=== PATIENT | female | born 1980 | race Caucasian/White ===

== ENCOUNTER 2022-11-27 12:11 | Outpatient (OUT) | payer OTHER, SELFPAY ==
--- NOTE | 2022-11-27 12:21 | MR_ITS ---
The [address] [address] Patient Name: AURELIO TAYLOR MRN: [id number] date: 1980 Sex: F Assigned Patient Location: MRI Current Patient Location: MRI Accession/Order Number: [id number] Exam Date: 11/27/2022 12:45 Report Date: 11/27/2022 16:58 At the request of: NON-STAFF PHYSICIAN Procedure: MR hip RT wo con HISTORY: Chronic right hip pain for the past 5 years becoming worse over the past year. Evaluate for labral tear. MR hip RT wo con: 11/27/2022, 12:45 PM EDT COMPARISON: CT scan of the abdomen and pelvis 03/03/2019. TECHNIQUE: Multiplanar, multisequence MRI images of the pelvis and right hip were obtained without contrast. FINDINGS: The bone marrow signal intensity is age appropriate. There again appear to be postsurgical changes from prior hysterectomy. Within the anterior aspect of the left side of the pelvis there is a complex cystlike focus. This measures 2.4 x 2.9 x 3.3 cm in transverse, AP, and craniocaudal dimension respectively. There again appear to be at least mild degenerative changes of the sacroiliac joints. There is a moderate amount of loculated fluid signal intensity seen along the anterior aspect of the left hip and this appears to be located within the iliopsoas bursa. The images of the right hip demonstrate mild hypoplasia of the acetabulum resulting in mild uncovering of the lateral aspect of the right femoral head. However, no labral tear or significant chondromalacia of the right hip is seen. There is no evidence of avascular necrosis or fracture of the right hip. No trochanteric or iliopsoas bursitis is seen. No gluteal tendinopathy is seen. No muscle edema is identified. MR/MR hip RT wo con IMPRESSION: 1. 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 However, no labral tear or significant chondromalacia of the right hip is seen. 2. There is a complex cystlike focus in the anterior aspect of the left side of the pelvis measuring approximately 2.4 x 2.9 x 3.3 cm. Although this most likely represents the left ovary containing small cysts or follicles, it is nonspecific. As a precautionary measure, a pelvic ultrasound with color Doppler analysis of this finding is recommended for further evaluation. 3. There is a probable moderate iliopsoas bursitis along the anterior aspect of the left hip joint. 4. Mild osteoarthritis of the sacroiliac joints. Electronically authenticated by: TYRONE MICHAUD Date: 11/27/2022 16:58
== END 2022-11-27 12:12 | disposition home or self-care (01) ==
LOC: MRI 12:15
PROVIDERS: PCP Family Medicine
DX: M25.551 Pain in right hip (principal)
CPT/HCPCS: 73721

== ENCOUNTER 2023-02-04 15:43 | Outpatient (RCR) | payer OTHER, SELFPAY | END 2023-03-15 07:48 | disposition home or self-care (01) | LOC: PT 15:43 | PROVIDERS: PCP Family Medicine; Visit Provider Nurse Practitioner Family | DX: M25.512 Pain in left shoulder (principal); S43.422D Sprain of left rotator cuff capsule, subsequent encounter | CPT/HCPCS: 97110; 97140; 97162 ==

== ENCOUNTER 2023-03-11 12:42 | Outpatient (OUT) | payer OTHER, SELFPAY ==
--- NOTE | 2023-03-11 12:51 | US_ITS ---
[address] [address] Patient Name: AURELIO TAYLOR MRN: [id number] date: 1980 Sex: F Assigned Patient Location: Current Patient Location: US Accession/Order Number: [id number] Exam Date: 03/11/2023 12:52 Report Date: 03/11/2023 15:45 At the request of: CHRISTY NOBLE Procedure: US carotid duplex BI EXAMINATION: US carotid duplex BI HISTORY: Dizziness R42 COMPARISON: No relevant comparison available. TECHNIQUE: Duplex Doppler ultrasound analysis of carotid and vertebral arteries. . Bilateral carotid arterial duplex examination was performed using B-mode, color flow and spectral analysis. Carotid stenosis is reported according to validated velocity parameters, similar to NASCET criteria. FINDINGS: RIGHT CAROTID ARTERY: No visible stenosis or significant plaque. RIGHT VERTEBRAL: Antegrade flow. Subclavian: PSV: 97.7 cm/s EDV: 6.7 cm/s CCA: Prox: PSV: 80.9 cm/s EDV: 20.4 cm/s Mid: PSV: 72.1 cm/s EDV: 22.6 cm/s Distal: PSV: 60.0 cm/s EDV: 25.9 cm/s BULB: PSV: 33.5 cm/s EDV: 13.8 cm/s ICA: Prox: PSV: 93.0 cm/s EDV: 46.8 cm/s Mid: PSV: 95.2 cm/s EDV: 39.1 cm/s Distal: PSV: 106.9 cm/s EDV: 44.8 cm/s ECA: PSV: 68.6 cm/s EDV: 13.6 cm/s VERTEBRAL: PSV: 56.3 cm/s EDV: 17.1 cm/s ICA/CCA ratio: PSV: 1.8 EDV: 1.7 LEFT CAROTID ARTERY: No visible stenosis or significant plaque. LEFT VERTEBRAL: Antegrade flow. Subclavian: PSV: 149.6 cm/s EDV: 0.0 cm/s CCA: Prox: PSV: 95.1 cm/s EDV: 27.3 cm/s Mid: PSV: 57.5 cm/s EDV: 20.0 cm/s Distal: PSV: 52.4 cm/s EDV: 17.9 cm/s BULB: PSV: 43.6 cm/s EDV: 20.1 cm/s ICA: Prox: PSV: 53.7 cm/s EDV: 26.7 cm/s Mid: PSV: 84.9 cm/s EDV: 43.5 cm/s Distal: PSV: 105.9 cm/s EDV: 47.8 cm/s ECA: PSV: 82.0 cm/s EDV: 17.1 cm/s VERTEBRAL: PSV: 51.2 cm/s EDV: 18.2 cm/s ICA/CCA ratio: PSV: 2.0 EDV: 2.7 US/US carotid duplex BI IMPRESSION: 1. 0-49% flow stenosis within the right left carotid arteries. No significant atherosclerotic disease. 2. Nonspecific 9 mm TR 3 nodule noted within right thyroid lobe; consider ultrasound evaluation of thyroid if clinically indicated otherwise consider follow-up imaging in one year to document nodule stability. Spectral Doppler US Thresholds Stenosis (%) PSV (cm/sec) VICA/VCCA 0-49 <150 <2.5 50-69 150-225 2.5-4.0 >70 >225 >4.0 Electronically authenticated by: ROSHAN CARDENAS Date: 03/11/2023 15:45
== END 2023-03-11 12:43 | disposition home or self-care (01) ==
LOC: US 12:43
PROVIDERS: PCP Family Medicine; Visit Provider Family Medicine
DX: R42 Dizziness and giddiness (principal)
CPT/HCPCS: 93880

== ENCOUNTER 2023-03-16 09:55 | Outpatient (RCR) | payer OTHER, SELFPAY | END 2023-04-24 16:54 | disposition home or self-care (01) | LOC: PT 09:55 | PROVIDERS: PCP Family Medicine; Visit Provider Nurse Practitioner Family | DX: Z98.890 Other specified postprocedural states (principal); M25.512 Pain in left shoulder | CPT/HCPCS: 97110 ==

== ENCOUNTER 2023-04-07 09:32 | Outpatient (OUT) | payer OTHER, SELFPAY ==
--- OUTSIDE RECORDS SUMMARY | 2023-04-07 09:37 | XMS_ITS | CCD ---
Author Name Unknown Address [address] [place] [address] Organization [facility] Care Team Providers Care 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 Name Role Phone PHYSICIAN, DEFAULT Admitting Unavailable PHYSICIAN, DEFAULT Attending Unavailable PHYSICIAN, DEFAULT Admitting Unavailable PHYSICIAN, DEFAULT Attending Unavailable Shawnee Merida Unavailable CLARE NOBLE K Primary Care Physician [phone] Rumarun Clare Unavailable Rumarun Clare Primary Care Provider Rumschlag, Clare Unavailable Rumschlag Clare Primary Care Provider MISC, DR MILLIGAN Consulting Unavailable MISC, DR MILLIGAN Attending Unavailable MISC, DR MILLIGAN Admitting Unavailable MISC, DR MILLIGAN Primary Care Unavailable ZIEBER, DR ROSHAN Lane Consulting Unavailable APLING, INOCENCIO Vashti Admitting Unavailable APLING, INOCENCIO Vashti Attending Unavailable MISC, DR MILLIGAN Primary Care Unavailable APLING, INOCENCIO Kingston Admitting Unavailable APLING, INOCENCIO Kingston Consulting Unavailable APLING, INOCENCIO Kingston Attending Unavailable MISC, DR MILLIGAN Primary Care Unavailable ADRIAN ANDERSEN Consulting Unavailable TIMMIS, DR LEBLANC Admitting Unavailable TIMMIS, DR LEBLANC Consulting Unavailable TIMMIS, DR LEBLANC Attending Unavailable MISC, DR MILLIGAN Primary Care Unavailable ZIEBER, DR ROSHAN Lane Consulting Unavailable CLARI BETANCOURT Admitting Unavailable ASIACLARI Consulting Unavailable ASIACLARI SAAB Attending Unavailable MISC, DR MILLIGAN Primary Care Unavailable Rumschlalindsey DO, Clare Unavailable Rumarun COLINDRES Clare Primary Care Provider NANCY CANAS Attending Unavailable ALMASCHALEJAG, CLARE Primary Care Unavailable APURVA DOTSON Referring Unavailable RUMSCHLAG, CLARE Primary Care Unavailable HERNÁN MON Attending Unavailable RUMSCHLAG, CLARE Primary Care Unavailable APURVA DOTSON Attending Unavailable LOUISEAPURVA DIETZ Referring Unavailable FLORESITA, NANCY CRUZ Referring Unavailable CANAS, NANCY CRUZ Attending Unavailable RUMSCHLAG, CLARE Primary Care Unavailable AUDREY MELGOZA Attending Unavailable RUMSCHLAG, CLARE Primary Care Unavailable LOUISEAPURVA Referring Unavailable CANAS, NANCY CRUZ Attending Unavailable RUMSCHLAG, CLARE Primary Care Unavailable CANAS, NANCY NANCY Referring Unavailable CANAS, NANCY NANCY Attending Unavailable RUMSCHLAG, CLARE Primary Care Unavailable RUMSCHLAG, CLARE Primary Care Unavailable HERNÁN MON Attending Unavailable CANAS, NANCY NANCY Attending Unavailable RUMSCHLAG, CLARE Primary Care Unavailable RUMSCHLAG, CLARE Primary Care Unavailable HERNÁN MON Attending Unavailable RUMSCHLAG, CLARE Primary Care Unavailable HERNÁN MON Attending Unavailable CANAS, NANCY NANCY Attending Unavailable RUMSCHLAG, CLARE Primary Care Unavailable Fantasma Rockwell Attending Unavailab le Fantasma Rockwell Admitting Unavailab le Rumschlag, Clare Primary Care Unavailable Timmis, Benji H Admitting Unavailable Timmis Benji H Attending Unavailable Timmis, Benji H Referring Unavailable RUMSCHLAG, CLARE Primary Care Unavailable Rumschlag DO, Clare K Primary Care Provider JACQUELYN LI Attending Unavailable RUMSCHLAG, CLARE K Referring Unavailable RUMSCHLAG, CLARE K Primary Care Unavailable NITZASFRANNIEBENJI H Attending Unavailable INOCENCIO GUERRA Attending Unavailable TIMMISBENJI H Attending Unavailable RUMSCHLAG, CLARE Referring Unavailable INOCENCIO GUERRA Attending Unavailable Allergies Allergy Classification Reported Allergen(s) Allergy Type Date of Onset Reaction(s) Facility (18 sources) Acetaminophen / oxyCODONE Drug Allergy 0 anaphylaxis, Swelling [facility] (20 sources) pregabalin; Translations: [PREGABALIN] Drug Allergy 6 anaphylaxis, Swelling [facility] (1 source) Acetaminophen / oxyCODONE Drug Allergy 3 [facility] (1 source) pregabalin Drug Allergy 6 [facility] (2 sources) Acetaminophen / oxyCODONE; Translations: [OXYCODONE-ACETAM INOPHEN] Drug Allergy 0 [facility] (1 source) Acetaminophen Drug Allergy 9 [facility] (1 source) oxyCODONE Drug Allergy 9 [facility] (1 source) pregabalin Drug Allergy 9 [facility] (2 sources) Adhesive Tape-Silicones; Translations: [ADHESIVE TAPE-SILICONES] Propensity to adverse reactions to drug 7 [facility] Medications Current Medications Medication Drug Class(es) Dates Sig (Normalized) Sig (Original) cetirizine hydrochloride 10 mg oral tablet (17 sources) Histamine-1 Receptor Antagonist Start: 12-24-2021 take 1 tablet by mouth once daily as needed cetirizine (ZyrTEC) 10 mg tablet Take 1 tablet (10 mg total) by mouth daily as needed for allergies. 0 01/20/2022 Active Comment on above: TAKE 1 TABLET BY HOLLIS EVERY DAY NEEDED FOR 30 DAYS DULoxetine (1 source) Serotonin and Norepinephrine Reuptake Inhibitor Cymbalta Active nabumetone 500 mg oral tablet (18 sources) Nonsteroidal Anti-inflammatory Drug Start: 07-22-2021 take 1 tablet by mouth twice daily as needed nabumetone (RELAFEN) 500 mg tablet Take 1 tablet (500 mg total) by mouth 2 (two) times a day as needed. 0 07/22/2021 Active Relafen Active Comment on above: Take 500 mg by mouth . tiZANidine (1 source) Central alpha-2 Adrenergic Agonist Zanaflex Active Completed/Discontinued Medications Medication Drug Class(es) Dates Sig (Normalized) Sig (Original) baclofen 20 mg oral tablet (17 sources) gamma-Aminobutyri c Acid-ergic Agonist Start: 12-18-2021 take 1 tablet by mouth twice daily as needed baclofen (LIORESAL) 20 mg tablet TAKE 1 TABLET BY MOUTH TWICE A DAY NEEDED FOR 90 DAYS 0 12/18/2021 Active Start: 09-04-2021 take 2 tablets by mo sch three times daily baclofen (LIORESAL) 10 mg tablet Take 2 tablets (20 mg total) by mouth 3 (three) times a day. 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] Onset: 05-21-2022 Chronic Mood disorders (2 sources) Depressive disorder; Translations: [Depression, unspecified depression type] 09-23-2022 Chronic Other connective tissue disease (2 sources) Spasm; Translations: [Other muscle spasm] Episodic Other connective tissue disease (4 sources) Impingement syndrome of left shoulder; Translations: [IMPINGEMENT SYNDROME LEFT SHOULDER] Onset: 05-07-2022 Episodic Other hereditary and degenerative nervous system conditions (1 source) Functional movement disorder; Translations: [Extrapyramidal and movement disorder, unspecified] Chronic Other hereditary and degenerative nervous system conditions (1 source) Extrapyramidal and movement disorder, unspecified; Translations: [Functional movement disorder] Onset: 05-21-2022 Chronic Other nervous system disorders (1 source) Neuropathy; Translations: [Polyneuropathy, unspecified] Chronic Other nervous system disorders (4 sources) Chronic pain syndrome; Translations: [CHRONIC PAIN SYNDROME] Onset: 08-01-2021 Chronic Other non-traumatic joint disorders (4 sources) Other specific joint derangements of left shoulder, not elsewhere classified; Translations: [OTH SPEC JOINT DERANG LT SHLDR NEC] Onset: 06-12-2022 Chronic Other non-traumatic joint disorders (1 source) Multiple joint pain; Translations: [Pain in unspecified joint] Episodic Other upper respiratory infections (5 sources) Sinusitis; Translations: [Chronic sinusitis, unspecified] Onset: 12-23-2021 Chronic Spondylosis; intervertebral disc disorders; other back problems (9 sources) Degeneration of cervical intervertebral disc; Translations: [Other cervical disc degeneration, unspecified cervical region] Onset: 02-23-2017 Chronic Spondylosis; intervertebral disc disorders; other back problems (9 sources) Chronic neck pain; Translations: [Cervicalgia] Onset: 07-31-2021 Episodic Unclassified (1 source) APPOINTMENT CANCELLED 11-27-2022 Past or Other Problems Problem Classification Problem Date Documented Da te Episodic/Chronic Other connective tissue disease (1 source) Other enthesopathies, not elsewhere classified Onset: 08-13-2021 Resolved: 08-13-2021 Episodic Other nervous system disorders (4 sources) Unspecified abnormal involuntary movements; Translations: [UNS ABNORMAL INVOLUNTARY MOVEMENTS] Onset: 10-30-2021 Episodic Other non-traumatic joint disorders (1 source) Pain in right wrist Onset: 08-13-2021 Resolved: 08-13-2021 Episodic Substance-related disorders (1 source) Smoker; Translations: [Nicotine dependence, unspecified, uncomplicated] Onset: 02-24-2017 Resolved: 02-24-2017 02-24-2017 Chronic Results Test Name Value Interpretation Reference Range Facility CT Maxillofacial w/o Contras ton 02-25-2023 CT Maxillofacial w/o Contrast Exam Date/Time: 02/24/2023 14:53 EST Reason for Exam: J01.90 Report IMPRESSION: NEGATIVE CT MAXILLOFACIAL STUDY. CT MAXILLOFACIAL WITHOUT INTRAVENOUS CONTRAST MEDIUM. History: Bilateral facial pressure. Technical factors: CT maxillofacial was obtained and 2 mm contiguous axial images were obtained through the osseous structures. Sagittal and coronal reconstruction obtained during postprocessing. Comparison: CT maxillofacial, February 03, 2022.. Findings: Bilateral frontal, ethmoid, sphenoid, and maxillary sinuses are patent. Nasal septum midline. Bilateral ostiomeatal complexes patent. Bilateral mastoid air cells well pneumatized. Bilateral ocular globes, extraocular muscles, optic nerves, retrobulbar fat without anomaly. No fracture. No bone lesion. Radiopaque cutaneous marker identified superficial to lateral base right maxillary sinus. All CT scans at this facility use dose modulation, iterative reconstruction, and/or weight based dosing when appropriate to reduce radiation dose to as low as reasonably achievable. Ordering Provider: Benji Tabor FINAL REPORT Dictated: 02/25/2023 11:57 am Rambo Qiu MD Signed (Electronic Signature): 02/25/2023 11:57 am Signed by: Rambo Qiu MD Transcribed by: JOSE Technologist: RAB [facility] Consent for Treatmenton 02-13 Consent for Treatment [id number] 0TIFF [facility] Physician Orderon 02-16-2023 Physician Order [id number] 0TIFF [facility] Physician Orderon 02-13-2023 Physician Order [id number] TIFF [facility] CNPNon 07-03-2022 CNPN Telephone (NREUS2) CHASITY TAYLOR ([id number]) 1980 F Date Time Provider Department 07/03/22 JOCELYN MACHADO NREUS2 During your visit today, we recorded the following information about you: MALLY Pearce 07/03/2022 1:59 PM Signed [facility] SOCIAL WORK CONSULT NOTE Date of service: July 03, 2022 Today's visit includes: Patient - phone call SW received referral to assist pt in FND follow up. RIKKI introduced self and explained role as member of pt's care team who provides linkage to supportive community resources. RIKKI discussed disability and provided information on how to apply. RIKKI encouraged patient to continue PT treatment and psychology treatment to help with FND symptoms. She reports she has been out of work for 15 months and they need help with finances which is the main reason she wishes to apply for social security. 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 Allergies As of Date: 07/03/2022 Noted Allergy Reaction OXYCODONE-ACETAMINOPHE N 01/16/2010 10 - Anaphylaxis 7 - Swelling PREGABALIN 02/22/2016 10 - Anaphylaxis 7 - Swelling Date Reviewed: 05/21/2022 Reviewed by: Jairo Pacheco - Fully Assessed Reason for Visit: Social Work Consultation [[id number]] Prescriptions as of 07/03/2022 - cetirizine (ZYRTEC) 10 mg tablet TAKE 1 TABLET BY MOUTH EVERY DAY NEEDED FOR 30 DAYS - baclofen (LIORESAL) 20 mg tablet TAKE 1 TABLET BY MOUTH TWICE A DAY NEEDED FOR 90 DAYS - nabumetone (RELAFEN) 500 mg tablet Take 500 mg by mouth. Problem List As Of Date: 07/03/2022 (None) Encounter Status:Closed by JOCELYN MACHADO on 07/03/22 Normal [facility] MRI SHOULDER LT WO CONon MRI SHOULDER LT WO CON EXAM: MRI SHOULDER LT WO CON REASON FOR EXAM: Derangement of left shoulder joint. TECHNIQUE: Multiplanar, multisequence imaging of the left shoulder was performed without contrast COMPARISON: None. FINDINGS: The acromioclavicular joint is congruent with minimal joint space narrowing. There is also broad-based thickening and early ossification the distal coracoacromial ligament compatible with developing subacromial spur, which mildly narrows the super space outlet. Small amount of fluid is present in the subacromial and subdeltoid bursa. Mild thickening and intermediate signal involving the supraspinatus and infraspinatus tendons is consistent with tendinosis. Probable low-grade bursal sided fraying central cuff. No tear identified. The teres minor tendon is intact. The subscapularis tendon is mildly thickened with intermediate signal. No tear. The extracapsular biceps tendon is within the bicipital groove. Intracapsular biceps tendon is unremarkable. The rotator cuff musculature is normal. The humerus is centered on the glenoid. The articular cartilage demonstrates low-grade chondrosis. No detached labral tear identified. No joint effusion. The bone marrow signal is without fracture. The cartilage space is patent. No axillary lymphadenopathy. IMPRESSION: 1. Mild rotator cuff tendinosis with low-grade bursal sided fraying. No tear identified. 2. Intact biceps tendon. 3. Developing subacromial spur with mild subacromial/subdeltoid bursitis. 4. Low-grade chondrosis of the glenohumeral cartilage. 5. No detached labral tear identified. Electronically authenticated by: ADRIAN ANDERSEN Date: 2022-06-13 11:42 Normal [facility] 06-04-2022 CNPN Telephone (PHYTMN) CHASITY TAYLOR ([id number]) 1980 F Date Time Provider Department 06/04/22 SANDY ROMAN PHYTMN During your visit today, we recorded the following information about you: Sandy Roman, PT 06/04/2022 5:39 PM Signed Per patient's request, I called and spoke with someone at her local PT office. I was informed they needed a PT order. Faxed the PT order to them at . Transmission report listed as ok. I also called and spoke with patient to inform her of the above. Advised her to call that office if she doesn't hear from them by end of the week, and to let me know if there are any issues with the order. She did not have any other questions. Advised her to have the local PT contact me if they have any questions. Sandy Roman, PT Allergies As of Date: 06/04/2022 Noted Allergy Reaction OXYCODONE-ACETAMINOPHE N 01/16/2010 10 - Anaphylaxis 7 - Swelling PREGABALIN 02/22/2016 10 - Anaphylaxis 7 - Swelling Date Reviewed: 05/21/2022 Reviewed by: Jairo Pacheco - Fully Assessed Reason for Visit: Follow Up [171] Cmt: Local Physical Therapy Prescriptions as of 06/04/2022 - cetirizine (ZYRTEC) 10 mg tablet TAKE 1 TABLET BY MOUTH EVERY DAY NEEDED FOR 30 DAYS - baclofen (LIORESAL) 20 mg tablet TAKE 1 TABLET BY MOUTH TWICE A DAY NEEDED FOR 90 DAYS - nabumetone (RELAFEN) 500 mg tablet Take 500 mg by mouth. Problem List As Of Date: 06/04/2022 (None) Encounter Status:Closed by SANDY ROMAN on 06/04/22 [facility]PHYTMN[facility] CHASITY TAYLOR ([id number]) 1980 F Date Time Provider Department 06/03/22 SANDY ROMAN During your visit today, we recorded the following information about you: Sandy Roman, PT 06/03/2022 5:56 PM Signed Received message to call patient since her evaluating therapist is currently on leave. Called and spoke with her. She has located a local PT department that is willing to work with her but they want the order and PT plan of care before they will see her. She requested I send the information to them. She provided the following contact information: [facility] ([place], [place]) She gave verbal permission to send them PT orders and PT evaluation note. I looked at their website but they are currently closed. I want to call first to confirm what they are seeking before seeing her (i.e. PT order, eval, and/or information about FND). I will get back to her once I talk with them. Sandy Roman, PT Allergies As of Date: 06/03/2022 Noted Allergy Reaction OXYCODONE-ACETAMINOPHE N 01/16/2010 10 - Anaphylaxis 7 - Swelling PREGABALIN 02/22/2016 10 - Anaphylaxis 7 - Swelling Date Reviewed: 05/21/2022 Reviewed by: Jairo Pacheco - Fully Assessed Reason for Visit: Patient Question [3057] Cmt: Question about local PT Prescriptions as of 06/03/2022 - cetirizine (ZYRTEC) 10 mg tablet TAKE 1 TABLET BY MOUTH EVERY DAY NEEDED FOR 30 DAYS - baclofen (LIORESAL) 20 mg tablet TAKE 1 TABLET BY MOUTH TWICE A DAY NEEDED FOR 90 DAYS - nabumetone (RELAFEN) 500 mg tablet Take 500 mg by mouth. Problem List As Of Date: 06/03/2022 (None) Encounter Status:Closed by SANDY ROMAN on 06/03/22 Normal [facility] CNOVon 05-21-2022 CNOV Office Visit (NREUS2 ) CHASITY TAYLOR ([id number]) 1980 F Date Time Provider Department 05/21/22 1:00 PM NANCY CANAS NREUS2 During your visit today, we recorded the following information about you: Pulse Blood pressure 89/minute 102/63 Nancy Canas MD 05/21/2022 2:49 PM Signed [facility] - NEW PATIENT EVALUATION Referring Provider: Apurva Dotson [address] [facility] [address] Primary Care Provider: Clare Noble DO [address] [facility] [address] Dear Apurva Dotson: Thank you for referring Ms. Taylor to our clinic today. As you know she is a 42 year old left-handed female who is seen in consultation for evaluation of functional neurological disorder since . referred by Dr. Dotson She is seen with her . Subjective HISTORY OF PRESENT ILLNESS: Initial HPI Patient is referred by Dr. Apurva Dotson for evaluation of functional movement/neurological disorder. Patient has seen [facility]-psychology virtually, and is scheduled for the neuro visit (this one) and PT visit later today. 2016 - She had extreme neck pain, migraines, tremor in right arm/leg. She was found to have cervical spine disc disease and subsequently underwent cervical spine fusion in 2016 with temporary improvement in the symptoms. She continued to have intermittent kicking movement of the right arm/leg. 2020 - she started to have locking of fingers in left hand. 2021 - Symptoms continued to get worse, she has intermittent speech changes, body shaking, gait difficulty. She has brain fog and memory issues. She shows a video of her gait that appears like a bouncy gait with astasia abasia features. She had brain MRI, EMG which were unremarkable. Her most bothersome symptoms are: 1. Body tremors, hand locking 2. Brain fog PMH: Chronic pain, fibromyalgia, migraine, POTS, depression, anxiety FMH: ADHD and autism (son) Movement Disorders Medications Schedule - as of the start of the visit: Medications Questionnaires In addition, the following areas that may be affected by abnormal involuntary movements were evaluated: Daily activities Difficulties with eating: Yes (slight) Difficulties in dressin (none) Difficulties with hygiene activities: 0 (none) Difficulties with handwritin (none) Difficulties with doing hobbies and other activities: Yes (moderate) Difficulties turning in bed: 0 (none) Difficulties getting out of bed, car or chair: Yes (moderate) Tremors/Gait/Balance Shaking or tremors: Yes (severe) Walking and balance problems: Yes (severe) Number of falls in the Last Month: 25-30 Gait freezin (none) Autonomic/Pain Lightheadeness on standing: Yes (slight) Urinary problems: Yes (mild) Constipation problems: Yes (slight) Pain and other sensations: Yes (moderate) Speech/Swallowing Speech problems: Yes (mild) Droolin (none) Chewing and swallowing problems: 0 (none) Sleep/Fatigue Sleep problems: Yes (slight) Daytime sleepiness: Yes (mild) Fatigue: Yes (slight) Mood/Behavior Depression: PHQ-9 Score: 17 usually representing moderately severe (15-19) depression. Anxiety: SYED-7 Total Score: 15 usually representing severe (>15) anxiety. Finally, the following table shows the patient's overall global physical and mental health using the PROMIS scale: PROMIS-10 Flowsheet [facility] from 04/19/2022 in [facility] Global Physical Health T Score 32.4 Global Mental Health T Score 36.3 0-10 Standard Pain Scale 4 *PROMIS-10 scoring scale: mean = 50, over 50 is above average, under 50 is below average Review of Systems Constitutional: Negative. HENT: Negative. Eyes: Negative. Respiratory: Negative. Cardiovascular: Negative. Gastrointestinal: Negative. Genitourinary: Negative. Hematologic/Lymphatic: Negative. Allergic/Immunologic: Negative. Musculoskeletal: Negative. Skin: Negative. ALLERGIES Allergen Reactions Oxycodone-Acetamino* Anaphylaxis, Swelling Pregabalin Anaphylaxis, Swelling Current Outpatient Medications Medication Sig baclofen (LIORESAL) 20 mg tablet TAKE 1 TABLET BY MOUTH TWICE A DAY NEEDED FOR 90 DAYS nabumetone (RELAFEN) 500 mg tablet Take 500 mg by mouth. cetirizine (ZYRTEC) 10 mg tablet TAKE 1 TABLET BY MOUTH EVERY DAY NEEDED FOR 30 DAYS (Patient not taking: No sig reported) No current facility-administered medications for this visit. Past Medical and Surgical History: has no past medical history on file. has no past surgical history on file. Social History Tobacco Use Smoking status: Every Day Types: Cigarettes Smokeless tobacco: Never Family History: family history is not on file. Objective Vital Signs: BP 102/63 (BP Site: Left Arm, BP Position: Sitting, BP Cuff Size: Regular Adult) Pulse 89 SpO2 97% Orthostatic Vitals: None for this en (more content not included)... 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 [facility] CNPRanda 04-14-2022 CNPN Telephone (NREUS2) CHASITY TAYLOR ([id number]) 1980 F Date Time Provider Department 04/14/22 NANCY CANAS NREUS2 During your visit today, we recorded the following information about you: [facility] [place] Bob 04/14/2022 11:53 AM Signed Patient referred to FMD. Order in [facility]. .[phone] Chasity Glenn 04/14/2022 11:59 AM Signed This patient does not have a Consult to FMD, he has a Consult to Neurology for FMD with Dr. Canas. Is he appropriate for clinic? Katharine Zeng RN 04/14/2022 12:14 PM Signed Ote was triaged and patient is appropriate for FMD clinic. 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 Problem List As Of Date: 04/14/2022 (None) Encounter Status:Closed by JUAN PABLO CESPEDES MD on 04/14/22 [facility] CNOVon 04-11-2022 CNOV Office Visit ([facility] ) CHASITY TAYLOR ([id number]) 1980 F Date Time Provider Department 04/11/22 3:00 PM APURVA DOTSON [facility] During your visit today, we recorded the following information about you: Pulse Blood pressure Weight Height 76/minute 120/79 64 kg 1.575 m Apurva Dotson MD 04/11/2022 6:03 PM Signed [facility] Follow up/ Established patient visit Individuals who were included in, or assisted with the encounter were: Chasity Meneseschika Dotson MD Chief Complaint/Issues: Chasity Taylor is a 41 year old left-handed female seen in the [facility] Neuromuscular [place] for: Multiple symptoms Gait dysfunction. Medical problems: Strabismus C spine surgery Fibromyalgia POTS IBS Most Recent Neurological Assessment and Plan: Last Filed Values Date of Most Recent Assessment and Plan 02/10/22 Specialty Neuromuscular Assessment This is a 41 y/o right handed woman with history of depression/anxiety (SA/SI when 19), strabismus, IBS, constipation, syncope (vasovagal), POTS, fibromyalgia and C spine surgery who presents today for evaluation of multiple symptoms including b/l UE and LE weakness (R>L), paresthesia, neck pain, gait difficulty, muscle spasms, tremors, neck pain, brain fog, facial paresthesia, monocular diplopia (OD), and speech difficulty. She had C spine surgery in 2017 w partial symptom improvement. MRI C spine 2017- moderate central stenosis at C5-C6 and no cord signal abn (Care Everywhere report). Reportedly, she had extensive neurologic work up including MRI brain and whole spine, EMG, lab work. Virtual examination is non focal/non lateralizing. - Multiple neurologic symptoms with reported unrevealing neurologic work up. - Functional neurologic d/o cannot be excluded. Plan Pt will forward neurology notes, lab work, EMG reports. MRI brain, whole spine CD. Further neurologic work up will depend on the above data review. In person follow up. All questions and concerns were addressed during this visit. Apurva Dotson MD Staff, Neurology and Neuromuscular Medicine HPI/Interval History: The patient was seen virtually in 01/2022 for multiple symptoms including b/l UE and LE weakness (R>L), paresthesia, neck pain, gait difficulty, muscle spasms, tremors, neck pain, brain fog, facial paresthesia, monocular diplopia (OD), and speech difficulty. showed me a video of her gait. Astacia abasia type. She had extensive neurologic work up for this (see initial note). She had C spine surgery in 2017 w partial symptom improvement. MRI C spine 2017- moderate central stenosis at C5-C6 and no cord signal abn (Care Everywhere report). LUE EMG 2021 wnl (per OSH neuro note). LE EMG 2017 wnl (per OSH neuro note). EEG 2016 72 hr ambulatory EEG wnl MRI brain 07/2021 - Non specific T2 foci in white matter. General Examination: BP 120/79 Pulse 76 Ht 157.5 cm (5' 2 ) Wt 64 kg (141 lb) BMI 25.79 kg/m? She is alone. General appearance: Awake, alert, interactive, no acute distress, good nutritional status, normal development, well-groomed Skin: Rash: absent Pigmentation: absent HEENT: Head: normocephalic, no dysmorphism Eyes: normal Oropharynx: normal Neck: Movements: free Lymphadenopathy: absent Extremities: Deformity/contracture: absent Distal pulses: present Edema: absent Trophic change: absent Spine: Deformity: absent Heart: Not examined Lungs: Not examined Abdomen: Not examined Neurological Exam Mental Status Alert, fully oriented, attentive, with normal cognition, memory, speech and affect. Cranial Nerves Visual gibson intact. Pupils reactive. Extraocular movements conjugate and full. No ptosis. No nystagmus. Facial sensation intact. Face symmetric and strong. Palate and tongue normal. XI normal. Motor Examination and Coordination Neuromuscular Examination Axial Muscles Ptosis: R: none L: none Face-eye closure: normal Face-mouth closure: normal Neck flexion: 5 Neck extension: 5 Extremity Muscles Upper Extremity Right Left Shoulder abduction 5 5 Elbow flexion 5 5 Elbow extension 5 5 Wrist extension 5 5 Finger flexion/log handler 5 5 Finger extension 5 5 First dorsal interosseous 5 5 Abductor digiti minimi 5 5 Abductor pollicis brevis 5 5 Lower Extremity Right Left Hip flexion 5 5 Knee flexion 5 5 Knee extension 5 5 Ankle plantarflexion 5 5 Ankle dorsiflexion 5 5 Extensor hallucis longus 5 5 Flexor digitorum longus 5 5 Tone (Faith spasticity) UE: Right: A0=normal (none) Left: A0=normal (none) LE: Right: A0=normal (none) Left: A0=normal (none) Finger taps: R: normal L: normal Foot taps: R: normal L: normal Reflexes Deep tendon reflexes graded by MRC Deep Tendon Reflexes Right Left Biceps 2+ 2+ Triceps 2+ 2+ Brachio (more content not included)... [facility] Giovanny 03-26-2022 [place] Telephone ([facility]) CHASITY TAYLOR ([id number]) 1980 F Date Time Provider Department 03/26/22 APURVA DOTSON [facility] During your visit today, we recorded the following information about you: Jermaine Rome 03/26/2022 9:41 AM Signed Outside Imaging Disk received Yes Disc and/or report: 1 Disk and 4 Reports Received from: [place], [place] Body part: XR TANDL-Spine MR CANDL Spine Uploaded 03/26/22 and routed to admin. Disk placed in filing bin and reports put into admin folder Jermaine Rome 03/26/2022 9:41 AM Signed Outside Imaging Disk received Yes Disc and/or report: 1 disk Received from: [facility] Body part: XR TANDL-spine Uploaded 03/26/22 and routed to admin. Disk placed in filing bin. Maame Baltazar 08/20/2022 11:24 AM Signed I have mailed patients imaging back to her. Allergies As of Date: 03/26/2022 Noted Allergy Reaction OXYCODONE-ACETAMINOPHE N 01/16/2010 10 - Anaphylaxis 7 - Swelling PREGABALIN 02/22/2016 10 - Anaphylaxis 7 - Swelling Date Reviewed: 01/31/2022 Reviewed by: Lexy Fagan MA - Fully Assessed Reason for Visit: External Imaging Recieved [Other] Prescriptions as of 08/20/2022 - cetirizine (ZYRTEC) 10 mg tablet TAKE 1 TABLET BY MOUTH EVERY DAY NEEDED FOR 30 DAYS - baclofen (LIORESAL) 20 mg tablet TAKE 1 TABLET BY MOUTH TWICE A DAY NEEDED FOR 90 DAYS - nabumetone (RELAFEN) 500 mg tablet Take 500 mg by mouth. Problem List As Of Date: 03/26/2022 (None) Encounter Status:Closed by JERMAINE ROME on 06/11/22 [facility] CBC W Auto Differential pane l (Bld)on 01-31-2022 Basophils (Bld) [#/Vol] 0.04 10*3/uL <0.11 k/uL [facility] Basophils/100 WBC (Bld) 0.4 % [facility] Differential cell count method Nom (Bld) Auto [facility] Eosinophils (Bld) [#/Vol] 0.08 10*3/uL <0.46 k/uL [facility] Eosinophils/100 WBC (Bld) 0.8 % [facility] Erythrocyte distribution width (RBC) [Ratio] 11.5 % 11.5 - 15.0 % [facility] Hematocrit (Bld) [Volume fraction] 45.9 % 36.0 - 46.0 % [facility] Hemoglobin (Bld) [Mass/Vol] 16.0 g/dL High 11.5 - 15.5 g/dL [facility] Immature granulocytes (Bld) [#/Vol] 0.03 10*3/uL <0.10 k/uL [facility] Immature granulocytes/100 WBC (Bld) 0.3 % [facility] Lymphocytes (Bld) [#/Vol] 2.15 10*3/uL 1.00 - 4.00 k/uL [facility] Lymphocytes/100 WBC (Bld) 20.2 % [facility] MCH (RBC) [Entitic mass] 33.6 pg 26.0 - 34.0 pg [facility] MCHC (RBC) [Mass/Vol] 34.9 g/dL 30.5 - 36.0 g/dL [facility] MCV (RBC) [Entitic vol] 96.4 fL 80.0 - 100.0 fL [facility] Monocytes (Bld) [#/Vol] 0.55 10*3/uL <0.87 k/uL [facility] Monocytes/100 WBC (Bld) 5.2 % [facility] Neutrophils (Bld) [#/Vol] 7.80 10*3/uL High 1.45 - 7.50 k/uL [facility] Neutrophils/100 WBC (Bld) 73.1 % [facility] Nucleated RBC (Bld) [#/Vol] <0.01 k/uL [facility] Nucleated RBC/100 WBC (Bld) [Ratio] 0.0 /100 WBC [facility] Platelet mean volume (Bld) [Entitic vol] 10.2 fL 9.0 - 12.7 fL [facility] Platelets (Bld) [#/Vol] 208 10*3/uL 150 - 400 k/uL [facility] RBC (Bld) [#/Vol] 4.76 10*6/uL 3.90 - 5.2 0 m/uL [facility] WBC (Bld) [#/Vol] 10.65 10*3/uL 3.70 - 11 .00 k/uL [facility] No Panel Informationon 01-31 [facility] XR SINUSES 3 VIEWS OR GREATE [place] 12-23-2021 XR SINUSES 3 VIEWS OR GREATER EXAMINATION: XR SINUSES 3 VIEWS OR GREATER HISTORY: Chronic sinusitis , recurrent infection COMPARISON: No relevant comparison available. FINDINGS: MAXILLARY: Left well-defined margins of the left maxillary sinus. Right suggesting mild mucosal thickening. No fluid levels. ETHMOID: No mucosal thickening or fluid level. FRONTAL: No mucosal thickening or fluid level. SPHENOID: No mucosal thickening or fluid level. OTHER: Negative. IMPRESSION: 1. Suspect mild chronic sinusitis. No evidence of acute sinusitis. Electronically authenticated by: ROSHAN CARDENAS Date: 2021-12-23 16:28 Normal [facility] ALDOLASEon 10-31-2021 Aldolase 3.9 U/L Normal 3.3-10.3 [facility] Comment on above: Performed By: #### A LDOLAS #### [facility] [address] [place] [address] Dr. Ted Mendez TREV COMPREHENSIVE PROFILEon 10-31-2021 Anti-Centromere B Antibodies <0.2 Normal 0.0-0.9 [facility] Comment on above: Performed By: #### A NAPROF #### [facility] [address] [place] [address] Dr. Ted Mendez Anti-DNA (DS) Ab Qn 3 IU/mL Normal 0-9 [facility] Comment on above: Result Comment: Nega tive <5 Equivocal 5 - 9 Positive >9 Performed By: #### A NAPROF #### [facility] [address] [place] [address] Dr. Ted Mendez Anti-Selma-1 <0.2 Normal 0.0-0.9 [facility] Comment on above: Performed By: #### A NAPROF #### [facility] [address] [place] [address] Dr. Ted Mendez Antichromatin Antibodies <0.2 Normal 0.0-0.9 [facility] Comment on above: Performed By: #### A NAPROF #### [facility] [address] [place] [address] Dr. Ted Mendez ANTIRIBOSOMAL P AB <0.2 Normal 0.0-0.9 [facility] Comment on above: Performed By: #### A NAPROF #### [facility] [address] [place] [address] [address] Ted Mendez Antiscleroderma-70 Antibodies <0.2 Normal 0.0-0.9 [facility] Comment on above: Performed By: #### A CLARA #### [facility] [address] [place], [place] [address] Dr. Ted Mendez COMMENT Comment Normal [facility] Comment on above: Result Comment: Auto antibody Disease Association Condition Frequency Antinuclear Antibody, SLE, mixed connective Direct (TREV-D) tissue diseases dsDNA SLE 40 - 60% Chromatin Drug induced SLE 90% SLE 48 - 97% SSA (Ro) SLE 25 - 35% Sjogren's Syndrome 40 - 70% Lupus 100% SSB (La) SLE 10% Sjogren's Syndrome 30% Sm (anti-Grande) SLE 15 - 30% TEXTILE CONVERTER Mixed Connective Tissue Disease 95% (U1 nRNP, SLE 30 - 50% anti-ribonucleoprotein) Polymyositis and/or Dermatomyositis 20% Scl-70 (antiDNA Scleroderma (diffuse) 20 - 35% topoisomerase) Crest 13% Selma-1 Polymyositis and/or Dermatomyositis 20 - 40% Centromere B Scleroderma - Crest variant 80% Ribosomal P SLE 10 - 20% Performed By: #### A CHANDRAKANTROF #### [facility] [address] [place] [address] [address] Ted Mendez TEXTILE CONVERTER Antibodies 1.8 AI Critically high 0.0-0.9 [facility] Comment on above: Performed By: #### A NAPROF #### [facility] [address] [address] [address] Ted Mendez Sjogren's Anti-SS-A <0.2 Normal 0.0-0.9 [facility] Comment on above: Performed By: #### A NAPROF #### [facility] [address] [place] [address] Dr. Ted Mendez Sjogren's Anti-SS-B <0.2 Normal 0.0-0.9 [facility] Comment on above: Performed By: #### A NAPROF #### [facility] [address] [place] [address] Dr. Ted Mendez Grande Antibodies <0.2 Normal 0.0-0.9 [facility] Comment on above: Performed By: #### A NAPROF #### [facility] [address] [place] [address] Dr. Ted Mendez Grande/TEXTILE CONVERTER Antibodies <0.2 Normal 0.0-0.9 [facility] Comment on above: Performed By: #### A NAPROF #### [facility] [address] [place] [address] Dr. Ted Mendez CPKon 10-30-2021 CK [Catalytic activity/Vol] 37 U/L Normal 26-192 [facility] Comment on above: Performed By: #### C K, CRP, FRIEDA #### [facility] [address] [place] [address] Dr. Ted Mendez CRPon 10-30-2021 CRP [Mass/Vol] mg/L Normal <=1.0 [facility] Comment on above: Performed By: #### C K, CRP, FRIEDA #### [facility] [address] [place] [address] Dr. Ted Mendez MYOGLOBINon 10-30-2021 FRIEDA 22 ng/mL Normal 9-82 [facility] Comment on above: Performed By: #### C K, CRP, FRIEDA #### [facility] [address] [place] [address] Dr. Ted Mendez SED RATE WESTERGRENon 2021 SED RATE <1 Normal <=20 [facility] Comment on above: Performed By: #### S EDR #### [facility] [address] [address] [address] Ted Mendez XR LSPINE MIN 4 VIEWSon 07-14 XR LSPINE MIN 4 VIEWS EXAMINATION: XR TSPINE 3 VIEWS, XR LSPINE MIN 4 VIEWS HISTORY: Chronic pain syndrome COMPARISON: XR thoracic spine 06/04/2018 FINDINGS: BONES: Anterior mechanical stabilization of C5-6. Slight left convex curvature thoracic spine and slight right convex curvature lumbar spine; no significant spondylosis, fracture, or visible bony lesion. DISC SPACES: Mild narrowing L5-S1. PARASPINOUS: Negative. No paraspinous abnormality is seen. OTHER: Negative. IMPRESSION: 1. No acute bone abnormality. 2. L5-S1 mild degenerative disc disease. 3. Slight curvature of the thoracic lumbar spine, well below criteria for scoliosis. Electronically authenticated by: ROSHAN CARDENAS Date: 2021-08-01 15:07 Normal [facility] MRI Cervical Spine w/oon MRI Cervical Spine w/o HISTORY: Neck pain, left arm numbness and tingling, right arm weakness, prior surgery (2016) PROCEDURE: Gym[employer] HDXT 1.5. Sagittal T1, T2, STIR and axial T1 and T2 images through the cervical spine were performed without contrast administration. FINDINGS: Normal cervical vertebral body height and alignment. C5/6 anterior plate screw fusion hardware, intervertebral disc spacer. No bone marrow edema or significant soft tissue inflammation. Low lying cerebellar tonsils, normal morphology. Normal ellie, midbrain, medulla and spinal cord. No syrinx formation. C1/2 - C2/3: Normal. C3/4: Normal disc volume. Mild central disc bulging. No spinal canal or neural foraminal stenosis. C4/5: Normal disc volume. Broad base central disc herniation (3 x 10 mm AP by transverse diameter) occupies the anterior CSF space, minimal deformity of the spinal cord (AP diameter of the spinal canal 8 mm). No significant neural foraminal stenosis. C5/6: Fused segment. No spinal canal or neural foraminal stenosis. C6/7: Normal disc volume. No disc herniation, spinal canal or neural foraminal stenosis. C7/T1 - T3/4: Normal. IMPRESSION: 1. C4/5 central disc herniation, mild canal stenosis. 2. C5/6 fusion, normal alignment. 3. No osseous or soft tissue inflammation. Report reported and signed by Tommy Duenas on 05/21/2021 1146 Normal [facility] Vital Signs Date Time Vital Sign Value Performing Clinician Facility 03-18-2023 13:53-0500 Diastolic blood pressure 76 mm[Hg] Jacquelyn Verhoff PA-C Work Phone: [facility] 03-18-2023 13:53-0500 Heart rate 77 /min Jacquelyn Verhoff PA-C Work Phone: [facility] 03-18-2023 13:53-0500 Respiratory rate 20 /min Jacquelyn Verhoff PA-C Work Phone: [facility] 03-18-2023 13:53-0500 Systolic blood pressure 122 mm[Hg] Jacquelyn Verhoff PA-C Work Phone: [facility] 05-21-2022 12:46-0500 Diastolic blood pressure 63 mm[Hg] Nancy Canas MD Work Phone: [facility] 05-21-2022 12:46-0500 Heart rate 89 /min Nancy Canas MD Work Phone: [facility] 05-21-2022 12:46-0500 SaO2% (BldA) [Mass fraction] 97 % Nancy Canas MD Work Phone: [facility] 05-21-2022 12:46-0500 Systolic blood pressure 102 mm[Hg] Nancy Canas MD Work Phone: [facility] 04-11-2022 14:59-0500 Body height 157.5 cm Apurva Dotson MD Work Phone: [facility] 04-11-2022 14:59-0500 Body weight 63.96 kg Apurva Dotson MD Work Phone: [facility] 04-11-2022 14:59-0500 Diastolic blood pressure 79 mm[Hg] Apurva Dotson MD Work Phone: [facility] 04-11-2022 14:59-0500 Heart rate 76 /min Apurva Dotson MD Work Phone: [facility] 04-11-2022 14:59-0500 Systolic blood pressure 120 mm[Hg] Apurva Dotson MD Work Phone: [facility] 01-31-2022 11:13-0500 Body height 158.5 cm Lissette Shirley MD Work Phone: [facility] 01-31-2022 11:13-0500 Body weight 66.18 kg Lissette Shirley MD Work Phone: [facility] 01-31-2022 11:13-0500 Diastolic blood pressure 68 mm[Hg] Lissette Shirley MD Work Phone: [facility] 01-31-2022 11:13-0500 Heart rate 84 /min Lissette Shirley MD Work Phone: [facility] 01-31-2022 11:13-0500 Systolic blood pressure 125 mm[Hg] Lissette Shirley MD Work Phone: [facility] 08-13-2021 11:40-0400 Body height 158.75 cm [facility] Other [place] Other 08-13-2021 11:40-0400 Body mass index (BMI) [Ratio] 23.04 kg/m2 [facility] Other [facility] Other 08-13-2021 11:40-0400 Body temperature 98.8 [degF] [facility] Other [facility] Other 08-13-2021 11:40-0400 Body weight 58.06 kg [facility] Other [place] Other 08-13-2021 11:40-0400 Diastolic blood pressure 74 mm[Hg] [facility] Other [place] Other 08-13-2021 11:40-0400 Respiratory rate 18 /min [facility] Other [place] Other 08-13-2021 11:40-0400 SaO2% (BldA) [Mass fraction] 99 % [facility] Other [place] Other 08-13-2021 11:40-0400 Systolic blood pressure 116 mm[Hg] [facility] Other [place] Other Encounters Encounter Date Encounter Type Care Provider Facility Start: 03-25-2023 End: 03-25-2023 ambulatory BENJI Kahn JOSHJORGEAndrew Not Available Start: 03-18-2023 End: 03-18-2023 ambulatory [facility] Start: 03-18-2023 End: 03-18-2023 Office outpatient visit 25 minutes [facility] ASPEN Work Phone: [facility] Comment on above: Cervical spondylosis without myelopathy (Primary Dx) Start: 03-04-2023 End: 03-04-2023 ambulatory INOCENCIO B APLING Not Available Start: 02-24-2023 End: 02-25-2023 ambulatory Benji Tabor Facility:[facility] Start: 02-24-2023 End: 02-24-2023 Patient encounter procedure [facility] Start: 02-14-2023 End: 02-14-2023 ambulatory NANCY CANAS Facility:[facility] Start: 02-14-2023 End: 02-14-2023 [facility] Nancy Canas MD Work Phone: [facility] Comment on above: Functional neurologi suresh symptom disorder with mixed symptoms (Primary Dx) Start: 01-28-2023 End: 01-28-2023 ambulatory INOCENCIO B APLING Not Available Start: 01-26-2023 End: 01-26-2023 ambulatory BENJI TABOR Not Available Start: 12-11-2022 ambulatory Fantasma Cole acility:[facility] Start: 11-27-2022 End: 11-27-2022 ambulatory NANCY NANCY FLORESITA Facility:[facility] Start: 11-27-2022 End: 11-27-2022 Unlisted evaluation and management service Nancy Canas MD Work Phone: [facility] Comment on above: APPOINTMENT CANCELLE D (Primary Dx) Start: 11-13-2022 End: 11-13-2022 ambulatory NANCY CANAS Facility:[facility] Start: 11-13-2022 End: 11-13-2022 Office outpatient visit 15 minutes Nancy Canas MD Work Phone: [facility] Comment on above: Chronic low back matilde n, unspecified back pain laterality, unspecified whether sciatica present (Primary Dx); Chronic neck pain; Functional neurological symptom disorder with mixed symptoms Start: 10-25-2022 End: 10-25-2022 [facility] [employer] Hernán Mon PhD Work Phone: [facility] Comment on above: Functional neurologi suresh symptom disorder with mixed symptoms (Primary Dx); Anxiety; Depression, unspecified depression type Start: 09-25-2022 End: 09-25-2022 ambulatory NANCY CANAS Facility:[facility] Start: 09-25-2022 End: 09-25-2022 Office outpatient visit 15 minutes Nancy Canas MD Work Phone: [facility] Comment on above: Functional neurologi suresh symptom disorder with mixed symptoms (Primary Dx) Start: 09-23-2022 End: 09-23-2022 ambulatory CLARE LBLindsey Facility:[facility] Start: 09-23-2022 End: 09-23-2022 [employer] [place] Hernán Mon PhD Work Phone: [facility] Comment on above: Functional neurologi suresh symptom disorder with mixed symptoms (Primary Dx); Anxiety; Depression, unspecified depression type Start: 07-26-2022 End: 07-26-2022 [facility] [employer] Hernán Mon PhD Work Phone: [facility] Comment on above: Functional neurologi suresh symptom disorder with mixed symptoms (Primary Dx) Start: 07-03-2022 End: 07-03-2022 Telephone encounter Jocelyn BAL Work Phone: [facility] Comment on above: Social Work Consulta tion Functional neurologi suresh symptom disorder with mixed symptoms (Primary Dx) Start: 07-03-2022 End: 07-03-2022 ambulatory NANCY CANAS Facility:[facility] Start: 07-03-2022 End: 07-03-2022 Telemedicine consultation with patient Nancy Canas MD Work Phone: [facility] Start: 06-21-2022 ambulatory Hernán Mon Ph D Work Phone: [facility] Comment on above: Group therapy Start: 06-12-2022 End: 06-13-2022 ambulatory INOCENCIO B APLING Facility: Start: 05-21-2022 End: 05-21-2022 ambulatory AUDREY MELGOZA Facility:[facility] Start: 05-21-2022 End: 05-21-2022 ambulatory Audrey Melgoza PT Work Phone: [facility] Start: 05-21-2022 End: 05-21-2022 Patient encounter procedure Nancy Canas MD Work Phone: [facility] Comment on above: Functional neurologi suresh symptom disorder with mixed symptoms Start: 05-07-2022 End: 05-13-2022 ambulatory INOCENCIO B APLING Facility: Start: 04-19-2022 End: 04-19-2022 ambulatory CLARE RUMSCHLAG Facility:[facility] Start: 04-14-2022 Telephone encounter Nancy Canas MD Work Phone: [facility] Comment on above: FMD referral Start: 04-11-2022 End: 04-11-2022 ambulatory CLARE RUMSCHLAG Facility:[facility] Start: 04-11-2022 End: 04-11-2022 Patient encounter procedure Apurva Dotson MD Work Phone: Neurology Comment on above: Functional movement disorder (Primary Dx) Start: 02-07-2022 End: 02-07-2022 ambulatory Lissette Shirley MD Work Phone: Rheumatology Comment on above: Muscle spasm (Primar y Dx); Lumbar spondylosis; Neuropathy Start: 02-07-2022 End: 02-07-2022 Telemedicine consultation with patient Lissette Shirley MD Work Phone: [facility] [facility] Start: 02-03-2022 End: 02-03-2022 Patient encounter procedure Benji [facility] Start: 01-31-2022 End: 01-31-2022 Patient encounter procedure Lissette Shirley MD Work Phone: Rheumatology Comment on above: Muscle spasm (Primar y Dx); Pain in joint, multiple sites; Lumbar spondylosis; Neck pain, chronic Start: 12-25-2021 End: 01-24-2022 Pre-admission assessment [facility] Start: 12-23-2021 End: 12-24-[address] BENJI TABOR Facility:[facility] Start: 10-30-2021 End: 10-31-2021 ambulatory CLARI BETANCOURT Facility:[facility] Start: 08-13-2021 End: 08-13-2021 ambulatory [facility] Merida Other [place] [facility] Start: 08-13-2021 Office outpatient vi sit 15 minutes Shawnee Merida [facility] Start: 08-01-2021 End: 08-02-[address] DOCTOR FARMER Facility:[facility] Start: 07-08-2018 End: 07-09-2018 Patient encounter procedure DEFAULT PHYSICIAN Facility:[facility] Start: 10-19-2017 End: 10-20-2017 Patient encounter procedure DEFAULT PHYSICIAN Facility:[facility] Plan of Treatment Date Care Activity Detail Author Start: 03-18-2024 [facility] Start: 12-18-2023 Adult [facility] Start: 05-27-2023 End: 05-27-2023 Patient encounter procedure 05/27/2023 3:00 PM EDT Office Visit [facility] [address] [place] [id number] Jacquelyn Li, ASPEN [address] [place] [address] [facility] Start: 04-24-2023 End: 04-24-2023 Admission to same day surgery center 04/24/2023 10:15 AM EST - 04/24/2023 10:26 AM EST Surgery [facility] [address] [place] [phone] Nazario Vaca [facility] [address] [facility] [place] [id number] RADIOFREQUENCY ABLATION SPINAL Left C 4/5, 6/7 [27463 (CPT )] [facility] Comment on above: RADIOFREQUENCY ABLAT ION SPINAL Left C 4/5, 6/7 [56463 (CPT )] Start: 04-24-2023 End: 04-24-2023 Dstr nrolytc agnt parverteb fct sngl crvcl/thora RADIOFREQUENCY ABLATION SPINAL Cervical spondylosis without myelopathy 04/24/2023 10:15 AM EST [facility] Start: 04-24-2023 Subsequent hospital visit by physician 04/24/2023 10:15 AM EST Hospital Encounter [facility] [address] [place] [phone] Nazario Vaca MD [address] [facility] [place], [place] [phone] [facility] Start: 04-10-2023 End: 04-10-2023 Admission to same day surgery center 04/10/2023 9:41 AM EST - 04/10/2023 9:52 AM EST Surgery [facility] [address] [place] [phone] Nazario Vaca MD [address] [place] [id number] RADIOFREQUENCY ABLATION SPINAL right C 4/5 6/7 [42152 (CPT )] [facility] Comment on above: RADIOFREQUENCY ABLAT ION SPINAL right C 4/5 6/7 [61656 (CPT )] Start: 04-10-2023 End: 04-10-2023 Dstr nrolytc agnt parverteb fct sngl crvcl/thora RADIOFREQUENCY ABLATION SPINAL Cervical spondylosis without myelopathy 04/10/2023 9:41 AM EST [facility] Start: 04-10-2023 Subsequent hospital visit by physician 04/10/2023 9:41 AM EST Hospital Encounter [facility] [address] [place] [phone] Nazario Vaca MD [address] [place] [id number] [facility] Start: 11-14-2022 Influenza vaccination [facility] Start: 2022 [facility] Start: 03-16-2022 DEPRESSION ASSESSMENT DEPRESSION ASS ESSMENT [facility] Start: 01-31-2022 End: 04-02-2022 Alanine aminotransferase [Enzymatic activity/volume] in Serum or Plasma [facility] Work Phone: Comment on above: Expected: 01/31/2022 , Expires: 04/02/2022 Start: 01-31-2022 End: 04-02-2022 Aldolase [Enzymatic activity/volume] in Serum or Plasma [facility] Work Phone: Comment on above: Expected: 01/31/2022 , Expires: 04/02/2022 Start: 01-31-2022 End: 01-18-2023 Aspartate aminotransferase [Enzymatic activity/volume] in Serum or Plasma [facility] Work Phone: Comment on above: Expected: 01/31/2022 , Expires: 04/02/2022 Start: 01-31-2022 End: 04-02-2022 C reactive protein [Mass/volume] in Serum or Plasma [facility] Work Phone: Comment on above: Expected: 01/31/2022 , Expires: 04/02/2022 Start: 01-31-2022 End: 04-02-2022 Creatine kinase [Enzymatic activity/volume] in Serum or Plasma [facility] Work Phone: Comment on above: Expected: 01/31/2022 , Expires: 04/02/2022 Start: 01-31-2022 End: 04-02-2022 CREATININE BLD [facility] Work Phone: Comment on above: Expected: 01/31/2022 , Expires: 04/02/2022 Start: 01-31-2022 End: 04-02-2022 Cyclic citrullinated peptide IgG Ab [Units/volume] in Serum or Plasma [facility] Work Phone: Comment on above: Expected: 01/31/2022 , Expires: 04/02/2022 Start: 01-31-2022 End: 04-02-2022 Erythrocyte sedimentation rate [facility] Work Phone: Comment on above: Expected: 01/31/2022 , Expires: 04/02/2022 Start: 01-31-2022 End: 04-02-2022 Extractable nuclear Ab panel - Serum [facility] Work Phone: Comment on above: Expected: 01/31/2022 , Expires: 04/02/2022 Start: 01-31-2022 End: 04-02-2022 Nuclear Ab [Presence] in Serum by Immunoassay [facility] Work Phone: Comment on above: Expected: 01/31/2022 , Expires: 04/02/2022 Start: 01-31-2022 End: 04-02-2022 Rheumatoid factor [Units/volume] in Serum or Plasma [facility] Work Phone: Comment on above: Expected: 01/31/2022 , Expires: 04/02/2022 Start: 01-31-2022 End: 04-02-2022 Urea nitrogen [Mass/volume] in Serum or Plasma [facility] Work Phone: Comment on above: Expected: 01/31/2022 , Expires: 04/02/2022 Start: 11-14-2021 Influenza vaccination INFLUENZA (#1) [facility] Start: 03-16-2021 DEPRESSION ASSESSMENT DEPRESSION ASS ESSMENT [facility] Start: 2012 HPV TESTING HPV TESTING [facility] Start: 2003 PAP TESTING PAP TESTING [facility] Start: 2001 DTaP,Tdap and Td Vac cines (1 - Tdap) DTaP,Tdap and Td Vaccines (1 - Tdap) [facility] Start: 2001 Urine microalbumin profile [facility] Start: 2000 Adult BMI Follow Up Plan Adult BMI Follow Up Plan [facility] Start: 2000 HEPATITIS C SCREENING HEPATITIS C SC REENING [facility] Start: 2000 HIV SCREENING HIV SCREENING [facility] Start: 1994 Depression Screening Depression Scre ening [facility] Start: 1988 PNEUMOCOCCAL (1 - PCV) PNEUMOCOCCAL (1 - PCV) [facility] Start: 1988 Pneumococcal vaccination Pneum ococcal Vaccine (1 - PCV) [facility] Start: 1982 COVID-19 VACCINE (#1) COVID-19 VACCI NE (#1) [facility] Start: 1982 HEPATITIS B (1 of 3 - 3-dose series) HEPATITIS B (1 of 3 - 3-dose series) [facility] Start: 1982 Hepatitis B Vaccine (1 of 3 - 3-dose series) Hepatitis B Vaccine (1 of 3 - 3-dose series) [facility] Start: 1982 Tobacco Counseling Tobacco Counselin lindsey [facility] Immunizations Immunization Date Immunization Notes Care Provider Ethan iqbal 12-08-2014 influenza virus vacc ine, unspecified formulation Nancy Canas MD Work Phone: [facility] Payers Date Payer Category Payer Self-pay 2021 Private Health Insurance [id number] 1980 Unknown [id number] [id number] 1980 Unknown [id number] 2.16.8 [id number] 1982 Unknown [id number] 2.16.84 [id number] 1982 Unknown [id number] 2.16.84 [id number] 1982 Unknown [id number] 2.16.84 [id number] 1982 Unknown [id number] 2.16.84 [id number] 1982 Unknown [id number] 2.16.84 [id number] 1982 Unknown [id number] 2.16.8 [id number] 1982 Unknown [id number] 2.16.84 [id number] 1982 Unknown [id number] 2.16.84 [id number] 1982 Unknown [id number] 2.16.840 .[id number] 1982 Unknown [id number] 2.16.840. [id number] 1982 Unknown [id number] 2.16.840. [id number] 1959 Private Health Insurance [id number] Unknown Unknown [id number] 2.16.8 [id number] Social History Date Type Detail Facility Unknown if ever smoked [facility] Start: 04-26-2020 End: 05-21-2022 Sex Assigned At [facility] Tobacco smoking status No Smokin g Status Entered [facility] Start: 01-31-2022 Tobacco smoking stat [facility] Smokes tobacco daily [facility] History of tobacco use Cigarette Smoker [facility] Start: 01-17-2022 End: 01-31-2022 Tobacco use and exposure Smokeless tobacco non-user [facility] Start: 1980 Sex Assigned At Not on file [facility] Start: 01-21-2022 End: 01-31-2022 Exposure to SARS-CoV-2 (event) Not sure [facility] Start: 04-26-2020 End: 05-21-2022 History of Social function [facility] Adult Depression Screening Assessment 1 [facility] Start: 01-17-2022 Tobacco smoking stat [facility] Heavy tobacco smoker [facility] Start: 03-18-2023 Alcohol intake Current non-dr appellate law clerk of alcohol (finding) [facility] Medical Equipment Procedure Code Equipment Code Equipment Origin al Text Equipment Identifier Dates Implant Babsr Lg Bvn At Dlv Dev Bioinductive Impl Regeneten - Sna - [id number] Start: 12-17-2022 [place] Sut Regen eten Tndn Rotr Cuf Repr - Sna - [id number] Start: 12-17-2022 Plt Ant Cerv Xte nd 1-Lev 10 - [id number] Start: 02-24-2017 Scr Xtend 4.2x14 mm Vasd - [id number] Start: 02-24-2017 Vikos Cortico-Cancellous [id number] Start: 02-24-2017 Clinical Notes 08-13-2021 to 03-18-2023 Jacquelyn Li PA-C - 03/18/2023 2:00 PM ESTPatient Nancy Clarke MD - 02/14/2023 10:44 AM Nancy Lock MD - 11/27/2022 9:56 AM Nancy Fletcher MD - 11/13/2022 2:02 PM EDT Note Date & Type Note Facility 03-18-2023 History of Presen t illness Narrative [facility] [address] [place] [address] Patient: Chasity Taylor Sex: female : 1980 Age: 42 y.o. PCP: CLARE NOBLE, 03/18/2023 Chasity Taylor is here for a(n) follow up. She reports increased pain in her neck. Chief Complaint Patient presents with Back Pain HPI: Back: 11/15/21 Caudal with 60% relief of back pain and 75-80% relief of leg pain. She reports significant improvement in physical activity . Caudal 12/13/2021 50% relief. 10/03/2022 caudal with 90-100% relief continuing Neck: 01/17/22 Right C4, 5NRI with 50% relief and significant improvement in arm numbness reported. 02/21/22 Oscar C 4/5, 6/7 MBB with 75% relief for 3 hours then return to baseline after 6 hours. 05/16/22 Right C 4/5 6/7 RFA with 100% relief of pain 05/30/22 Left C 4/5 6/7 RFA with 100% relief of pain 04/25/2022 Bilateral C4/5, 6/7 MBB with 85% relief x2 hours Back Pain This is a chronic problem. The current episode started more than 1 year ago (started worsening significantly in 2017). The problem occurs intermittently. The problem has been gradually worsening since onset. The pain is present in the gluteal, lumbar spine and sacro-iliac (Right side worse then left). The quality of the pain is described as cramping (locked up feeling). The pain radiates to the right thigh. Pain scale: 2/10 now but increases to 5-6/10. The pain is mild. The pain is Worse during the day. The symptoms are aggravated by standing (sitting, standing, stairs, lifting, lying, pushing/pulling, cough/sneeze, transitioning, cold, ambulation ). Stiffness is present In the morning, all day and at night (and evening ). Associated symptoms include headaches (headaches and nausea 2-3 times a month.), leg pain (right leg, right hip), numbness (bilateral shoulders) and weakness (BLE- w/c to appt). Pertinent negatives include no abdominal pain, bladder incontinence, bowel incontinence, chest pain, fever or tingling. Risk factors include sedentary lifestyle, poor posture, lack of exercise and history of steroid use. She has tried ice, heat, muscle relaxant and home exercises (Robaxin, baclofen, prednisone,NSAIDs x2 (ibuprofen/naproxen), tramadol (in past), cymbalta, zanaflex, relafen; lidocaine patch, biofreeze, aspercream, voltaren gel, HEP. prev injections) for the symptoms. The treatment provided mild relief. Neck Pain This is a chronic problem. The current episode started more than 1 year ago. The problem occurs constantly. The problem has been unchanged. The pain is associated with nothing (protruding disc). The pain is present in the midline, right side and left side (bilateral shoulders). The quality of the pain is described as aching, shooting, stabbing, cramping and burning (pressure ). Pain scale: 2/10 but increases to 4-5/10. The pain is moderate. The symptoms are aggravated by position. The pain is Same all the time (depends on activity). Stiffness is present: varies. Associated symptoms include headaches (headaches and nausea 2-3 times a month.), leg pain (right leg, right hip), numbness (bilateral shoulders) and weakness (BLE- w/c to appt). Pertinent negatives include no chest pain, fever, pain with swallowing, photophobia, tingling, trouble swallowing or visual change. Associated symptoms comments: C/o pain to neck into bilat shoulders. States lots of pressure that causes dizziness and nausea. Pain goes into lumbar . Treatments tried: Robaxin, baclofen, prednisone,NSAIDs x2 (ibuprofen/naproxen), tramadol (in past), cymbalta, zanaflex, relafen; lidocaine patch, biofreeze, aspercream, voltaren gel, HEP. The treatment provided significant relief. The effect of pain on patient's ADLS: Moderate Impairment. 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), with abnormal movement GERD (gastroesophageal reflux disease) not on medications IBS (irritable bowel syndrome) Insomnia Left rotator cuff tear Lower back pain Neck pain Numbness and tingling right leg and right hand dt neck issues Panic disorder no mediations POTS (postural orthostatic tachycardia syndrome) Tremors of nervous system Urinary frequency Urinary urgency Visual impairment suppose to wear glasses but doesn't Past Surgical History: Procedure Laterality Date ARTHROSCOPY REPAIR ROTATOR CUFF SHOULDER Left 12/17/2022 Performed by Tobias Daniel DO at [facility] BREAST AUGMENTATION REMOVAL SECTION x2 DISKECTOMY CERVICAL FUSION [id number] Bilateral Circumferential 02/24/2017 Performed by Costa Lozano MD at [facility] ENDOMETRIAL ABLATION W/ NOVASURE x3 (2009, 2012, 2016) HYSTERECTOMY INJECTION BLOCK EPIDURAL CAUDAL STEROID N/A 10/03/2022 Performed by Nazario Vaca MD at [facility] INJECTION BLOCK EPIDURAL CAUDAL STEROID N/A 12/13/2021 Performed by Nazario Vaca MD at [facility] INJECTION BLOCK EPIDURAL CAUDAL STEROID N/A 11/15/2021 Performed by Nazario Vaca MD at [facility] INJECTION BLOCK NERVE MEDIAL BRANCH Bilat C 4/5 & 6/7 Bilateral 04/25/2022 Performed by Nazario Vaca MD at [facility] INJECTION BLOCK NERVE MEDIAL BRANCH Bilat C 4/5 & 6/7 Bilateral 02/21/2022 Performed by Nazario Vaca MD at [facility] INJECTION SPINE TRANSFORAMINAL Right C 4,5 Nroot Right 01/17/2022 Performed by Nazario Vaca MD at [facility] RADIOFREQUENCY ABLATION SPINAL Left C 4/5 _ 6/7 Left 05/30/2022 Performed by Nazario Vaca MD at [facility] RADIOFREQUENCY ABLATION SPINAL Right C 4/5 & 6/7 Right 05/16/2022 Performed by Nazario Vaca MD at [facility] RESECTION DISTAL CLAVICLE Left 12/17/2022 Performed by Tobias Daniel DO at [place] [facility] Allergies Allergen Reactions Lyrica [Pregabalin] Swelling Percocet [Oxycodone-Acetaminophen] Swelling Adhesive Tape-Silicones Rash Sensitive skin redness and irritation at site of use Family History Problem Relation Age of Onset Cancer Mother Heart disease Mother Hyperlipidemia Father Heart disease Father Anesthesia problems Brother states brother coded during a knee surgery not sure why Social History Socioeconomic History Marital status: Spouse name: Not on file Number of children: Not on file Years of education: Not on file Highest education level: Not on file Occupational History Not on file Tobacco Use Smoking status: Heavy Smoker Packs/day: 1.50 Years: 18.00 Additional pack years: 0.00 Total pack years: 27.00 Types: Cigarettes Smokeless tobacco: Never Vaping Use Vaping Use: Never used Substance and Sexual Activity Alcohol use: No Drug use: No Sexual activity: Yes Partners: Male control/protection: None Other Topics Concern Not on file Social History Narrative Not on file Social Determinants of Health Financial Resource Strain: Not on file Food Insecurity: No Food Insecurity (03/18/2023) Hunger Screening Food Insecurity - Worry: Never True Food Insecurity - Inability: Never True Transportation Needs: Not on file Physical Activity: Not on file Stress: Not on file Social Connections: Not on file Interpersonal Safety: Not on file Review of Systems Constitutional: Negative. Negative for chills and fever. HENT: Negative. Negative for congestion, rhinorrhea, sore throat and trouble swallowing. Eyes: Negative. Negative for photophobia. Respiratory: Negative. Negative for cough and shortness of breath. Cardiovascular: Negative. Negative for chest pain. Gastrointestinal: Positive for nausea. Negative for abdominal pain, bowel incontinence and vomiting. Endocrine: Negative. Genitourinary: Negative. Negative for bladder incontinence. Musculoskeletal: Positive for back pain and neck pain. Skin: Negative for rash and wound. Allergic/Immunologic: Negative. Neurological: Positive for weakness (BLE- w/c to appt), numbness (bilateral shoulders) and headaches (headaches and nausea 2-3 times a month.). Negative for tingling. Hematological: Negative. Psychiatric/Behavioral: Negative. Vital Signs: BP 122/76 (BP Site: Right Arm, BP Postition: Sitting) Pulse 77 Resp 20 Physical Exam: GENERAL - Healthy patient that appears stated age. HEENT - Normocephalic / Atraumatic, Extraoccular movements intact, trachea midline, thyroid within normal limits. CV - pulse regular, Warm extremities with appropriate color of nailbeds. RESP - No obvious wheezing, No Shortness of Breath, No overexertion response to exam maneuvers. COORDINATION - remains intact. PSYCH - Alert and Oriented x4, Attentive and appropriate, constitutionally normal, displays normal mood and affect per situation, answered questions appropriately during examination, demonstrated appropriate attention during discussion, demonstrated appropriate cognitive reasoning and understanding of the medical condition by asking appropriate questions regarding the diagnosis and risks/benefits/alternatives of treatment modalities. No obvious deficits in memory, reasoning, or intellect. Cervical: SKIN - No rashes or bruising in the area of the patient s pain. LYMPH NODES - demonstrate no obvious enlargement. EXTREMITIES - Upper extremities are warm, with minimal edema and palpable pulses. Tenderness to palpation noted in the cervical spine and paraspinal musculature. Pain is elicited with flexion, extension, and lateral rotation of the cervical spine. Range of motion is diminished with these motions due to pain. Facet palpation is noted to be painful and concordant with the patient s normal pain complaints. STRENGTH - noted to be 5 out of 5 all muscle groups bilateral upper extremities including muscles involving shoulder flexion and abduction, elbow flexion and extension, as well as wrist flexion and extension and intrinsic muscles of the hand. No notable atrophy, fasciculations or spasm. SENSORY - No notable sensory deficits in the bilateral upper extremities to touch or pinprick in all dermatomal distributions. Spurlings sign is negative. Gait is antalgic assisted by a wheelchair. Assessment/Treatment Plan: Chasity was seen today for back pain. Diagnoses and all orders for this visit: Cervical spondylosis without myelopathy - Case request operating room: RADIOFREQUENCY ABLATION SPINAL right C 4/5 6/7 - Case request operating room: RADIOFREQUENCY ABLATION SPINAL Left C 4/5, 6/7 Right then Left C4/5, 6/7 Facet Radiofrequency Ablation - under fluoroscopy It is hopeful that the described procedure will provide symptomatic pain relief. It is felt to be medically necessary noting that the patient has tried and failed more conservative modalities of therapy and this is the next most appropriate step. The procedure was described in detail to the patient as well as the potential benefits of pain reduction alongside risks of the procedure and alternatives. Risks were described as including, but not limited to bleeding, infection, nerve damage, spinal cord injury, paralysis, stroke, dural puncture headache, and medication reaction. The patient expressed understanding regarding the risks and benefits and wishes to proceed. The patient has undergone diagnostic injections targeting the above mentioned facet joints. There was significant improvement in the patient s pain and functionality for the duration of the local anesthetic (approximately 2 hours) with return of the original symptoms after that time. For this reason, it is felt that the patient is a good candidate to undergo thermal Radio Frequency Lesioning of the Medial Branch Nerves at 80 degrees celsius for 90 seconds. This will effectively denervate the arthritic facet joints previously targeted with the diagnostic injection. It is noted that the procedure often requires 3-4 weeks to provide benefit, but the benefit usually lasts for approximately 1 year and can then be repeated if necessary. Patients undergoing this procedure often have mild post-procedural pain for 3-4 days which is generally relieved with application of heat and over the counter pain relievers. Follow up 4 weeks after procedure The medications prescribed have been reviewed for medication interactions/contraindications and/or for upcoming procedures: continue current medication regimen without any changes. DISCUSSION: Treatment options discussed with patient and all questions answered to patient's satisfaction. Discussed the rules and regulations surrounding prescription of opioids and compliance at length. Failure to follow the rules and regulation will result in tapering and discontinuation of medications if applicable. Prescribed medication that requires intensive monitoring for toxicity We do not currently prescribe any controlled substance from this practice. It is noted that the patient did have good response from the previously performed procedure. It is felt that the patient would benefit from an additional procedure of the same nature in that the same symptoms have returned. It is hopeful that this additional injection will provide additional benefit and duration when combined with the previous injection. The spine model was demonstrated and MRI was reviewed and used to explain the condition. Chronic conditions not treated during this visit that affected my overall medical decision making: Comorbidity- Anxiety The patient describes a significant issue with anxiety. Although treatment is helpful with this regard, the patient is likely need special accommodation due to this condition. For this reason, necessary procedures will likely need to be performed under sedation to decrease procedural anxiety. Comorbidity- Depression The patient has an ongoing issue with depression and currently feels these symptoms are under control and further feels that appropriate pain management would also help these symptoms. The patient is optimistic about the treatment plan we have laid out. We will continue to monitor these symptoms and remain cogniscent that they may affect the patients perceived improvement from the treatment and willingness to pursue further treatment. At this time the patient appears to be mentally and emotionally stable to undergo procedural and medical therapy. If any warning signs become present, I may refer the patient to a mental health professional for further evaluation. OARRS: Reviewed. Scribe Statement: Scribed for and in the presence of JACQUELYN LI PA-C by Ingris Corona CNA. Provider Statement: I, JACQUELYN LI PA-C, personally performed the services described in the documentation, as scribed by Ingris Corona CNA in my presence, and it is both accurate and complete. Ingris Corona CNA 03/18/23 1420 Jacquelyn Li PA-C 03/18/23 1427 documented in this encounter [facility] 03-18-2023 Instructions Ingris Corona CNA - 03/18/2023 2:00 PM EST Radiofrequency Ablation (RFA) Radiofrequency ablation (or RFA) is a procedure used to reduce pain. An electrical current produced by a radio wave is used to heat up a small area of nerve tissue, thereby decreasing pain signals from that specific area. Which Conditions Are Treated With Radiofrequency Ablation? RFA can be used to help patients with chronic (long-lasting) back and neck pain and pain related to the degeneration of joints from arthritis. How Long Does Pain Relief from Radiofrequency Ablation Last? The degree of pain relief varies, depending on the cause and location of the pain. Pain relief from RFA can last from six to 12 months and in some cases, relief can last for years. More than 70% of patients treated with RFA experience pain relief. Is Radiofrequency Ablation Safe? RFA has proven to be a safe and effective way to treat some forms of pain. It also is generally well-tolerated, with very few associated complications. There is a slight risk of infection and bleeding at the insertion site. Your doctor can advise you about your particular risk. Can I Resume My Normal Activities After Radiofrequency Ablation? You will have a few restrictions immediately following radiofrequency ablation: Do not drive or operate machinery for at least 24 hours after the procedure. You may resume your normal diet and prescribed medications (including blood thinners) when you get home. Do not engage in any strenuous activity for the first 24 hours after the procedure. You may remove any bandages in the evening before going to bed. You may experience the following effects after RFA: Leg numbness: If you have any leg numbness, walk only with assistance. This should only last a few hours and is due to the local anesthesia given during the procedure. Mild back discomfort: This may occur when the local anesthetic wears off and usually lasts two or three days. Apply heat to the area the day of the procedure and the day after the procedure. You may also use your usual pain medications and NSAID medications such as ibuprofen, naproxen, Aleve, Motrin, etc. if you are able. Expectations: Results will be gradual. It may take 3-4 weeks for full relief. If you feel severe pain at the injection site with swelling and redness, increased leg weakness, a fever of 101 or higher, headache (or worsening headache), changes in vision or urinary retention: Please call the office at , or have someone take you to the nearest emergency room. Tell the emergency room staff that you just had RFA. A doctor must evaluate you for bleeding and injection complications. If you lose control over bowel, bladder, or legs: Go to the nearest emergency room. If you are diabetic, the steroids used in this procedure can increase your blood sugar. If your blood sugar is 250mg/dL or higher, contact your primary care physician, or the doctor who manages your diabetes, to discuss how to get it back to normal. documented in this encounter [facility] 02-14-2023 Note HNO ID: [id number] Author: Nancy Canas MD Service: ? Author Type: Physician Type: Progress Notes Filed: 02/14/2023 10:50 AM Note Text: [facility] - FOLLOW UP EVALUATION February 14, 2023 Nancy Canas [address] [place] [address] Clare Noble DO, DO [address] [place] [address] I had the pleasure of seeing Ms. Taylor for follow up today. she is a 42 year old female with a history of functional neurological disorder here for VSMA living well with FND session. We had a visit using: Buzz[employer] I have communicated my name and active licensure. The patient's identity and physical location were verified at the time of this visit. Either the patient or their legal reimbursement representative has been informed of the risks and benefits of -- and alternatives to -- treatment through a remote evaluation and consents to proceed with the evaluation remotely. Subjective Interval History Patient is here today for Living well with FND virtual shared medical appointment. We discussed the topic related to FMD management. ALLERGIES Allergen Reactions Oxycodone-Acetamino* Anaphylaxis, Swelling Pregabalin Anaphylaxis, Swelling Current Outpatient Medications Medication Sig cetirizine (ZYRTEC) 10 mg tablet TAKE 1 TABLET BY MOUTH EVERY DAY NEEDED FOR 30 DAYS (Patient not taking: No sig reported) baclofen (LIORESAL) 20 mg tablet TAKE 1 TABLET BY MOUTH TWICE A DAY NEEDED FOR 90 DAYS nabumetone (RELAFEN) 500 mg tablet Take 500 mg by mouth. No current facility-administered medications for this visit. Objective General Physical Examination: General: Awake, alert, interactive, no acute distress, good nutritional status, normal development, well-kept Only a limited general examination was done. General Neurological Examination: Neurological Exam Mental Status Awake, alert and oriented to person, place and time. Speech is normal. Language is fluent with no aphasia. Cranial Nerves CN III, IV, : Extraocular movements intact bilaterally. Normal lids and orbits bilaterally. CN VII: Full and symmetric facial movement. Motor Moves head, neck and upper extremities with full range of motion. Assessment and Plan: Assessment Ms. Taylor is a 42 year old female diagnosed with functional neurological disorder. Patient is here today for Living well with FMD virtual shared medical appointment. The following are the current problems noted and addressed during this visit: Functional neurological symptom disorder with mixed symptoms (primary encounter diagnosis) Plan: Discussed strategies and approaches related to FMD symptom management in a VSMA format. Level of service : 06111 Time spent 20 min on the day of service, which included preparing to see the patient, [id number] patient care, completing clinical documentation, obtaining and/or reviewing separately obtained history, performing a medically appropriate examination and counseling and educating the patient/family/caregiver. Medical Decision Making Thank you for allowing me to be part of the clinical care of this patient! I look forward to continued participation in the patient?s care with you. Please do not hesitate to call with any questions. Sincerely, Nancy Canas MD [facility] 02-14-2023 History of Presen t illness Narrative [facility] - FOLLOW UP EVALUATION February 14, 2023 Nancy Canas [address] [facility] [place] [address] Clare Noble DO, DO [address] [facility] [address] I had the pleasure of seeing Ms. Taylor for follow up today. she is a 42 year old female with a history of functional neurological disorder here for VSMA living well with FND session. We had a visit using: BuzzFeed I have communicated my name and active licensure. The patient's identity and physical location were verified at the time of this visit. Either the patient or their legal reimbursement representative has been informed of the risks and benefits of -- and alternatives to -- treatment through a remote evaluation and consents to proceed with the evaluation remotely. Subjective Interval History Patient is here today for Living well with FND virtual shared medical appointment. We discussed the topic related to FMD management. ALLERGIES Allergen Reactions Oxycodone-Acetamino* Anaphylaxis, Swelling Pregabalin Anaphylaxis, Swelling Current Outpatient Medications Medication Sig cetirizine (ZYRTEC) 10 mg tablet TAKE 1 TABLET BY MOUTH EVERY DAY NEEDED FOR 30 DAYS (Patient not taking: No sig reported) baclofen (LIORESAL) 20 mg tablet TAKE 1 TABLET BY MOUTH TWICE A DAY NEEDED FOR 90 DAYS nabumetone (RELAFEN) 500 mg tablet Take 500 mg by mouth. No current facility-administered medications for this visit. Objective General Physical Examination: General: Awake, alert, interactive, no acute distress, good nutritional status, normal development, well-kept Only a limited general examination was done. General Neurological Examination: Neurological Exam Mental Status Awake, alert and oriented to person, place and time. Speech is normal. Language is fluent with no aphasia. Cranial Nerves CN III, IV, : Extraocular movements intact bilaterally. Normal lids and orbits bilaterally. CN VII: Full and symmetric facial movement. Motor Moves head, neck and upper extremities with full range of motion. Assessment and Plan: Assessment Ms. Taylor is a 42 year old female diagnosed with functional neurological disorder. Patient is here today for Living well with FMD virtual shared medical appointment. The following are the current problems noted and addressed during this visit: Functional neurological symptom disorder with mixed symptoms (primary encounter diagnosis) Plan: Discussed strategies and approaches related to FMD symptom management in a VSMA format. Level of service : 46275 Time spent 20 min on the day of service, which included preparing to see the patient, [id number] patient care, completing clinical documentation, obtaining and/or reviewing separately obtained history, performing a medically appropriate examination and counseling and educating the patient/family/caregiver. Medical Decision Making Thank you for allowing me to be part of the clinical care of this patient! I look forward to continued participation in the patient s care with you. Please do not hesitate to call with any questions. Sincerely, Nancy Canas MD documented in this encounter [facility] 11-27-2022 Note HNO ID: [id number] Author: Nancy Canas MD Service: ? Author Type: Physician Type: Progress Notes Filed: 12/01/2022 11:03 PM Note Text: Patient was unable to complete the appointment due to her symptom flare up. Will reschedule. Nancy Canas MD [facility] 11-27-2022 History of Presen t illness Narrative Patient was unable to complete the appointment due to her symptom flare up. Will reschedule. Nancy Canas MD documented in this encounter [facility] 11-13-2022 Note HNO ID: [id number] Author: Nancy Canas MD Service: ? Author Type: Physician Type: Progress Notes Filed: 11/13/2022 2:30 PM Note Text: [facility] - FOLLOW UP EVALUATION Clare Noble DO [address] [place] [address] Dear Clare Noble DO: I had the pleasure of seeing Ms. Taylor for follow-up today. As you know she is a 42 year old left-handed female with a history of functional neurological disorder . referred by Dr. Dotson She is seen alone. We had a visit using: BuzzFeed I have communicated my name and active licensure. The patient's identity and physical location were verified at the time of this visit. Either the patient or their legal reimbursement representative has been informed of the risks and benefits of -- and alternatives to -- treatment through a remote evaluation and consents to proceed with the evaluation remotely. Subjective Previous Plan-05/21/2022 Visit: Provided education on functional neurological disorder, and treatment approach Follow up with FMD-psychology recommendations Proceed with FMD-PT assessment Interested in clinical research? Not currently Interval History: Patient reports that she has a protruding disc in her neck and needs surgery per her spine doctor. She has 6-8/10 pain daily from neck and back pain chronically. FMD symptoms are the same since last visit: muscle weakness, tremors, finger locking, gait difficulty, memory issues and brain fog. No speech issues lately. She uses wheelchair to get to places. In terms of FMD treatment, she's participated in [facility] living well with FMD sessions. She's seeing psychiatrist. She's on amitriptyline. She's seeing a therapist on trauma once every few weeks. She did a round of local PT without benefit. She was told by her local PT that there is nothing more they can do for her . She reports that there is no one else in her area that specializes in FND. [place], works during the day, she's unable to work due to her symptoms. She's unable to participate in intensive outpatient treatment program due to inability to afford financially. Movement Disorders Medications Schedule - as of the start of the visit: Medications Questionnaires: In addition, the following areas that may be affected by abnormal involuntary movements were evaluated: Daily activities Difficulties with eating: Yes (slight) Difficulties in dressin (none) Difficulties with hygiene activities: 0 (none) Difficulties with handwritin (none) Difficulties with doing hobbies and other activities: Yes (slight) Difficulties turning in bed: 0 (none) Difficulties getting out of bed, car or chair: Yes (mild) Tremors/Gait/Balance Shaking or tremors: Yes (severe) Walking and balance problems: Yes (severe) Number of falls in the Last Month: 6 Gait freezing: Yes (severe) Autonomic/Pain Lightheadeness on standing: Yes (slight) Urinary problems: Yes (mild) Constipation problems: Yes (mild) Pain and other sensations: Yes (moderate) Speech/Swallowing Speech problems: 0 (none) Droolin (none) Chewing and swallowing problems: 0 (none) Sleep/Fatigue Sleep problems: Yes (mild) Daytime sleepiness: Yes (mild) Fatigue: Yes (mild) ALLERGIES Allergen Reactions Oxycodone-Acetamino* Anaphylaxis, Swelling Pregabalin Anaphylaxis, Swelling Current Outpatient Medications Medication Sig cetirizine (ZYRTEC) 10 mg tablet TAKE 1 TABLET BY MOUTH EVERY DAY NEEDED FOR 30 DAYS (Patient not taking: No sig reported) baclofen (LIORESAL) 20 mg tablet TAKE 1 TABLET BY MOUTH TWICE A DAY NEEDED FOR 90 DAYS nabumetone (RELAFEN) 500 mg tablet Take 500 mg by mouth. No current facility-administered medications for this visit. Objective Vital Signs: There were no vitals taken for this visit. Orthostatic Vitals: None for this encounter No LMP recorded. Patient has had a hysterectomy. There is no height or weight on file to calculate BMI. General Physical Examination: General: Awake, alert, interactive, no acute distress, good nutritional status, normal development, well-kept Only a limited general examination was done. General Neurological Examination: Neurological Exam Mental Status Awake, alert and oriented to person, place and time. Speech is normal. Language is fluent with no aphasia. Cranial Nerves CN III, IV, : Extraocular movements intact bilaterally. Normal lids and orbits bilaterally. CN VII: Full and symmetric facial movement. CN XI: Shoulder shrug strength is normal. CN XII: Tongue midline without atrophy or fasciculations. Motor Moves all 4 extremities No pronator drift. Sensory Unable to test. Reflexes Unable to test. Coordination Right: Barvxg-xx-xduj normal.Left: Nrsirl-au-myvs normal. Movement Disorders Scales Performed: Assessment and Plan: Assessment Ms. Taylor is a left-handed 42 year old year old female with (more content not included)... [facility] 11-13-2022 History of Presen t illness Narrative [facility] - FOLLOW UP EVALUATION Clare Noble DO [address] [facility] [address] Dear Clare Rumschlag, DO: I had the pleasure of seeing Ms. Taylor for follow-up today. As you know she is a 42 year old left-handed female with a history of functional neurological disorder . referred by Dr. Dotson She is seen alone. We had a visit using: BuzzFeed I have communicated my name and active licensure. The patient's identity and physical location were verified at the time of this visit. Either the patient or their legal reimbursement representative has been informed of the risks and benefits of -- and alternatives to -- treatment through a remote evaluation and consents to proceed with the evaluation remotely. Subjective Previous Plan-05/21/2022 Visit: Provided education on functional neurological disorder, and treatment approach Follow up with FMD-psychology recommendations Proceed with FMD-PT assessment Interested in clinical research? Not currently Interval History: Patient reports that she has a protruding disc in her neck and needs surgery per her spine doctor. She has 6-8/10 pain daily from neck and back pain chronically. FMD symptoms are the same since last visit: muscle weakness, tremors, finger locking, gait difficulty, memory issues and brain fog. No speech issues lately. She uses wheelchair to get to places. In terms of FMD treatment, [facility]. She's seeing psychiatrist. She's on amitriptyline. She's seeing a therapist on trauma once every few weeks. She did a round of local PT without benefit. She was told by her local PT that there is nothing more they can do for her . She reports that there is no one else in her area that specializes in FND. [place] from [place], works during the day, she's unable to work due to her symptoms. She's unable to participate in intensive outpatient treatment program due to inability to afford financially. Movement Disorders Medications Schedule - as of the start of the visit: Medications Questionnaires: In addition, the following areas that may be affected by abnormal involuntary movements were evaluated: Daily activities Difficulties with eating: Yes (slight) Difficulties in dressin (none) Difficulties with hygiene activities: 0 (none) Difficulties with handwritin (none) Difficulties with doing hobbies and other activities: Yes (slight) Difficulties turning in bed: 0 (none) Difficulties getting out of bed, car or chair: Yes (mild) Tremors/Gait/Balance Shaking or tremors: Yes (severe) Walking and balance problems: Yes (severe) Number of falls in the Last Month: 6 Gait freezing: Yes (severe) Autonomic/Pain Lightheadeness on standing: Yes (slight) Urinary problems: Yes (mild) Constipation problems: Yes (mild) Pain and other sensations: Yes (moderate) Speech/Swallowing Speech problems: 0 (none) Droolin (none) Chewing and swallowing problems: 0 (none) Sleep/Fatigue Sleep problems: Yes (mild) Daytime sleepiness: Yes (mild) Fatigue: Yes (mild) ALLERGIES Allergen Reactions Oxycodone-Acetamino* Anaphylaxis, Swelling Pregabalin Anaphylaxis, Swelling Current Outpatient Medications Medication Sig cetirizine (ZYRTEC) 10 mg tablet TAKE 1 TABLET BY MOUTH EVERY DAY NEEDED FOR 30 DAYS (Patient not taking: No sig reported) baclofen (LIORESAL) 20 mg tablet TAKE 1 TABLET BY MOUTH TWICE A DAY NEEDED FOR 90 DAYS nabumetone (RELAFEN) 500 mg tablet Take 500 mg by mouth. No current facility-administered medications for this visit. Objective Vital Signs: There were no vitals taken for this visit. Orthostatic Vitals: None for this encounter No LMP recorded. Patient has had a hysterectomy. There is no height or weight on file to calculate BMI. General Physical Examination: General: Awake, alert, interactive, no acute distress, good nutritional status, normal development, well-kept Only a limited general examination was done. General Neurological Examination: Neurological Exam Mental Status Awake, alert and oriented to person, place and time. Speech is normal. Language is fluent with no aphasia. Cranial Nerves CN III, IV, : Extraocular movements intact bilaterally. Normal lids and orbits bilaterally. CN VII: Full and symmetric facial movement. CN XI: Shoulder shrug strength is normal. CN XII: Tongue midline without atrophy or fasciculations. Motor Moves all 4 extremities No pronator drift. Sensory Unable to test. Reflexes Unable to test. Coordination Right: [id number]-qt-nmoq normal.Left: Ieljgf-ss-tpms normal. Movement Disorders Scales Performed: Assessment and Plan: Assessment Ms. 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 She had brain MRI, spine imaging and EMG which were noncontributory. She was diagnosed with functional neurological disorder by Dr. Dotson. Patient showed a video of her gait which appeared bouncy and had features of astasia abasia. Exam otherwise is suggestive of FND. The following are the current problems noted and addressed during this visit: Chronic low back pain, unspecified back pain laterality, unspecified whether sciatica present (primary encounter diagnosis) Chronic neck pain Plan 11/13/2022 Visit: Consult to center for pain recovery for chronic pain management Continue local psychiatry/psychology Continue VSMA living well with FMD Follow up in 5 months virtually Interested in clinical research? Not currently Updated Movement Disorders Medication Schedule: Medications Level of service : 20139 (20-29 min). Time spent 20 min on the day of service, which included preparing to see the patient, [id number]-ky-vwyk patient care, completing clinical documentation, obtaining and/or reviewing separately obtained history, performing a medically appropriate examination, and counseling and educating the patient/family/caregiver. Thank you for allowing me to be part of the clinical care of this patient! I look forward to continued participation in the patient s care with you. Please do not hesitate to call with any questions. Sincerely, Nancy Canas MD documented in this encounter [facility] 10-25-2022 Note HNO ID: [id number] Author: Hernán Mon, PhD Service: ? Author Type: Psychologist Type: Progress Notes Filed: 10/25/2022 11:12 AM Note Text: [facility] VIRTUAL VISIT PROGRESS NOTE I have communicated my name and active licensure. The patient's identity and physical location were verified at the time of this visit. Either the patient or their legal reimbursement representative has been informed of the risks and benefits of -- and alternatives to -- treatment through a remote evaluation and consents to proceed with the evaluation remotely. Billing code: 0M9/Elieser Diagnoses: (F44.7) Functional neurological symptom disorder with mixed symptoms (primary encounter diagnosis) (F41.9) Anxiety (F32.A) Depression, unspecified depression type CPT Code: 9698170 - Virtual Group Psychotherapy Interventions: Cognitive Behavioral Problem solving Treatment planning MENTAL STATUS: Mood: dysthymic Affect: mood-congruent Thoughts/Associations: concrete Suicidal/Homicidal Ideation: None expressed or evidenced Group Session 9:00 am to 10:30 am Ms. Taylor participated in a health and behavior group that introduced the concept of cognitive-behavioral therapy. The group reviewed central tenets of CBT, including the relationship between thoughts, emotions, and behaviors. Participants also identified their typical negative thought patterns and how these patterns play a role in maladaptive coping responses. Ms. Taylor paid good attention during the group, and made a few contributions to the discussion. Her understanding of the material presented appeared fair. She demonstrated a slight amount of illness behavior during the group. Hernán Mon, Ph.D. Staff, [facility] 10-25-2022 History of Presen t illness N[facility]ative [facility] V[facility]UAL VISIT PROGRESS NOTE I have communicated my name and active licensure. The patient's identity and physical location were verified at the time of this visit. Either the patient or their legal reimbursement representative has been informed of the risks and benefits of -- and alternatives to -- treatment through a remote evaluation and consents to proceed with the evaluation remotely. Billing code: 0M9/Elieser Diagnoses: (F44.7) Functional neurological symptom disorder with mixed symptoms (primary encounter diagnosis) (F41.9) Anxiety (F32.A) Depression, unspecified depression type CPT Code: 2792119 - Virtual Group Psychotherapy Interventions: Cognitive Behavioral Problem solving Treatment planning MENTAL STATUS: Mood: dysthymic Affect: mood-congruent Thoughts/Associations: concrete Suicidal/Homicidal Ideation: None expressed or evidenced Group Session 9:00 am to 10:30 am Ms. Taylor participated in a health and behavior group that introduced the concept of cognitive-behavioral therapy. The group reviewed central tenets of CBT, including the relationship between thoughts, emotions, and behaviors. Participants also identified their typical negative thought patterns and how these patterns play a role in maladaptive coping responses. Ms. Taylor paid good attention during the group, and made a few contributions to the discussion. Her understanding of the material presented appeared fair. She demonstrated a slight amount of illness behavior during the group. Hernán Mon, Ph.D. Staff, [facility] documented in this encounter [facility] 09-25-2022 Note HNO ID: [id number] Author: Nancy Canas MD Service: ? Author Type: Physician Type: Progress Notes Filed: 10/20/2022 10:17 PM Note Text: [facility] - FOLLOW UP EVALUATION September 25, 2022 No referring provider defined for this encounter. Clare Noble [address] [facility] [id number] I had the pleasure of seeing Ms. Taylor for follow up today. she is a 42 year old female with a history of functional neurological disorder here for VSMA living well with FND session. We had a visit using: BuzzFeed I have communicated my name and active licensure. The patient's identity and physical location were verified at the time of this visit. Either the patient or their legal reimbursement representative has been informed of the risks and benefits of -- and alternatives to -- treatment through a remote evaluation and consents to proceed with the evaluation remotely. Subjective Interval History Patient is here today for Living well with FND virtual shared medical appointment. We discussed the topic related to FMD management. ALLERGIES Allergen Reactions Oxycodone-Acetamino* Anaphylaxis, Swelling Pregabalin Anaphylaxis, Swelling Current Outpatient Medications Medication Sig cetirizine (ZYRTEC) 10 mg tablet TAKE 1 TABLET BY MOUTH EVERY DAY NEEDED FOR 30 DAYS (Patient not taking: No sig reported) baclofen (LIORESAL) 20 mg tablet TAKE 1 TABLET BY MOUTH TWICE A DAY NEEDED FOR 90 DAYS nabumetone (RELAFEN) 500 mg tablet Take 500 mg by mouth. No current facility-administered medications for this visit. Objective General Physical Examination: General: Awake, alert, interactive, no acute distress, good nutritional status, normal development, well-kept Only a limited general examination was done. General Neurological Examination: Neurological Exam Mental Status Awake, alert and oriented to person, place and time. Speech is normal. Language is fluent with no aphasia. Cranial Nerves CN III, IV, : Extraocular movements intact bilaterally. Normal lids and orbits bilaterally. CN VII: Full and symmetric facial movement. Motor Moves head, neck and upper extremities with full range of motion. Assessment and Plan: Assessment Ms. Taylor is a 42 year old female diagnosed with functional neurological disorder. Patient is here today for Living well with FMD virtual shared medical appointment. The following are the current problems noted and addressed during this visit: Functional neurological symptom disorder with mixed symptoms (primary encounter diagnosis) Plan: Discussed strategies and approaches related to FMD symptom management in a VSMA format. Level of service : 21718 Time spent 20 min on the day of service, which included preparing to see the patient, [id number] patient care, completing clinical documentation, obtaining and/or reviewing separately obtained history, performing a medically appropriate examination and counseling and educating the patient/family/caregiver. Medical Decision Making Thank you for allowing me to be part of the clinical care of this patient! I look forward to continued participation in the patient?s care with you. Please do not hesitate to call with any questions. Sincerely, Nancy Canas MD [facility] 09-25-2022 History of Presen t illness Narrative [facility] - FOLLOW UP EVALUATION September 25, 2022 No referring provider defined for this encounter. Clare Noble [address] [facility] [address] I had the pleasure of seeing Ms. Taylor for follow up today. she is a 42 year old female with a history of functional neurological disorder here for VSMA living well with FND session. We had a visit using: BuzzFeed I have communicated my name and active licensure. The patient's identity and physical location were verified at the time of this visit. Either the patient or their legal reimbursement representative has been informed of the risks and benefits of -- and alternatives to -- treatment through a remote evaluation and consents to proceed with the evaluation remotely. Subjective Interval History Patient is here today for Living well with FND virtual shared medical appointment. We discussed the topic related to FMD management. ALLERGIES Allergen Reactions Oxycodone-Acetamino* Anaphylaxis, Swelling Pregabalin Anaphylaxis, Swelling Current Outpatient Medications Medication Sig cetirizine (ZYRTEC) 10 mg tablet TAKE 1 TABLET BY MOUTH EVERY DAY NEEDED FOR 30 DAYS (Patient not taking: No sig reported) baclofen (LIORESAL) 20 mg tablet TAKE 1 TABLET BY MOUTH TWICE A DAY NEEDED FOR 90 DAYS nabumetone (RELAFEN) 500 mg tablet Take 500 mg by mouth. No current facility-administered medications for this visit. Objective General Physical Examination: General: Awake, alert, interactive, no acute distress, good nutritional status, normal development, well-kept Only a limited general examination was done. General Neurological Examination: Neurological Exam Mental Status Awake, alert and oriented to person, place and time. Speech is normal. Language is fluent with no aphasia. Cranial Nerves CN III, IV, : Extraocular movements intact bilaterally. Normal lids and orbits bilaterally. CN VII: Full and symmetric facial movement. Motor Moves head, neck and upper extremities with full range of motion. Assessment and Plan: Assessment Ms. Taylor is a 42 year old female diagnosed with functional neurological disorder. Patient is here today for Living well with FMD virtual shared medical appointment. The following are the current problems noted and addressed during this visit: Functional neurological symptom disorder with mixed symptoms (primary encounter diagnosis) Plan: Discussed strategies and approaches related to FMD symptom management in a VSMA format. Level of service : 88223 Time spent 20 min on the day of service, which included preparing to see the patient, [id number] patient care, completing clinical documentation, obtaining and/or reviewing separately obtained history, performing a medically appropriate examination and counseling and educating the patient/family/caregiver. Medical Decision Making Thank you for allowing me to be part of the clinical care of this patient! I look forward to continued participation in the patient s care with you. Please do not hesitate to call with any questions. Sincerely, Nancy Canas MD documented in this encounter [facility] 09-23-2022 Note HNO ID: [id number] Author: Hernán Mon, PhD Service: ? Author Type: Psychologist Type: Progress Notes Filed: 09/23/2022 9:22 AM Note Text: [facility] Psychology Progress Note Billing codes: 0M9/Elieser PSYCHOLOGY: FOLLOW-UP APPOINTMENT PROGRESS NOTE- Virtual Visit Due to the federal emergency declaration and the need for ongoing mental health services, the following visit was completed virtually and informed consent obtained orally to reduce the risk of COVID-19 exposure. Oral consent to services related to virtual visits was obtained after information was sent via [email or web address] or read to patient if SchoolTubehart not available. I have communicated my name and active licensure. The patient's identity and physical location were verified at the time of this visit. Either the patient or their legal reimbursement representative has been informed of the risks and benefits of -- and alternatives to -- treatment through a remote evaluation and consents to proceed with the evaluation remotely. Chasity Taylor 09/23/2022 [id number] PROVIDER: Hernán Mon, PhD CPT Code: 38552 - Non-Physician Telephone Assessment (21-30 min) 69024- Non-Physician Telephone Assessment (5-10 min) Diagnosis: Functional neurological symptom disorder with mixed symptoms (primary encounter diagnosis) Anxiety Depression, unspecified depression type Time spent doing therapy with patient: 8:30-9:05 am Parties Present: Patient Interventions: Cognitive Behavioral MENTAL STATUS: Mood: euthymic Affect: mood-congruent Thoughts/Associations: organized Suicidal/Homicidal Ideation: None expressed or evidenced MEDICATIONS: Per medical record: Current Outpatient Medications Medication Sig cetirizine (ZYRTEC) 10 mg tablet TAKE 1 TABLET BY MOUTH EVERY DAY NEEDED FOR 30 DAYS (Patient not taking: No sig reported) baclofen (LIORESAL) 20 mg tablet TAKE 1 TABLET BY MOUTH TWICE A DAY NEEDED FOR 90 DAYS nabumetone (RELAFEN) 500 mg tablet Take 500 mg by mouth. No current facility-administered medications for this visit. Psychiatric Medication Issues: No change from previous appointment Mood/Behavior Depression: PHQ-9 Score: 4 usually representing no significant (0-4) depression. Anxiety: SYED-7 Total Score: 13 usually representing moderate (10-14) anxiety. Finally, the following table shows the patient's overall global physical and mental health using the PROMIS scale: PROMIS-10 Flowsheet Row [facility] from 07/26/2022 in [facility] from 04/19/2022 in [facility] T Score 32.4 32.4 Global Mental Health T Score 38.8 36.3 0-10 Standard Pain Scale 3 4 *PROMIS-10 scoring scale: mean = 50, over 50 is above average, under 50 is below average DIAGNOSIS: (F44.7) Functional neurological symptom disorder with mixed symptoms (primary encounter diagnosis) (F41.9) Anxiety (F32.A) Depression, unspecified depression type PROGRESS TO DATE/ASSESSMENT: Ms. Taylor reports I'm about the same. She reports she completed physical therapy last month and is currently in treatment with a local therapist as of July 2022. She notes she had an episode where she hears things distorted. She notes PT mainly focused on strength exercises. She is with a CBT therapist ([facility]) and they are focusing on cognitive reframing and coping strategies. They meet 1x/month currently. She is a possible candidate for spine and shoulder surgery, but notes her local medial team is hesitant given her FMD symptoms. She notes FMD symptoms (leg tremors, full body weakness) have been persistent. She can stay out of her wheelchair a little longer on good days. She asked her niece and her boyfriend to move out due to their disrespect of the house and not cleaning up after themselves. She notes panic attacks and depression symptoms diminished after they left. She tries to get outside daily, and this helps with her mood as well. TREATMENT PLAN/GOALS/OBJECTIVES: Homework: Attend FMD Living Well Group Next: F/U with Dr. Canas re: medical questions/concerns Hernán Mon, Ph.D. Staff, [facility] 09-23-2022 History of Presen t illness Narrative [facility] Psychology Progress Note Billing codes: 0M9/Elieser PSYCHOLOGY: FOLLOW-UP APPOINTMENT PROGRESS NOTE- Virtual Visit Due to the federal emergency declaration and the need for ongoing mental health services, the following visit was completed virtually and informed consent obtained orally to reduce the risk of COVID-19 exposure. Oral consent to services related to virtual visits was obtained after information was sent via [email or web address] or read to patient if SchoolTubehart not available. I have communicated my name and active licensure. The patient's identity and physical location were verified at the time of this visit. Either the patient or their legal reimbursement representative has been informed of the risks and benefits of -- and alternatives to -- treatment through a remote evaluation and consents to proceed with the evaluation remotely. Chasity Taylor 09/23/2022 [id number] PROVIDER: Hernán Mon, PhD CPT Code: 54884 - Non-Physician Telephone Assessment (21-30 min) 90856- Non-Physician Telephone Assessment (5-10 min) Diagnosis: Functional neurological symptom disorder with mixed symptoms (primary encounter diagnosis) Anxiety Depression, unspecified depression type Time spent doing therapy with patient: 8:30-9:05 am Parties Present: Patient Interventions: Cognitive Behavioral MENTAL STATUS: Mood: euthymic Affect: mood-congruent Thoughts/Associations: organized Suicidal/Homicidal Ideation: None expressed or evidenced MEDICATIONS: Per medical record: Current Outpatient Medications Medication Sig cetirizine (ZYRTEC) 10 mg tablet TAKE 1 TABLET BY MOUTH EVERY DAY NEEDED FOR 30 DAYS (Patient not taking: No sig reported) baclofen (LIORESAL) 20 mg tablet TAKE 1 TABLET BY MOUTH TWICE A DAY NEEDED FOR 90 DAYS nabumetone (RELAFEN) 500 mg tablet Take 500 mg by mouth. No current facility-administered medications for this visit. Psychiatric Medication Issues: No change from previous appointment Mood/Behavior Depression: PHQ-9 Score: 4 usually representing no significant (0-4) depression. Anxiety: SYED-7 Total Score: 13 usually representing moderate (10-14) anxiety. Finally, the following table shows the patient's overall global physical and mental health using the PROMIS scale: PROMIS-10 Flowsheet Row Distance [facility] from 07/26/2022 in [facility] from 04/19/2022 in [facility] T Score 32.4 32.4 Global Mental Health T Score 38.8 36.3 0-10 Standard Pain Scale 3 4 *PROMIS-10 scoring scale: mean = 50, over 50 is above average, under 50 is below average DIAGNOSIS: (F44.7) Functional neurological symptom disorder with mixed symptoms (primary encounter diagnosis) (F41.9) Anxiety (F32.A) Depression, unspecified depression type PROGRESS TO DATE/ASSESSMENT: Ms. Taylor reports I'm about the same. She reports she completed physical therapy last month and is currently in treatment with a local therapist as of July 2022. She notes she had an episode where she hears things distorted. She notes PT mainly focused on strength exercises. She is with a CBT therapist ([facility]) and they are focusing on cognitive reframing and coping strategies. They meet 1x/month currently. She is a possible candidate for spine and shoulder surgery, but notes her local medial team is hesitant given her FMD symptoms. She notes FMD symptoms (leg tremors, full body weakness) have been persistent. She can stay out of her wheelchair a little longer on good days. She asked her niece and her boyfriend to move out due to their disrespect of the house and not cleaning up after themselves. She notes panic attacks and depression symptoms diminished after they left. She tries to get outside daily, and this helps with her mood as well. TREATMENT PLAN/GOALS/OBJECTIVES: Homework: Attend FMD Living Well Group Next: F/U with Dr. Canas re: medical questions/concerns Hernán Mon, Ph.D. Staff, [facility] documented in this encounter [facility] 08-12-2022 Note HNO ID: [id number] Author: Hernán Mon, PhD Service: ? Author Type: Psychologist Type: Progress Notes Filed: 08/12/2022 10:11 AM Note Text: [facility] VIRTUAL VISIT PROGRESS NOTE Due to the federal emergency declaration and the need for ongoing mental health services, the following visit was completed virtually and informed consent obtained orally to reduce the risk of COVID-19 exposure. Oral consent to services related to virtual visits was obtained after information was sent via [email or web address] or read to patient if SchoolTubehart not available. I have communicated my name and active licensure. The patient's identity and physical location were verified at the time of this visit. Either the patient or their legal reimbursement representative has been informed of the risks and benefits of -- and alternatives to -- treatment through a remote evaluation and consents to proceed with the evaluation remotely. Billing code: 0M9/Elieser Diagnoses: (F44.7) Functional neurological symptom disorder with mixed symptoms (primary encounter diagnosis) CPT Code: 5116959 - Virtual Group Psychotherapy Interventions: Cognitive Behavioral Problem solving Treatment planning MENTAL STATUS: Mood: neutral Affect: blunted Thoughts/Associations: concrete Suicidal/Homicidal Ideation: None expressed or evidenced Group Session 9:00 am to 10:30 am Ms. Taylor participated in a health and behavior group that reviewed the topic of self-criticism. The group reviewed unhelpful/self-critical thoughts, as well as the the relationship between thoughts, emotions, and behaviors. Participants also identified their typical negative thgouth patterns and how these patterns play a role in maladaptive coping responses. Ms. Taylor paid fair attention during the group, and made very few contributions to the discussion. Her understanding of the material presented appeared impossible to determine, due to her limited participation. She demonstrated very little illness behavior during the group. Hernán Mon, Ph.D. Staff, [facility] 08-12-2022 History of Presen t illness Narrative [facility] VIRTUAL VISIT PROGRESS NOTE Due to the federal emergency declaration and the need for ongoing mental health services, the following visit was completed virtually and informed consent obtained orally to reduce the risk of COVID-19 exposure. Oral consent to services related to virtual visits was obtained after information was sent via [email or web address] or read to patient if SchoolTubehart not available. I have communicated my name and active licensure. The patient's identity and physical location were verified at the time of this visit. Either the patient or their legal reimbursement representative has been informed of the risks and benefits of -- and alternatives to -- treatment through a remote evaluation and consents to proceed with the evaluation remotely. Billing code: 0Jewel Diagnoses: (F44.7) Functional neurological symptom disorder with mixed symptoms (primary encounter diagnosis) CPT Code: 4691797 - Virtual Group Psychotherapy Interventions: Cognitive Behavioral Problem solving Treatment planning MENTAL STATUS: Mood: neutral Affect: blunted Thoughts/Associations: concrete Suicidal/Homicidal Ideation: None expressed or evidenced Group Session 9:00 am to 10:30 am Ms. Taylor participated in a health and behavior group that reviewed the topic of self-criticism. The group reviewed unhelpful/self-critical thoughts, as well as the the relationship between thoughts, emotions, and behaviors. Participants also identified their typical negative thgouth patterns and how these patterns play a role in maladaptive coping responses. Ms. Taylor paid fair attention during the group, and made very few contributions to the discussion. Her understanding of the material presented appeared impossible to determine, due to her limited participation. She demonstrated very little illness behavior during the group. Hernán Mon, Ph.D. Staff, [facility] documented in this encounter [facility] 07-03-2022 Miscellaneous Notes [facility] - [facility]OV[facility] DISORDERS [place] SOCIAL WORK CONSULT NOTE Date of service: July 03, 2022 Today's visit includes: Patient - phone call SW received referral to assist pt in FND follow up. SW introduced self and explained role as member of pt's care team who provides linkage to supportive community resources. SW discussed disability and provided information on how to apply. SW encouraged patient to continue PT treatment and psychology treatment to help with FND symptoms. She reports she has been out of work for 15 months and they need help with finances which is the main reason she wishes to apply for social security. 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 documented in this encounter [facility] 07-03-2022 Note HNO ID: [id number] Author: Nancy Canas MD Service: ? Author Type: Physician Type: Progress Notes Filed: 07/03/2022 5:55 PM Note Text: [facility] DISORDERS [place] - FOLLOW UP EVALUATION No referring provider defined for this encounter. Clare Noble, DO [address] [facility] [address] I had the pleasure of seeing Ms. Taylor for follow up today. she is a 42 year old female with a history of functional neurological disorder here for VSMA FND education session.. We had a visit using: BuzzFeed I have communicated my name and active licensure. The patient's identity and physical location were verified at the time of this visit. Either the patient or their legal reimbursement representative has been informed of the risks and benefits of -- and alternatives to -- treatment through a remote evaluation and consents to proceed with the evaluation remotely. Subjective Interval History Patient is here for FMD education VSMA. In the last 4 weeks, patient reported experiencing following symptoms: Patient denies the following symptoms: Abnormal movements: Non-epileptic (dissociative) seizures: Difficulty walking or loss of balance: Weakness or paralysis: Difficulty speaking: Difficulty swallowing: Altered bodily sensation: Pain symptoms: Dizziness: Blackout spells: Visual problems: Hearing problems: Unusual intolerance to ordinary sound, light, or smell: Memory issues: Feeling tired or having little energy: Difficulty sleeping: Chest and/or breathing issues: Stomach or bowel issues: Bladder symptoms: Other symptoms No flowsheet data found. PHQ-9 07/02/2022 05/21/2022 04/19/2022 PHQ-9 Score 16 (Moderately Severe Depression) 17 (Moderately Severe Depression) 10 (Moderate Depression) ALLERGIES Allergen Reactions Oxycodone-Acetamino* Anaphylaxis, Swelling Pregabalin Anaphylaxis, Swelling Current Outpatient Medications Medication Sig cetirizine (ZYRTEC) 10 mg tablet TAKE 1 TABLET BY MOUTH EVERY DAY NEEDED FOR 30 DAYS (Patient not taking: No sig reported) baclofen (LIORESAL) 20 mg tablet TAKE 1 TABLET BY MOUTH TWICE A DAY NEEDED FOR 90 DAYS nabumetone (RELAFEN) 500 mg tablet Take 500 mg by mouth. No current facility-administered medications for this visit. Objective General Physical Examination: General: Awake, alert, interactive, no acute distress, good nutritional status, normal development, well-kept Only a limited general examination was done. General Neurological Examination: Neurological Exam Mental Status Awake, alert and oriented to person, place and time. Speech is normal. Language is fluent with no aphasia. Cranial Nerves CN III, IV, : Extraocular movements intact bilaterally. Normal lids and orbits bilaterally. CN VII: Full and symmetric facial movement. Motor Moves head, neck and upper extremities with full range of motion. Assessment and Plan: Assessment Ms. Taylor is a 42 year old female with a history of functional neurological disorder here for VSMA FND education session. The following are the current problems noted and addressed during this visit: Functional neurological symptom disorder with mixed symptoms (primary encounter diagnosis) Plan: Provided general education on FMD and treatment approach, questions were answered. Offered future living well with FMD VSMA Follow up with FMD management team locally or at [facility] Level of service : 77906 (20-29 min). Time spent 29 min on the day of service, which included preparing to see the patient, [id number] patient care, completing clinical documentation, obtaining and/or reviewing separately obtained history, performing a medically appropriate examination and counseling and educating the patient/family/caregiver. Medical Decision Making Thank you for allowing me to be part of the clinical care of this patient! I look forward to continued participation in the patient?s care with you. Please do not hesitate to call with any questions. Sincerely, Nancy Canas MD [facility] 07-03-2022 History of Presen t illness Narrative [facility] - FOLLOW UP EVALUATION No referring provider defined for this encounter. Clare Noble, DO [address] [facility] [id number] I had the pleasure of seeing Ms. Taylor for follow up today. she is a 42 year old female with a history of functional neurological disorder here for VSMA FND education session.. We had a visit using: [employer] I have communicated my name and active licensure. The patient's identity and physical location were verified at the time of this visit. Either the patient or their legal reimbursement representative has been informed of the risks and benefits of -- and alternatives to -- treatment through a remote evaluation and consents to proceed with the evaluation remotely. Subjective Interval History Patient is here for FMD education VSMA. In the last 4 weeks, patient reported experiencing following symptoms: Patient denies the following symptoms: Abnormal movements: Non-epileptic (dissociative) seizures: Difficulty walking or loss of balance: Weakness or paralysis: Difficulty speaking: Difficulty swallowing: Altered bodily sensation: Pain symptoms: Dizziness: Blackout spells: Visual problems: Hearing problems: Unusual intolerance to ordinary sound, light, or smell: Memory issues: Feeling tired or having little energy: Difficulty sleeping: Chest and/or breathing issues: Stomach or bowel issues: Bladder symptoms: Other symptoms No flowsheet data found. PHQ-9 07/02/2022 05/21/2022 04/19/2022 PHQ-9 Score 16 (Moderately Severe Depression) 17 (Moderately Severe Depression) 10 (Moderate Depression) ALLERGIES Allergen Reactions Oxycodone-Acetamino* Anaphylaxis, Swelling Pregabalin Anaphylaxis, Swelling Current Outpatient Medications Medication Sig cetirizine (ZYRTEC) 10 mg tablet TAKE 1 TABLET BY MOUTH EVERY DAY NEEDED FOR 30 DAYS (Patient not taking: No sig reported) baclofen (LIORESAL) 20 mg tablet TAKE 1 TABLET BY MOUTH TWICE A DAY NEEDED FOR 90 DAYS nabumetone (RELAFEN) 500 mg tablet Take 500 mg by mouth. No current facility-administered medications for this visit. Objective General Physical Examination: General: Awake, alert, interactive, no acute distress, good nutritional status, normal development, well-kept Only a limited general examination was done. General Neurological Examination: Neurological Exam Mental Status Awake, alert and oriented to person, place and time. Speech is normal. Language is fluent with no aphasia. Cranial Nerves CN III, IV, : Extraocular movements intact bilaterally. Normal lids and orbits bilaterally. CN VII: Full and symmetric facial movement. Motor Moves head, neck and upper extremities with full range of motion. Assessment and Plan: Assessment Ms. Taylor is a 42 year old female with a history of functional neurological disorder here for VSMA FND education session. The following are the current problems noted and addressed during this visit: Functional neurological symptom disorder with mixed symptoms (primary encounter diagnosis) Plan: Provided general education on FMD and treatment approach, questions were answered. Offered future living well with FMD VSMA Follow up with FMD management team locally or at [facility] Level of service : 42131 (20-29 min). Time spent 29 min on the day of service, which included preparing to see the patient, [id number] patient care, completing clinical documentation, obtaining and/or reviewing separately obtained history, performing a medically appropriate examination and counseling and educating the patient/family/caregiver. Medical Decision Making Thank you for allowing me to be part of the clinical care of this patient! I look forward to continued participation in the patient s care with you. Please do not hesitate to call with any questions. Sincerely, Nancy Canas MD documented in this encounter [facility] 06-23-2022 Miscellaneous Notes Patient last seen 04/19/2022. documented in this encounter [facility] 05-21-2022 Note HNO ID: [id number] Author: Audrey Melgoza PT Service: ? Author Type: Physical Therapist Type: Progress Notes Filed: 05/23/2022 8:30 AM Note Text: Episode Visit Count: 1 Therapist That Will Accept/Oversee The Plan Of Care: Rhona Start of Care Date: 05/21/22 Onset Date: 05/22/15 Patient Identified by Name and Date of : Yes REHABILITATION AND SPORTS THERAPY PHYSICAL THERAPY EVALUATION PLAN OF CARE: Assessment: Chasity Taylor presents with diagnosis of functional movement disorder that interferes with rising from a chair, standing, walking, use hand with arm at shoulder level, cooking, cleaning . She presents with impairments in balance, gait, independence in exercise, overall function, stress management, symptom management, and tissue tenderness. Patient did not complete the PROMIS? (Patient Reported Outcome Measures Information System). Limited assessment today due to pt increased pain and symptoms due to car ride, previous MD visits. Prognosis for therapy is Fair due to: clinical presentation, chronic nature of impairments, limited tolerance to activity . She will benefit from skilled therapy services to meet the goals established for this plan of care as noted below. Recommend initiating local services for PT, OT, and speech therapy. Pt may require reduced frequency/intensity of care initially due to limited activity tolerance and build as tolerated. Strongly recommend focus on activity pacing rather than current schedule of activity from 4am-10am and complete rest for the remainder of the day. Goals for Episode of Care: created on 05/21/22 through 05/21/22 Patient will demonstrate current home exercise program independently. Patient will demonstrate understanding of how to locate a specialized physical therapist closer to home. Patient Goals: get back to normal-increased activity and energy, used to be very independent, return to walking 2-6 miles a few times per week Planned Interventions, Frequency, and Duration: Current Frequency: 1 visit Duration: 1 visit Total Number of Visits Planned: 1 Planned Treatment Interventions: Neuromuscular re-education (95819) PLAN FOR NEXT VISIT: initiate local therapy programming, may return to [facility] if needed. Patient demonstrates good understanding of plan of care and treatment. The above goals and plan of care were discussed and agreed upon by patient/family. SUBJECTIVE: Chasity Taylor is a 42 year old female seen today for FND evaluation Most bothersome symptoms: tremor in legs, hands locking, brain fog Triggers: stress, lack of regular meals, warm weather, moving too much, overactivity Patient Goals: get back to normal-increased activity and energy, used to be very independent, return to walking 2-6 miles a few times per week Functional Limitations: rising from a chair, standing, walking, use hand with arm at shoulder level, cooking, cleaning Prior Level of Function: Independent without limitations Relevant History Employment: Medically Disabled Recreation / Current Exercise: walking in place, pilates, yoga Intake Information: Prescription present Previous Treatment: Physical Therapy (PT for left shoulder) Falls Interview: Two or more falls in the last year, Fall with injury in the last year Falls Intervention: More thorough falls assessment to be performed Pain: Pain Pain Location: Generalized Description: Aching, Pressure, Burning Frequency: Continuous Additional Pain Information : Specific pain level not discussed in order to focus on movement/functional goals Post Treatment Pain Post Treatment Pain Level: No Change PROMIS Scales T-scores: mean of general population = 50. 5 points is clinically meaningfully difference Percentiles provide an indication of how the patient's score ranks in relation to the general population. Higher percentile rankings indicate better function/quality of life. 50th percentile is the average of the general population and indicates half of respondents had a worse score. OBJECTIVE MEASURES WITH LEVEL OF FUNCTION: Posture / Alignment UE Observations: full ROM Cervical Spine ROM Cervical ROM : Limitation AROM Cervical Side-Bend Right AROM: Pain during movement, Moderate limitation Cervical Side-Bend Left AROM: Pain during movement, Moderate limitation Cervical Rotation Right AROM: Pain during movement, Minimal limitation Cervical Rotation Left AROM: Pain during movement, Minimal limitation LE Strength R LE Strength: 4/5 with some giveway L LE Strength: 4/5 with some giveway Movement Description Movement Impairment(s): (provides video of bilateral LE tremor, knee buckling gait, required bilateral UE support from furniture) Gait Gait Observation: did not observe, pt declined tos tand Balance Static Standing Balance: Comments Static Standing Balance Comments: unable to assess, pt unable to stand Education: Education Learning Preferences: (more content not included)... [facility] 05-21-2022 Instructions Audrey Melgoza, PT - 05/21/2022 3:06 PM EST You were evaluated by a skilled Physical Therapist for the treatment of Functional Neurological Disorder (FND). Today we discussed that FND is a problem with the functioning of the nervous system due to the brain s ability to send and receive signals properly, rather than a disease or structural problem, leading to altered motor and sensory output. In other words, you brain and body are communicating differently, leading to abnormal movement patterns. The goal for treatment is to return to the positive, automatic movement pathways that are currently being bypassed, utilizing various distraction techniques in a multidisciplinary approach. When your brain is distracted in the way that is best for you, there will be a return to these automatic pathways. Each person is different in what strategies work best for them, so there will be some trial and error in your treatment. Below are some resources that will be beneficial for better understanding FND and learning to manage your symptoms. Websites:? - https://www.neurosymptoms.org/? - Website was developed by a neurologist who is a leader in the field of FND.? - https://fndhope.org/? - Website was developed by a woman who had FND.? Because she didn't have many resources, she developed this for others.? ? - https://www.[employer]/educa tion? ?- Website developed by Dr. Fior Storey who owns a private neuro therapy practice in [place] with a large focus on the treatment of FND. They are also on [employer]: @[employer] - https://fndportal.org/ - Website developed to better understand FND with helpful links and resources (including an information sheet to give to you physician who may be unfamiliar with your FND diagnosis). - [employer] Os[employer]do - Free osvaldo where patients can track and monitor their symptoms, review strategies for symptom management, and find resources and education on FND. Please reach out with any questions you may have. If you are seeing a Physical Therapist locally who is not familiar with FND, feel free to pass on my contact information so we can connect on various treatment approaches. Sincerely, Audrey Melgoza, PT DPT Board Certified Neurologic Clinical Specialist FND Treatment Strategies: Upper/Lower Extremity Shaking/Tremors Try the following strategies to manage your symptoms: - Tapping: finger tapping or tapping one or both of your feet - Alternate/competing movement - Match the movement with your unaffected arm. - Once matched, try speeding the movements up, then gradually slowing down movements of both arms until you are still. - Change positions - Manipulate small objects in your other hand: Coins, buttons, stress ball, etc. - Use relaxation/meditation techniques - Grounding: close your eyes or focus on an object. -Concentrate on tactile cues (i.e. how firm your back, hips/thighs, feet feel on the floor, or how your toes feel in your shoes). - Deep breathing - Relaxation/meditation apps - Music - Add a cognitive task: - Counting: forward or backward by 5 s, 10 , 3 s - Naming similar things (i.e. states starting with same letter) - Recite familiar lists (i.e. months of the year - forward or backward, ABC s) Gait Disturbances Try the following activities to improve walking: - Simulate a different walking pattern (i.e. kicking up leaves) - Slide one or both feet along the floor when stepping - Walk backwards - Change speed - Imagine you are stepping over an object - Tap your fingers/hand on your thigh - Use a metronome - Add a cognitive task - Counting: forward or backward by 5 s, 10 , 3 s - Naming similar things (i.e. states starting with same letter) - Recite familiar lists (i.e. months of the year - forward or backward, ABC s) - Manipulating objects in your hands- Coins, buttons, stress ball, etc. - Sing a song in your head/listen to music documented in this encounter [facility] 05-21-2022 Note HNO ID: [id number] Author: Nancy Canas MD Service: ? Author Type: Physician Type: Progress Notes Filed: 05/21/2022 2:49 PM Note Text: [facility] - NEW PATIENT EVALUATION Referring Provider: Apurva Dotson [address] [facility] [address] Primary Care Provider: Clare Noble DO [address] [id number] Dear Apurva Dotson: Thank you for referring Ms. Taylor to our clinic today. As you know she is a 42 year old left-handed female who is seen in consultation for evaluation of functional neurological disorder since . referred by Dr. Dotson She is seen with her . Subjective HISTORY OF PRESENT ILLNESS: Initial HPI Patient is referred by Dr. Apurva Dotson for evaluation of functional movement/neurological disorder. Patient has seen [facility]-psychology virtually, and is scheduled for the neuro visit (this one) and PT visit later today. 2016 - She had extreme neck pain, migraines, tremor in right arm/leg. She was found to have cervical spine disc disease and subsequently underwent cervical spine fusion in 2016 with temporary improvement in the symptoms. She continued to have intermittent kicking movement of the right arm/leg. 2020 - she started to have locking of fingers in left hand. 2021 - Symptoms continued to get worse, she has intermittent speech changes, body shaking, gait difficulty. She has brain fog and memory issues. She shows a video of her gait that appears like a bouncy gait with astasia abasia features. She had brain MRI, EMG which were unremarkable. Her most bothersome symptoms are: 1. Body tremors, hand locking 2. Brain fog PMH: Chronic pain, fibromyalgia, migraine, POTS, depression, anxiety FMH: ADHD and autism (son) Movement Disorders Medications Schedule - as of the start of the visit: Medications Questionnaires In addition, the following areas that may be affected by abnormal involuntary movements were evaluated: Daily activities Difficulties with eating: Yes (slight) Difficulties in dressin (none) Difficulties with hygiene activities: 0 (none) Difficulties with handwritin (none) Difficulties with doing hobbies and other activities: Yes (moderate) Difficulties turning in bed: 0 (none) Difficulties getting out of bed, car or chair: Yes (moderate) Tremors/Gait/Balance Shaking or tremors: Yes (severe) Walking and balance problems: Yes (severe) Number of falls in the Last Month: 25-30 Gait freezin (none) Autonomic/Pain Lightheadeness on standing: Yes (slight) Urinary problems: Yes (mild) Constipation problems: Yes (slight) Pain and other sensations: Yes (moderate) Speech/Swallowing Speech problems: Yes (mild) Droolin (none) Chewing and swallowing problems: 0 (none) Sleep/Fatigue Sleep problems: Yes (slight) Daytime sleepiness: Yes (mild) Fatigue: Yes (slight) Mood/Behavior Depression: PHQ-9 Score: 17 usually representing moderately severe (15-19) depression. Anxiety: SYED-7 Total Score: 15 usually representing severe (>15) anxiety. Finally, the following table shows the patient's overall global physical and mental health using the PROMIS scale: PROMIS-10 Flowsheet Row Distance Health from 04/19/2022 in [facility] Global Physical Health T Score 32.4 Global Mental Health T Score 36.3 0-10 Standard Pain Scale 4 *PROMIS-10 scoring scale: mean = 50, over 50 is above average, under 50 is below average Review of Systems Constitutional: Negative. HENT: Negative. Eyes: Negative. Respiratory: Negative. Cardiovascular: Negative. Gastrointestinal: Negative. Genitourinary: Negative. Hematologic/Lymphatic: Negative. Allergic/Immunologic: Negative. Musculoskeletal: Negative. Skin: Negative. ALLERGIES Allergen Reactions Oxycodone-Acetamino* Anaphylaxis, Swelling Pregabalin Anaphylaxis, Swelling Current Outpatient Medications Medication Sig baclofen (LIORESAL) 20 mg tablet TAKE 1 TABLET BY MOUTH TWICE A DAY NEEDED FOR 90 DAYS nabumetone (RELAFEN) 500 mg tablet Take 500 mg by mouth. cetirizine (ZYRTEC) 10 mg tablet TAKE 1 TABLET BY MOUTH EVERY DAY NEEDED FOR 30 DAYS (Patient not taking: No sig reported) No current facility-administered medications for this visit. Past Medical and Surgical History: has no past medical history on file. has no past surgical history on file. Social History Tobacco Use Smoking status: Every Day Types: Cigarettes Smokeless tobacco: Never Family History: family history is not on file. Objective Vital Signs: BP 102/63 (BP Site: Left Arm, BP Position: Sitting, BP Cuff Size: Regular Adult) Pulse 89 SpO2 97% Orthostatic Vitals: None for this encounter No LMP recorded. Patient has had a hysterectomy. There is no height or weight on file to calculate BMI. General Physical Examination: General: Awake, alert, interactive, no acute distress, good nutrit (more content not included)... [facility] 05-21-2022 History of Presen t illness Narrative Episode Visit Count: 1 Therapist That Will Accept/Oversee The Plan Of Care: Rhona Start of Care Date: 05/21/22 Onset Date: 05/22/15 Patient Identified by Name and Date of : Yes REHABILITATION AND SPORTS THERAPY PHYSICAL THERAPY EVALUATION PLAN OF CARE: Assessment: Chasity Taylor presents with diagnosis of functional movement disorder that interferes with rising from a chair, standing, walking, use hand with arm at shoulder level, cooking, cleaning . She presents with impairments in balance, gait, independence in exercise, overall function, stress management, symptom management, and tissue tenderness. Patient did not complete the PROMIS (Patient Reported Outcome Measures Information System). Limited assessment today due to pt increased pain and symptoms due to car ride, previous MD visits. Prognosis for therapy is Fair due to: clinical presentation, chronic nature of impairments, limited tolerance to activity . She will benefit from skilled therapy services to meet the goals established for this plan of care as noted below. Recommend initiating local services for PT, OT, and speech therapy. Pt may require reduced frequency/intensity of care initially due to limited activity tolerance and build as tolerated. Strongly recommend focus on activity pacing rather than current schedule of activity from 4am-10am and complete rest for the remainder of the day. Goals for Episode of Care: created on 05/21/22 through 05/21/22 Patient will demonstrate current home exercise program independently. Patient will demonstrate understanding of how to locate a specialized physical therapist closer to home. Patient Goals: get back to normal-increased activity and energy, used to be very independent, return to walking 2-6 miles a few times per week Planned Interventions, Frequency, and Duration: Current Frequency: 1 visit Duration: 1 visit Total Number of Visits Planned: 1 Planned Treatment Interventions: Neuromuscular re-education (37930) PLAN FOR NEXT VISIT: initiate local therapy programming, may return to [facility] if needed. Patient demonstrates good understanding of plan of care and treatment. The above goals and plan of care were discussed and agreed upon by patient/family. SUBJECTIVE: Chasity Taylor is a 42 year old female seen today for FND evaluation Most bothersome symptoms: tremor in legs, hands locking, brain fog Triggers: stress, lack of regular meals, warm weather, moving too much, overactivity Patient Goals: get back to normal-increased activity and energy, used to be very independent, return to walking 2-6 miles a few times per week Functional Limitations: rising from a chair, standing, walking, use hand with arm at shoulder level, cooking, cleaning Prior Level of Function: Independent without limitations Relevant History Employment: Medically Disabled Recreation / Current Exercise: walking in place, pilates, yoga Intake Information: Prescription present Previous Treatment: Physical Therapy (PT for left shoulder) Falls Interview: Two or more falls in the last year, Fall with injury in the last year Falls Intervention: More thorough falls assessment to be performed Pain: Pain Pain Location: Generalized Description: Aching, Pressure, Burning Frequency: Continuous Additional Pain Information : Specific pain level not discussed in order to focus on movement/functional goals Post Treatment Pain Post Treatment Pain Level: No Change PROMIS Scales T-scores: mean of general population = 50. 5 points is clinically meaningfully difference Percentiles provide an indication of how the patient's score ranks in relation to the general population. Higher percentile rankings indicate better function/quality of life. 50th percentile is the average of the general population and indicates half of respondents had a worse score. OBJECTIVE MEASURES WITH LEVEL OF FUNCTION: Posture / Alignment UE Observations: full ROM Cervical Spine ROM Cervical ROM : Limitation AROM Cervical Side-Bend Right AROM: Pain during movement, Moderate limitation Cervical Side-Bend Left AROM: Pain during movement, Moderate limitation Cervical Rotation Right AROM: Pain during movement, Minimal limitation Cervical Rotation Left AROM: Pain during movement, Minimal limitation LE Strength R LE Strength: 4/5 with some giveway L LE Strength: 4/5 with some giveway Movement Description Movement Impairment(s): (provides video of bilateral LE tremor, knee buckling gait, required bilateral UE support from furniture) Gait Gait Observation: did not observe, pt declined tos tand Balance Static Standing Balance: Comments Static Standing Balance Comments: unable to assess, pt unable to stand Education: Education Learning Preferences: Demonstration, Explanation, Performance, Printed Materials Barriers: None Learning/educational needs: Home exercise program, Plan of Care, Health promotion, Lifestyle changes Education Provided: Yes, see treatment interventions for education provided Education Provided To: Patient, Family Education Mode/Type: Demonstration, Explanation/Discussion, Literature/Printed Materials Response to Education/Teach Back: States/Identifies, Requires Review/Additional Education TREATMENT: PT Treatment Interventions: Neuromuscular Re-Education Evaluation Neuromuscular Re-Education: 1: extensive education re: FND 2: activity pacing--must take breaks proactively to avoid boom/bust cycle 3: -recommend starting wtih 15-30 minute break after each 30 minutes of activity, then reassess and modify as needed 4: neuroplasticity concepts 5: sympathetic/parasympathetic nervous system concepts 6: PNE sensitive nerves/fibromyalgia education Skilled Intervention: Skilled judgment used to assess appropriate program for balance and coordination activity. Education in proprioceptive/kinesthetic awareness during dynamic activities. Patient education as noted. Billing * Evaluation Moderate Complexity: 1 Unit Neuromuscular Re-Education Treatment Minutes: 30 Total Treatment Time Minutes (timed/untimed): 45 Audrey Melgoza, PT DPT Board Certified Neurologic Clinical Specialist documented in this encounter [facility] 05-21-2022 Instructions Nancy Canas MD - 05/21/2022 1:41 PM EST Your abnormal movements are due to a neurologic condition called Functional Movement Disorder, which is a type of functional neurological symptom disorder. It is thought to be due to a problem with the function of the brain cells that control movements, rather than a structural damage. Sometimes this condition is triggered but stress, but often we do not know the cause. We recommend you be seen in our multidisciplinary FMD (functional movement disorder) clinic, where you will be evaluated by a physical therapist, neurologist, and psychologist all of whom specialize in this condition. There are reputable online resources that we recommend that contain excellent information on functional neurologic disorders: www.neurosymptoms.org, www.fndhope.org We are optimistic that this treatment approach will improve your symptoms over time. documented in this encounter [facility] 05-21-2022 History of Presen t illness Narrative [facility] - NEW PATIENT EVALUATION Referring Provider: Apurva Dotson [address] [facility] [address] Primary Care Provider: Clare Noble DO [address] [facility] [id number] Dear Apurva Dotson: Thank you for referring Ms. Taylor to our clinic today. As you know she is a 42 year old left-handed female who is seen in consultation for evaluation of functional neurological disorder since . referred by Dr. Dotson She is seen with her . Subjective HISTORY OF PRESENT ILLNESS: Initial HPI Patient is referred by Dr. Apurva Dotson for evaluation of functional movement/neurological disorder. Patient has seen FMD-psychology virtually, and is scheduled for the neuro visit (this one) and PT visit later today. 2016 - She had extreme neck pain, migraines, tremor in right arm/leg. She was found to have cervical spine disc disease and subsequently underwent cervical spine fusion in 2016 with temporary improvement in the symptoms. She continued to have intermittent kicking movement of the right arm/leg. 2020 - she started to have locking of fingers in left hand. 2021 - Symptoms continued to get worse, she has intermittent speech changes, body shaking, gait difficulty. She has brain fog and memory issues. She shows a video of her gait that appears like a bouncy gait with astasia abasia features. She had brain MRI, EMG which were unremarkable. Her most bothersome symptoms are: 1. Body tremors, hand locking 2. Brain fog PMH: Chronic pain, fibromyalgia, migraine, POTS, depression, anxiety FMH: ADHD and autism (son) Movement Disorders Medications Schedule - as of the start of the visit: Medications Questionnaires In addition, the following areas that may be affected by abnormal involuntary movements were evaluated: Daily activities Difficulties with eating: Yes (slight) Difficulties in dressin (none) Difficulties with hygiene activities: 0 (none) Difficulties with handwritin (none) Difficulties with doing hobbies and other activities: Yes (moderate) Difficulties turning in bed: 0 (none) Difficulties getting out of bed, car or chair: Yes (moderate) Tremors/Gait/Balance Shaking or tremors: Yes (severe) Walking and balance problems: Yes (severe) Number of falls in the Last Month: 25-30 Gait freezin (none) Autonomic/Pain Lightheadeness on standing: Yes (slight) Urinary problems: Yes (mild) Constipation problems: Yes (slight) Pain and other sensations: Yes (moderate) Speech/Swallowing Speech problems: Yes (mild) Droolin (none) Chewing and swallowing problems: 0 (none) Sleep/Fatigue Sleep problems: Yes (slight) Daytime sleepiness: Yes (mild) Fatigue: Yes (slight) Mood/Behavior Depression: PHQ-9 Score: 17 usually representing moderately severe (15-19) depression. Anxiety: SYED-7 Total Score: 15 usually representing severe (>15) anxiety. Finally, the following table shows the patient's overall global physical and mental health using the PROMIS scale: PROMIS-10 Flowsheet Row Distance Health from 04/19/2022 in [facility] Global Physical Health T Score 32.4 Global Mental Health T Score 36.3 0-10 Standard Pain Scale 4 *PROMIS-10 scoring scale: mean = 50, over 50 is above average, under 50 is below average Review of Systems Constitutional: Negative. HENT: Negative. Eyes: Negative. Respiratory: Negative. Cardiovascular: Negative. Gastrointestinal: Negative. Genitourinary: Negative. Hematologic/Lymphatic: Negative. Allergic/Immunologic: Negative. Musculoskeletal: Negative. Skin: Negative. ALLERGIES Allergen Reactions Oxycodone-Acetamino* Anaphylaxis, Swelling Pregabalin Anaphylaxis, Swelling Current Outpatient Medications Medication Sig baclofen (LIORESAL) 20 mg tablet TAKE 1 TABLET BY MOUTH TWICE A DAY NEEDED FOR 90 DAYS nabumetone (RELAFEN) 500 mg tablet Take 500 mg by mouth. cetirizine (ZYRTEC) 10 mg tablet TAKE 1 TABLET BY MOUTH EVERY DAY NEEDED FOR 30 DAYS (Patient not taking: No sig reported) No current facility-administered medications for this visit. Past Medical and Surgical History: has no past medical history on file. has no past surgical history on file. Social History Tobacco Use Smoking status: Every Day Types: Cigarettes Smokeless tobacco: Never Family History: family history is not on file. Objective Vital Signs: BP 102/63 (BP Site: Left Arm, BP Position: Sitting, BP Cuff Size: Regular Adult) Pulse 89 SpO2 97% Orthostatic Vitals: None for this encounter No LMP recorded. Patient has had a hysterectomy. There is no height or weight on file to calculate BMI. General Physical Examination: General: Awake, alert, interactive, no acute distress, good nutritional status, normal development, well-kept Only a limited general examination was done. General Neurological Examination: Neurological Exam Mental Status Awake, alert and oriented to person, place and time. Recent and remote memory are intact. Speech is normal. Language is fluent with no aphasia. Cranial Nerves CN II-XII grossly intact, except as otherwise noted. Motor Normal muscle bulk throughout. Normal muscle tone. No abnormal involuntary movements. Strength is 5/5 throughout all four extremities. Exaggerated efforts in finger tapping and toe tapping L>R. Sensory Sensation is intact to light touch, pinprick, vibration and proprioception in all four extremities. Reflexes Right Left Brachioradialis 2+ 2+ Biceps 2+ 2+ Patellar 2+ 2+ Achilles 2+ 2+ Coordination [id number], rapid alternating movements and [id number]-ol-swwe normal bilaterally without dysmetria. Gait Needs assistance to stand. Movement Disorders Scales Performed: Assessment and Plan: Assessment Ms. Taylor is a left-handed 42 year old year old female with Neurological symptoms of neck pain, tremors, since 2016, initially attributed to cervical spine disc disease, underwent cervical spine fusion surgery with temporary improvement, developed additional movement symptoms in 2020 with finger locking, speech changes, gait difficulty, body shaking, brain fog. She had brain MRI, spine imaging and EMG which were noncontributory. She was diagnosed with functional neurological disorder by Dr. Dotson. Patient showed a video of her gait which appeared bouncy and had features of astasia abasia. Exam otherwise is suggestive of FND. The following are the current problems noted and addressed during this visit: Functional neurological symptom disorder with mixed symptoms Plan 05/21/2022 Visit: Provided education on functional neurological disorder, and treatment approach Follow up with FMD-psychology recommendations Proceed with FMD-PT assessment Interested in clinical research? Not currently Updated Movement Disorders Medication Schedule: Medications Level of service : 32486 . Time spent 54 min on the day of service, which included preparing to see the patient, [id number] patient care, completing clinical documentation, obtaining and/or reviewing separately obtained history, performing a medically appropriate examination, and counseling and educating the patient/family/caregiver. Thank you for allowing me to be part of the clinical care of this patient! I look forward to continued participation in the patient s care with you. Please do not hesitate to call with any questions. Sincerely, Nancy Canas MD documented in this encounter [facility] 04-19-2022 Note HNO ID: [id number] Author: Hernán Mon, PhD Service: ? Author Type: Psychologist Type: Progress Notes Filed: 04/21/2022 12:44 PM Note Text: [facility] Clinical Health Psychology Evaluation Time of Service: 9:00 am to 10:00 am CPT Code: 5256721- Virtual Psychological Diagnostic Interview Billing Code: 0M9/Elieser Due to the federal emergency declaration and the need for ongoing mental health services, the following visit was completed virtually and informed consent obtained orally to reduce the risk of COVID-19 exposure. Oral consent to services related to virtual visits was obtained after information was sent via [email or web address] or read to patient if School[employer] not available. The patient was informed that this interview was only for the purpose of assessing the presenting problem, for diagnosis and treatment planning and/or to make treatment recommendations. The patient agreed that the evaluation would not be used for forensic, disability, or child custody purposes. The following history is obtained from the patient except when noted. The content acquired from chart review has been confirmed with the patient and discrepancies were noted if any. Limits of confidentiality were discussed. Identification and Presenting Problem: Ms. Taylor is a 41 year old female who was referred by Dr. Apurva Dotson from [facility] as part of a multi-disciplinary evaluation for a functional movement disorder. She presents with a 7 year history of involuntary movement symptoms. Symptom onset: Per Dr. Dotson's note on 04/11/22: This is a 41 y/o right handed woman with history of depression/anxiety (SA/SI when 19), IBS, constipation, syncope (vasovagal), POTS, fibromyalgia and C spine surgery who presents today for follow up of multiple symptoms including b/l UE and LE weakness (R>L), paresthesia, neck pain, gait difficulty, muscle spasms, tremors, neck pain, brain fog, facial paresthesia, monocular diplopia (OD), and speech difficulty. She had C spine surgery in 2017 w partial symptom improvement. MRI C spine 2017- moderate central stenosis at C5-C6 and no cord signal abn. Extensive OSH work up reviewed. Neurologic exam is non focal. Astacia abasia stance. She notes still struggles with pain. She notes extremity jerks have worsened since January. Most bothersome symptoms: Leg tremors Brain fog Full body weakness (intermittent- 7 times total in five months) Once fell into her mattress face first and she had to have her move her head so she could breath. Can last minutes to 4 hours Aggravating factors: Physical overextension, significant weather changes, bumpy roads, later in the day symptoms are worse Alleviating factors: Massage gun, heating pads, hot baths, vibration Social History: Ms. Taylor was raised in [place], [place] as the eldest of 3 children in her family. Her parents when she was age 22. She notes a long conflictual relationship with her mother. The patient graduated from college with an associate's degree in psychology. She is currently unemployed and not looking for work. The patient is contemplating applying for disability. There is no problem list on file for this patient. Current Functioning: Ms. Taylor reports that she lives with her , three kids (23, 21, 19), niece and her boyfriend. She arises between 3-4am. She will tend to her dogs and cat. She will go package pick up her son from work at 5 am. She will then come home and work out- in-home walking, pilates, and yoga (needs to stay on her back). She will then shower and do housework (I can't take a dirty house). She needs help with tasks that require picking things up (trash, dog water dish, laundry). She will prep lunch and then lay down due to her back locking up . She will usually need an assistive device in the afternoon and evening (wheelchair) due to LE tremor. She will remain sedentary the remainder of the day. She will usually go to bed by 8:30 am. Social support includes her of 20 years, middle son, friend/neighbor. She lost her job in Mar 2021. 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 She can no longer drive consistently. Medications: Current Outpatient Medications Medication Sig cetirizine (ZYRTEC) 10 mg tablet TAKE 1 TABLET BY MOUTH EVERY DAY NEEDED FOR 30 DAYS (Patient not taking: Reported on 04/11/2022) baclofen (LIORESAL) 20 mg tablet TAKE 1 TABLET BY MOUTH TWICE A DAY NEEDED FOR 90 DAYS nabumetone (RELAFEN) 500 mg tablet Take 500 mg by mouth. Taking twice daily No current facility-administered medications for this visit. Ms. Taylor reports significant depressive symptoms in the past month, including hopelessness, poor concentration, self-criticism, occasional dysphoria, sleep disturbance, and fatigue. She denies suicidal ideation, plan, intent, or history. (more content not included)... [facility] 04-14-2022 Miscellaneous Notes Done. Thank you! Ote was triaged and patient is appropriate for [facility] clinic. This patient does not have a Consult to FMD, he has a Consult to Neurology for FMD with Dr. Canas. Is he appropriate for clinic? Patient referred to FMD. Order in [facility]. .[phone] documented in this encounter [facility] 04-11-2022 Note HNO ID: [id number] Author: Apurva Dotson MD Service: ? Author Type: Physician Type: Progress Notes Filed: 04/11/2022 6:03 PM Note Text: [facility] Follow up/ Established patient visit Individuals who were included in, or assisted with the encounter were: Chasity Taylor Apurva Dotson MD Chief Complaint/Issues: Chasity Taylor is a 41 year old left-handed female seen in the [facility] for: Multiple symptoms Gait dysfunction. Medical problems: Strabismus C spine surgery Fibromyalgia POTS IBS Most Recent Neurological Assessment and Plan: Last Filed Values Date of Most Recent Assessment and Plan 02/10/22 Specialty Neuromuscular Assessment This is a 41 y/o right handed woman with history of depression/anxiety (SA/SI when 19), strabismus, IBS, constipation, syncope (vasovagal), POTS, fibromyalgia and C spine surgery who presents today for evaluation of multiple symptoms including b/l UE and LE weakness (R>L), paresthesia, neck pain, gait difficulty, muscle spasms, tremors, neck pain, brain fog, facial paresthesia, monocular diplopia (OD), and speech difficulty. She had C spine surgery in 2017 w partial symptom improvement. MRI C spine 2017- moderate central stenosis at C5-C6 and no cord signal abn (Care Everywhere report). Reportedly, she had extensive neurologic work up including MRI brain and whole spine, EMG, lab work. Virtual examination is non focal/non lateralizing. - Multiple neurologic symptoms with reported unrevealing neurologic work up. - Functional neurologic d/o cannot be excluded. Plan Pt will forward neurology notes, lab work, EMG reports. MRI brain, whole spine CD. Further neurologic work up will depend on the above data review. In person follow up. All questions and concerns were addressed during this visit. Apurva Dotson MD Staff, Neurology and Neuromuscular Medicine HPI/Interval History: The patient was seen virtually in 01/2022 for multiple symptoms including b/l UE and LE weakness (R>L), paresthesia, neck pain, gait difficulty, muscle spasms, tremors, neck pain, brain fog, facial paresthesia, monocular diplopia (OD), and speech difficulty. showed me a video of her gait. Astacia abasia type. She had extensive neurologic work up for this (see initial note). She had C spine surgery in 2017 w partial symptom improvement. MRI C spine 2017- moderate central stenosis at C5-C6 and no cord signal abn (Care Everywhere report). LUE EMG 2021 wnl (per OSH neuro note). LE EMG 2017 wnl (per OSH neuro note). EEG 2016 72 hr ambulatory EEG wnl MRI brain 07/2021 - Non specific T2 foci in white matter. General Examination: BP 120/79 Pulse 76 Ht 157.5 cm (5' 2 ) Wt 64 kg (141 lb) BMI 25.79 kg/m? She is alone. General appearance: Awake, alert, interactive, no acute distress, good nutritional status, normal development, well-groomed Skin: Rash: absent Pigmentation: absent HEENT: Head: normocephalic, no dysmorphism Eyes: normal Oropharynx: normal Neck: Movements: free Lymphadenopathy: absent Extremities: Deformity/contracture: absent Distal pulses: present Edema: absent Trophic change: absent Spine: Deformity: absent Heart: Not examined Lungs: Not examined Abdomen: Not examined Neurological Exam Mental Status Alert, fully oriented, attentive, with normal cognition, memory, speech and affect. Cranial Nerves Visual gibson intact. Pupils reactive. Extraocular movements conjugate and full. No ptosis. No nystagmus. Facial sensation intact. Face symmetric and strong. Palate and tongue normal. XI normal. Motor Examination and Coordination Neuromuscular Examination Axial Muscles Ptosis: R: none L: none Face-eye closure: normal Face-mouth closure: normal Neck flexion: 5 Neck extension: 5 Extremity Muscles Upper Extremity Right Left Shoulder abduction 5 5 Elbow flexion 5 5 Elbow extension 5 5 Wrist extension 5 5 Finger flexion/log handler 5 5 Finger extension 5 5 First dorsal interosseous 5 5 Abductor digiti minimi 5 5 Abductor pollicis brevis 5 5 Lower Extremity Right Left Hip flexion 5 5 Knee flexion 5 5 Knee extension 5 5 Ankle plantarflexion 5 5 Ankle dorsiflexion 5 5 Extensor hallucis longus 5 5 Flexor digitorum longus 5 5 Tone (Faith spasticity) UE: Right: A0=normal (none) Left: A0=normal (none) LE: Right: A0=normal (none) Left: A0=normal (none) Finger taps: R: normal L: normal Foot taps: R: normal L: normal Reflexes Deep tendon reflexes graded by MRC Deep Tendon Reflexes Right Left Biceps 2+ 2+ Triceps 2+ 2+ Brachioradialis 2+ 2+ Patellar 2+ 2+ Achilles 2+ 2+ Plantar Downgoing Downgoing Sensation Sensation intact to light touch, pinprick, proprioception and vibration. Gait Arises with assistance, stance w astasia abasia characteristics (variable giv (more content not included)... [facility] 04-11-2022 Instructions Apurva Dotson MD - 04/11/2022 4:00 PM EST Functional movement disorder referral. Dr. Nancy Canas. documented in this encounter [facility] 04-11-2022 History of Presen t illness Narrative Images from the original note were not included. [facility] Follow up/ Established patient visit Individuals who were included in, or assisted with the encounter were: Chasity Janett Dotson MD Chief Complaint/Issues: Chasity Taylor is a 41 year old left-handed female seen in the [facility] for: Multiple symptoms Gait dysfunction. Medical problems: Strabismus C spine surgery Fibromyalgia POTS IBS Most Recent Neurological Assessment and Plan: Last Filed Values Date of Most Recent Assessment and Plan 02/10/22 Specialty Neuromuscular Assessment This is a 41 y/o right handed woman with history of depression/anxiety (SA/SI when 19), strabismus, IBS, constipation, syncope (vasovagal), POTS, fibromyalgia and C spine surgery who presents today for evaluation of multiple symptoms including b/l UE and LE weakness (R>L), paresthesia, neck pain, gait difficulty, muscle spasms, tremors, neck pain, brain fog, facial paresthesia, monocular diplopia (OD), and speech difficulty. She had C spine surgery in 2017 w partial symptom improvement. MRI C spine 2017- moderate central stenosis at C5-C6 and no cord signal abn (Care Everywhere report). Reportedly, she had extensive neurologic work up including MRI brain and whole spine, EMG, lab work. Virtual examination is non focal/non lateralizing. - Multiple neurologic symptoms with reported unrevealing neurologic work up. - Functional neurologic d/o cannot be excluded. Plan Pt will forward neurology notes, lab work, EMG reports. MRI brain, whole spine CD. Further neurologic work up will depend on the above data review. In person follow up. All questions and concerns were addressed during this visit. Apurva Dotson MD Staff, Neurology and Neuromuscular Medicine HPI/Interval History: The patient was seen virtually in 01/2022 for multiple symptoms including b/l UE and LE weakness (R>L), paresthesia, neck pain, gait difficulty, muscle spasms, tremors, neck pain, brain fog, facial paresthesia, monocular diplopia (OD), and speech difficulty. showed me a video of her gait. Astacia abasia type. She had extensive neurologic work up for this (see initial note). She had C spine surgery in 2017 w partial symptom improvement. MRI C spine 2017- moderate central stenosis at C5-C6 and no cord signal abn (Care Everywhere report). LUE EMG 2021 wnl (per OSH neuro note). LE EMG 2017 wnl (per OSH neuro note). EEG 2016 72 hr ambulatory EEG wnl MRI brain 07/2021 - Non specific T2 foci in white matter. General Examination: BP 120/79 Pulse 76 Ht 157.5 cm (5' 2 ) Wt 64 kg (141 lb) BMI 25.79 kg/m She is alone. General appearance: Awake, alert, interactive, no acute distress, good nutritional status, normal development, well-groomed Skin: Rash: absent Pigmentation: absent HEENT: Head: normocephalic, no dysmorphism Eyes: normal Oropharynx: normal Neck: Movements: free Lymphadenopathy: absent Extremities: Deformity/contracture: absent Distal pulses: present Edema: absent Trophic change: absent Spine: Deformity: absent Heart: Not examined Lungs: Not examined Abdomen: Not examined Neurological Exam Mental Status Alert, fully oriented, attentive, with normal cognition, memory, speech and affect. Cranial Nerves Visual gibson intact. Pupils reactive. Extraocular movements conjugate and full. No ptosis. No nystagmus. Facial sensation intact. Face symmetric and strong. Palate and tongue normal. XI normal. Motor Examination and Coordination Neuromuscular Examination Axial Muscles Ptosis: R: none L: none Face-eye closure: normal Face-mouth closure: normal Neck flexion: 5 Neck extension: 5 Extremity Muscles Upper Extremity Right Left Shoulder abduction 5 5 Elbow flexion 5 5 Elbow extension 5 5 Wrist extension 5 5 Finger flexion/log handler 5 5 Finger extension 5 5 First dorsal interosseous 5 5 Abductor digiti minimi 5 5 Abductor pollicis brevis 5 5 Lower Extremity Right Left Hip flexion 5 5 Knee flexion 5 5 Knee extension 5 5 Ankle plantarflexion 5 5 Ankle dorsiflexion 5 5 Extensor hallucis longus 5 5 Flexor digitorum longus 5 5 Tone (Faith spasticity) UE: Right: A0=normal (none) Left: A0=normal (none) LE: Right: A0=normal (none) Left: A0=normal (none) Finger taps: R: normal L: normal Foot taps: R: normal L: normal Reflexes Deep tendon reflexes graded by MRC Deep Tendon Reflexes Right Left Biceps 2+ 2+ Triceps 2+ 2+ Brachioradialis 2+ 2+ Patellar 2+ 2+ Achilles 2+ 2+ Plantar Downgoing Downgoing Sensation Sensation intact to light touch, pinprick, proprioception and vibration. Gait Arises with assistance, stance w astasia abasia characteristics (variable giveaway weakness, occasionally standing on toes when flexing knees). Unable to walk without assistance. Assessment & Plan 04/11/2022 - Neuromuscular, Apurva Dotson MD ASSESSMENT This is a 41 y/o right handed woman with history of depression/anxiety (SA/SI when 19), IBS, constipation, syncope (vasovagal), POTS, fibromyalgia and C spine surgery who presents today for follow up of multiple symptoms including b/l UE and LE weakness (R>L), paresthesia, neck pain, gait difficulty, muscle spasms, tremors, neck pain, brain fog, facial paresthesia, monocular diplopia (OD), and speech difficulty. She had C spine surgery in 2017 w partial symptom improvement. MRI C spine 2017- moderate central stenosis at C5-C6 and no cord signal abn. Extensive OSH work up reviewed. Neurologic exam is non focal. Astacia abasia stance. - Functional gait d/o. PLAN Natural hx of functional movement/ gait disorder discussed. Unrevealing neurologic work up is reassuring and provides a more favorable prognosis. Functional movement d/o eval. Extensive review of OSH med records performed with the patient and her . All questions and concerns were addressed during this visit. Apurva Dotson MD Staff, Neurology and Neuromuscular Medicine No diagnosis found. No follow-ups on file. = Data Review Objective Current Outpatient Medications Medication Sig baclofen (LIORESAL) 20 mg tablet TAKE 1 TABLET BY MOUTH TWICE A DAY NEEDED FOR 90 DAYS nabumetone (RELAFEN) 500 mg tablet Take 500 mg by mouth. cetirizine (ZYRTEC) 10 mg tablet TAKE 1 TABLET BY MOUTH EVERY DAY NEEDED FOR 30 DAYS (Patient not taking: Reported on 04/11/2022) No current facility-administered medications for this visit. There is no problem list on file for this patient. No past medical history on file. No past surgical history on file. Social History Tobacco Use Smoking status: Every Day Types: Cigarettes Smokeless tobacco: Never No family history on file. Review of Systems Constitutional: Positive for fatigue. Musculoskeletal: Positive for arthralgias and muscle weakness. Neurological: Positive for sleep disturbance. Psychiatric: Positive for nervous/anxious. All other systems reviewed and are negative. Lab and Test Review: Appointment on 01/31/2022 Component Date Value Ref Range Status Creatinine 01/31/2022 0.82 0.58 - 0.96 mg/dL Final Estimated Glomerular Filtration Ra* 01/31/2022 93 >=60 mL/min/1.73m Final Estimated Glomerular Filtration Rate (eGFR) is calculated using the 2020 CKD-EPI creatinine equation. This equation utilizes serum creatinine, sex, and age as parameters. The creatinine assay has traceable calibration to isotope dilution-mass spectrometry. Refer to KDIGO guidelines for clinical interpretation. In patients with unstable renal function, e.g. those with acute kidney injury, the eGFR may not accurately reflect actual GFR. CRP 01/31/2022 <0.3 <0.9 mg/dL Final Sed Rate, Westergren 01/31/2022 2 0 - 20 mm/hr Final ALT 01/31/2022 11 7 - 38 U/L Final AST 01/31/2022 14 13 - 35 U/L Final BUN 01/31/2022 6 (A) 7 - 21 mg/dL Final TREV by EIA, Qual 01/31/2022 Negative Negative Final The qualitative antinuclear antibody screen test performed using enzyme immunoassay including the following antigens: dsDNA, histones, SS-A, SS-B, Sm, Sm/TEXTILE CONVERTER, Scl-70, Selma-1, and centromeric antigens. WBC 01/31/2022 10.65 3.70 - 11.00 k/uL Final RBC 01/31/2022 4.76 3.90 - 5.20 m/uL Final Hemoglobin 01/31/2022 16.0 (A) 11.5 - 15.5 g/dL Final Hematocrit 01/31/2022 45.9 36.0 - 46.0 % Final MCV 01/31/2022 96.4 80.0 - 100.0 fL Final MCH 01/31/2022 33.6 26.0 - 34.0 pg Final MCHC 01/31/2022 34.9 30.5 - 36.0 g/dL Final RDW-CV 01/31/2022 11.5 11.5 - 15.0 % Final Platelet Count 01/31/2022 208 150 - 400 k/uL Final MPV 01/31/2022 10.2 9.0 - 12.7 fL Final Neut% 01/31/2022 73.1 % Final Abs Neut 01/31/2022 7.80 (A) 1.45 - 7.50 k/uL Final Lymph% 01/31/2022 20.2 % Final Abs Lymph 01/31/2022 2.15 1.00 - 4.00 k/uL Final [place]% 01/31/2022 5.2 % Final Abs [place] 01/31/2022 0.55 <0.87 k/uL Final Eosin% 01/31/2022 0.8 % Final Abs Eosin 01/31/2022 0.08 <0.46 k/uL Final Baso% 01/31/2022 0.4 % Final Abs Baso 01/31/2022 0.04 <0.11 k/uL Final Immature Gran % 01/31/2022 0.3 % Final Abs Immature Gran 01/31/2022 0.03 <0.10 k/uL Final NRBC 01/31/2022 0.0 /100 WBC Final Absolute nRBC 01/31/2022 <0.01 <0.01 k/uL Final Diff Type 01/31/2022 Auto Final CCP Antibody IgG Qualitative 01/31/2022 Negative Negative Final CCP Antibody, IgG 01/31/2022 <15 <20 Units Final Rheumatoid Factor 01/31/2022 10 <16 IU/mL Final Aldolase 01/31/2022 3.9 1.5 - 8.1 U/L Final This test was developed and its performance characteristics determined by [facility]'s [facility] [place] ([facility]). It has not been cleared or approved by the FDA. [facility] is regulated under CLIA as qualified to perform high-complexity testing. This test is used for clinical purposes. It should not be regarded as investigational or for research. CK 01/31/2022 34 (A) 42 - 196 U/L Final SM Antibody Qual 01/31/2022 Negative Negative Final Anti-Sm (Grande) antibody is used as an aid in diagnosis of systemic lupus erythematosus and its presence is associated with renal disease. A negative result cannot rule out systemic lupus erythematosus. Clinical correlation is required. Test Methodology: Multiplex flow immunoassay. SM Antibody 01/31/2022 <0.2 <1.0 AI Final TEXTILE CONVERTER Antibody QUAL 01/31/2022 Positive (A) Negative Final TEXTILE CONVERTER Antibody 01/31/2022 1.4 (A) <1.0 AI Final SSA Antibody Qual 01/31/2022 Negative Negative Final SSA Antibody IgG 01/31/2022 <0.2 <1.0 AI Final Test Methodology: Multiplex flow immunoassay. SSB Antibody 01/31/2022 <0.2 <1.0 AI Final Anti-SSB (anti-La) antibody is used as an aid in diagnosis of a variety of systemic autoimmune diseases, especially for Sjogren's syndrome and systemic lupus erythematosus. Clinical correlation is required. Test Methodology: Multiplex flow immunoassay. SSB Antibody Qual 01/31/2022 Negative Negative Final CENTROMERE AB QUAL 01/31/2022 Negative Negative Final Centromere Ab 01/31/2022 <0.2 <1.0 AI Final Anti-centromere antibody is used as in aid in diagnosis of systemic sclerosis. Clinical correlation is required. Test Methodology: Multiplex flow immunoassay. Scleroderma Ab Qual 01/31/2022 Negative Negative Final Scleroderma Ab, IgG 01/31/2022 <0.2 <1.0 AI Final Scl-70/Scleroderma antibody test is used as an aid in diagnosis of systemic sclerosis especially the diffuse cutaneous form. A negative result cannot rule out systemic sclerosis. The final interpretation should consider clinical picture and other test results such as anti-centromere antibody. Test Methodology: Multiplex flow immunoassay. SELMA 1 ANTIBODY QUAL 01/31/2022 Negative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 Date End Date Lien Noblety [address] [place] [address] PCP - General Family Medicine 01/10/22 Rory Clare [address] [place] [address] Referring Family Medicine 01/07/22 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 Relationship Specialty Start Date End Date AlmaarunLienty [address] [place] [address] PCP - General Family Medicine 01/10/22 Rory, Clare [address] [place] [address] Referring Family Medicine 01/07/22 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 Relationship Specialty Start Date End Date Rory Clare [address] [place] [address] PCP - General Family Medicine 01/10/22 Rory Clare [address] [place] [address] Referring Family Medicine 01/07/22 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 Relationship Specialty Start Date End Date Rory Clare [address] [place] [address] PCP - General Family Medicine 01/10/22 Rory Clare [address] [place] [address] Referring Family Medicine 01/07/22 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 Relationship Specialty Start Date End Date Rumarun Clare [address] [place] [address] PCP - General Family Medicine 01/10/22 Rory Clare [address] [place] [address] Referring Family Medicine 01/07/22 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 Relationship Specialty Start Date End Date Clare Noble [address] [place] [address] PCP - General Family Medicine 01/10/22 Clare Noble [address] [place] [address] Referring Family Medicine 01/07/22 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 Relationship Specialty Start Date End Date Clare Noble [address] [place] [address] PCP - General Family Medicine 01/10/22 Clare Noble [address] [place] [address] Referring Family Medicine 01/07/22 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 Relationship Specialty Start Date End Date Clare Noble [address] [place] [address] PCP - General Family Medicine 01/10/22 Clare Noble [address] [place] [address] Referring Family Medicine 01/07/22 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 Relationship Specialty Start Date End Date Clare Noble [address] [place] [address] PCP - General Family Medicine 01/10/22 Clare Noble [address] [place] [address] Referring Family Medicine 01/07/22 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 Relationship Specialty Start Date End Date Clare Noble DO [address] [place] [address] PCP - General Family Medicine 01/10/22 Clare Noble DO [address] [place] [address] Referring Family Medicine 01/07/22 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 Relationship Specialty Start Date End Date Clare Noble DO [address] [place] [address] PCP - General Family Medicine 09/26/21 Source Comments (unrecognize d section and content) In the event this informatio n is protected by the Federal Confidentiality of Alcohol and Drug Abuse Patient Records regulations: The Federal rules restrict any use of the information to criminally investigate or prosecute any alcohol or drug abuse patient.[facility] the event this information is protected by the Federal Confidentiality of Alcohol and Drug Abuse Patient Records regulations: The Federal rules restrict any use of the information to criminally investigate or prosecute any alcohol or drug abuse patient.[facility] the event this information is protected by the Federal Confidentiality of Alcohol and Drug Abuse Patient Records regulations: The Federal rules restrict any use of the information to criminally investigate or prosecute any alcohol or drug abuse patient.[facility] the event this information is protected by the Federal Confidentiality of Alcohol and Drug Abuse Patient Records regulations: The Federal rules restrict any use of the information to criminally investigate or prosecute any alcohol or drug abuse patient.[facility] the event this information is protected by the Federal Confidentiality of Alcohol and Drug Abuse Patient Records regulations: The Federal rules restrict any use of the information to criminally investigate or prosecute any alcohol or drug abuse patient.[facility] the event this information is protected by the Federal Confidentiality of Alcohol and Drug Abuse Patient Records regulations: The Federal rules restrict any use of the information to criminally investigate or prosecute any alcohol or drug abuse patient.[facility] the event this information is protected by the Federal Confidentiality of Alcohol and Drug Abuse Patient Records regulations: The Federal rules restrict any use of the information to criminally investigate or prosecute any alcohol or drug abuse patient.[facility] the event this information is protected by the Federal Confidentiality of Alcohol and Drug Abuse Patient Records regulations: The Federal rules restrict any use of the information to criminally investigate or prosecute any alcohol or drug abuse patient.[facility] the event this information is protected by the Federal Confidentiality of Alcohol and Drug Abuse Patient Records regulations: The Federal rules restrict any use of the information to criminally investigate or prosecute any alcohol or drug abuse patient.[facility] the event this information is protected by the Federal Confidentiality of Alcohol and Drug Abuse Patient Records regulations: The Federal rules restrict any use of the information to criminally investigate or prosecute any alcohol or drug abuse patient.[facility] the event this information is protected by the Federal Confidentiality of Alcohol and Drug Abuse Patient Records regulations: The Federal rules restrict any use of the information to criminally investigate or prosecute any alcohol or drug abuse patient.[facility] Campus[facility] the event this information is protected by the Federal Confidentiality of Alcohol and Drug Abuse Patient Records regulations: The Federal rules restrict any use of the information to criminally investigate or prosecute any alcohol or drug abuse patient.[facility] Campus[facility] the event this information is protected by the Federal Confidentiality of Alcohol and Drug Abuse Patient Records regulations: The Federal rules restrict any use of the information to criminally investigate or prosecute any alcohol or drug abuse patient.[facility] Campus[facility] the event this information is protected by the Federal Confidentiality of Alcohol and Drug Abuse Patient Records regulations: The Federal rules restrict any use of the information to criminally investigate or prosecute any alcohol or drug abuse patient.[facility] Campus[facility] the event this information is protected by the Federal Confidentiality of Alcohol and Drug Abuse Patient Records regulations: The Federal rules restrict any use of the information to criminally investigate or prosecute any alcohol or drug abuse patient.[facility] Campus[facility] the event this information is protected by the Federal Confidentiality of Alcohol and Drug Abuse Patient Records regulations: The Federal rules restrict any use of the information to criminally investigate or prosecute any alcohol or drug abuse patient.[facility] Reason for Visit (unrecogniz ed section and content) Reason Comments Back Pain Reason Comments Telemedicine Reason Comments Appointment Cancelled Reason Comments Established Patient Living Well VSMA Reason Comments Follow Up Reason Comments Established Patient FMD education VSMA Reason Comments PT Eval Specialty Diagnoses / Procedures Referred By Gary bruce Referred To Contact [facility] Diagnoses Functional neurological symptom disorder with mixed symptoms Procedures CONSULT TO PHYSICAL THERAPY PHYSICAL THERAPY EVALUATION HIGH COMPLEX 45 MINS Juan Pablo Cespedes MD [address] [place] [address] [facility] [address] [address] Referral ID Status Reason Start Date Expiration Date Visits Requested Visits Authorized [id number] Authorized Auto-Generat ed Referral 03/16/2022 03/15/2023 60 60 Reason Comments New Patient Functional neurologi suresh symptom disorder with mixed symptoms [F44.7] Specialty Diagnoses / Procedures Referred By Gary bruce Referred To Contact Diagnoses Functional neurological symptom disorder with mixed symptoms Procedures CONSULT TO FUNCTIONAL MOVEMENT DISORDERS (FMD) OFFICE/OUTPATIENT [facility] 60-74 MINUTES Juan Pablo Cespedes MD [address] [place] [address] Referral ID Status Reason Start Date Expiration Date Visits Requested Visits Authorized [id number] Pending Review PCP Requested Referral 04/14/2022 04/14/2023 1 1 Reason Comments FMD referral Reason Comments Established Patient Follow Up Reason Comments Joint Pain FOR RECORDS PERTAINING TO PATIENTS WHO ARE OR HAVE BEEN ENROLLED IN A CHEMICAL DEPENDENCY/SUBSTANCEABUSE PROGRAM, SOME INFORMATION MAY BE OMITTED. This clinical summary was aggregated from multiple sources. Caution should be exercised in using it in the provision of clinical care. This summary normalizes information from multiple sources, and as a consequence, information in this document may materially change the coding, format and clinical context of patient data. In addition, data may be omitted in some cases. CLINICAL DECISIONS SHOULD BE BASED ON THE PRIMARY CLINICAL RECORDS. [facility]. provides no warranty or guarantee of the accuracy or completeness of information in this document.
--- NOTE | 2023-04-07 09:40 | MR_ITS ---
The [address] [address] Patient Name: AURELIO TAYLOR MRN: [id number] date: 1980 Sex: F Assigned Patient Location: MRI Current Patient Location: MRI Accession/Order Number: [id number] Exam Date: 04/07/2023 10:06 Report Date: 04/07/2023 11:45 At the request of: AVERY BETANCOURT Procedure: MR head/brain wo/w con EXAMINATION: MR head/brain wo/w con HISTORY: Near Syncope R55, Alteration Of Awareness R41.9 COMPARISON: No relevant comparison available. TECHNIQUE: A variety of imaging planes and parameters were utilized for visualization of suspected pathology. Images were performed without and with Dotarem contrast. FINDINGS: CEREBRUM: No edema, hemorrhage, mass, acute infarction, or inappropriate atrophy. Mild scattered hyperintense foci are present, nonspecific. CEREBELLUM: No edema, hemorrhage, mass, acute infarction, or inappropriate atrophy. BRAINSTEM: No edema, hemorrhage, mass, acute infarction, or inappropriate atrophy. CSF SPACES: Ventricles, cisterns, and sulci are appropriate for age. No hydrocephalus, subarachnoid hemorrhage, or mass. SKULL: No mass or other significant visible lesion. SINUSES: Limited views demonstrate no significant mucosal thickening or fluid. ORBITS: Limited views are unremarkable. OTHER: No abnormal meningeal or parenchymal enhancement. MR/MR head/brain wo/w con IMPRESSION: Mild hyperintense foci, nonspecific No acute intracranial abnormality Electronically authenticated by: LUTHER ALCARAZ Date: 04/07/2023 11:45
--- NOTE | 2023-04-07 11:27 | CA_ITS ---
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1980 Requested By: [id number] Order Number: [id number] Reading MD: SAMSON LEACH Interpretive Statements Predominant rhythm is sinus w/ average rate of 87 bpm Tachycardia - max rate of 146 bpm Bradycardia - none Ventricular ectopy - 105 episodes total (<1%) Patient triggered events: - associated with lightheadedness - associated with rates of 101, 107 and NSR Impression: Predominant rhythm is sinus w/ average rate of 87 bpm Fastest rate of 146 bpm and slowest rateof 65 bpm Ventricular ectopy < 1% total burden No atrial fibrillation No pauses or blocks Electronically Signed On 05-13-2023 6:52:40 EST by SAMSON LEACH
== END 2023-04-07 09:33 | disposition home or self-care (01) ==
LOC: MRI 09:33
PROVIDERS: PCP Family Medicine
DX: R41.9 Unspecified symptoms and signs involving cognitive functions and awareness (principal); R55 Syncope and collapse
CPT/HCPCS: 70553; 93270; A9575

== ENCOUNTER 2023-04-21 13:40 | Outpatient (OUT) | payer OTHER, SELFPAY ==
--- NOTE | 2023-04-21 13:42 | US_ITS ---
[address] [address] Patient Name: AURELIO TAYLOR MRN: [id number] date: 1980 Sex: F Assigned Patient Location: US Current Patient Location: Accession/Order Number: [id number] Exam Date: 04/21/2023 13:48 Report Date: 04/22/2023 07:02 At the request of: PIETRO GRAFF Procedure: US thyroid EXAMINATION: US thyroid HISTORY: thyroid nodule E04.1 COMPARISON: No relevant comparison available. FINDINGS: RIGHT LOBE: Homogeneous echotexture containing 3 small TR 4 nodules, 10 mm, 4 mm, and 4 mm in maximum diameter respectively. Lobe size: 4.9 x 1.3 x 1.9 cm LEFT LOBE: Homogeneous echotexture containing a 2 mm TR 4 nodule. Lobe size: 3.5 x 1.3 x 1.6 cm ISTHMUS: Normal size and echotexture. Thickness: 2 mm US/US thyroid IMPRESSION: 1. Several small TR 4 nodules within the thyroid gland. Follow-up in one year is recommended. TR4 (moderately suspicious): If > 1.0 cm, follow-up ultrasound in 1, 2, 3, and 5 years. If > 1.5 cm, fine needle aspiration (FNA). Electronically authenticated by: ROSHAN CARDENAS Date: 04/22/2023 07:02
--- OUTSIDE RECORDS SUMMARY | 2023-04-21 13:55 | XMS_ITS | CCD ---
Author Name Unknown Address [address] [place] [address] Organization [facility] Care Team Providers Care Fire 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 Name Role Phone PHYSICIAN, DEFAULT Admitting Unavailable PHYSICIAN, DEFAULT Attending Unavailable PHYSICIAN, DEFAULT Admitting Unavailable PHYSICIAN, DEFAULT Attending Unavailable Shawnee Merida Unavailable CLARE NOBLE Primary Care Physician Rory Clare Unavailable Clare Noble Primary Care Provider Rumschlag, Clare Unavailable Rumschlag Clare Primary Care Provider MISC, DR MILLIGAN Consulting Unavailable MISC, DR MILLIGAN Attending Unavailable MISC, DR MILLIGAN Admitting Unavailable MISC, DR MILLIGAN Primary Care Unavailable ZIEBER, DR ROSHAN Lane Consulting Unavailable APLING, INOCENCIO B Admitting Unavailable APLING, INOCENCIO B Attending Unavailable MISC, DR MILLIGAN Primary Care Unavailable APLING, INOCENCIO B Admitting Unavailable APLING, INOCENCIO B Consulting Unavailable APLING, INOCENCIO B Attending Unavailable MISC, DR MILLIGAN Primary Care Unavailable ADRIAN ANDERSEN Consulting Unavailable TIMMIS, DR LEBLANC Admitting Unavailable TIMMIS, DR LEBLANC Consulting Unavailable TIMMIS, DR LEBLANC Attending Unavailable MISC, DR MILLIGAN Primary Care Unavailable THERESA, DR ROSHAN Lane Consulting Unavailable ASIA, CLARI Admitting Unavailable ASIACLARI Consulting Unavailable ASIA, CALRI Attending Unavailable MISC, DR MILLIGAN Primary Care Unavailable Rumschlalindsey DO, Clare Unavailable [phone] Clare Noble DO Primary Care Provider Benji Tabor H Admitting Unavailable TimmisBenji Attending Unavailable Timmis Benji H Referring Unavailable RUMSCHLAG, CLARE Primary Care Unavailable Rumschlag DO, Clare K Primary Care Provider [phone] Fantasma Rockwell Attending Unavailab le LuliFantasma wallace Admitting Unavailab le Rumschlag, Clare Primary Care Unavailable JACQUELYN LI Attending Unavailable RUMSCHLAG, CLARE K Referring Unavailable RUMSCHLAG, CLARE K Primary Care Unavailable NAZARIO VACA Admitting Unavailable VACANAZARIO Attending Unavailable RUMSCHLAG, CLARE K Referring Unavailable RUMSCHLAG, CLARE K Primary Care Unavailable NAZARIO VACA E Attending Unavailable VACA, NAZARIO E Referring Unavailable RUMSCHLAG, CLARE K Primary Care Unavailable RUMSCHLAG, CLARE Primary Care Unavailable NANCY DRAPER Attending Unavailable RUMSCHLAG, CLARE Primary Care Unavailable NANCY DRAPER Attending Unavailable APURVA DOTSON Referring Unavailable RUMSCHLAG, CLARE Primary Care Unavailable HERNÁN MARIEE Attending Unavailable RUMSCHLAG, CLARE Primary Care Unavailable NANCY DRAPER Attending Unavailable DRAPERNANCY Referring Unavailable AUDREY MELGOZA Attending Unavailable RUMSCHLAG, CLARE Primary Care Unavailable KRISTY DOTSONRO J Referring Unavailable RUMSCHLAG, CLARE Primary Care Unavailable NANCY DRAPER Attending Unavailable DRAPERNANCY Referring Unavailable RUMSCHLAG, CLARE Primary Care Unavailable NANCY DRAPER Attending Unavailable DRAPERNANCY Referring Unavailable RUMSCHLAG, CLARE Primary Care Unavailable NANCY DRAPER Attending Unavailable RUMSCHLAG, CLARE Primary Care Unavailable HERNÁN MARIEE Attending Unavailable RUMSCHLAG, CLARE Primary Care Unavailable NANCY DRAPER Attending Unavailable RUMSCHLAG, CLARE Primary Care Unavailable HERNÁN MARIEE Attending Unavailable RUMSCHLAG, CLARE Primary Care Unavailable HERNÁN MARIEE Attending Unavailable BENJI TABOR Attending Unavailable INOCENCIO GUERRA Attending Unavailable APLINGINOCENCIO Attending Unavailable APLINGINOCENCIO Attending Unavailable APLINOCENCIO DELATORRE Referring Unavailable TIMMIBENJI Valles Attending Unavailable RUMSCHLAG, CLARE Referring Unavailable INOCENCIO GUERRA Attending Unavailable Allergies Allergy Classification Reported Allergen(s) Allergy Type Date of Onset Reaction(s) Facility (19 sources) Acetaminophen / oxyCODONE Drug Allergy 0 anaphylaxis, Swelling [facility] (20 sources) pregabalin; Translations: [PREGABALIN] Drug Allergy 6 anaphylaxis, Swelling [facility] (1 source) Acetaminophen / oxyCODONE Drug Allergy 3 [facility] (1 source) pregabalin Drug Allergy 6 [facility] (3 sources) Adhesive Tape-Silicones; Translations: [ADHESIVE TAPE-SILICONES] Propensity to adverse reactions to drug 7 Rash [facility] (1 source) Acetaminophen Drug Allergy 9 [facility] Repository (1 source) oxyCODONE Drug Allergy 9 [facility] Repository (1 source) pregabalin Drug Allergy 9 [facility] Repository (2 sources) Acetaminophen / oxyCODONE; Translations: [OXYCODONE-ACETAM INOPHEN] Drug Allergy 0 [facility] Medications Current Medications Medication Drug Class(es) Dates Sig (Normalized) Sig (Original) cetirizine hydrochloride 10 mg oral tablet (18 sources) Histamine-1 Receptor Antagonist Start: 12-24-2021 take 1 tablet by mouth once daily as needed cetirizine (ZyrTEC) 10 mg tablet Take 1 tablet (10 mg total) by mouth daily as needed for allergies. 0 01/20/2022 Active Comment on above: TAKE 1 TABLET BY HOLLIS TH EVERY DAY NEEDED FOR 30 DAYS DULoxetine (1 source) Serotonin and Norepinephrine Reuptake Inhibitor Cymbalta Active nabumetone 500 mg oral tablet (19 sources) Nonsteroidal Anti-inflammatory Drug Start: 07-22-2021 take [...] Sig (Original) baclofen 20 mg oral tablet (18 sources) gamma-Aminobutyri c Acid-ergic Agonist Start: 12-18-2021 take 1 tablet by mouth twice daily as needed baclofen (LIORESAL) 20 mg tablet TAKE 1 TABLET BY MOUTH TWICE A DAY NEEDED FOR 90 DAYS 0 12/18/2021 Active Start: 09-04-2021 take 2 tablets by mo [facility] three times daily baclofen (LIORESAL) 10 mg tablet Take 2 tablets (20 mg total) by mouth 3 (three) times a day. 0 09/04/2021 Active Comment on above: TAKE 1 TABLET BY HOLLIS TWICE A DAY NEEDED FOR 90 DAYS [...] Spondylosis; intervertebral disc disorders; other back problems (13 sources) Degeneration of cervical intervertebral disc; Translations: [Other cervical disc degeneration, unspecified cervical region] Onset: 02-23-2017 Chronic Spondylosis; intervertebral disc disorders; other back problems (14 sources) Chronic neck pain; Translations: [Cervicalgia] Onset: [...] Onset: 08-13-2021 Resolved: 08-13-2021 Episodic Substance-related disorders (2 sources) Smoker; Translations: [Nicotine dependence, unspecified, uncomplicated] Onset: [...] Rambo Qiu MD Transcribed by: JOSE Technologist: STERLING [facility] Consent for Treatmenton 02-13 Consent for Treatment [id number] 0TIFF [facility] Physician Orderon 02-16-2023 Physician Order [id number] 0TIFF [facility] Physician Orderon 02-13-2023 Physician Order [id number] TIFF [facility] CNPNon 07-03-2022 CNPN Telephone (NREUS2) CHASITY TAYLOR ([id number]) 1980 F Date Time Provider Department 07/03/22 JOCELYN MACHADO NRZEINABS2 During your visit today, we recorded the [...] Assessed Reason for Visit: Social Work Consultation [[id number]] Prescriptions as of 07/03/2022 - cetirizine (ZYRTEC) [...] Status:Closed by JOCELYN MACHADO on 07/03/22 Normal [facility] MRI SHOULDER LT WO CONon MRI SHOULDER [...] by: ADRIAN ANDERSEN Date: 2022-06-13 11:42 [facility] CNPN Telephone (PHYTMN) CLAUDIACHASITY ([id number]) 1980 F Date Time Provider Department 06/04/22 SANDY ROMAN During your visit today, we [...] Encounter Status:Closed by [facility]Y [facility]04[facility]TMN[facility] CHASITY TAYLOR ([id number]) 1980 F Date Time Provider Department 06/03/22 SANDY ROMAN PHYTMN During your visit today, [...] the following contact information: [facility] ([place], [place]) She gave verbal permission to send [...] Fully Assessed Reason for Visit: Patient Question [6549] Cmt: Question about local PT Prescriptions as [...] Encounter Status:Closed by SANDY ROMAN on 06/03/22 [facility] CNOVon 05-21-2022 CNOV Office Visit (NREUS2 ) CHASITY TAYLOR ([id number]) 1980 F Date Time Provider Department 05/21/22 1:00 PM NANCY DRAPER NREUS2 During your visit today, we recorded the following information about you: Pulse Blood pressure 89/minute 102/63 Nancy Draper MD 05/21/2022 2:49 PM Signed [facility] - NEW PATIENT EVALUATION Referring Provider: Apurva Dotson [address] [facility] [address] Primary Care Provider: Clare Noble DO [address] [facility] [address] Dear Apurva Dotson: Thank you for referring [...] and subsequently underwent cervical spine fusion in 2017 with temporary improvement in the symptoms. She [...] Row Distance Health from 04/19/2022 in [facility] Global Physical Health T Score 32.4 Global [...] this en (more content not included)... Normal [facility] CNTHERAPYon 05-21-2022 CNTHERAPY OT/PT/Speech Visit (PHYTMN) CLAUDIACHASITY KANG ([id number]) 1980 F Date Time Provider Department 05/21/22 2:30 PM AUDREY MELGOZA Date Time Provider Department Center 05/21/2022 2:30 PM [id number] MELGOZA [facility] Reason for Visit: PT Eval [...] tablet Take 500 mg by mouth. Normal [facility] CBC W Auto Differential pane l (Bld)on 01-31-2022 Basophils (Bld) [#/Vol] 0.04 10*3/uL <0.11 k/uL [facility] Basophils/100 WBC (Bld) 0.4 % [facility] Differential cell count method Nom (Bld) Auto [facility] Eosinophils (Bld) [#/Vol] 0.08 10*3/uL <0.46 k/uL [facility] Eosinophils/100 WBC (Bld) 0.8 % [facility] Erythrocyte distribution width (RBC) [Ratio] 11.5 % 11.5 - 15.0 % [facility] Hematocrit (Bld) [Volume fraction] 45.9 % 36.0 - 46.0 % [facility] Hemoglobin (Bld) [Mass/Vol] 16.0 g/dL High 11.5 - 15.5 g/dL [facility] Immature granulocytes (Bld) [#/Vol] 0.03 10*3/uL <0.10 k/uL [facility] Immature granulocytes/100 WBC (Bld) 0.3 % [facility] Lymphocytes (Bld) [#/Vol] 2.15 10*3/uL 1.00 - 4.00 k/uL [facility] Lymphocytes/100 WBC (Bld) 20.2 % [facility] MCH (RBC) [Entitic mass] 33.6 pg 26.0 - 34.0 pg [facility] MCHC (RBC) [Mass/Vol] 34.9 g/dL 30.5 - 36.0 g/dL [facility] MCV (RBC) [Entitic vol] 96.4 fL 80.0 - 100.0 fL [facility] Monocytes (Bld) [#/Vol] 0.55 10*3/uL <0.87 k/uL [facility] Monocytes/100 WBC (Bld) 5.2 % [facility] Neutrophils (Bld) [#/Vol] 7.80 10*3/uL High 1.45 - 7.50 k/uL [facility] Neutrophils/100 WBC (Bld) 73.1 % [facility] Nucleated RBC (Bld) [#/Vol] <0.01 k/uL [facility] Nucleated RBC/100 WBC (Bld) [Ratio] 0.0 /100 WBC [facility] Platelet mean volume (Bld) [Entitic vol] 10.2 fL 9.0 - 12.7 fL [facility] Platelets (Bld) [#/Vol] 208 10*3/uL 150 - 400 k/uL [facility] RBC (Bld) [#/Vol] 4.76 10*6/uL 3.90 - 5.2 0 m/uL [facility] WBC (Bld) [#/Vol] 10.65 10*3/uL 3.70 - 11 .00 k/uL [facility] No Panel Informationon 01-31 [facility] XR SINUSES 3 VIEWS OR GREATE Regan [...] by: ROSHAN CARDENAS Date: 2021-12-23 16:28 Normal [facility] ALDOLASEon 10-31-2021 Aldolase 3.9 U/L Normal 3.3-10.3 [facility] Comment on above: Performed By: #### A LDOLAS #### Laboratory [address] [place] [address] Dr. Ted Mendez TREV COMPREHENSIVE PROFILEon 10-31-2021 Anti-Centromere B Antibodies <0.2 Normal 0.0-0.9 [facility] Comment on above: Performed By: #### A NAPROF #### Laboratory [address] [place] [address] Dr. Ted Mendez Anti-DNA (DS) Ab Qn 3 IU/mL Normal 0-9 [facility] Comment on above: Result Comment: Nega tive <5 Equivocal 5 - 9 Positive >9 Performed By: #### A CHANDRAKANTROF #### Laboratory [address] [place] [address] Dr. Ted Mendez Anti-Selma-1 <0.2 Normal 0.0-0.9 [facility] Comment on above: Performed By: #### A NAPROF #### Laboratory [address] [place] [address] Dr. Ted Mendez Antichromatin Antibodies <0.2 Normal 0.0-0.9 [facility] Comment on above: Performed By: #### A NAPROF #### Laboratory [address] [place] [address] Dr. Ted Mendez ANTIRIBOSOMAL P AB <0.2 Normal 0.0-0.9 [facility] Comment on above: Performed By: #### A NAPROF #### Laboratory [address] [place] [address] Dr. Ted Mendez Antiscleroderma-70 Antibodies <0.2 Normal 0.0-0.9 [facility] Comment on above: Performed By: #### A NAPROF #### Laboratory [address] [place] [address] Dr. Ted Mendez COMMENT Comment Normal [facility] Comment on above: Result Comment: Auto antibody Disease Association Condition Frequency Antinuclear Antibody, SLE, mixed connective Direct (TREV-D) tissue diseases dsDNA SLE 40 - 60% Chromatin Drug induced SLE 90% SLE 48 - 97% SSA (Ro) SLE 25 - 35% Sjogren's Syndrome 40 - 70% Lupus 100% SSB (La) SLE 10% Sjogren's Syndrome 30% Sm (anti-Lin) SLE 15 - 30% FOOD SAFETY SCIENTIST Mixed Connective Tissue Disease 95% (U1 nRNP, SLE 30 - 50% anti-ribonucleoprotein) Polymyositis and/or Dermatomyositis 20% Scl-70 (antiDNA Scleroderma (diffuse) 20 - 35% topoisomerase) Crest 13% Selma-1 Polymyositis and/or Dermatomyositis 20 - 40% Centromere B Scleroderma - Crest variant 80% Ribosomal P SLE 10 - 20% Performed By: #### A CHANDRAKANTROF #### Laboratory [address] [place] [address] Dr. Ted Mendez FOOD SAFETY SCIENTIST Antibodies 1.8 AI Critically high 0.0-0.9 [facility] Comment on above: Performed By: #### A NAPROF #### Laboratory [address] [place] [address] Dr. Ted Alyogrmanny'andrew Anti-SS-A <0.2 Normal 0.0-0.9 [facility] Comment on above: Performed By: #### A NAPROF #### Laboratory [address] [place] [address] Dr. Ted Alyogrmanny'andrew Anti-SS-B <0.2 Normal 0.0-0.9 [facility] Comment on above: Performed By: #### A NAPROF #### Laboratory [address] [address] [address] Ted Mendez Lin Antibodies <0.2 Normal 0.0-0.9 [facility] Comment on above: Performed By: #### A NAPROF #### Laboratory [address] [address] [address] Ted Mendez Lin/FOOD SAFETY SCIENTIST Antibodies <0.2 Normal 0.0-0.9 [facility] Comment on above: Performed By: #### A NAPROF #### Laboratory [address] [address] [address] Ted Mendez CPKon 10-30-2021 CK [Catalytic activity/Vol] 37 U/L Normal 26-192 The Comment on above: Performed By: #### C K, CRP, FRIEDA #### Laboratory [address] [place] [address] Dr. Ted Mendez CRPon 10-30-2021 CRP [Mass/Vol] mg/L Normal <=1.0 [facility] Comment on above: Performed By: #### C K, CRP, FRIEDA #### Laboratory [address] [place] [address] Dr. Ted Mendez MYOGLOBINon 10-30-2021 FRIEDA 22 ng/mL Normal 9-82 [facility] Comment on above: Performed By: #### C K, CRP, FRIEDA #### Laboratory [address] [place] [address] Dr. Ted Mendez SED RATE WESTERGRENon 2021 SED RATE <1 Normal <=20 The Comment on above: Performed By: #### S EDR #### Laboratory [address] [place] [address] Dr. Ted Mendez XR LSPINE MIN 4 [...] ROSHAN CARDENAS Date: 2021-08-01 15:07 Normal The MRI Cervical Spine w/oon MRI Cervical Spine w/o HISTORY: Neck pain, left arm numbness and tingling, right arm weakness, prior surgery (2017) PROCEDURE: [employer] HDXT 1.5. Sagittal T1, T2, STIR and [...] by Tommy Duenas on 05/21/[address] [facility] Back Maker Vital Signs Date Time Vital Sign Value Performing Clinician Facility 03-18-2023 13:53-0500 Diastolic blood pressure 76 mm[Hg] Jacquelyn Li PA-C Work Phone: [facility] 03-18-2023 13:53-0500 Heart rate 77 /min Jacquelyn Li PA-C Work Phone: [facility] 03-18-2023 13:53-0500 Respiratory rate 20 /min Jacquelyn Verhoff PA-C Work Phone: [facility] 03-18-2023 13:53-0500 Systolic blood pressure 122 mm[Hg] Jacquelyn Spraguehoff PA-C Work Phone: [facility] 05-21-2022 12:46-0500 Diastolic blood pressure 63 mm[Hg] Nancy Draper MD Work Phone: [facility] 05-21-2022 12:46-0500 Heart rate 89 /min Nancy Draper MD Work Phone: [facility] 05-21-2022 12:46-0500 SaO2% (BldA) [Mass fraction] 97 % Nancy Draper MD Work Phone: [facility] 05-21-2022 12:46-0500 Systolic blood pressure 102 mm[Hg] Nancy Draper MD Work Phone: [facility] 04-11-2022 14:59-0500 Body height 157.5 cm Apurva Dotson MD Work Phone: [facility] 04-11-2022 14:59-0500 Body weight 63.96 kg Apurva Dotson MD Work Phone: [facility] 04-11-2022 14:59-0500 Diastolic blood pressure 79 mm[Hg] Apurva Dotson MD Work Phone: [facility] 04-11-2022 14:59-0500 Heart rate 76 /min Apurva Dotson MD Work Phone: [facility] 04-11-2022 14:59-0500 Systolic blood pressure 120 mm[Hg] Apurva Dotson MD Work Phone: [facility] 01-31-2022 11:13-0500 Body height 158.5 cm Lissette Shirley MD Work Phone: [facility] 01-31-2022 11:13-0500 Body weight 66.18 kg Lissette Shirley MD Work Phone: [facility] 01-31-2022 11:13-0500 Diastolic blood pressure 68 mm[Hg] Lissette Shirley MD Work Phone: [facility] 01-31-2022 11:13-0500 Heart rate 84 /min Lissette Shirley MD Work Phone: [facility] 01-31-2022 11:13-0500 Systolic blood pressure 125 mm[Hg] Lissette Shirley MD Work Phone: [facility] 08-13-2021 11:40-0400 Body height 158.75 cm Shawnee Merida Other [employer] Other 08-13-2021 11:40-0400 Body mass index (BMI) [Ratio] 23.04 kg/m2 Shawnee Magnolia Other [employer] Other 08-13-2021 11:40-0400 Body temperature 98.8 [degF] Shawnee Magnolia Other [employer] Other 08-13-2021 11:40-0400 Body weight 58.06 kg Shawnee Magnolia Other [employer] Other 08-13-2021 11:40-0400 Diastolic blood pressure 74 mm[Hg] Shawnee Merida Other [employer] Other 08-13-2021 11:40-0400 Respiratory rate 18 /min Shawnee Merida Other [employer] Other 08-13-2021 11:40-0400 SaO2% (BldA) [Mass fraction] 99 % Shawnee Merida Other [employer] Other 08-13-2021 11:40-0400 Systolic blood pressure 116 mm[Hg] Shawnee Merida Other [facility] Other Encounters Encounter Date Encounter Type Care Provider Facility Start: 04-15-2023 End: 04-16-2023 ambulatory INOCENCIO B APLING Not Available Start: 04-13-2023 End: 04-14-2023 [facility] Start: 04-10-2023 End: 04-13-2023 ambulatory NAZARIO VACA [facility] Start: 04-08-2023 End: 04-08-2023 ambulatory INOCENCIO B APLING Not Available Start: 04-06-2023 Telephone encounter Patricia Beaulieu [facility] Start: 03-25-2023 End: 03-25-2023 ambulatory BENJI GODDARDS Not Available Start: 03-18-2023 End: 03-18-2023 ambulatory JACQUELYN LI [facility] Start: 03-18-2023 End: 03-18-2023 Office outpatient visit 25 minutes Jacquelyn Li PA-C Work Phone: [facility] Comment on above: Cervical spondylosis without myelopathy (Primary Dx) Start: 03-04-2023 End: 03-04-2023 ambulatory INOCENCIO B APLING Not Available Start: 02-24-2023 End: 02-25-2023 ambulatory Benji Goddards [facility] Start: 02-24-2023 End: 02-24-2023 Patient encounter procedure Benji Goddards [facility] Start: 02-14-2023 End: 02-14-2023 ambulatory CLARE NOBLE Facility:[facility] Start: 02-14-2023 End: 02-14-2023 [facility] Nancy Draper MD Work Phone: [facility] Comment on above: Functional neurologi suresh symptom disorder with mixed symptoms (Primary Dx) Start: 01-28-2023 End: 01-28-2023 ambulatory INOCENCIO B APLING Not Available Start: 01-27-2023 ambulatory Fantasma Cole acility:[facility] Start: 01-26-2023 End: 01-26-2023 ambulatory BENJI TABOR Not Available Start: 11-27-2022 End: 11-27-2022 ambulatory [facility] Facility:[facility] Start: 11-27-2022 End: 11-27-2022 Unlisted evaluation and management service Nancy Draper MD Work Phone: [facility] Comment on above: APPOINTMENT CANCELLE D (Primary Dx) Start: 11-13-2022 End: 11-13-2022 ambulatory [facility] Facility:[facility] Start: 11-13-2022 End: 11-13-2022 Office outpatient visit 15 minutes Nancy Draper MD Work Phone: [facility] Comment on above: Chronic low back matilde n, unspecified back pain laterality, unspecified whether sciatica present (Primary Dx); Chronic neck pain; Functional neurological symptom disorder with mixed symptoms Start: 10-25-2022 End: 10-25-2022 [facility] [employer] Italia Mariee PhD Work Phone: [facility] Comment on above: Functional neurologi suresh symptom disorder with mixed symptoms (Primary Dx); Anxiety; Depression, unspecified depression type Start: 09-25-2022 End: 09-25-2022 [facility] Facility:[facility] Start: 09-25-2022 End: 09-25-2022 Office outpatient visit 15 minutes Nancy Draper MD Work Phone: [facility] Comment on above: Functional neurologi suresh symptom disorder with mixed symptoms (Primary Dx) Start: 09-23-2022 End: 09-23-2022 ambulatory [facility] Facility:[facility] Start: 09-23-2022 End: 09-23-2022 [facility] [employer] Italia Mariee PhD Work Phone: [facility] Comment on above: Functional neurologi suresh symptom disorder with mixed symptoms (Primary Dx); Anxiety; Depression, unspecified depression type Start: 07-26-2022 End: 07-26-2022 [facility] [employer] Italia Mariee PhD Work Phone: [facility] Comment on above: Functional neurologi suresh symptom disorder with mixed symptoms (Primary Dx) Start: 07-03-2022 End: 07-03-2022 Telephone encounter Jocelyn BAL Work Phone: [facility] Comment on above: Social Work Consulta tion Functional neurologi suresh symptom disorder with mixed symptoms (Primary Dx) Start: 07-03-2022 End: 07-03-2022 ambulatory [facility] Facility:[facility] Start: 07-03-2022 End: 07-03-2022 Telemedicine consultation with patient Nancy Draper MD Work Phone: [facility] Start: 06-21-2022 ambulatory Hernán Mariee Ph D Work Phone: [facility] Comment on above: Group therapy Start: 06-12-2022 End: 06-13-2022 ambulatory INOCENCIO B APLING Facility: Start: 05-21-2022 End: 05-21-2022 ambulatory AUDREY RHONA Facility:[facility] Start: 05-21-2022 End: 05-21-2022 ambulatory Audrey Rhona PT Work Phone: [facility] Start: 05-21-2022 End: 05-21-2022 Patient encounter procedure Nancy Draper MD Work Phone: [facility] Comment on above: Functional neurologi suresh symptom disorder with mixed symptoms Start: 05-07-2022 End: 05-13-2022 ambulatory INOCENCIO B APLING Facility: Start: 04-19-2022 End: 04-19-2022 ambulatory CLARE RUMSCHLAG Facility:[facility] Start: 04-14-2022 Telephone encounter Nancy Draper MD Work Phone: [facility] Comment on above: FMD referral Start: 04-11-2022 End: 04-11-2022 Patient encounter procedure Apurva Dotson MD Work Phone: Neurology Comment on above: Functional movement disorder (Primary Dx) Start: 02-07-2022 End: 02-07-2022 ambulatory Lissette Shirley MD Work Phone: Rheumatology Comment on above: Muscle spasm (Primar y Dx); Lumbar spondylosis; Neuropathy Start: 02-07-2022 End: 02-07-2022 Telemedicine consultation with patient Lissette Shirley MD Work Phone: [facility] Start: 02-03-2022 End: 02-03-2022 Patient encounter procedure Benji Tabor [facility] Start: 01-31-2022 End: 01-31-2022 Patient encounter procedure Lissette Shirley MD Work Phone: Rheumatology Comment on above: Muscle spasm (Primar y Dx); Pain in joint, multiple sites; Lumbar spondylosis; Neck pain, chronic Start: 12-25-2021 End: 01-24-2022 Pre-admission assessment Benji Tabor [facility] Start: 12-23-2021 End: 12-24-[address] BENJI TABOR Facility:[facility] Start: 10-30-2021 End: 10-31-2021 ambulatory CLARI BETANCOURT Facility:[facility] Start: 08-13-2021 End: 08-13-2021 ambulatory Shawnee Merida Other [facility] Other Start: 08-13-2021 Office outpatient vi sit 15 minutes Shawnee Merida [facility] Start: 08-01-2021 End: 08-02-[address] DOCTOR FARMER Facility:[facility] Start: 07-08-2018 End: 07-09-2018 Patient encounter procedure DEFAULT PHYSICIAN Facility:[facility] Start: 10-19-2017 End: 10-20-2017 Patient encounter procedure DEFAULT PHYSICIAN Facility:[facility] Plan of Treatment Date Care Activity Detail Author Start: 03-18-2024 Tobacco Screening Tobacco Screening [facility] Start: 12-18-2023 Adult BMI Screening Adult BMI Screen ing [facility] Start: 05-27-2023 End: 05-27-2023 Patient encounter procedure 05/27/2023 3:00 PM EDT Office Visit [facility] [address] [place] [phone] Jacquelyn Li PA-C [address] [place] [address] [facility] Start: 04-24-2023 End: 04-24-2023 Admission to same day surgery center [facility] Comment on above: RADIOFREQUENCY ABLAT ION SPINAL Left C 4/5, 6/7 [86480 (CPT )] RADIOFREQUENCY ABLAT ION SPINAL Left C 4/5 _ 6/7 [74640 (CPT )] Start: 04-24-2023 End: 04-24-2023 Dstr nrolytc agnt parverteb fct sngl crvcl/thora RADIOFREQUENCY ABLATION SPINAL Cervical spondylosis without myelopathy 04/24/2023 10:15 AM EST [facility] Start: 04-24-2023 Subsequent hospital visit by physician 04/24/2023 10:15 AM EST Hospital Encounter [facility] [address] [place] [phone] Nazario Vaca MD [address] [place] [address] [facility] Start: 04-10-2023 End: 04-10-2023 Admission to same day surgery center 04/10/2023 9:41 AM EST - 04/10/2023 9:52 AM EST Surgery [facility] [address] [place] [id number] Nazario Vaca MD [address] [place] [address] RADIOFREQUENCY ABLATION SPINAL right C 4/5 6/7 [50317 (CPT )] [facility] Comment on above: RADIOFREQUENCY ABLAT ION SPINAL right C 4/5 6/7 [18940 ([facility] )] Start: 04-10-2023 End: 04-10-2023 Dstr nrolytc agnt parverteb fct sngl crvcl/thora RADIOFREQUENCY ABLATION SPINAL Cervical spondylosis without myelopathy 04/10/2023 9:41 AM EST [facility] Start: 04-10-2023 Subsequent hospital visit by physician 04/10/2023 9:41 AM EST Hospital Encounter [facility] [address] [place] [address] Nazario Vaca MD [address] [place] [address] [facility] Start: 04-10-2023 End: 04-10-2023 Patient encounter procedure 04/10/2023 8:30 AM EST Appointment [facility] Radiology [address] [place] [address] Nazario Vaca MD [address] [place], [place] [id number] [facility] Start: 11-14-2022 Influenza vaccination C [facility] Start: 2022 Mammography [facility] Start: 03-16-2022 DEPRESSION ASSESSMENT DEPRESSION ASS ESSMENT [facility] Start: 01-31-2022 End: 04-02-2022 Alanine aminotransferase [Enzymatic activity/volume] in Serum or Plasma [facility] Work Phone: Comment on above: Expected: 01/31/2022 , Expires: 04/02/2022 Start: 01-31-2022 End: 04-02-2022 Aldolase [Enzymatic activity/volume] in Serum or Plasma [facility] Work Phone: Comment on above: Expected: 01/31/2022 , Expires: 04/02/2022 Start: 01-31-2022 End: 04-02-2022 Aspartate aminotransferase [Enzymatic activity/volume] in Serum or Plasma [facility] Work Phone: Comment on above: Expected: 01/31/2022 , Expires: 04/02/2022 Start: 01-31-2022 End: 04-02-2022 C reactive protein [Mass/volume] in Serum or Plasma [facility] Work Phone: Comment on above: Expected: 01/31/2022 , Expires: 04/02/2022 Start: 01-31-2022 End: 04-02-2022 Creatine kinase [Enzymatic activity/volume] in Serum or Plasma [facility] Work Phone: Comment on above: Expected: 01/31/2022 , Expires: 04/02/2022 Start: 01-31-2022 End: 04-02-2022 CREATININE BLD [facility] Work Phone: Comment on above: Expected: 01/31/2022 , Expires: 04/02/2022 Start: 01-31-2022 End: 04-02-2022 Cyclic citrullinated peptide IgG Ab [Units/volume] in Serum or Plasma [facility] Work Phone: Comment on above: Expected: 01/31/2022 , Expires: 04/02/2022 Start: 01-31-2022 End: 04-02-2022 Erythrocyte sedimentation rate [facility] Work Phone: Comment on above: Expected: 01/31/2022 , Expires: 04/02/2022 Start: 01-31-2022 End: 04-02-2022 Extractable nuclear Ab panel - Serum [facility] Work Phone: Comment on above: Expected: 01/31/2022 , Expires: 04/02/2022 Start: 01-31-2022 End: 04-02-2022 Nuclear Ab [Presence] in Serum by Immunoassay [facility] Work Phone: Comment on above: Expected: 01/31/2022 , Expires: 04/02/2022 Start: 01-31-2022 End: 04-02-2022 Rheumatoid factor [Units/volume] in Serum or Plasma [facility] Work Phone: Comment on above: Expected: 01/31/2022 , Expires: 04/02/2022 Start: 01-31-2022 End: 04-02-2022 Urea nitrogen [Mass/volume] in Serum or Plasma [facility] Work Phone: Comment on above: Expected: 01/31/2022 , Expires: 04/02/2022 Start: 11-14-2021 Influenza vaccination INFLUENZA (#1) [facility] Start: 03-16-2021 DEPRESSION ASSESSMENT DEPRESSION ASS ESSMENT [facility] Start: 2012 HPV TESTING HPV TESTING [facility] Start: 2003 PAP TESTING PAP TESTING [facility] Start: 2001 DTaP,Tdap and Td Vac cines (1 - Tdap) DTaP,Tdap and Td Vaccines (1 - Tdap) [facility] Start: 2001 Urine microalbumin profile [facility] Start: 2000 Adult BMI Follow Up Plan Adult BMI Follow Up Plan [facility] Start: 2000 HEPATITIS C SCREENING HEPATITIS C SC REENING [facility] Start: 2000 HIV SCREENING HIV SCREENING [facility] Start: 1994 Depression Screening Depression Scre ening [facility] Start: 1988 PNEUMOCOCCAL (1 - PCV) PNEUMOCOCCAL (1 - PCV) [facility] Start: 1988 Pneumococcal vaccination Pneum ococcal Vaccine (1 - PCV) [facility] Start: 1982 COVID-19 VACCINE (#1) COVID-19 VACCI NE (#1) [facility] Start: 1982 HEPATITIS B (1 of 3 - 3-dose series) HEPATITIS B (1 of 3 - 3-dose series) [facility] Start: 1982 Hepatitis B Vaccine (1 of 3 - 3-dose series) Hepatitis B Vaccine (1 of 3 - 3-dose series) [facility] Start: 1982 Tobacco Counseling Tobacco Counselin lindsey [facility] Dstr nrolytc agnt parverteb fct sngl crvcl/thora RADIOFREQUENCY ABLATION SPINAL Cervical spondylosis without myelopathy [facility] Immunizations Immunization Date Immunization Notes Care Provider Ethan capone 12-08-2014 influenza virus vacc ine, unspecified formulation Nancy Draper MD Work Phone: [facility] Payers Date Payer Category Payer Self-pay 2021 Private Health Insurance [id number] 1980 Unknown [id number] 2.16.8 [id number] 1982 Unknown [id number] 2.16.8 40.1.784489.3.579.2.647 1982 Unknown [id number] 2.16.84 0.1.024937.3.579.2.593 1982 Unknown [id number] 2.16.84 0.1.056254.3.579.2.593 1982 Unknown [id number] 2.16.84 0.1.716997.3.579.2.593 1982 Unknown [id number] 2.16.84 0.1.090076.3.579.2.593 1982 Unknown [id number] 2.16.84 0.1.419147.3.579.2.593 1982 Unknown [id number] 2.16.8 40.1.100064.3.579.2.727 1982 Unknown [id number] 2.16.8 40.1.039207.3.579.2.1286 1982 Unknown [id number] 2.16.8 40.1.348159.3.579.2.1286 1982 Unknown [id number] 2.16.84 0.1.403272.3.579.2.1286 1982 Unknown [id number] 2.16.84 0.1.441346.3.579.2.1259 1982 Unknown [id number] 2.16.84 0.1.753995.3.579.2.1259 1982 Unknown [id number] 2.16.84 0.1.785802.3.579.2.1259 1982 Unknown [id number] 2.16.84 0.1.931920.3.579.2.9 1982 Unknown [id number] 2.16.840 .1.020554.3.579.2.1259 1982 Unknown [id number] 2.16.840. 1.045691.3.579.2.9 1982 Unknown [id number] 2.16.840. 1.391995.3.579.2.1259 1959 Private Health Insurance [id number] 2.16.840.1.061466.19 Unknown Unknown [id number] 2.16.8 40.1.039923.3.579.2.531 Social History Date Type Detail Facility Unknown if ever smoked [facility] Other Start: 04-26-2020 End: 05-21-2022 Sex Assigned At [facility] Tobacco smoking status No Smokin g Status Entered [facility] Start: 01-31-2022 Tobacco smoking stat [facility] Smokes tobacco daily [facility] History of tobacco use Cigarette Smoker C [facility] Start: 01-17-2022 End: 01-31-2022 Tobacco use and exposure Smokeless tobacco non-user [facility] Start: 1980 Sex Assigned At Not on file C [facility] Start: 01-21-2022 End: 01-31-2022 Exposure to SARS-CoV-2 (event) Not sure [facility] Start: 04-26-2020 End: 05-21-2022 History of Social function [facility] Adult Depression Screening Assessment 1 [facility] Start: 01-17-2022 Tobacco smoking stat [facility] Heavy tobacco smoker [facility] Start: 03-18-2023 Alcohol intake Current non-dr wallace of alcohol (finding) [employer] 2020 System Medical Equipment Procedure Code Equipment Code Equipment Origin al Text Equipment Identifier Dates Implant Babsr Lg Bvn At Dlv Dev Bioinductive Impl Regeneten - Sna - [id number] Start: 12-17-2022 [place] [employer] Megan eten Tndn Rotr Cuf Repr - Sna - [id number] Start: 12-17-2022 Plt Ant Cerv Xte nd 1-Lev 10 - [id number] Start: 02-24-2017 Scr Xtend 4.2x14 mm Vasd - [id number] Start: 02-24-2017 Vikos Cortico-Cancellous [id number] Start: 02-24-2017 Clinical Notes 08-13-2021 to 04-14-2023 Telephone Encounter - Patricia Becerril RN - 04/06/2023 11:38 AM ESTTelephone Encounter - Jacquelyn Li PA-C - 04/06/2023 11:38 AM ESTTelephone Encounter - Patricia Becerril RN - 04/06/2023 11:38 AM EST Note Date & Type Note Facility 04-14-2023 Note HNO ID: [id number] Author: NANCY DRAPER MD Service: ? Author Type: Physician Type: Progress Notes Filed: 04/13/2023 22:57 Note Text: [facility] - FOLLOW UP EVALUATION Clare Noble DO, DO [address] [facility] [id number] Dear Clare Noble DO DO: I had the pleasure of seeing Ms. Taylor for follow-up today. As you know she is a 42 year old left-handed female with a history of functional neurological disorder since . referred by Dr. Dotson She is seen alone. We had a visit using: Telephone Subjective Previous Plan-11/13/2022 Visit: Consult to center for pain recovery for chronic pain management Continue local psychiatry/psychology Continue VSMA living well with FMD Follow up in 5 months virtually Interested in clinical research? Not currently Interval History: Patient reports having worse FMD symptoms recently due to cold weather. She also reports undergoing additional workup locally for her blacking out spells with holter monitor and EEG, tilt table previously was negative. She tried local therapies for FMD and feels that they are unable to help her further. She would like to consider possibly a 1-week outpatient intensive therapy program with [facility] in June. She will discuss this further with her family. She would like to continue to see Dr. Mariee (psychology) virtually. Shoulder surgery went well. Movement Disorders Medications Schedule - as of the start of the visit: Medications Questionnaires: Mood/Behavior Depression: PHQ-9 Score: 7 usually representing mild (5-9) depression. Anxiety: SYED-7 Total Score: 7 usually representing mild (5-9) anxiety. Finally, the following table shows the patient's overall global physical and mental health using the PROMIS scale: PROMIS-10 Flowsheet Row Distance [facility] from 04/13/2023 in [facility] from 11/27/2022 in [facility] Global Physical Health T Score -- 32.4 Global Mental Health T Score 33.8 28.4 0-10 Standard Pain Scale -- 3 *PROMIS-10 scoring scale: mean = 50, over 50 is above average, under 50 is below average ALLERGIES Allergen Reactions Oxycodone-Acetamino* Anaphylaxis, Swelling Pregabalin [...] file to calculate BMI. General Physical Examination: General Exam Awake, alert, speech clear General Neurological Examination: Neurological Exam Not done due to telephone call Movement Disorders Scales Performed: Assessment and Plan: [...] abasia. Exam otherwise is suggestive of FND. She's following with local psychiatry and psychology. Local PT was not helpful. She would like to consider join [facility] intensive outpatient treatment program, and possibly re-do the assessment with PT/OT in June. The following are the current problems noted and addressed during this visit: Functional neurological symptom disorder with mixed symptoms Plan 04/13/2023 Visit: Patient is considering to come back to [facility] for additional PT/OT possibly via a 1-week intensive program, she would like to discuss further with her family and consider PT/OT re-assessment in June. Follow up with psychology with Dr. Mariee virtually Patient will continue local workup for black out spells . Interested in clinical research? Not currently Updated Movement Disorders Medication Schedule: Medications Time spent on the phone: 10 min Thank you for allowing me to be part of the clinical care of this patient! I look forward to continued participation in the patient?s care with you. Please do not hesitate to call with any questions. Sincerely, Nancy Draper MD [facility] 04-06-2023 Miscellaneous Notes Pt calls states she is getting heart monitor placed tomorrow x30 days for increased dizzy spells. Ordered by [facility] [facility] at [facility]. Pt states she has POTS and was told her P wave disappears when she passes out and then reappears when she comes to. Pt is scheduled for cervical RFA on 04/10/23 with MAC and asks if she can still have MAC? Clear through anesthesia Ok I will resend this info to the anesthesia staff Anesthesia staff: Please see message below, our provider requests anesthesia input Please obtain neuro office visit documentation. We can make a decision on how to best proceed after reviewing. Spoke with Mia at [facility], records will be sent via fax and uploaded under media tab once received [facility] office notes with EMG results scanned in media tab. Please review The patient is very symptomatic. The procedure will need to be postponed until after her neuro workup (which includes the holter monitor) has been completed. Called pt with response. PVU Procedure appt cancelled and pt will be responsible to f/u after holter monitor completed and pt has f/u with neuro. documented in this encounter [facility] 04-06-2023 Telephone encounter Note Pt calls states she is getting heart monitor placed tomorrow x30 days for increased dizzy spells. Ordered by [facility] [employer] WORK[facility] at [facility]. Pt states she has POTS and was told her P wave disappears when she passes out and then reappears when she comes to. Pt is scheduled for cervical RFA on 04/10/23 with MAC and asks if she can still have MAC? [facility] 04-06-2023 Telephone encounter Note Clear through anesthesia [facility] 04-06-2023 Telephone encounter Note Ok I will resend this info to the anesthesia staff [facility] 04-06-2023 Telephone encounter Note Anesthesia staff: Please see message below, our provider requests anesthesia input [facility] 04-06-2023 Telephone encounter Note Please obtain neuro office visit documentation. We can make a decision on how to best proceed after reviewing. [place] Work Phone: 04-06-2023 Telephone encounter Note Spoke with Mia at [facility], records will be sent via fax and uploaded under media tab once received [facility] 04-06-2023 Telephone encounter Note TREV office notes with EMG results scanned in media tab. Please review [facility] 04-06-2023 Telephone encounter Note The patient is very symptomatic. The procedure will need to be postponed until after her neuro workup (which includes the holter monitor) has been completed. [facility] 04-06-2023 Telephone encounter Note Called pt with response. PVU Procedure appt cancelled and pt will be responsible to f/u after holter monitor completed and pt has f/u with neuro. [facility] 03-18-2023 History of Presen t illness Narrative [facility] Pain Management [address] [place] [address] Patient: Chasity Taylor Sex: female : 1980 Age: 42 y.o. PCP: CLARE NOBLE, DO 03/18/2023 Chasity Taylor is here for a(n) [...] 12/17/2022 Performed by Tobias Daniel DO at [facility] BREAST AUGMENTATION REMOVAL SECTION x2 DISKECTOMY CERVICAL FUSION [id number] Bilateral Circumferential 02/24/2017 Performed by Costa Lozano MD at [facility] ENDOMETRIAL ABLATION W/ NOVASURE x3 (2009, 2012, 2016) HYSTERECTOMY INJECTION BLOCK EPIDURAL CAUDAL STEROID N/A 10/03/2022 Performed by Nazario Vaca MD at [facility] INJECTION BLOCK EPIDURAL CAUDAL STEROID N/A 12/13/2021 Performed by Nazario Vaca MD at [facility] INJECTION BLOCK EPIDURAL CAUDAL STEROID N/A 11/15/2021 Performed by Nazario Vaca MD at [facility] INJECTION BLOCK NERVE MEDIAL BRANCH Bilat C 4/5 & 6/7 Bilateral 04/25/2022 Performed by Nazario Vaca MD at [facility] INJECTION BLOCK NERVE MEDIAL BRANCH Bilat C 4/5 & 6/7 Bilateral 02/21/2022 Performed by Nazario Vaca MD at [facility] INJECTION SPINE TRANSFORAMINAL Right C 4,5 Nroot Right 01/17/2022 Performed by Nazario Vaca MD at [facility] RADIOFREQUENCY ABLATION SPINAL Left C 4/5 _ 6/7 Left 05/30/2022 Performed by Nazario Vaca MD at [facility] RADIOFREQUENCY ABLATION SPINAL Right C 4/5 & 6/7 Right 05/16/2022 Performed by Nazario Vaca MD at [facility] RESECTION DISTAL CLAVICLE Left 12/17/2022 Performed by Tobias Daniel DO at [facility] Allergies Allergen Reactions Lyrica [Pregabalin] Swelling Percocet [...] Ingris Corona CNA. Provider Statement: I, JACQUELYN IL PA-C, personally performed the services described in the documentation, as scribed by Ingris Corona CNA in my presence, and it is both accurate and complete. Ingris Corona CNA 03/18/23 1420 Jacquelyn Li PA-C 03/18/23 1427 documented in this encounter [facility] 03-18-2023 Instructions Ingris Corona CNA - [...] back to normal. documented in this encounter [facility] 02-14-2023 Note HNO ID: [id number] Author: Nancy Draper MD Service: ? Author Type: Physician Type: Progress Notes Filed: 02/14/2023 10:50 AM Note Text: [facility] - FOLLOW UP EVALUATION February 14, 2023 Nancy Draper [address] [facility] [address] Clare Noble DO, DO [address] [facility] [id number] I had the pleasure of seeing Ms. Taylor for follow up today. she is a 42 year old female with a history of functional neurological disorder here for VSMA living well with [facility] session. We had a visit using: [employer] I have communicated my name and active licensure. The patient's identity and physical location were verified at the time of this visit. Either the patient or their legal event sales representative has been informed of the risks [...] a VSMA format. Level of service : 67543 Time spent 20 min on the day of service, which included preparing to see the patient, ukxr-zf-[id number] patient care, completing clinical documentation, obtaining and/or reviewing separately obtained history, performing a medically appropriate examination and counseling and educating the patient/family/caregiver. Medical Decision Making Thank you for allowing me to be part of the clinical care of this patient! I look forward to continued participation in the patient?s care with you. Please do not hesitate to call with any questions. Sincerely, Nancy Draper MD [facility] 02-14-2023 History of Presen t illness Narrative [facility] - FOLLOW UP EVALUATION February 14, 2023 Nancy Draper [address] [address] Clare Noble, DO, DO [address] [place] [address] I had the pleasure of seeing Ms. Taylor for follow up today. she is a 42 year old female with a history of functional neurological disorder here for VSMA living well with FND session. We had a visit using: [employer] I have communicated my name and active licensure. The patient's identity and physical location were verified at the time of this visit. Either the patient or their legal event sales representative has been informed of the risks [...] a VSMA format. Level of service : 28700 Time spent 20 min on the day of service, which included preparing to see the patient, ozrg-[id number] patient care, completing clinical documentation, obtaining and/or [...] to call with any questions. Sincerely, Nancy Draper MD documented in this encounter [facility] 11-27-2022 Note HNO ID: [id number] Author: Nancy Draper MD Service: ? Author Type: Physician Type: Progress Notes Filed: 12/01/2022 11:03 PM Note Text: Patient was unable to complete the appointment due to her symptom flare up. Will reschedule. Nancy Draper MD [facility] 11-27-2022 History of Presen t illness Narrative Patient was unable to complete the appointment due to her symptom flare up. Will reschedule. Nancy Draper MD documented in this encounter [facility] 11-13-2022 Note HNO ID: [id number] Author: Nancy Draper MD Service: ? Author Type: Physician Type: Progress Notes Filed: 11/13/2022 2:30 PM Note Text: [facility] - FOLLOW UP EVALUATION Clare Noble DO [address] [facility] [address] Dear Clare Noble DO: I had the pleasure of seeing Ms. Taylor for follow-up today. As you know she is a 42 year old left-handed female with a history of functional neurological disorder . referred by Dr. Dotson She is seen alone. We had a visit using: [employer] I have communicated my name and active licensure. The patient's identity and physical location were verified at the time of this visit. Either the patient or their legal event sales representative has been informed of the risks [...] terms of FMD treatment, she's participated in [facility] living well with FMD sessions. She's seeing [...] test. Reflexes Unable to test. Coordination Right: Emqiin-rb-rdpf normal.Left: Gvdulc-xr-zmqt normal. Movement Disorders Scales Performed: Assessment and Plan: Assessment Ms. Taylor is a left-handed 42 year old year old female with (more content not included)... [facility] 11-13-2022 History of Presen t illness Narrative [facility] - FOLLOW UP EVALUATION Clare Noble DO [address] [facility] [address] Dear Clare Noble DO: I had the pleasure of seeing Ms. Taylor for follow-up today. As you know she is a 42 year old left-handed female with a history of functional neurological disorder . referred by Dr. Dotson She is seen alone. We had a visit using: [employer] I have communicated my name and active licensure. The patient's identity and physical location were verified at the time of this visit. Either the patient or their legal event sales representative has been informed of the risks [...] terms of FMD treatment, she's participated in [facility] living well with FMD sessions. She's [...] test. Reflexes Unable to test. Coordination Right: Ixxdes-iy-dxpw normal.Left: Gzwviz-ru-mung normal. Movement Disorders Scales Performed: Assessment and [...] Medication Schedule: Medications Level of service : 55393 (20-29 min). Time spent 20 min on the day of service, which included preparing to see the patient, jquu-mz-cwui patient care, completing clinical documentation, obtaining and/or reviewing separately obtained history, performing a medically appropriate examination, and counseling and educating the patient/family/caregiver. Thank you for allowing me to be part of the clinical care of this patient! I look forward to continued participation in the patient s care with you. Please do not hesitate to call with any questions. Sincerely, Nancy Draper MD documented in this encounter [facility] 10-25-2022 Note HNO ID: [id number] Author: Hernán Mariee, PhD Service: ? Author Type: Psychologist Type: Progress Notes Filed: 10/25/2022 11:12 AM Note Text: [facility] VIRTUAL VISIT PROGRESS NOTE I have communicated my name and active licensure. The patient's identity and physical location were verified at the time of this visit. Either the patient or their legal event sales representative has been informed of the risks and benefits of -- and alternatives to -- treatment through a remote evaluation and consents to proceed with the evaluation remotely. Billing code: 0M9/Elieser Diagnoses: (F44.7) Functional neurological symptom disorder with mixed symptoms (primary encounter diagnosis) (F41.9) Anxiety (F32.A) Depression, unspecified depression type CPT Code: 5511360 - Virtual Group Psychotherapy Interventions: Cognitive Behavioral [...] of illness behavior during the group. Hernán Mariee, Ph.D. Staff, [place] [facility] Neurological Confucianist [facility] 10-25-2022 History of Presen t illness [facility]ative [facility] VIRTUAL VISIT PROGRESS NOTE I have communicated my name and active licensure. The patient's identity and physical location were verified at the time of this visit. Either the patient or their legal event sales representative has been informed of the risks and benefits of -- and alternatives to -- treatment through a remote evaluation and consents to proceed with the evaluation remotely. Billing code: 0M9/Elieser Diagnoses: (F44.7) Functional neurological symptom disorder with mixed symptoms (primary encounter diagnosis) (F41.9) Anxiety (F32.A) Depression, unspecified depression type CPT Code: 9880645 - Virtual Group Psychotherapy Interventions: Cognitive Behavioral [...] of illness behavior during the group. Hernán Mariee, Ph.D. Staff, [facility] Neurological Confucianist documented in this encounter [facility] 09-25-2022 Note HNO ID: [id number] Author: Nancy Draper MD Service: ? Author Type: Physician Type: Progress Notes Filed: 10/20/2022 10:17 PM Note Text: [facility] - FOLLOW UP EVALUATION September 25, 2022 No referring provider defined for this encounter. Clare Noble [address] [facility] [address] I had the pleasure of seeing Ms. Taylor for follow up today. she is a 42 year old female with a history of functional neurological disorder here for VSMA living well with FND session. We had a visit using: PrimeRevenue I have communicated my name and active licensure. The patient's identity and physical location were verified at the time of this visit. Either the patient or their legal event sales representative has been informed of the risks [...] a VSMA format. Level of service : 00408 Time spent 20 min on the day of service, which included preparing to see the patient, rmfy-lq-zdrj patient care, completing clinical documentation, obtaining and/or reviewing separately obtained history, performing a medically appropriate examination and counseling and educating the patient/family/caregiver. Medical Decision Making Thank you for allowing me to be part of the clinical care of this patient! I look forward to continued participation in the patient?s care with you. Please do not hesitate to call with any questions. Sincerely, Nancy Draper MD [facility] 09-25-2022 History of Presen t illness Narrative [facility] - FOLLOW UP EVALUATION September 25, 2022 No referring provider defined for this encounter. Clare Noble [address] [facility] [address] I had the pleasure of seeing Ms. Taylor for follow up today. she is a 42 year old female with a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 CONSULT TO NEUROLOGY OFFICE/OUTPATIENT [facility] 60-74 MINUTES Lissette Shirley MD [address] [address] Referral ID Status Reason Start Date Expiration Date Visits Requested Visits Authorized [id number] Pending Review PCP Requested Referral 02/07/2023 1 1 Additional Source Comments INFORMATION SOURCE (unrecogn ized section and content) DATE CREATED AUTHOR 07/11/2018 [facility] DATE CREATED AUTHOR AUTHOR'S ORGANIZ ATION 05/22/2021 [facility] dical Specialist DATE CREATED AUTHOR AUTHOR'S ORGANIZ ATION 07/16/2022 [facility] DATE CREATED AUTHOR AUTHOR'S ORGANIZ ATION 03/07/2023 [facility] DATE CREATED AUTHOR AUTHOR'S ORGANIZ ATION 04/10/2023 [facility] DATE CREATED AUTHOR AUTHOR'S ORGANIZ ATION 04/13/2023 [facility] DATE CREATED AUTHOR AUTHOR'S ORGANIZ ATION 04/18/2023 [facility] DATE CREATED AUTHOR AUTHOR'S ORGANIZ ATION 04/19/2023 [facility] dical Specialists EPIC Patient Care team informatio n (unrecognized section and content) 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 Start Date End Date Clare Noble [address] [place] [address] PCP - General Family Medicine 01/10/22 Rory Clare [address] [place] [address] Referring Family Medicine 01/07/22 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 Start Date End Date Lien Noblety [address] [place] [address] PCP - General Family Medicine 01/10/22 Prabhjotarun Clare [address] [place] [address] Referring Family Medicine 01/07/22 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 Start Date End Date Lien Noblety [address] [place] [address] PCP - General Family Medicine 01/10/22 Rory Clare [address] [place] [address] Referring Family Medicine 01/07/22 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 Start Date End Date Lien Noblety [address] [place] [address] PCP - General Family Medicine 01/10/22 Prabhjotalyciaakhillindsey Clare [address] [place] [address] Referring Family Medicine 01/07/22 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 Start Date End Date Lien Noblety [address] [place] [address] PCP - General Family Medicine 01/10/22 Prabhjotarun, Clare [address] [place] [address] Referring Family Medicine 01/07/22 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 Start Date End Date Clare Noble [address] [place] [address] PCP - General Family Medicine 01/10/22 Rory Clare [address] [place] [address] Referring Family Medicine 01/07/22 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 Start Date End Date Lien Noblety [address] [place] [address] PCP - General Family Medicine 01/10/22 Lien Noblety [address] [place] [address] Referring Family Medicine 01/07/22 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 Start Date End Date PrabhjotalyciaClare elder [address] [place] [address] PCP - General Family Medicine 01/10/22 Prabhjotarun Clare [address] [place] [address] Referring Family Medicine 01/07/22 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 Start Date End Date CeliaClare portillo [address] [place] [address] PCP - General Family Medicine 01/10/22 Rory Clare [address] [place] [address] Referring Family Medicine 01/07/22 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 Start Date End Date RoryClare [address] [place] [address] PCP - General Family Medicine 01/10/22 Clare Noble [address] [place] [address] Referring Family Medicine 01/07/22 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 Start Date End Date Clare Noble [address] [place] [address] PCP - General Family Medicine 01/10/22 Clare Noble [address] [place] [address] Referring Family Medicine 01/07/22 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 Start Date End Date Clare Noble [address] [place] [address] PCP - General Family Medicine 01/10/22 Clare Noble [address] [place] [address] Referring Family Medicine 01/07/22 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 Start Date End Date Clare Noble DO [address] [place] [address] PCP - General Family Medicine 01/10/22 Clare Noble DO [address] [place] [address] Referring Family Medicine 01/07/22 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 Start Date End Date Clare Noble DO [address] [place] [address] PCP - General Family Medicine 09/26/21 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 Start Date End Date Clare Noble DO [address] [place] [address] PCP - General Family Medicine 09/26/21 Source Comments (unrecognize d section and content) In the event this informatio n is protected by the Federal Confidentiality of Alcohol and Drug Abuse Patient Records regulations: The Federal rules restrict any use of the information to criminally investigate or prosecute any alcohol or drug abuse patient.[facility] the event this information is protected by the Federal Confidentiality of Alcohol and Drug Abuse Patient Records regulations: The Federal rules restrict any use of the information to criminally investigate or prosecute any alcohol or drug abuse patient.[facility] the event this information is protected by the Federal Confidentiality of Alcohol and Drug Abuse Patient Records regulations: The Federal rules restrict any use of the information to criminally investigate or prosecute any alcohol or drug abuse patient.[facility] the event this information is protected by the Federal Confidentiality of Alcohol and Drug Abuse Patient Records regulations: The Federal rules restrict any use of the information to criminally investigate or prosecute any alcohol or drug abuse patient.[facility] the event this information is protected by the Federal Confidentiality of Alcohol and Drug Abuse Patient Records regulations: The Federal rules restrict any use of the information to criminally investigate or prosecute any alcohol or drug abuse patient.[facility] the event this information is protected by the Federal Confidentiality of Alcohol and Drug Abuse Patient Records regulations: The Federal rules restrict any use of the information to criminally investigate or prosecute any alcohol or drug abuse patient.[facility] the event this information is protected by the Federal Confidentiality of Alcohol and Drug Abuse Patient Records regulations: The Federal rules restrict any use of the information to criminally investigate or prosecute any alcohol or drug abuse patient.[facility] the event this information is protected by the Federal Confidentiality of Alcohol and Drug Abuse Patient Records regulations: The Federal rules restrict any use of the information to criminally investigate or prosecute any alcohol or drug abuse patient.[facility] the event this information is protected by the Federal Confidentiality of Alcohol and Drug Abuse Patient Records regulations: The Federal rules restrict any use of the information to criminally investigate or prosecute any alcohol or drug abuse patient.[facility] the event this information is protected by the Federal Confidentiality of Alcohol and Drug Abuse Patient Records regulations: The Federal rules restrict any use of the information to criminally investigate or prosecute any alcohol or drug abuse patient.[facility] the event this information is protected by the Federal Confidentiality of Alcohol and Drug Abuse Patient Records regulations: The Federal rules restrict any use of the information to criminally investigate or prosecute any alcohol or drug abuse patient.[facility] the event this information is protected by the Federal Confidentiality of Alcohol and Drug Abuse Patient Records regulations: The Federal rules restrict any use of the information to criminally investigate or prosecute any alcohol or drug abuse patient.[facility] Hospital[facility] the event this information is protected by the Federal Confidentiality of Alcohol and Drug Abuse Patient Records regulations: The Federal rules restrict any use of the information to criminally investigate or prosecute any alcohol or drug abuse patient.[facility] the event this information is protected by the Federal Confidentiality of Alcohol and Drug Abuse Patient Records regulations: The Federal rules restrict any use of the information to criminally investigate or prosecute any alcohol or drug abuse patient.[facility] the event this information is protected by the Federal Confidentiality of Alcohol and Drug Abuse Patient Records regulations: The Federal rules restrict any use of the information to criminally investigate or prosecute any alcohol or drug abuse patient.[facility] the event this information is protected by the Federal Confidentiality of Alcohol and Drug Abuse Patient Records regulations: The Federal rules restrict any use of the information to criminally investigate or prosecute any alcohol or drug abuse patient.[facility] Reason for Visit (unrecogniz ed section and [...] COMPLEX 45 MINS Juan Pablo Cespedes MD [address] [place] [address] [facility] [place] [address] [place] [address] Referral ID Status Reason Start Date Expiration Date Visits Requested Visits Authorized [id number] Authorized Auto-Generat ed Referral 03/16/2022 03/15/2023 60 60 Reason Comments New Patient Functional neurologi suresh symptom disorder with mixed symptoms [F44.7] Specialty Diagnoses / Procedures Referred By Contpino bruce Referred To Contact Diagnoses Functional neurological symptom disorder with mixed symptoms Procedures CONSULT TO FUNCTIONAL MOVEMENT DISORDERS (FMD) OFFICE/OUTPATIENT NEW HIGH MDM 60-74 MINUTES Juan Pablo Cespedes MD [address] [place] [address] Referral ID Status Reason Start Date Expiration Date Visits Requested Visits Authorized [id number] Pending Review PCP Requested Referral 04/14/2022 04/14/2023 [...] BE BASED ON THE PRIMARY CLINICAL RECORDS. [facility] provides no warranty or guarantee of the accuracy or completeness of information in this document.
== END 2023-04-21 13:41 | disposition home or self-care (01) ==
LOC: US 13:40
PROVIDERS: PCP Family Medicine; Visit Provider Internal Medicine
DX: E04.1 Nontoxic single thyroid nodule (principal)
CPT/HCPCS: 76536

== ENCOUNTER 2023-04-29 12:22 | Outpatient (OUT) | payer OTHER, SELFPAY ==
--- NOTE | 2023-04-29 12:25 | MR_ITS ---
[address] [address] Patient Name: AURELIO TAYLOR MRN: [id number] date: 1980 Sex: F Assigned Patient Location: MRI Current Patient Location: MRI Accession/Order Number: [id number] Exam Date: 04/29/2023 12:37 Report Date: 04/29/2023 13:51 At the request of: INOCENCIO [place] APLING Procedure: MR knee LT wo con EXAMINATION: MR knee LT wo con HISTORY: internal derangement of the left knee M23.92 ; chronic anterior left knee pain; no known injury COMPARISON: No relevant comparison available. TECHNIQUE: A complete multi-planar MRI was performed. FINDINGS: MEDIAL COMPARTMENT MEDIAL MENISCUS: No visible tear or significant degeneration. CARTILAGE: No visible defect. BONES: No marrow pathology, fracture, or significant arthropathy. MCL AND MEDIAL CAPSULE: Normal medial collateral ligament and medial capsule. LATERAL COMPARTMENT LATERAL MENISCUS: No visible tear or significant degeneration. CARTILAGE: No visible defect. BONES: No marrow pathology, fracture, or significant arthropathy. LCL/POSTEROLAT COMPLEX: Normal lateral collateral ligament, fascicles, lateral capsule and ligaments. ANTERIOR COMPARTMENT PATELLA: No marrow pathology, fracture, or significant arthropathy. CARTILAGE: No visible defect. TENDONS: Normal. EFFUSION: None. No synovitis or loose bodies. ACL: Normal appearing ligament. PCL: Normal appearing ligament. MENISCOFEMORAL: Normal meniscofemoral ligaments. OTHER: Negative. MR/MR knee LT wo con IMPRESSION: 1. No abnormal or suspicious findings to account for patient's symptoms. Electronically authenticated by: ROSHAN CARDENAS Date: 04/29/2023 13:51
--- OUTSIDE RECORDS SUMMARY | 2023-04-29 12:26 | XMS_ITS | CCD ---
Author Name Unknown Address [address] [place] [address] Organization [facility] Care Team Providers Care Rn Home [facility] Name Role Phone PHYSICIAN, DEFAULT Admitting Unavailable PHYSICIAN, DEFAULT Attending Unavailable PHYSICIAN, DEFAULT Admitting Unavailable PHYSICIAN, DEFAULT Attending Unavailable Shawnee Merida Unavailable CLARE NOBLE Primary Care Physician [phone] Rory Clare Unavailable Clare Noble Primary Care Provider [phone] Rumschlag, Clare Unavailable Rumschlag, Clare Primary Care Provider [phone] MISC, DR MILLIGAN Consulting Unavailable MISC, DR [...] Unavailable MISC, DR MILLIGAN Primary Care Unavailable ZIEBJENNIFER, DR ROSHAN Lane Consulting Unavailable ASIA, CLARI Admitting Unavailable ASIACLARI Consulting Unavailable ASIA CLARI Attending Unavailable MISC, DR MILLIGAN Primary Care Unavailable Rumschlalindsey DO, Clare Unavailable Clare Noble DO Primary Care Provider Timmis Benji H Admitting Unavailable Timmis, Benji H Attending Unavailable TimyanisBenji H Referring Unavailable RUMSCHLAG, CLARE Primary Care Unavailable Rumschlag DO, Clare K Primary Care Provider [phone] RUMSCHLAG, CLARE Primary Care Unavailable DRAPER, NANCY CRUZ Attending Unavailable RUMSCHLAG, CLARE Primary Care Unavailable DRAPER, NANCY CRUZ Attending Unavailable APURVA DOTSON Referring Unavailable RUMSCHLAG, CLARE Primary Care Unavailable HERNÁN MARIEE Attending Unavailable RUMSCHLAG, CLARE Primary Care Unavailable DRAPER, NANCY CRUZ Attending Unavailable DRAPER, NANCY CRUZ Referring Unavailable AUDREY MELGOZA Attending Unavailable RUMSCHLAG, CLARE Primary Care Unavailable APURVA DOTSON Referring Unavailable RUMSCHLAG, CLARE Primary Care Unavailable DRAPER, NANCY CRUZ Attending Unavailable DRAPER, NANCY CRUZ Referring Unavailable RUMSCHLAG, CLARE Primary Care Unavailable DRAPER, NANCY CRUZ Attending Unavailable DRAPER, NANCY CRUZ Referring Unavailable RUMSCHLAG, CLARE Primary Care Unavailable FLORESITA, NANCY CRUZ Attending Unavailable RUMSCHLAG, CLARE Primary Care Unavailable HERNÁN MARIEE Attending Unavailable RUMSCHLAG, CLARE Primary Care Unavailable FLORESITA, NANCY CRUZ Attending Unavailable RUMSCHLAG, CLARE Primary Care Unavailable HERNÁN MAREIE Attending Unavailable RUMSCHLAG, CLARE Primary Care Unavailable HERNÁN MARIEE Attending Unavailable BENJI TABOR H Attending Unavailable INOCENCIO GUERRA Attending Unavailable APLINGINOCENCIO Attending Unavailable APLINGINOCENCIO Attending Unavailable APLINGINOCENCIO Referring Unavailable TIMMISBENJI Attending Unavailable RUMSCHLAG, CLARE Referring Unavailable INOCENCIO GUERRA Attending Unavailable Fantasma Rockwell Attending Unavailab Fantasma Garza Admitting Unavailab le Rumschlag, Clare Primary Care Unavailable JACQUELYN LI Attending Unavailable RUMSCHLAG, CLARE K Referring Unavailable RUMSCHLAG, CLARE K Primary Care Unavailable NAZARIO VACA Admitting Unavailable NAZARIO VACA Attending Unavailable RUMSCHLAG, CLARE K Referring Unavailable RUMSCHLAG, CLARE K Primary Care Unavailable NAZARIO VACA Attending Unavailable NAZARIO VACA Referring Unavailable RUMSCHLAG, CLARE K Primary Care Unavailable NAZARIO VACA Attending Unavailable NAZARIO VACA Referring Unavailable RUMSCHLAG, CLARE K Primary Care Unavailable NAZARIO VACA Admitting Unavailable NAZARIO VACA Attending Unavailable CLARE NOBLE Referring Unavailable CLARE NOBLE Primary Care Unavailable Allergies Allergy Classification Reported Allergen(s) Allergy Type Date of Onset Reaction(s) Facility (19 sources) Acetaminophen / oxyCODONE Drug Allergy 0 anaphylaxis, Swelling [facility] (20 sources) pregabalin; Translations: [PREGABALIN] Drug Allergy 6 anaphylaxis, Swelling [facility] (1 source) Acetaminophen / oxyCODONE Drug Allergy 3 [facility] (1 source) pregabalin Drug Allergy 6 [facility] (3 sources) Adhesive Tape-Silicones; Translations: [ADHESIVE TAPE-SILICONES] Propensity to adverse reactions to drug 7 [facility] (2 sources) Acetaminophen / oxyCODONE; Translations: [OXYCODONE-ACETAM INOPHEN] Drug Allergy 0 [facility]ository (1 source) Acetaminophen Drug Allergy 3 [facility] (1 source) oxyCODONE Drug Allergy 3 [facility] (1 source) pregabalin Drug Allergy 3 [facility] Medications Current Medications Medication Drug Class(es) [...] Start: 09-04-2021 take 2 tablets by [facility] three times daily baclofen (LIORESAL) 10 mg [...] Qiu MD Transcribed by: JOSE Technologist: [facility]ER[facility] Consent for Treatmenton 02-13 Consent for Treatment [id number] [facility] Physician Orderon 02-16-2023 Physician Order [id number] [facility] Physician Orderon 02-13-2023 Physician Order [id number] [facility] CNPNon 07-03-2022 CNPN Telephone (NREUS2) CHASITY TAYLOR ([id number]) 1980 F Date Time Provider Department 07/03/22 [...] Assessed Reason for Visit: Social Work Consultation [[id number]] Prescriptions as of 07/03/2022 - cetirizine (ZYRTEC) [...] Status:Closed by JOCELYN MACHADO on 07/03/22 Normal [facility] MRI SHOULDER LT WO CONon MRI [...] by: ADRIAN ANDERSEN Date: 2022-06-13 11:42 [facility] (STANTONMN) CHASITY TAYLOR ([id number]) 1980 F Date Time Provider Department 06/04/22 [...] Encounter Status:Closed by SANDY ROMAN on 06/04/[address] [facility] Giovanny 06-03-2022 CNPN Telephone (PHYTMN) CHASITY TAYLOR ([id number]) 1980 F Date Time Provider Department 06/03/22 SANDY ROMAN [facility] During your visit today, we recorded the [...] the following contact information: [facility] ([place], [place]) She gave verbal permission to send [...] Fully Assessed Reason for Visit: Patient Question [5817] Cmt: Question about local PT Prescriptions as [...] Encounter Status:Closed by SANDY ROMAN on 06/03/[address] [facility] CNOVon 05-21-2022 CNOV Office Visit (NREUS2 ) CHASITY TAYLOR ([id number]) 1980 F Date Time Provider Department 05/21/22 1:00 PM NANCY DRAPER NREUS2 During your visit today, we recorded the following information about you: Pulse Blood pressure 89/minute 102/63 Nancy Draper MD 05/21/2022 2:49 PM Signed [facility] - NEW PATIENT EVALUATION Referring Provider: Apurva Dotson [address] [facility] [address] Primary Care Provider: Clare Noble DO [address] [facility] [address] Dear Apurva Dotson: Thank you for referring [...] Row [facility] from 04/19/2022 in [facility] Global Physical Health T Score 32.4 Global [...] this en (more content not included)... Normal [facility] CNTHERAPYon 05-21-2022 CNTHERAPY OT/PT/Speech Visit (PHYTMN) CLAUDIACHASITY ([id number]) 1980 F Date Time Provider Department 05/21/22 2:30 PM AUDREY MELGOZA [facility] Date Time Provider Department Center 05/21/2022 2:30 PM [id number] MELGOZA PHYTMN [facility] Reason for Visit: PT [...] tablet Take 500 mg by mouth. Normal [facility] CBC W Auto Differential pane l (Bld)on 01-31-2022 Basophils (Bld) [#/Vol] 0.04 10*3/uL <0.11 k/uL [facility] Basophils/100 WBC (Bld) 0.4 % [facility] Differential cell count method Nom (Bld) Auto [facility] Eosinophils (Bld) [#/Vol] 0.08 10*3/uL <0.46 k/uL [facility] Eosinophils/100 WBC (Bld) 0.8 % [facility] Erythrocyte distribution width (RBC) [Ratio] 11.5 % 11.5 - 15.0 % [facility] Hematocrit (Bld) [Volume fraction] 45.9 % 36.0 - 46.0 % [facility] Hemoglobin (Bld) [Mass/Vol] 16.0 g/dL High 11.5 - 15.5 g/dL [facility] Immature granulocytes (Bld) [#/Vol] 0.03 10*3/uL <0.10 k/uL [facility] Immature granulocytes/100 WBC (Bld) 0.3 % [facility] Lymphocytes (Bld) [#/Vol] 2.15 10*3/uL 1.00 - 4.00 k/uL [facility] Lymphocytes/100 WBC (Bld) 20.2 % [facility] MCH (RBC) [Entitic mass] 33.6 pg 26.0 - 34.0 pg [facility] MCHC (RBC) [Mass/Vol] 34.9 g/dL 30.5 - 36.0 g/dL [facility] MCV (RBC) [Entitic vol] 96.4 fL 80.0 - 100.0 fL [facility] Monocytes (Bld) [#/Vol] 0.55 10*3/uL <0.87 k/uL [facility] Monocytes/100 WBC (Bld) 5.2 % [facility] Neutrophils (Bld) [#/Vol] 7.80 10*3/uL High 1.45 - 7.50 k/uL [facility] Neutrophils/100 WBC (Bld) 73.1 % [facility] Nucleated RBC (Bld) [#/Vol] <0.01 k/uL [facility] Nucleated RBC/100 WBC (Bld) [Ratio] 0.0 /100 WBC [facility] Platelet mean volume (Bld) [Entitic vol] 10.2 fL 9.0 - 12.7 fL [facility] Platelets (Bld) [#/Vol] 208 10*3/uL 150 - 400 k/uL [facility] RBC (Bld) [#/Vol] 4.76 10*6/uL 3.90 - 5.2 0 m/uL [facility] WBC (Bld) [#/Vol] 10.65 10*3/uL 3.70 - 11 .00 k/uL [facility] No Panel Informationon 01-31 [facility] XR SINUSES 3 VIEWS OR GREATE [...] ROSHAN CARDENAS Date: 2021-12-23 16:28 Normal [facility] ALDOLASEon 10-31-2021 Aldolase 3.9 U/L Normal 3.3-10.3 [facility] Comment on above: Performed By: #### A JAYANTOLAS #### [facility] [address] [place] [address] Dr. Ted Mendez TREV COMPREHENSIVE PROFILEon 10-31-2021 Anti-Centromere B Antibodies <0.2 Normal 0.0-0.9 [facility] Comment on above: Performed By: #### A NAPROF #### [facility] [address] [place] [address] Dr. Ted Mendez Anti-DNA (DS) Ab Qn 3 IU/mL Normal 0-9 [facility] Comment on above: Result Comment: Nega tive <5 Equivocal 5 - 9 Positive >9 Performed By: #### A NAPROF #### [facility] [address] [place] [address] Dr. Ted Mendez Anti-Selma-1 <0.2 Normal 0.0-0.9 [facility] Comment on above: Performed By: #### A NAPROF #### [facility] [address] [place] [address] Dr. Ted Mendez Antichromatin Antibodies <0.2 Normal 0.0-0.9 [facility] Comment on above: Performed By: #### A NAPROF #### [facility] [address] [place] [address] Dr. Ted Mendez ANTIRIBOSOMAL P AB <0.2 Normal 0.0-0.9 [facility] Comment on above: Performed By: #### A NAPROF #### [facility] [address] [place] [address] Dr. Ted Mendez Antiscleroderma-70 Antibodies <0.2 Normal 0.0-0.9 [facility] Comment on above: Performed By: #### A NAPROF #### [facility] [address] [place], [place] [address] Dr. Yilan Mendez COMMENT Comment Normal [facility] Comment on above: Result Comment: Auto antibody Disease Association Condition Frequency Antinuclear Antibody, SLE, mixed connective Direct (TREV-D) tissue diseases dsDNA SLE 40 - 60% Chromatin Drug induced SLE 90% SLE 48 - 97% SSA (Ro) SLE 25 - 35% Sjogren's Syndrome 40 - 70% Lupus 100% SSB (La) SLE 10% Sjogren's Syndrome 30% Sm (anti-Lin) SLE 15 - 30% CLIENT SUCCESS DIRECTOR Mixed Connective Tissue Disease 95% (U1 nRNP, SLE 30 - 50% anti-ribonucleoprotein) Polymyositis and/or Dermatomyositis 20% Scl-70 (antiDNA Scleroderma (diffuse) 20 - 35% topoisomerase) Crest 13% Selma-1 Polymyositis and/or Dermatomyositis 20 - 40% Centromere B Scleroderma - Crest variant 80% Ribosomal P SLE 10 - 20% Performed By: #### A NAPROF #### [facility] [address] [place] [address] Dr. Ted Mendez CLIENT SUCCESS DIRECTOR Antibodies 1.8 AI Critically high 0.0-0.9 [facility] Comment on above: Performed By: #### A NAPROF #### [facility] [address] [place] [address] Dr. Ted Mendez Sjogren's Anti-SS-A <0.2 Normal 0.0-0.9 [facility] Comment on above: Performed By: #### A NAPROF #### [facility] [address] [place] [address] Dr. Ted Mendez Sjogren's Anti-SS-B <0.2 Normal 0.0-0.9 [facility] Comment on above: Performed By: #### A NAPROF #### [facility] [address] [place] [address] Dr. Ted Mendez Lin Antibodies <0.2 Normal 0.0-0.9 [facility] Comment on above: Performed By: #### A NAPROF #### [facility] [address] [address] [address] Ted Mendez Lin/CLIENT SUCCESS DIRECTOR Antibodies <0.2 Normal 0.0-0.9 [facility] Comment on above: Performed By: #### A NAPROF #### [facility] [address] [place] [address] Dr. Ted Mendez CPKon 10-30-2021 CK [Catalytic activity/Vol] 37 U/L Normal 26-192 [facility] Comment on above: Performed By: #### C K, CRP, FRIEDA #### [facility] [address] [place] [address] Dr. Ted Mnedez CRPon 10-30-2021 CRP [Mass/Vol] mg/L Normal <=1.0 [facility] Comment on above: Performed By: #### C K, CRP, FRIEDA #### [facility] [address] [place] [address] Dr. Ted Mendez MYOGLOBINon 10-30-2021 FRIEDA 22 ng/mL Normal 9-82 [facility] Comment on above: Performed By: #### C K, CRP, FRIEDA #### [facility] [address] [place] [address] Dr. Ted Mendez SED RATE WESTERGRENon 2021 SED RATE <1 Normal <=20 [facility] Comment on above: Performed By: #### S EDR #### [facility] [address] [place] [address] Dr. Ted Mendez XR LSPINE MIN 4 VIEWSon 05- XR LSPINE MIN 4 VIEWS EXAMINATION: XR [...] by: ROSHAN CARDENAS Date: 2021-08-01 15:07 Normal [facility] MRI Cervical Spine w/oon MRI Cervical Spine w/o HISTORY: Neck pain, left arm numbness and tingling, right arm weakness, prior surgery (2017) PROCEDURE: Silistixa HDXT 1.5. Sagittal T1, T2, STIR and [...] by Tommy Duenas on 05/21/2021 1146 Normal [facility] Man Vital Signs Date Time Vital Sign Value Performing Clinician Facility 03-18-2023 13:53-0500 Diastolic blood pressure 76 mm[Hg] Jacquelyn VANN-C Work Phone: [facility] 03-18-2023 13:53-0500 Heart rate 77 /min Jacquelyn Verhoff PA-C Work Phone: [facility] 03-18-2023 13:53-0500 Respiratory rate 20 /min Jacquelyn Verhoff PA-C Work Phone: [facility] 03-18-2023 13:53-0500 Systolic blood pressure 122 mm[Hg] Jacquelyn Verhoff PA-C Work Phone: [facility] 05-21-2022 12:46-0500 Diastolic blood pressure 63 mm[Hg] Nancy Draper MD Work Phone: [facility] 05-21-2022 12:46-0500 Heart rate 89 /min Nancy Draper MD Work Phone: [facility] 05-21-2022 12:46-0500 SaO2% (BldA) [Mass fraction] 97 % Nancy Draper MD Work Phone: [facility] 05-21-2022 12:46-0500 Systolic blood pressure 102 mm[Hg] Nancy Draper MD Work Phone: [facility] 04-11-2022 14:59-0500 Body height 157.5 cm Apurva Dotson MD Work Phone: [facility] 04-11-2022 14:59-0500 Body weight 63.96 kg Apurva Dotson MD Work Phone: [facility] 04-11-2022 14:59-0500 Diastolic blood pressure 79 mm[Hg] Apurva Dotson MD Work Phone: [facility] 04-11-2022 14:59-0500 Heart rate 76 /min Apurva Dotson MD Work Phone: [facility] 04-11-2022 14:59-0500 Systolic blood pressure 120 mm[Hg] Apurva Dotson MD Work Phone: [facility] 01-31-2022 11:13-0500 Body height 158.5 cm Lissette Shirley MD Work Phone: [facility] 01-31-2022 11:13-0500 Body weight 66.18 kg Lissette Shirley MD Work Phone: [facility] 01-31-2022 11:13-0500 Diastolic blood pressure 68 mm[Hg] Lissette Shirley MD Work Phone: [facility] 01-31-2022 11:13-0500 Heart rate 84 /min Lissette Shirley MD Work Phone: [facility] 01-31-2022 11:13-0500 Systolic blood pressure 125 mm[Hg] Lissette Shirley MD Work Phone: [facility] 08-13-2021 11:40-0400 Body height 158.75 cm Shawnee Merida Other [employer] Other 08-13-2021 11:40-0400 Body mass index (BMI) [Ratio] 23.04 kg/m2 Shawnee Merida Other [employer] Other 08-13-2021 11:40-0400 Body temperature 98.8 [degF] Shawnee Merida Other [employer] Other 08-13-2021 11:40-0400 Body weight 58.06 kg Shawnee Merida Other [employer] Other 08-13-2021 11:40-0400 Diastolic blood pressure 74 mm[Hg] Shawnee Merida Other [employer] Other 08-13-2021 11:40-0400 Respiratory rate 18 /min Shawnee Merida Other [employer] Other 08-13-2021 11:40-0400 SaO2% (BldA) [Mass fraction] 99 % Shawnee Merida Other [employer] Other 08-13-2021 11:40-0400 Systolic blood pressure 116 mm[Hg] Shawnee Merida Other [employer] Other Encounters Encounter Date Encounter Type Care Provider Facility Start: 04-24-2023 End: 04-25-2023 ambulatory [facility] Start: 04-15-2023 End: 04-16-2023 ambulatory INOCENCIO Kingston APLING Not Available Start: 04-13-2023 End: 04-14-2023 ambulatory CLARE NOBLE Facility:[facility] Start: 04-10-2023 End: 04-13-2023 ambulatory [facility] Start: 04-08-2023 End: 04-08-2023 ambulatory INOCENCIO B APLING Not Available Start: 04-06-2023 Telephone encounter Patricia Becerril RN [facility] Start: 03-25-2023 End: 03-25-2023 ambulatory BENJI TABOR Not Available Start: 03-18-2023 End: 03-18-2023 ambulatory JACQUELYN HOLLIDAYJOSH [facility] Start: 03-18-2023 End: 03-18-2023 Office outpatient visit 25 minutes Jacquelyn HALLC Work Phone: [facility] Comment on above: Cervical spondylosis without myelopathy (Primary Dx) Start: 03-04-2023 End: 03-04-2023 ambulatory INOCENCIO B APLING Not Available Start: 02-24-2023 End: 02-25-2023 ambulatory Benji Tabor Facility:[facility] Start: 02-24-2023 End: 02-24-2023 Patient encounter procedure Benji Tabor [facility] Start: 02-14-2023 End: 02-14-2023 ambulatory [facility] Facility:[facility] Start: 02-14-2023 End: 02-14-[address] [facility] Nancy Draper MD Work Phone: [facility] Comment on above: Functional neurologi suresh symptom disorder with mixed symptoms (Primary Dx) Start: 01-28-2023 End: 01-28-2023 ambulatory INOCENCIO GUERRA Not Available Start: 01-27-2023 ambulatory Fantasma Cole acility:[facility] Start: 01-26-2023 End: 01-26-2023 ambulatory BENJI TABOR Not Available Start: 11-27-2022 End: 11-27-2022 ambulatory [facility] Facility:[facility] Start: 11-27-2022 End: 11-27-2022 Unlisted evaluation and management service Nancy Draper MD Work Phone: [facility] Comment on above: APPOINTMENT CANCELLE D (Primary Dx) Start: 11-13-2022 End: 11-13-2022 [facility] Facility:[facility] Start: 11-13-2022 End: 11-13-2022 Office outpatient visit 15 minutes Nancy Draper MD Work Phone: [facility] Comment on above: Chronic low back matilde n, unspecified back pain laterality, unspecified whether sciatica present (Primary Dx); Chronic neck pain; Functional neurological symptom disorder with mixed symptoms Start: 10-25-2022 End: 10-25-[address] [facility] Hernán Mariee PhD Work Phone: [facility] Comment on above: Functional neurologi suresh symptom disorder with mixed symptoms (Primary Dx); Anxiety; Depression, unspecified depression type Start: 09-25-2022 End: 09-25-2022 ambulatory [facility] Facility:[facility] Start: 09-25-2022 End: 09-25-2022 Office outpatient visit 15 minutes Nancy Draper MD Work Phone: [facility] Comment on above: Functional neurologi suresh symptom disorder with mixed symptoms (Primary Dx) Start: 09-23-2022 End: 09-23-2022 ambulatory [facility] Facility:[facility] Start: 09-23-2022 End: 09-23-2022 [facility] Hernán Kapoorh PhD Work Phone: [facility] Comment on above: Functional neurologi suresh symptom disorder with mixed symptoms (Primary Dx); Anxiety; Depression, unspecified depression type Start: 07-26-2022 End: 07-26-2022 [facility] Hernán Kapoorh PhD Work Phone: [facility] Comment on above: Functional neurologi suresh symptom disorder with mixed symptoms (Primary Dx) Start: 07-03-2022 End: 07-03-2022 Telephone encounter Jocelyn Tera BAL Work Phone: [facility] Comment on above: Social Work Consulta tion Functional neurologi suresh symptom disorder with mixed symptoms (Primary Dx) Start: 07-03-2022 End: 07-03-2022 ambulatory CLARE RUSTG Facility:[facility] Start: 07-03-2022 End: 07-03-2022 Telemedicine consultation with patient Nancy Draper MD Work Phone: [facility] Start: 06-21-2022 ambulatory Hernán Kapoorh Ph D Work Phone: [facility] Comment on above: Group therapy Start: 06-12-2022 End: 06-13-2022 ambulatory INOCENCIO B APLING Facility: Start: 05-21-2022 End: 05-21-2022 ambulatory AUDREY MELGOZA Facility:[facility] Start: 05-21-2022 End: 05-21-2022 ambulatory Audrey Melgoza PT Work Phone: [facility] Start: 05-21-2022 End: 05-21-2022 Patient encounter procedure Nancy Draper MD Work Phone: [facility] Comment on above: Functional neurologi suresh symptom disorder with mixed symptoms Start: 05-07-2022 End: 05-13-2022 ambulatory INOCENCIO B APLING Facility: Start: 04-19-2022 End: 04-19-2022 ambulatory CLARE RUMSCHLAG Facility:[facility] Start: 04-14-2022 Telephone encounter Nancy Draper MD Work Phone: [facility] Comment on above: FMD referral Start: 04-11-2022 End: 04-11-2022 Patient encounter procedure Apurva Dotson MD Work Phone: Neurology Comment on above: Functional movement disorder (Primary Dx) Start: 02-07-2022 End: 02-07-2022 ambulatory Lissette Shirley MD Work Phone: Rheumatology Comment on above: Muscle spasm (Primar y Dx); Lumbar spondylosis; Neuropathy Start: 02-07-2022 End: 02-07-2022 Telemedicine consultation with patient Lissette Shirley MD Work Phone: [facility] Start: 02-03-2022 End: 02-03-2022 Patient encounter procedure Benji Tabor [facility] Start: 01-31-2022 End: 01-31-2022 Patient encounter procedure Lissette Shirley MD Work Phone: Rheumatology Comment on above: Muscle spasm (Primar y Dx); Pain in joint, multiple sites; Lumbar spondylosis; Neck pain, chronic Start: 12-25-2021 End: 01-24-2022 Pre-admission assessment Benji Tabor [facility] Start: 12-23-2021 End: 12-24-[address] BENJI TABOR Facility:[facility] Start: 10-30-2021 End: 10-31-2021 ambulatory CLARI BETANCOURT Facility:[facility] Start: 08-13-2021 End: 08-13-2021 ambulatory Shawnee Merida Other [employer] Other Start: 08-13-2021 Office outpatient vi sit 15 minutes Shawnee Merida [facility] Start: 08-01-2021 End: 08-02-[address] DOCTOR FARMER Facility:[facility] Start: 07-08-2018 End: 07-09-2018 Patient encounter procedure DEFAULT PHYSICIAN [facility] [facility] Start: 10-19-2017 End: 10-20-2017 Patient encounter procedure DEFAULT PHYSICIAN Facility:[facility] Plan of Treatment Date Care Activity Detail Author Start: 03-18-2024 Tobacco Screening Tobacco Screening [facility] Start: 12-18-2023 Adult BMI Screening Adult BMI Screen ing [facility] Start: 05-27-2023 End: 05-27-2023 Patient encounter procedure 05/27/2023 3:00 PM EDT Office Visit [facility] [address] [place] [address] Jacquelyn Li, ASPEN [address] [place], [place] [id number] [facility] Start: 04-24-2023 End: 04-24-2023 Admission to same day surgery center [facility] - Pain Procedures Comment on above: RADIOFREQUENCY ABLAT ION SPINAL Left C 4/5, 6/7 [55805 (CPT )] RADIOFREQUENCY ABLAT ION SPINAL Left C 4/5 _ 6/7 [06942 (CPT )] Start: 04-24-2023 End: 04-24-2023 Dstr nrolytc agnt parverteb fct sngl crvcl/thora RADIOFREQUENCY ABLATION SPINAL Cervical spondylosis without myelopathy 04/24/2023 10:15 AM EST [facility] Start: 04-24-2023 Subsequent hospital visit by physician 04/24/2023 10:15 AM EST Hospital Encounter [facility] Pain Procedures [address] [place] [address] Nazario Vaca MD [address] [place], [place] [id number] [facility] Procedures Start: 04-10-2023 End: 04-10-2023 Admission to same day surgery center 04/10/2023 9:41 AM EST - 04/10/2023 9:52 AM EST Surgery [facility] [address] [place] [address] Nazario Vaca MD [address] [place] [address] RADIOFREQUENCY ABLATION SPINAL right C 4/5 6/7 [90527 (CPT )] [facility] Comment on above: RADIOFREQUENCY ABLAT ION SPINAL right C 4/5 6/7 [79440 (CPT )] Start: 04-10-2023 End: 04-10-2023 Dstr nrolytc agnt parverteb fct sngl crvcl/thora RADIOFREQUENCY ABLATION SPINAL Cervical spondylosis without myelopathy 04/10/2023 9:41 AM EST [facility] Start: 04-10-2023 Subsequent hospital visit by physician 04/10/2023 9:41 AM EST Hospital Encounter [facility] [address] [place] [place] [phone] Nazario Vaca MD [address] [place], [place] [id number] [facility] Start: 04-10-2023 End: 04-10-2023 Patient encounter procedure 04/10/2023 8:30 AM EST Appointment [facility] - Radiology [address] [place] [phone] Nazario Vaca MD [address] [place] [place] [address] [facility] Start: 11-14-2022 Influenza vaccination C [facility] Start: 2022 Mammography [facility] Start: 03-16-2022 DEPRESSION ASSESSMENT DEPRESSION ASS ESSMENT [facility] Start: 01-31-2022 End: 04-02-2022 Alanine aminotransferase [Enzymatic activity/volume] in Serum or Plasma [facility] Work Phone: Comment on above: Expected: 01/31/2022 , Expires: 04/02/2022 Start: 01-31-2022 End: 04-02-2022 Aldolase [Enzymatic activity/volume] in Serum or Plasma [facility] Work Phone: Comment on above: Expected: 01/31/2022 , Expires: 04/02/2022 Start: 01-31-2022 End: 04-02-2022 Aspartate aminotransferase [Enzymatic activity/volume] in Serum or Plasma [facility] Work Phone: Comment on above: Expected: 01/31/2022 , Expires: 04/02/2022 Start: 01-31-2022 End: 04-02-2022 C reactive protein [Mass/volume] in Serum or Plasma [facility] Work Phone: Comment on above: Expected: 01/31/2022 , Expires: 04/02/2022 Start: 01-31-2022 End: 04-02-2022 Creatine kinase [Enzymatic activity/volume] in Serum or Plasma [facility] Work Phone: Comment on above: Expected: 01/31/2022 , Expires: 04/02/2022 Start: 01-31-2022 End: 04-02-2022 CREATININE BLD [facility] Work Phone: Comment on above: Expected: 01/31/2022 , Expires: 04/02/2022 Start: 01-31-2022 End: 04-02-2022 Cyclic citrullinated peptide IgG Ab [Units/volume] in Serum or Plasma [facility] Work Phone: Comment on above: Expected: 01/31/2022 , Expires: 04/02/2022 Start: 01-31-2022 End: 04-02-2022 Erythrocyte sedimentation rate [facility] Work Phone: Comment on above: Expected: 01/31/2022 , Expires: 04/02/2022 Start: 01-31-2022 End: 04-02-2022 Extractable nuclear Ab panel - Serum [facility] Work Phone: Comment on above: Expected: 01/31/2022 , Expires: 04/02/2022 Start: 01-31-2022 End: 04-02-2022 Nuclear Ab [Presence] in Serum by Immunoassay [facility] Work Phone: Comment on above: Expected: 01/31/2022 , Expires: 04/02/2022 Start: 01-31-2022 End: 04-02-2022 Rheumatoid factor [Units/volume] in Serum or Plasma [facility] Work Phone: Comment on above: Expected: 01/31/2022 , Expires: 04/02/2022 Start: 01-31-2022 End: 04-02-2022 Urea nitrogen [Mass/volume] in Serum or Plasma [facility] Work Phone: Comment on above: Expected: 01/31/2022 , Expires: 04/02/2022 Start: 11-14-2021 Influenza vaccination INFLUENZA (#1) [facility] Start: 03-16-2021 DEPRESSION ASSESSMENT DEPRESSION ASS ESSMENT [facility] Start: 2012 HPV TESTING HPV TESTING [facility] Start: 2003 PAP TESTING PAP TESTING [facility] Start: 2001 DTaP,Tdap and Td Vac cines (1 - Tdap) DTaP,Tdap and Td Vaccines (1 - Tdap) [facility] Start: 2001 Urine microalbumin profile [facility] Start: 2000 Adult BMI Follow Up Plan Adult BMI Follow Up Plan [facility] Start: 2000 HEPATITIS C SCREENING HEPATITIS C SC REENING [facility] Start: 2000 HIV SCREENING HIV SCREENING [facility] Start: 1994 [facility]: 1988 PNEUMOCOCCAL (1 - PCV) PNEUMOCOCCAL (1 - PCV) [facility] Start: 1988 Pneumococcal vaccination Pneum ococcal Vaccine (1 - PCV) [facility] Start: 1982 COVID-19 VACCINE (#1) COVID-19 VACCI NE (#1) [facility] Start: 1982 HEPATITIS B (1 of 3 - 3-dose series) HEPATITIS B (1 of 3 - 3-dose series) [facility] Start: 1982 Hepatitis B Vaccine (1 of 3 - 3-dose series) Hepatitis B Vaccine (1 of 3 - 3-dose series) [facility] Start: 1982 Tobacco Counseling Tobacco Counselin [facility] Dstr nrolytc agnt parverteb fct sngl crvcl/thora RADIOFREQUENCY ABLATION SPINAL Cervical spondylosis without myelopathy [facility] Immunizations Immunization Date Immunization Notes Care Provider Fa liborio 12-08-2014 influenza virus vacc ine, unspecified formulation Nancy Draper MD Work Phone: [facility] Payers Date Payer Category Payer Self-pay 2021 Private Health Insurance [id number] 1982 Unknown [id number] 2.16.8 40.1.265975.3.579.2.647 1982 Unknown [id number] 2.16.8 40.1.374125.3.579.2.647 1982 Unknown [id number] 2.16.84 0.1.259047.3.579.2.593 1982 Unknown [id number] 2.16.84 0.1.085624.3.579.2.593 1982 Unknown [id number] 2.16.84 0.1.089269.3.579.2.593 1982 Unknown [id number] 2.16.84 0.1.875503.3.579.2.593 1982 Unknown [id number] 2.16.84 0.1.612042.3.579.2.593 1982 Unknown [id number] 2.16.8 40.1.824920.3.579.2.727 1982 Unknown [id number] 2.16.84 0.1.862955.3.579.2.1259 1982 Unknown [id number] 2.16.84 0.1.604632.3.579.2.1259 1982 Unknown [id number] 2.16.84 0.1.953694.3.579.2.1259 1982 Unknown [id number] 2.16.84 0.1.878271.3.579.2.1259 1982 Unknown [id number] 2.16.840 .1.949051.3.579.2.1259 1982 Unknown [id number] 2.16.840. 1.468535.3.579.2.1259 1982 Unknown [id number] 2.16.840. 1.583163.3.579.2.9 1982 Unknown [id number] 2.16.8 40.1.868976.3.579.2.1286 1982 Unknown [id number] 2.16.8 40.1.851263.3.579.2.1286 1982 Unknown [id number] 2.16.8 40.1.933982.3.579.2.1286 1982 Unknown [id number] 2.16.8 40.1.685882.3.579.2.1286 1982 Unknown [id number] 2.16.84 0.1.792231.3.579.2.1286 1959 Private Health Insurance [id number] 2.16.840.1.081411.19 Unknown Unknown [id number] 2.16.8 40.1.537158.3.579.2.531 Social History Date Type Detail Facility Unknown if ever smoked [employer] Other Start: 04-26-2020 End: 05-21-2022 Sex Assigned At [facility] Tobacco smoking status No Smokin g Status Entered [facility] Start: 01-31-2022 [facility] History of tobacco use [facility] Start: 01-17-2022 End: 01-31-2022 Tobacco use and exposure Smokeless tobacco non-user [facility] Start: 1980 [facility] Start: 01-21-2022 End: 01-31-2022 Exposure to SARS-CoV-2 (event) Not sure [facility] Start: 04-26-2020 End: 05-21-2022 History of Social function [facility] Adult Depression Screening Assessment 1 [facility] Start: 01-17-2022 Tobacco smoking stat us NHIS Heavy tobacco smoker [facility] Start: 03-18-2023 Alcohol intake 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) [facility] Medical Equipment Procedure Code Equipment Code Equipment Origin al Text Equipment Identifier Dates Implant Babsr Lg Bvn At Dlv Dev Bioinductive Impl Regeneten - Sna - [id number] Start: 12-17-2022 Marlette Sut Regen eten Tndn Rotr Cuf Repr - Sna - [id number] Start: 12-17-2022 Plt Ant Cerv Xte nd 1-Lev 10 - [id number] Start: 02-24-2017 Scr Xtend 4.2x14 mm Vasd - [id number] Start: 02-24-2017 Vikos Cortico-Cancellous [id number] Start: 02-24-2017 Clinical Notes 08-13-2021 to 04-14-2023 Telephone Encounter - Patricia Becerril RN - 04/06/2023 11:38 AM ESTTelephone Encounter - Jacquelyn Li PA-C - 04/06/2023 11:38 AM ESTTelephone Encounter - Patricia Becerril RN - 04/06/2023 11:38 AM EST Note Date & Type Note Facility 04-14-2023 Note HNO ID: [id number] Author: NANCY DRAPER MD Service: ? Author Type: Physician Type: Progress Notes Filed: 04/13/2023 22:57 Note Text: [facility] - FOLLOW UP EVALUATION Clare Noble DO, DO [address] [facility] [address] Dear Clare Noble DO, DO: I had the pleasure of seeing [...] Row [facility] from 04/13/2023 in [facility] from 11/27/2022 in [facility] Physical [facility] T Score -- 32.4 [...] helpful. She would like to consider join [facility] intensive outpatient treatment program, and possibly re-do the assessment with PT/OT in June. The following are the current problems noted and addressed during this visit: Functional neurological symptom disorder with mixed symptoms Plan 04/13/2023 Visit: Patient is considering to come back to [facility] for additional PT/OT possibly via a [...] with any questions. Sincerely, Nancy Draper MD [facility] 04-06-2023 Miscellaneous Notes Pt calls states she is getting heart monitor placed tomorrow x30 days for increased dizzy spells. Ordered by [facility] STITCH[facility] at [facility]. Pt states she [...] proceed after reviewing. Spoke with Mia at [facility], records will be sent via fax and [...] f/u with neuro. [facility]-06-[facility]23 Telephone encounter Note Pt calls states she is getting heart monitor placed tomorrow x30 days for increased dizzy spells. Ordered by ORNAMENT STITCHER at [facility]. Pt states she has POTS and was told her P wave disappears when she passes out and then reappears when she comes to. Pt is scheduled for cervical RFA on 04/10/23 with MAC and asks if she can still have MAC? [email or web address] 04-06-2023 Telephone encounter Note Clear through anesthesia [email or web address] 04-06-2023 Telephone encounter Note Ok I will resend this info to the anesthesia staff [email or web address] 04-06-2023 Telephone encounter Note Anesthesia staff: Please see message below, our provider requests anesthesia input [email or web address] 04-06-2023 Telephone encounter Note Please obtain neuro office visit documentation. We can make a decision on how to best proceed after reviewing. [employer] Work Phone: 04-06-2023 Telephone encounter Note Spoke with Mia at [facility], records will be sent via fax and uploaded under media tab once received [email or web address] 04-06-2023 Telephone encounter Note TREV office notes with EMG results scanned in media tab. Please review [email or web address] 04-06-2023 Telephone encounter Note The patient is very symptomatic. The procedure will need to be postponed until after her neuro workup (which includes the holter monitor) has been completed. [facility] 04-06-2023 Telephone encounter Note Called pt with response. PVU Procedure appt cancelled and pt will be responsible to f/u after holter monitor completed and pt has f/u with neuro. [facility] 03-18-2023 History of Presen t illness Narrative [facility] Pain Management [address] [place] [address] Patient: Chasity Taylor Sex: female : 1980 [...] 12/17/2022 Performed by Tobias Daniel DO at [facility] BREAST AUGMENTATION REMOVAL SECTION x2 DISKECTOMY CERVICAL FUSION [id number] Bilateral Circumferential 02/24/2017 Performed by Costa Lozano MD at [facility] ENDOMETRIAL ABLATION W/ NOVASURE x3 (2009, 2012, 2016) HYSTERECTOMY INJECTION BLOCK EPIDURAL CAUDAL STEROID N/A 10/03/2022 Performed by Nazario Vaca MD at [facility] INJECTION BLOCK EPIDURAL CAUDAL STEROID N/A 12/13/2021 Performed by Nazario Vaca MD at [facility] INJECTION BLOCK EPIDURAL CAUDAL STEROID N/A 11/15/2021 Performed by Nazario Vaca MD at [facility] INJECTION BLOCK NERVE MEDIAL BRANCH Bilat C 4/5 & 6/7 Bilateral 04/25/2022 Performed by Nazario Vaca MD at [facility] INJECTION BLOCK NERVE MEDIAL BRANCH Bilat C 4/5 & 6/7 Bilateral 02/21/2022 Performed by Nazario Vaca MD at [facility] INJECTION SPINE TRANSFORAMINAL Right C 4,5 Nroot Right 01/17/2022 Performed by Nazario Vaca MD at [facility] RADIOFREQUENCY ABLATION SPINAL Left C 4/5 _ 6/7 Left 05/30/2022 Performed by Nazario Vaca MD at [facility] RADIOFREQUENCY ABLATION SPINAL Right C 06/18 & 08/20 Right 05/16/2022 Performed by Nazario Vaca MD at [facility] RESECTION DISTAL CLAVICLE Left 12/17/2022 Performed by Tobias Daniel DO at [facility] Allergies Allergen Reactions Lyrica [Pregabalin] Swelling [...] PA-C 03/18/23 1427 documented in this encounter [facility] 03-18-2023 Instructions Ingris Corona CNA - 03/18/2023 [...] back to normal. documented in this encounter [email or web address] 02-14-2023 Note HNO ID: [id number] Author: Nancy Draper MD Service: ? Author Type: Physician Type: Progress Notes Filed: 02/14/2023 10:50 AM Note Text: [facility] - FOLLOW UP EVALUATION February 14, 2023 Nancy Draper [address] [facility] [address] Clare Noble DO, DO [address] [facility] [address] I had the pleasure of seeing Ms. Taylor for follow up today. she is a 42 year old female with a history of functional neurological disorder here for VSMA living well with FND session. We had a visit using: [employer] I have communicated my name and active licensure. The patient's identity and physical location were verified at the time of this visit. Either the patient or their legal high school admissions representative has been informed of the risks [...] a VSMA format. Level of service : 91806 Time spent 20 min on the day of service, which included preparing to see the patient, qwvh-oz-pwwy patient care, completing clinical documentation, obtaining and/or [...] with any questions. Sincerely, Nancy Draper MD [facility] 02-14-2023 History of Presen t illness Narrative [facility] - FOLLOW UP EVALUATION February 14, 2023 Nancy Draper [address] [facility] [address] Clare Noble , DO [address] [facility] [address] I had the pleasure of seeing Ms. Taylor for follow up today. she is a 42 year old female with a history of functional neurological disorder here for VSMA living well with FND session. We had a visit using: [employer] I have communicated my name and active licensure. The patient's identity and physical location were verified at the time of this visit. Either the patient or their legal high school admissions representative has been informed of the risks [...] a VSMA format. Level of service : 38454 Time spent 20 min on the day of service, which included preparing to see the patient, olrl-ii-phlk patient care, completing clinical documentation, obtaining and/or [...] Nancy Draper MD documented in this encounter [facility] 11-27-2022 Note HNO ID: [id number] Author: Nancy Draper MD Service: ? Author Type: Physician Type: Progress Notes Filed: 12/01/2022 11:03 PM Note Text: Patient was unable to complete the appointment due to her symptom flare up. Will reschedule. Nancy Draper MD [facility] 11-27-2022 History of Presen t illness Narrative Patient was unable to complete the appointment due to her symptom flare up. Will reschedule. Nancy Draper MD documented in this encounter [facility] 11-13-2022 Note HNO ID: [id number] Author: Nancy Draper MD Service: ? Author Type: Physician Type: Progress Notes Filed: 11/13/2022 2:30 PM Note Text: [facility] - FOLLOW UP EVALUATION Clare Noble DO [address] [place] [address] Dear Clare Noble DO: I had the pleasure of seeing Ms. Taylor for follow-up today. As you know she is a 42 year old left-handed female with a history of functional neurological disorder . referred by Dr. Dotson She is seen alone. We had a visit using: [employer] I have communicated my name and active licensure. The patient's identity and physical location were verified at the time of this visit. Either the patient or their legal high school admissions representative has been informed of the risks [...] terms of FMD treatment, she's participated in VSMA living well with FMD sessions. She's seeing [...] test. Reflexes Unable to test. Coordination Right: Ucplov-qr-ktic normal.Left: Jjwrre-af-vyrn normal. Movement Disorders Scales Performed: Assessment and Plan: Assessment Ms. Taylor is a left-handed 42 year old year old female with (more content not included)... [facility] 11-13-2022 History of Presen t illness Narrative [facility] - FOLLOW UP EVALUATION Clare Noble DO [address] [place] [address] Dear Clare Noble DO: I had the pleasure of seeing Ms. Taylor for follow-up today. As you know she is a 42 year old left-handed female with a history of functional neurological disorder . referred by Dr. Dotson She is seen alone. We had a visit using: [employer] I have communicated my name and active licensure. The patient's identity and physical location were verified at the time of this visit. Either the patient or their legal high school admissions representative has been informed of the risks [...] terms of FMD treatment, she's participated in [facility] living well with FMD sessions. She's seeing [...] test. Reflexes Unable to test. Coordination Right: Wqgqlb-mx-nkvp normal.Left: Nezzfl-co-vmvr normal. Movement Disorders Scales Performed: Assessment and [...] Medication Schedule: Medications Level of service : 72543 (20-29 min). Time spent 20 min on the day of service, which included preparing to see the patient, tkgb-ec-dtzn patient care, completing clinical documentation, obtaining and/or [...] Nancy Draper MD documented in this encounter [facility] 10-25-2022 Note HNO ID: [id number] Author: Hernán Mariee, PhD Service: ? Author Type: Psychologist Type: Progress Notes Filed: 10/25/2022 11:12 AM Note Text: [facility] VIRTUAL VISIT PROGRESS NOTE I have communicated my name and active licensure. The patient's identity and physical location were verified at the time of this visit. Either the patient or their legal high school admissions representative has been informed of the risks and benefits of -- and alternatives to -- treatment through a remote evaluation and consents to proceed with the evaluation remotely. Billing code: 0M9/Mariee Diagnoses: (F44.7) Functional neurological symptom disorder with mixed symptoms (primary encounter diagnosis) (F41.9) Anxiety (F32.A) Depression, unspecified depression type CPT Code: 7104311 - Virtual Group Psychotherapy Interventions: Cognitive Behavioral [...] during the group. Hernán Mariee, Ph.D. Staff, [facility] 10-25-2022 History of Presen t illness Narrative [facility] VIRTUAL VISIT PROGRESS NOTE I have communicated my name and active licensure. The patient's identity and physical location were verified at the time of this visit. Either the patient or their legal high school admissions representative has been informed of the risks and benefits of -- and alternatives to -- treatment through a remote evaluation and consents to proceed with the evaluation remotely. Billing code: 0M9/Mariee Diagnoses: (F44.7) Functional neurological symptom disorder with mixed symptoms (primary encounter diagnosis) (F41.9) Anxiety (F32.A) Depression, unspecified depression type CPT Code: 7573092 - Virtual Group Psychotherapy Interventions: Cognitive Behavioral [...] Hernán Mariee, Ph.D. Staff, [facility] documented in this encounter [facility] 09-25-2022 Note HNO ID: [id number] Author: Nancy Draper MD Service: ? Author Type: Physician Type: Progress Notes Filed: 10/20/2022 10:17 PM Note Text: [facility] - FOLLOW UP EVALUATION September 25, 2022 No referring provider defined for this encounter. Clare Noble [address] [facility] [address] I had the pleasure of seeing Ms. Taylor for follow up today. she is a 42 year old female with a history of functional neurological disorder here for VSMD living well with FND session. We had a visit using: [employer] I have communicated my name and active licensure. The patient's identity and physical location were verified at the time of this visit. Either the patient or their legal high school admissions representative has been informed of the risks [...] a VSMA format. Level of service : 65899 Time spent 20 min on the day of service, which included preparing to see the patient, wzka-ln-tmni patient care, completing clinical documentation, obtaining and/or [...] with any questions. Sincerely, Nancy Draper MD [facility] 09-25-2022 History of Presen t illness Narrative [facility] - FOLLOW UP EVALUATION September 25, 2022 No referring provider defined for this encounter. Clare Noble [address] [facility] [address] I had the pleasure of seeing Ms. Taylor for follow up today. she is a 42 year old female with a history of functional neurological disorder here for VSMA living well with FND session. We had a visit using: [employer] I have communicated my name and active licensure. The patient's identity and physical location were verified at the time of this visit. Either the patient or their legal high school admissions representative has been informed of the risks [...] a VSMA format. Level of service : 41001 Time spent 20 min on the day of service, which included preparing to see the patient, akqc-id-vjzz patient care, completing clinical documentation, obtaining and/or [...] Nancy Draper MD documented in this encounter [facility] 09-23-2022 Note HNO ID: [id number] Author: Hernán Mariee, PhD Service: ? Author Type: Psychologist Type: Progress Notes Filed: 09/23/2022 9:22 AM Note Text: [facility] Psychology Progress Note Billing codes: 0M9/Elieser PSYCHOLOGY: FOLLOW-UP APPOINTMENT PROGRESS NOTE- Virtual Visit Due to the federal emergency declaration and the need for ongoing mental health services, the following visit was completed virtually and informed consent obtained orally to reduce the risk of COVID-19 exposure. Oral consent to services related to virtual visits was obtained after information was sent via [employer] or read to patient if MyChart not available. I have communicated my name and active licensure. The patient's identity and physical location were verified at the time of this visit. Either the patient or their legal high school admissions representative has been informed of the risks and benefits of -- and alternatives to -- treatment through a remote evaluation and consents to proceed with the evaluation remotely. Chasity Taylor 09/23/2022 [id number] PROVIDER: Hernán Mariee, PhD CPT Code: 24599 - Non-Physician Telephone Assessment (21-30 min) 53234- Non-Physician Telephone Assessment (5-10 min) Diagnosis: Functional [...] Row Distance Health from 07/26/2022 in Neurological Gnosticism Distance Health from 04/19/2022 in Neurological Gnosticism Global Physical Health T Score 32.4 32.4 [...] exercises. She is with a CBT therapist ([facility]) and they are focusing on cognitive reframing [...] Hernán Mariee, Ph.D. Staff, [facility] 09-23-2022 History of Presen t illness Narrative [facility] Psychology Progress Note Billing codes: 0M9/Elieser PSYCHOLOGY: FOLLOW-UP APPOINTMENT PROGRESS NOTE- Virtual Visit Due to the federal emergency declaration and the need for ongoing mental health services, the following visit was completed virtually and informed consent obtained orally to reduce the risk of COVID-19 exposure. Oral consent to services related to virtual visits was obtained after information was sent via [employer] or read to patient if MyChart not available. I have communicated my name and active licensure. The patient's identity and physical location were verified at the time of this visit. Either the patient or their legal high school admissions representative has been informed of the risks and benefits of -- and alternatives to -- treatment through a remote evaluation and consents to proceed with the evaluation remotely. Chasity Taylor 09/23/2022 [id number] PROVIDER: Hernán Mariee, PhD CPT Code: 27689 - Non-Physician Telephone Assessment (21-30 min) 06611- Non-Physician Telephone Assessment (5-10 min) Diagnosis: Functional [...] Row Distance Health from 07/26/2022 in Neurological Gnosticism Distance Health from 04/19/2022 in Neurological Gnosticism Global Physical Health T Score 32.4 32.4 [...] exercises. She is with a CBT therapist ([facility]) and they are focusing on cognitive reframing [...] Hernán Mariee, Ph.D. Staff, [facility] documented in this encounter [facility] 08-12-2022 Note HNO ID: [id number] Author: Hernán Mariee, PhD Service: ? Author Type: Psychologist Type: Progress Notes Filed: 08/12/2022 10:11 AM Note Text: [facility] NEUR[facility] PSYCHOLOGY VIRTUAL VISIT PROGRESS NOTE Due to the federal emergency declaration and the need for ongoing mental health services, the following visit was completed virtually and informed consent obtained orally to reduce the risk of COVID-19 exposure. Oral consent to services related to virtual visits was obtained after information was sent via [employer] or read to patient if [employer] not available. I have communicated my name and active licensure. The patient's identity and physical location were verified at the time of this visit. Either the patient or their legal high school admissions representative has been informed of the risks and benefits of -- and alternatives to -- treatment through a remote evaluation and consents to proceed with the evaluation remotely. Billing code: 0M9/Elieser Diagnoses: (F44.7) Functional neurological symptom disorder with mixed symptoms (primary encounter diagnosis) CPT Code: 1638870 - Virtual Group Psychotherapy Interventions: Cognitive Behavioral [...] during the group. Hernán Mariee, Ph.D. Staff, [facility] Neurological [facility] 08-12-2022 History of Presen t illness Narrative [facility] PSYCHOLOGY VIRTUAL VISIT PROGRESS NOTE Due to the federal emergency declaration and the need for ongoing mental health services, the following visit was completed virtually and informed consent obtained orally to reduce the risk of COVID-19 exposure. Oral consent to services related to virtual visits was obtained after information was sent via [employer] or read to patient if [employer] not available. I have communicated my name and active licensure. The patient's identity and physical location were verified at the time of this visit. Either the patient or their legal high school admissions representative has been informed of the risks and benefits of -- and alternatives to -- treatment through a remote evaluation and consents to proceed with the evaluation remotely. Billing code: 0Ivone/Elieser Diagnoses: (F44.7) Functional neurological symptom disorder with mixed symptoms (primary encounter diagnosis) CPT Code: 5725694 - Virtual Group Psychotherapy Interventions: Cognitive Behavioral [...] Hernán Mariee, Ph.D. Staff, [facility] documented in this encounter [facility] 07-03-2022 Miscellaneous Notes [facility] - MOVEMENT DISORDERS [place] SOCIAL WORK CONSULT NOTE Date of service: [...] she once did. documented in this encounter [facility] 07-03-2022 Note HNO ID: [id number] Author: Nancy Draper MD Service: ? Author Type: Physician Type: Progress Notes Filed: 07/03/2022 5:55 PM Note Text: [facility]-MOVEMENT DISORDERS [place] - FOLLOW UP EVALUATION No referring provider defined for this encounter. Clare Noble, DO [address] [place] [address] I had the pleasure of seeing Ms. Taylor for follow up today. she is a 42 year old female with a history of functional neurological disorder here for [facility] FND education session.. We had a visit using: [employer] I have communicated my name and active licensure. The patient's identity and physical location were verified at the time of this visit. Either the patient or their legal high school admissions representative has been informed of the risks [...] with FMD management team locally or at [facility] Level of service : 37502 (20-29 min). Time spent 29 min on the day of service, which included preparing to see the patient, xcuv-fh-qxnt patient care, completing clinical documentation, obtaining and/or [...] with any questions. Sincerely, Nancy Draper MD [facility] 07-03-2022 History of Presen t illness Narrative [facility] - FOLLOW UP EVALUATION No referring provider defined for this encounter. Clare Noble, DO [address] [place] [address] I had the pleasure of seeing Ms. Taylor for follow up today. she is a 42 year old female with a history of functional neurological disorder here for VSMA FND education session.. We had a visit using: [employer] I have communicated my name and active licensure. The patient's identity and physical location were verified at the time of this visit. Either the patient or their legal high school admissions representative has been informed of the risks [...] with FMD management team locally or at [facility] Level of service : 04139 (20-29 min). Time spent 29 min on the day of service, which included preparing to see the patient, xqtu-tb-cnut patient care, completing clinical documentation, obtaining and/or [...] Nancy Draper MD documented in this encounter [facility] 06-23-2022 Miscellaneous Notes Patient last seen 04/19/2022. documented in this encounter [facility] 05-21-2022 Note HNO ID: [id number] Author: Audrey Melgoza, PT Service: ? Author [...] Planned: 1 Planned Treatment Interventions: Neuromuscular re-education (72441) PLAN FOR NEXT VISIT: initiate local therapy programming, [facility]. Patient demonstrates good understanding of [...] Education Learning Preferences: (more content not included)... [facility] 05-21-2022 Instructions Audrey Melgoza, PT - [...] she developed this for others.? ? - [email or web address] tion? ?- Website developed by Dr. Fior Storey who owns a private neuro therapy practice in [place] with a large focus on the treatment of FND. They are also on Instagram: [email or web address] - [email or web address] - Website developed to better understand FND with helpful links and resources (including an information sheet to give to you physician who may be unfamiliar with your FND diagnosis). - MyFND Osvaldo - Free osvaldo where patients can [...] head/listen to music documented in this encounter [facility] 05-21-2022 Note HNO ID: [id number] Author: Nancy Draper MD Service: ? Author Type: Physician Type: Progress Notes Filed: 05/21/2022 2:49 PM Note Text: [facility] - NEW PATIENT EVALUATION Referring Provider: Apurva Dotson [address] [facility] [address] Primary Care Provider: Clare Noble DO [address] [place] [address] Dear Apurva Dotson: Thank you for referring [...] Row Distance Health from 04/19/2022 in Neurological Gnosticism Global Physical Health T Score 32.4 Global [...] distress, good nutrit (more content not included)... [facility] 05-21-2022 History of Presen t illness [...] Planned: 1 Planned Treatment Interventions: Neuromuscular re-education (87898) PLAN FOR NEXT VISIT: initiate local therapy programming, may return to [facility] if needed. Patient demonstrates good understanding [...] Neurologic Clinical Specialist documented in this encounter [facility] 05-21-2022 Instructions Nancy Draper MD - [...] symptoms over time. documented in this encounter [facility] 05-21-2022 History of Presen t illness Narrative [facility] - NEW PATIENT EVALUATION Referring Provider: Apurva Dotson [address] [facility] [address] Primary Care Provider: Clare Noble DO [address] [facility] [address] Dear Apurva Dotson: Thank you for referring [...] of functional movement/neurological disorder. Patient has seen [facility]-psychology virtually, and is scheduled for the neuro [...] Row Distance Health from 04/19/2022 in Neurological Gnosticism Global Physical Health T Score 32.4 Global [...] Patellar 2+ 2+ Achilles 2+ 2+ Coordination Cnurgo-cw-axis, rapid alternating movements and qiyk-ez-ttrz normal bilaterally without dysmetria. Gait Needs assistance [...] Medication Schedule: Medications Level of service : 06364 . Time spent 54 min on the day of service, which included preparing to see the patient, adtv-ub-odoh patient care, completing clinical documentation, obtaining and/or [...] Nancy Draper MD documented in this encounter [facility] 04-19-2022 Note HNO ID: [id number] Author: Hernán Mariee, PhD Service: ? Author Type: Psychologist Type: Progress Notes Filed: 04/21/2022 12:44 PM Note Text: [facility] Clinical Health Psychology Evaluation Time of Service: 9:00 am to 10:00 am CPT Code: 5344402- Virtual Psychological Diagnostic Interview Billing Code: 0M9/Elieser Due to the federal emergency declaration and the need for ongoing mental health services, the following visit was completed virtually and informed consent obtained orally to reduce the risk of COVID-19 exposure. Oral consent to services related to virtual visits was obtained after information was sent via [employer]air or read to patient if [employer] not available. The patient was informed that [...] was referred by Dr. Apurva Dotson from [facility] Neuromuscular as part of a multi-disciplinary [...] Social History: Ms. Taylor was raised in [place], [place] as the eldest of 3 children [...] her dogs and cat. 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 [...] intent, or history. (more content not included)... [facility] 04-14-2022 Miscellaneous Notes Done. Thank you! Ote was triaged and patient is appropriate for FMD clinic. This patient does not have a Consult to FMD, he has a Consult to Neurology for FMD with Dr. Draper. Is he appropriate for clinic? Patient referred to FMD. Order in [facility]. .[phone] documented in this encounter [facility] 04-11-2022 Instructions Apurva Dotson MD - 04/11/2022 4:00 PM EST Functional movement disorder referral. Dr. Nancy Draper. documented in this encounter [facility] 04-11-2022 History of Presen t illness Narrative Images from the original note were not included. [facility] Follow up/ Established patient visit Individuals who were included in, or assisted with the encounter were: Chasity Claudia Dotson MD Chief Complaint/Issues: Chasity Taylor is a 41 year old left-handed female seen in the [facility] Neuromuscular Center for: Multiple symptoms Gait dysfunction. 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 WBC 01/31/2022 [...] 01/31/2022 2.15 1.00 - 4.00 k/uL Final Stanly% 01/31/2022 5.2 % Final Abs Stanly 01/31/2022 0.55 <0.87 k/uL Final Eosin% 01/31/2022 [...] developed and its performance characteristics determined by [facility]'s [facility] [place] ([facility]). It has not been cleared or approved by the FDA. [facility] is regulated under CLIA as qualified [...] SM Antibody 01/31/2022 <0.2 <1.0 AI Final CLIENT SUCCESS DIRECTOR Antibody QUAL 01/31/2022 Positive (A) Negative Final CLIENT SUCCESS DIRECTOR Antibody 01/31/2022 1.4 (A) <1.0 AI Final [...] Antibody 01/31/2022 <0.2 <1.0 AI Final Ribosomal CLIENT SUCCESS DIRECTOR Qualitative 01/31/2022 Negative Negative Final Anti-Ribosomal RNA (Ribosomal P) antibody is used as an aid in diagnosis of systemic autoimmune diseases especially systemic lupus erythematosus and mixed connective tissue disease. Cross-reactivity with Anti-lin antibody is not uncommon. Clinical correlation is required. Test Methodology: Multiplex flow immunoassay. Ribosomal CLIENT SUCCESS DIRECTOR 01/31/2022 <0.2 <1.0 AI Final CHROMATIN AB [...] which included preparing to see the patient, jlpx-la-slva patient care, completing clinical documentation, obtaining and/or reviewing separately obtained history, performing a medically appropriate examination, counseling and educating the patient/family/caregiver, and ordering medications, tests, or procedures. Apurva Dotson MD documented in this encounter [facility] 02-07-2022 History of Presen t illness [...] Labs TREV neg MAGDA neg except for CLIENT SUCCESS DIRECTOR 1.4 ESR 2 CRP neg RF neg [...] spondylosis (G62.9) Neuropathy Her serologies are unremarkable (CLIENT SUCCESS DIRECTOR of 1.4 is essentially negative). Inflammatory markers [...] will touch base with her again through [employer] after she sees neurology. Total Time Spent: 25 minutes Lissette Shirley MD documented in this encounter [facility] 01-31-2022 Instructions Lissette Shirley MD - 01/31/2022 11:34 AM EST I will call you for results Feb 07 at 2 PM documented in this encounter [facility] 01-31-2022 History of Presen t illness [...] old female presents for rheumatology evaluation at [facility] on January 31, 2022. Hand and [...] which included preparing to see the patient, zkbf-kp-hyxm patient care, completing clinical documentation, obtaining and/or reviewing separately obtained history, performing a medically appropriate examination, counseling and educating the patient/family/caregiver, and ordering medications, tests, or procedures. Lissette Shirley MD Referring Provider:Clare Noble PCP: Clare Noble DO documented in this encounter [facility] 08-13-2021 Evaluation note Encounter Date Diagnosis [...] no improvement in 5 to 7 days [employer] Other Evaluation + Plan note Future Appointments Appointment Date:02/03/2022 01:00:00 PM Scheduled Provider: Location:.CAT SCAN Appointment Type:CT Sinus/Orbits/Maxillofacial (FT) Future Scheduled Tests Radiology* CT Maxillofacial w/o Contrast [facility]03/[address] 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 documented in this encounter [facility] note* 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 documented in this encounter [facility] note* 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 documented in this encounter [facility] note* 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 [facility]* 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 [facility]* 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 Anxiety Anxiety state, unspecified Depression, unspecified depression type [facility] 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 Anxiety Anxiety state, unspecified Depression, unspecified depression type documented in this encounter [facility] note* Diagnosis Chronic low back pain, unspecified back pain laterality, unspecified whether sciatica present- Primary Chronic neck pain Cervicalgia 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 [facility]* Diagnosis APPOINTMENT CANCELLED- Primary documented in this encounter [facility] note* 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 No data available for this section [facility]ructionsNot on filedocumented in this encounter [facility]Progress note No data available for this section [facility] (narrative[facility] Diagnostic Procedure Only (Routine) - Closed Specialty Diagnoses / Procedures Referred By Gary bruce Referred To Contact XR IMAGING Diagnoses Pain in joint, multiple sites Procedures XR FOOT GENERAL 3V AP/LAT/OBL BILATERAL RADEX FOOT COMPLETE MINIMUM 3 VIEWS Lissette Shirley MD [address] [place] [id number] Xr Imaging Referral ID Status Reason Start Date Expiration Date V isits Requested Visits Authorized [id number] Closed Auto-Generate d Referral 01/31/2022 03/02/2023 1 1 * Diagnostic Procedure Only (Routine) - Closed Specialty Diagnoses / Procedures Referred By Contac t Referred To Contact XR IMAGING Diagnoses Pain in joint, multiple sites Procedures XR HAND GENERAL 3V PA/LAT/OBL BILATERAL RADEX HAND MINIMUM 3 VIEWS Lissette Shirley MD [address] [place] [address] Xr Imaging Referral ID Status Reason Start Date Expiration Date V isits Requested Visits Authorized [id number] Closed Auto-Generate d Referral 01/31/2022 03/02/2023 1 1 [facility] Summary Purpose Family History No Family History [...] Left C 4/5, 6/7 Jacquelyn Li PA-C [address], [address] [place] [id number] Referral ID Status Reason Start Date Expiration Date V isits Requested Visits Authorized [id number] Pending Review 03/18/2023 03/17/2024 1 1 Specialty Diagnoses / Procedures Referred By Contac t Referred To Contact Diagnoses Cervical spondylosis without myelopathy Procedures Case request operating room: RADIOFREQUENCY ABLATION SPINAL right C 4/5 6/7 Jacquelyn Li PA-C [address], [address] [place] [id number] Referral ID Status Reason Start Date Expiration Date V isits Requested Visits Authorized [id number] Pending Review 03/18/2023 03/17/2024 1 1 Specialty Diagnoses / Procedures Referred By Contac t Referred To Contact [facility] Diagnoses Functional neurological symptom disorder with mixed symptoms Procedures CONSULT TO PHYSICAL THERAPY PHYSICAL THERAPY EVALUATION HIGH COMPLEX 45 MINS Juan Pablo Cespedes MD [address] [place] [address] [facility] [place] [address] [place] [address] Referral ID Status Reason Start Date Expiration Date Visits Requested Visits Authorized [id number] Pending Review Auto-Generat ed Referral 04/14/2022 04/14/2023 1 1 Specialty Diagnoses / Procedures Referred By Contac t Referred To Contact Diagnoses Functional neurological symptom disorder with mixed symptoms Procedures CONSULT TO FUNCTIONAL MOVEMENT DISORDERS (FMD) OFFICE/OUTPATIENT [facility] 60-74 MINUTES Juan Pablo Cespedes MD [address] [place] [address] Referral ID Status Reason Start Date Expiration Date Visits Requested Visits Authorized [id number] Pending Review PCP Requested Referral 04/14/2022 04/14/2023 1 1 Specialty Diagnoses / Procedures Referred By Contac t Referred To Contact Neurology Diagnoses Functional movement disorder Procedures CONSULT TO NEUROLOGY OFFICE/OUTPATIENT [facility] 60-74 MINUTES Apurva Dotson MD [address] [place] [address] Referral ID Status Reason Start Date Expiration Date Visits Requested Visits Authorized [id number] Pending Review PCP Requested Referral 04/11/2022 04/11/2023 1 1 Specialty Diagnoses / Procedures Referred By Contac t Referred To Contact Neurology Diagnoses Muscle spasm Neuropathy Procedures CONSULT TO NEUROLOGY OFFICE/OUTPATIENT [facility] 60-74 MINUTES Lissette Shirley MD [address] [address] Referral ID Status Reason Start Date Expiration Date Visits Requested Visits Authorized [id number] Pending Review PCP Requested Referral 02/07/2023 1 1 Additional Source Comments INFORMATION SOURCE (unrecogn ized section and content) DATE CREATED AUTHOR 07/11/2018 [facility] DATE CREATED AUTHOR AUTHOR'S ORGANIZ ATION 05/22/2021 [facility] DATE CREATED AUTHOR AUTHOR'S ORGANIZ ATION 07/16/2022 [facility] DATE CREATED AUTHOR AUTHOR'S ORGANIZ ATION 03/07/2023 [facility] DATE CREATED AUTHOR AUTHOR'S ORGANIZ ATION 04/18/2023 [facility] DATE CREATED AUTHOR AUTHOR'S ORGANIZ ATION 04/19/2023 [facility] DATE CREATED AUTHOR AUTHOR'S ORGANIZ ATION 04/24/2023 [facility] DATE CREATED AUTHOR AUTHOR'S ORGANIZ ATION 04/27/2023 [facility] Patient Care team informatio n (unrecognized section and content) Rn Home Health Relationship Specialty Start Date End Date Lien Noblety [address] [place] [address] PCP - General Family Medicine 01/10/22 Lien Noblety [address] [place] [address] Referring Family Medicine 01/07/22 Rn Home Health Relationship Specialty Start Date End Date Lien Noblety [address] [place] [address] PCP - General Family Medicine 01/10/22 Lien Noblety [address] [place] [address] Referring Family Medicine 01/07/22 Rn Home Health Relationship Specialty Start Date End Date Lien Noblety [address] [place] [address] PCP - General Family Medicine 01/10/22 Rory Clare [address] [place] [address] Referring Family Medicine 01/07/22 Rn Home Health Relationship Specialty Start Date End Date Lien Noblety [address] [place] [address] PCP - General Family Medicine 01/10/22 Rory Clare [address] [place] [address] Referring Family Medicine 01/07/22 Rn Home Health Relationship Specialty Start Date End Date PrabhjotarunLienty [address] [place] [address] PCP - General Family Medicine 01/10/22 Rory Clare [address] [place] [address] Referring Family Medicine 01/07/22 Rn Home Health Relationship Specialty Start Date End Date Lien Noblety [address] [place] [address] PCP - General Family Medicine 01/10/22 Rory Clare [address] [place] [address] Referring Family Medicine 01/07/22 Rn Home Health Relationship Specialty Start Date End Date Rory Clare [address] [place] [address] PCP - General Family Medicine 01/10/22 Rory Clare [address] [place] [address] Referring Family Medicine 01/07/22 Rn Home Health Relationship Specialty Start Date End Date Prabhjotarun Clare [address] [place] [address] PCP - General Family Medicine 01/10/22 Rory Clare [address] [place] [address] Referring Family Medicine 01/07/22 Rn Home Health Relationship Specialty Start Date End Date Clare Noble [address] [place] [address] PCP - General Family Medicine 01/10/22 Clare Noble [address] [place] [address] Referring Family Medicine 01/07/22 Rn Home Health Relationship Specialty Start Date End Date Calre Noble [address] [place] [address] PCP - General Family Medicine 01/10/22 Clare Noble [address] [place] [address] Referring Family Medicine 01/07/22 Rn Home Health Relationship Specialty Start Date End Date Clare Noble [address] [place] [address] PCP - General Family Medicine 01/10/22 Clare Noble [address] [place] [address] Referring Family Medicine 01/07/22 Rn Home Health Relationship Specialty Start Date End Date Clare Noble [address] [place] [address] PCP - General Family Medicine 01/10/22 Clare Noble [address] [place] [address] Referring Family Medicine 01/07/22 Rn Home Health Relationship Specialty Start Date End Date Clare Noble DO [address] [place] [address] PCP - General Family Medicine 01/10/22 Clare oNble DO [address] [place] [address] Referring Family Medicine 01/07/22 Rn Home Health Relationship Specialty Start Date End Date Clare Noble RamboDO [address] [place] [address] PCP - General Family Medicine 09/26/21 Rn Home Health Relationship Specialty Start Date End Date Clare Noble RamboDO [address] [place] [id number] PCP - General Family Medicine 09/26/21 Source Comments (unrecognize d section and content) In the event this informatio n is protected by the Federal Confidentiality of Alcohol and Drug Abuse Patient Records regulations: The Federal rules restrict any use of the information to criminally investigate or prosecute any alcohol or drug abuse patient.[facility] the event this information is protected by the Federal Confidentiality of Alcohol and Drug Abuse Patient Records regulations: The Federal rules restrict any use of the information to criminally investigate or prosecute any alcohol or drug abuse patient.[facility] the event this information is protected by the Federal Confidentiality of Alcohol and Drug Abuse Patient Records regulations: The Federal rules restrict any use of the information to criminally investigate or prosecute any alcohol or drug abuse patient.[facility] the event this information is protected by the Federal Confidentiality of Alcohol and Drug Abuse Patient Records regulations: The Federal rules restrict any use of the information to criminally investigate or prosecute any alcohol or drug abuse patient.[facility] the event this information is protected by the Federal Confidentiality of Alcohol and Drug Abuse Patient Records regulations: The Federal rules restrict any use of the information to criminally investigate or prosecute any alcohol or drug abuse patient.[facility] the event this information is protected by the Federal Confidentiality of Alcohol and Drug Abuse Patient Records regulations: The Federal rules restrict any use of the information to criminally investigate or prosecute any alcohol or drug abuse patient.[facility] the event this information is protected by the Federal Confidentiality of Alcohol and Drug Abuse Patient Records regulations: The Federal rules restrict any use of the information to criminally investigate or prosecute any alcohol or drug abuse patient.[facility] the event this information is protected by the Federal Confidentiality of Alcohol and Drug Abuse Patient Records regulations: The Federal rules restrict any use of the information to criminally investigate or prosecute any alcohol or drug abuse patient.[facility] the event this information is protected by the Federal Confidentiality of Alcohol and Drug Abuse Patient Records regulations: The Federal rules restrict any use of the information to criminally investigate or prosecute any alcohol or drug abuse patient.[facility] the event this information is protected by the Federal Confidentiality of Alcohol and Drug Abuse Patient Records regulations: The Federal rules restrict any use of the information to criminally investigate or prosecute any alcohol or drug abuse patient.[facility] the event this information is protected by the Federal Confidentiality of Alcohol and Drug Abuse Patient Records regulations: The Federal rules restrict any use of the information to criminally investigate or prosecute any alcohol or drug abuse patient.[facility] the event this information is protected by the Federal Confidentiality of Alcohol and Drug Abuse Patient Records regulations: The Federal rules restrict any use of the information to criminally investigate or prosecute any alcohol or drug abuse patient.[facility] the event this information is protected by the Federal Confidentiality of Alcohol and Drug Abuse Patient Records regulations: The Federal rules restrict any use of the information to criminally investigate or prosecute any alcohol or drug abuse patient.[facility] the event this information is protected by the Federal Confidentiality of Alcohol and Drug Abuse Patient Records regulations: The Federal rules restrict any use of the information to criminally investigate or prosecute any alcohol or drug abuse patient.[facility] the event this information is protected by the Federal Confidentiality of Alcohol and Drug Abuse Patient Records regulations: The Federal rules restrict any use of the information to criminally investigate or prosecute any alcohol or drug abuse patient.[facility] the event this information is protected by the Federal Confidentiality of Alcohol and Drug Abuse Patient Records regulations: The Federal rules restrict any use of the information to criminally investigate or prosecute any alcohol or drug abuse patient.[facility] Reason for Visit (unrecogniz ed section and content) Reason Comments Back Pain Reason Comments Telemedicine Reason Comments Appointment Cancelled Reason Comments Established Patient Living Well VSMA Reason Comments Follow Up Reason Comments Established Patient FMD education VSMA Reason Comments PT Eval Specialty Diagnoses / Procedures Referred By Gary t Referred To Contact [facility] Diagnoses Functional neurological symptom disorder with mixed symptoms Procedures CONSULT TO PHYSICAL THERAPY PHYSICAL THERAPY EVALUATION HIGH COMPLEX 45 MINS Juan Pablo Cespedes MD [address] [place] [address] [facility] [place] [address] [place] [address] Referral ID Status Reason Start Date Expiration Date Visits Requested Visits Authorized [id number] Authorized Auto-Generat ed Referral 03/16/2022 03/15/2023 60 60 Reason Comments New Patient Functional neurologi suresh symptom disorder with mixed symptoms [F44.7] Specialty Diagnoses / Procedures Referred By Contpino t Referred To Contact Diagnoses Functional neurological symptom disorder with mixed symptoms Procedures CONSULT TO FUNCTIONAL MOVEMENT DISORDERS (FMD) OFFICE/OUTPATIENT [facility] 60-74 MINUTES Juan Pablo Cespedes MD [address] [place] [address] Referral ID Status Reason Start Date Expiration Date Visits Requested Visits Authorized [id number] Pending Review PCP Requested Referral 04/14/2022 04/14/2023 [...] BE BASED ON THE PRIMARY CLINICAL RECORDS. [employer] [facility]. provides no warranty or guarantee of the accuracy or completeness of information in this document.
== END 2023-04-29 12:23 | disposition home or self-care (01) ==
LOC: MRI 12:22
PROVIDERS: PCP Family Medicine; Visit Provider Nurse Practitioner Family
DX: M23.92 Unspecified internal derangement of left knee (principal)
CPT/HCPCS: 73721

== ENCOUNTER 2023-06-24 12:42 | Outpatient (OUT) | payer OTHER, SELFPAY ==
--- NOTE | 2023-06-24 12:43 | MM_ITS ---
Patient Name: AURELIO TAYLOR MR#: [id number] : 1980 Exam Date: 06/24/2023 Ordering Doctor: DR. Clare Valadez D.O. RADIOLOGY REPORT PROCEDURE: MM TOMOSYNTHESIS SCREENING BI COMPARISON: MG MAMM SCREEN 3D ADELITA CAD, 10/19/2020. INDICATIONS: Screening Calculator Name NCI Breast Cancer Risk Assessment Tool 5 Year Breast Cancer Risk 0.50% Lifetime Breast Cancer Risk 8.00% Personal Breast Cancer No Personal Ovarian Cancer No Treatments None Family Cancers Cousin-maternal with breast cancer at age 40; Grandmother-maternal with ovarian cancer at age 50; Grandfather-paternal with rectal cancer at age 64. LOCATION: [facility] BREAST COMPOSITION: Extremely dense, which lowers the sensitivity of mammography. FINDINGS: DIAGNOSTIC CATEGORY 2--BENIGN FINDING: This exam includes additional mammographic views for implant evaluation and shows no visible implant abnormality. Scattered benign-appearing nodules are present. Scattered benign-appearing lymph nodes are present. RIGHT BREAST: No significant suspicious finding. LEFT BREAST: No significant suspicious finding. RECOMMENDATIONS: ROUTINE MAMMOGRAM AND CLINICAL EVALUATION IN 12 MONTHS. PLEASE NOTE: A NORMAL MAMMOGRAM DOES NOT EXCLUDE THE POSSIBILITY OF BREAST CANCER. A CLINICALLY SUSPICIOUS PALPABLE LUMP SHOULD BE BIOPSIED. Dictated by: Vu Wyman MD on 06/24/2023 at 15:32 Approved by: Vu Wyman MD on 06/24/2023 at 15:34
== END 2023-06-24 12:43 | disposition home or self-care (01) ==
LOC: MAMMO 12:42
PROVIDERS: PCP Family Medicine; Visit Provider Family Medicine
DX: Z12.31 Encounter for screening mammogram for malignant neoplasm of breast (principal); Z80.3 Family history of malignant neoplasm of breast; Z80.41 Family history of malignant neoplasm of ovary; Z80.8 Family history of malignant neoplasm of other organs or systems
CPT/HCPCS: 77063; 77067

== ENCOUNTER 2023-06-25 07:52 | Outpatient (OUT) | payer OTHER, SELFPAY ==
--- OUTSIDE RECORDS SUMMARY | 2023-06-25 07:55 | XMS_ITS | CCD ---
Author Organization [facility] Care Team Providers Care Chiropractic Assistant Name Role Phone PHYSICIAN, DEFAULT Admitting Unavailable PHYSICIAN, DEFAULT Attending Unavailable PHYSICIAN, DEFAULT Admitting Unavailable PHYSICIAN, DEFAULT Attending Unavailable Shawnee Merida Unavailable CLARE NOBLE Primary Care Physician Rory Clare Unavailable Clare Noble Primary Care Provider [phone] Rumarun Clare Unavailable Clare Noble Primary Care Provider [phone] MISC, DR MILLIGAN Consulting Unavailable MISC, DR MILLIGAN Attending Unavailable MISC, DR MILLIGAN Admitting Unavailable MISC, DR MILLIGAN Primary Care Unavailable ZIEBER, DR ROSHAN Lane Consulting Unavailable APLING, INOCENCIO B Admitting Unavailable APLING, INOCENCIO B Attending Unavailable MISC, DR MILLIGAN Primary Care Unavailable APLING, INOCENCIO B Admitting Unavailable APLING, INOCENCIO Kingston Consulting Unavailable APLING, INOCENCIO B Attending Unavailable MISC, DR MILLIGAN Primary Care Unavailable ADRIAN ANDERSEN Consulting Unavailable TIMMIS, DR LEBLANC Admitting Unavailable TIMMIS, DR LEBLANC Consulting Unavailable TIMMIS, DR LEBLANC Attending Unavailable MISC, DR MILLIGAN Primary Care Unavailable ZIEBER, DR ROSHAN Lane Consulting Unavailable ASIA, CLARI Admitting Unavailable ASIACLARI Consulting Unavailable ASIA, CLARI Attending Unavailable MISC, DR MILLIGAN Primary Care Unavailable Rory COLINDRES Clare Unavailable Clare Noble DO Primary Care Provider Timmis, Benji H Admitting Unavailable Timmis, Benji H Attending Unavailable Timmis, Benji H Referring Unavailable KILO NOBLETY Primary Care Unavailable Rory COLINDRES Clare K Primary Care Provider LEANDER BENJI Criss Attending Unavailable APLINGINOCENCIO Attending Unavailable APLING, INOCENCIO Kingston Attending Unavailable APLING, INOCENCIO Kingston Attending Unavailable APLING, INOCENCIO Kingston Referring Unavailable BENJI TABOR Criss Attending Unavailable RUMSCHLAG, CLARE Referring Unavailable APLING, INOCENCIO Kingston Attending Unavailable MAGGIE BAEZ Attending Unavailable RUMSCHLAG, CLARE K Referring Unavailable RUMSCHLAG, CALRE K Primary Care Unavailable JACQUELYN LI Attending Unavailable RUMSCHLAG, CLARE K Referring Unavailable RUMSCHLAG, CLARE K Primary Care Unavailable NAZARIO VACA Admitting Unavailable VACANAZARIO Attending Unavailable RUMSCHLAG, CLARE K Referring Unavailable RUMSCHLAG, CLARE K Primary Care Unavailable VACANAZARIO HOWELL E Attending Unavailable VACA, NAZARIO E Referring Unavailable RUMSCHLAG, CLARE K Primary Care Unavailable VACANAZARIO HOWELL Attending Unavailable VACA, NAZARIO E Referring Unavailable RUMSCHLAG, CLARE K Primary Care Unavailable VACANAZARIO HOWELL Admitting Unavailable VACANAZARIO HOWELL Attending Unavailable RUMSCHLAG, CLARE K Referring Unavailable RUMSCHLAG, CLARE K Primary Care Unavailable PAOLO CH Attending Unavailable Luli, Fantasma Attending Unavailab le Luli Fantasma Admitting Unavailab le Rumschlag, Clare Primary Care Unavailable RUMSCHLAG, CLARE Primary Care Unavailable HERNÁN MARIEE Attending Unavailable RUMSCHLAG, CLARE Primary Care Unavailable NANCY DRAPER Referring Unavailable NANCY DRAPER Attending Unavailable RUMSCHLAG, CLARE Primary Care Unavailable NANCY DRAPER Referring Unavailable DRAPERNANCY Attending Unavailable DRAPERNANCY Referring Unavailable DRAPERNANCY Attending Unavailable RUMSCHLAG, CLARE Primary Care Unavailable DRAPERNANCY Attending Unavailable RUMSCHLAG, CLARE Primary Care Unavailable RUMSCHLAG, CLARE Primary Care Unavailable HERNÁN MARIEE Attending Unavailable DRAPERNANCY Attending Unavailable RUMSCHLAG, CLARE Primary Care Unavailable RUMSCHLAG, CLARE Primary Care Unavailable DRAPER NANCY NANCY Referring Unavailable RUMSCHLAG, CLARE Primary Care Unavailable HERNÁN MARIEE Attending Unavailable RUMSCHLAG, CLARE Primary Care Unavailable HERNÁN MARIEE Attending Unavailable NANCY DRAPER Attending Unavailable RUMSCHLAG, CLARE Primary Care Unavailable Allergies Allergy Classification Reported Allergen(s) Allergy Type Date of Onset Reaction(s) Facility (20 sources) Acetaminophen / oxyCODONE Drug Allergy 0 anaphylaxis, Swelling [facility] (20 sources) pregabalin; Translations: [PREGABALIN] Drug Allergy 6 anaphylaxis, Swelling [facility] (1 source) Acetaminophen / oxyCODONE Drug Allergy 3 [facility] Rep[facility] (1 source) pregabalin Drug Allergy 6 [facility] (4 sources) Adhesive Tape-Silicones; Translations: [ADHESIVE TAPE-SILICONES] Propensity to adverse reactions to drug 7 Rash [facility] (3 sources) Acetaminophen / oxyCODONE; Translations: [OXYCODONE-ACETAM INOPHEN] Drug Allergy 0 [facility] Repository (1 source) Acetaminophen Drug Allergy 3 [facility] Repository (1 source) oxyCODONE Drug Allergy 3 [facility] Rep[facility] (1 source) pregabalin Drug Allergy 3 [facility] Rep[facility] Medications Current Medications Medication Drug Class(es) Dates Sig (Normalized) Sig (Original) cariprazine 3 mg oral capsule (1 source) Atypical Antipsychotic Start: 05-19-2023 take 1 capsule by mouth in the morning VRAYLAR 3 mg capsule Take 1 capsule (3 mg total) by mouth in the morning. 0 05/19/2023 Active DULoxetine (1 source) Serotonin and Norepinephrine Reuptake Inhibitor Cymbalta Active FLUoxetine 10 mg oral capsule (1 source) Serotonin Reuptake Inhibitor take 1 capsule by mouth in the morning FLUoxetine (PROzac) 10 mg capsule Take 1 capsule (10 mg total) by mouth in the morning. 0 Active tiZANidine (1 source) Central alpha-2 Adrenergic Agonist Zanaflex Active Completed/Discontinued Medications Medication Drug Class(es) Dates Sig (Normalized) Sig (Original) baclofen 20 mg oral tablet (20 sources) gamma-Aminobutyri c Acid-ergic Agonist Start: 12-18-2021 take 1 tablet by mouth twice daily as needed baclofen (LIORESAL) 20 mg tablet TAKE 1 TABLET BY MOUTH TWICE A DAY NEEDED FOR 90 DAYS 0 12/18/2021 Active Start: 09-04-2021 take 2 tablets by mo uth three times daily baclofen (LIORESAL) 10 mg tablet Take 2 tablets (20 mg total) by mouth 3 (three) times a day. 0 09/04/2021 Active Comment on above: TAKE 1 TABLET BY HOLLIS TWICE A DAY NEEDED FOR 90 DAYS cetirizine hydrochloride 10 mg oral tablet (20 sources) Histamine-1 Receptor Antagonist Start: 12-25-19 take 1 tablet by mouth once daily as needed cetirizine (ZYRTEC) 10 mg tablet TAKE 1 TABLET BY MOUTH EVERY DAY NEEDED FOR 30 DAYS 0 12/24/2021 Active Comment on above: TAKE 1 TABLET BY HOLLIS TH EVERY DAY NEEDED FOR 30 DAYS Ketorolac (2 sources) Nonsteroidal Anti-inflammatory Drug, Cyclooxygenase Inhibitor Start: 02-15-20 Toradol per 15 mg Feb, 60 mg Start: 11-26-2015 Toradol per 15 mg Nov, 60 mg nabumetone 500 mg oral tablet (20 sources) Nonsteroidal Anti-inflammatory Drug Start: 07-22-2021 nabumetone (RELAFEN) 500 mg tablet Take 500 mg by mouth. 0 07/22/2021 Active Relafen Active Comment on above: Take 500 mg by mouth . 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] Onset: 04-13-2023 Chronic Mood disorders (2 sources) Depressive disorder; Translations: [Depression, unspecified depression type] 09-23-2022 Chronic Nonspecific chest pain (2 sources) Other chest pain; Translations: [Other chest pain] Onset: 06-03-2023 Episodic Other connective tissue disease (2 sources) Spasm; Translations: [Other muscle spasm] Episodic Other connective tissue disease (4 sources) Impingement syndrome of left shoulder; Translations: [IMPINGEMENT SYNDROME LEFT SHOULDER] Onset: 05-07-2022 Episodic Other hereditary and degenerative nervous system conditions (1 source) Functional movement disorder; Translations: [Extrapyramidal and movement disorder, unspecified] Chronic Other nervous system disorders (1 source) Neuropathy; Translations: [Polyneuropathy, unspecified] Chronic Other nervous system disorders (4 sources) Chronic pain syndrome; Translations: [CHRONIC PAIN SYNDROME] Onset: 08-01-2021 Chronic Other nervous system disorders (1 source) Other chronic pain; Translations: [Other chronic pain] Onset: 06-02-2023 Chronic Other non-traumatic joint disorders (4 sources) [...] Spondylosis; intervertebral disc disorders; other back problems (19 sources) Degeneration of cervical intervertebral disc; Translations: [Other cervical disc degeneration, unspecified cervical region] Onset: 02-23-2017 Chronic Spondylosis; intervertebral disc disorders; other back problems (20 sources) Chronic neck pain; Translations: [Cervicalgia] Onset: [...] Onset: 08-13-2021 Resolved: 08-13-2021 Episodic Substance-related disorders (3 sources) Smoker; Translations: [Nicotine dependence, unspecified, uncomplicated] Onset: 02-24-2017 Resolved: 02-24-2017 02-24-2017 Chronic Results Test Name Value Interpretation Reference Range Facility [id number] 06-22-2023 [id number] HNO ID: [id number] Author: CASIE FLORES PT Service: ? Author Type: Physical Therapist Type: [id number] Filed: 06/22/2023 15:30 Note Text: [facility] Physical Therapy Plan of Care Certification Patient Name: Chasity Taylor : 1980 [facility] #: [id number] Date: 06/22/2023 To: Nancy Draper MD From Therapist: Casie Flores, PT RE: Patient Certification/ Recertification Your review, approval and electronic signature are required in order to comply with Payor: [employer] / Plan: [facility] CHOICE PLUS / Product Type: HMO / regulations. 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 She presents with impairments in balance, gait, independence in exercise, overall function, and symptom management. Patient did not complete the PROMIS? (Patient Reported Outcome Measures Information System). Prognosis for therapy is Good due to: current objective clinical presentation . Patient presents for FMD follow up 1 year post being seen at [facility]. Patient attempted PT closer to home, but reports it was unsuccessful and would like to trial the FMD PT Intensive. Patient responded well to diverted attention and would benefit from FMD focused PT and would be good candidate for FMD intensive. She will benefit from skilled therapy services to meet the goals established for this plan of care as noted below. Goals for Episode of Care: created on 06/22/23 through 08/21/23 Patient will demonstrate understanding of FMD diagnosis as demonstrated by ability to independently verbalize FMD definition and symptomology. Status: Patient will demonstrate understanding and rationale for use of diverted attention strategies for FMD symptom management. Status: Patient will independently utilize 3 diverted attention strategies for tremor management. Status: Patient will be able to complete >100 feet of ambulation without being limited by tremors and weakness. Status: Patient will be able to perform TUG in < 45 seconds with independent use of diverted attention strategy of patient choice to demonstrate decrease risk for falls and improvements in motor control. Status: Patient will perform >30 minutes of aerobic exercise 3x/week in 8 weeks for improvements in aerobic tolerance for pain modulation. Status: Patient will independently utilize grounding strategies and meditation for [employer] grounding and symptom management. Status: Patient Goals: lessen tremors, walking more (spend less time in wheelchair), go on a hike Planned Interventions, Frequency, and Duration: Current Frequency: 5x/week Duration: 1 week Total Number of Visits Planned: 5 Planned Treatment Interventions: Therapeutic exercise (86865), Neuromuscular re-education (45225), Manual therapy (35115), Therapeutic activities (25073), Self-alf management (41553), Gait Training (00158), Patient/Family/Caregiv er Education, Functional training, General Conditioning PLAN FOR NEXT VISIT: PT intensive Patient demonstrates good understanding of plan of care and treatment. The above goals and plan of care were discussed and agreed upon by patient/family. For further details regarding this patient refer to the Physical Therapy electronically documented visit dated 06/22/2023. Provider Attestation I have reviewed the treatment plan for Chasity Taylor, [facility]# [id number] for the period of 06/22/23 -- 08/21/23, established on 06/22/2023. Signature certifies the need for therapy services. Normal [facility] CNTHERAPYon 06-22-2023 CNTHERAPY OT/PT/Speech Visit (PHYTMN) CHASITY TAYLOR ([id number]) 1980 F Date Time Provider Department 06/22/23 1:00 PM CASIE FLORES Date Time Provider Department Center 06/22/2023 1:00 PM [id number] FLORES [facility] Reason for Visit: PT Eval [747] Primary Visit Diagnosis:Functional neurological symptom disorder with mixed symptoms [F44.7] Allergies As of Date: 06/22/2023 Noted Allergy Reaction OXYCODONE-ACETAMINOPHE N 01/16/2010 10 - Anaphylaxis 7 - Swelling PREGABALIN 02/22/2016 10 - Anaphylaxis 7 - Swelling Date Reviewed: 05/21/2022 Reviewed by: Jairo Pacheco MA - Fully Assessed Prescriptions as of 06/22/2023 - cetirizine (ZYRTEC) 10 mg tablet TAKE 1 TABLET BY MOUTH EVERY DAY NEEDED FOR 30 DAYS - baclofen (LIORESAL) 20 mg tablet TAKE 1 TABLET BY MOUTH TWICE A DAY NEEDED FOR 90 DAYS - nabumetone (RELAFEN) 500 mg tablet Take 500 mg by mouth. Normal [facility] Office Visiton 06-03-2023 Follow-up visit [id number] Ellie Taylor sa Horn 1980 F Date Provider Department Center 06/03/2023 3848-PAOLO CH KADY Trevizo Family History Problem Relation Age of Onset Breast cancer Mother Family Status - Relation Status Age at Mother Level of Service:9[address]42 [place] OFFICE/OUTPATIENT NEW MODERATE MDM 45 MINUTES Normal [facility] CT Maxillofacial w/o Contras ton 02-25-2023 CT [...] Tabor FINAL REPORT Dictated: 02/25/2023 11:57 am SignRambo valle MD Signed (Electronic Signature): 02/25/2023 11:57 am Signed by: Rambo Qiu MD Transcribed by: JOSE Technologist: STERLING [facility] Consent for Treatmenton 02-13 Consent for Treatment [id number] 0TIFF [facility] Physician Orderon 02-16-2023 Physician Order [id number]#1.0 0TIFF [facility] Physician Orderon 02-13-2023 Physician Order [id number]#[id number] TIFF [facility] CNPNon 07-03-2022 CNPN Telephone (NREUS2) CHASITY TAYLOR ([id number]) 1980 F Date Time Provider Department 07/03/22 JOCELYN MACHADO NRZEINABS2 During your visit today, we recorded the following information about you: MALLY Pearce 07/03/2022 1:59 PM Signed [facility] SOCIAL WORK CONSULT [...] Assessed Reason for Visit: Social Work Consultation [[id number]] Prescriptions as of 07/03/2022 - cetirizine (ZYRTEC) [...] Status:Closed by JOCELYN MACHADO on 07/03/22 Normal [facility] MRI SHOULDER LT WO CONon MRI [...] by: ADRIAN ANDERSEN Date: 2022-06-13 11:42 Normal [facility] CBC W Auto Differential pane l (Bld)on 01-31-2022 Basophils (Bld) [#/Vol] 0.04 10*3/uL <0.11 k/uL [facility] Basophils/100 WBC (Bld) 0.4 % [facility] Differential cell count method Nom (Bld) Auto [facility] Eosinophils (Bld) [#/Vol] 0.08 10*3/uL <0.46 k/uL [facility] Eosinophils/100 WBC (Bld) 0.8 % [facility] Erythrocyte distribution width (RBC) [Ratio] 11.5 % 11.5 - 15.0 % [facility] Hematocrit (Bld) [Volume fraction] 45.9 % 36.0 - 46.0 % [facility] Hemoglobin (Bld) [Mass/Vol] 16.0 g/dL High 11.5 - 15.5 g/dL [facility] Immature granulocytes (Bld) [#/Vol] 0.03 10*3/uL <0.10 k/uL [facility] Immature granulocytes/100 WBC (Bld) 0.3 % [facility] Lymphocytes (Bld) [#/Vol] 2.15 10*3/uL 1.00 - 4.00 k/uL [facility] Lymphocytes/100 WBC (Bld) 20.2 % [facility] MCH (RBC) [Entitic mass] 33.6 pg 26.0 - 34.0 pg [facility] MCHC (RBC) [Mass/Vol] 34.9 g/dL 30.5 - 36.0 g/dL [facility] MCV (RBC) [Entitic vol] 96.4 fL 80.0 - 100.0 fL [facility] Monocytes (Bld) [#/Vol] 0.55 10*3/uL <0.87 k/uL [facility] Monocytes/100 WBC (Bld) 5.2 % [facility] Neutrophils (Bld) [#/Vol] 7.80 10*3/uL High 1.45 - 7.50 k/uL [facility] Neutrophils/100 WBC (Bld) 73.1 % [facility] Nucleated RBC (Bld) [#/Vol] <0.01 k/uL [facility] Nucleated RBC/100 WBC (Bld) [Ratio] 0.0 /100 WBC [facility] Platelet mean volume (Bld) [Entitic vol] 10.2 fL 9.0 - 12.7 fL [facility] Platelets (Bld) [#/Vol] 208 10*3/uL 150 - 400 k/uL [facility] RBC (Bld) [#/Vol] 4.76 10*6/uL 3.90 - 5.2 0 m/uL [facility] WBC (Bld) [#/Vol] 10.65 10*3/uL 3.70 - 11 .00 k/uL [facility] No Panel Informationon 01-31 [facility] XR SINUSES 3 VIEWS OR GREATE Regan [...] ROSHAN CARDENAS Date: 2021-12-23 16:28 Normal [facility] ALDOLASEon 10-31-2021 Aldolase 3.9 U/L Normal 3.3-10.3 [facility] Comment on above: Performed By: #### A LDOLAS #### [facility] [address] [address] [address] Ted Mendez TREV COMPREHENSIVE PROFILEon 10-31-2021 Anti-Centromere B Antibodies <0.2 Normal 0.0-0.9 [facility] Comment on above: Performed By: #### A NAPROF #### [facility] [address] [place], [place] [address] Dr. Ted Mendez Anti-DNA (DS) Ab Qn 3 IU/mL Normal 0-9 [facility] Comment on above: Result Comment: Nega tive <5 Equivocal 5 - 9 Positive >9 Performed By: #### A CHANDRAKANTROF #### [facility] [address] [place] [address] Dr. Ted Mendez Anti-Selma-1 <0.2 Normal 0.0-0.9 [facility] Comment on above: Performed By: #### A CHANDRAKANTROF #### [facility] [address] [place] [address] Dr. Ted Mendez Antichromatin Antibodies <0.2 Normal 0.0-0.9 [facility] Comment on above: Performed By: #### A CHANDRAKANTROF #### [facility] [address] [place] [address] Dr. Ted Mendez ANTIRIBOSOMAL P AB <0.2 Normal 0.0-0.[address] [facility] Comment on above: Performed By: #### A CHANDRAKANTROF #### [facility] [address] [place] [address] Dr. Ted Mendez Antiscleroderma-70 Antibodies <0.2 Normal 0.0-0.9 [facility] Comment on above: Performed By: #### A CHANDRAKANTROF #### [facility] [address] [place] [address] Dr. Ted Mendez COMMENT Comment Normal [facility] Comment on above: Result Comment: Auto antibody Disease Association Condition Frequency Antinuclear Antibody, SLE, mixed connective Direct (TREV-D) tissue diseases dsDNA SLE 40 - 60% Chromatin Drug induced SLE 90% SLE 48 - 97% SSA (Ro) SLE 25 - 35% Sjogren's Syndrome 40 - 70% Lupus 100% SSB (La) SLE 10% Sjogren's Syndrome 30% Sm (anti-Lin) SLE 15 - 30% DYEHOUSE WORKER Mixed Connective Tissue Disease 95% (U1 nRNP, SLE 30 - 50% anti-ribonucleoprotein) Polymyositis and/or Dermatomyositis 20% Scl-70 (antiDNA Scleroderma (diffuse) 20 - 35% topoisomerase) Crest 13% Selma-1 Polymyositis and/or Dermatomyositis 20 - 40% Centromere B Scleroderma - Crest variant 80% Ribosomal P SLE 10 - 20% Performed By: #### A NAPROF #### [facility] [address] [place] [address] Dr. Ted Mendez DYEHOUSE WORKER Antibodies 1.8 AI Critically high 0.0-0.9 [facility] Comment on above: Performed By: #### A NAPROF #### [facility] [address] [place] [address] Dr. Ted Mendez Sjogrmanny's Anti-SS-A <0.2 Normal 0.0-0.9 [facility] Comment on above: Performed By: #### A NAPROF #### [facility] [address] [place] [address] Dr. Ted Alyogrmanny'andrew Anti-SS-B <0.2 Normal 0.0-0.9 [facility] Comment on above: Performed By: #### A NAPROF #### [facility] [address] [place] [address] Dr. Ted Mendez Lin Antibodies <0.2 Normal 0.0-0.9 [facility] Comment on above: Performed By: #### A NAPROF #### [facility] [address] [place] [address] Dr. Ted Mendez Lin/DYEHOUSE WORKER Antibodies <0.2 Normal 0.0-0.9 [facility] Comment on above: Performed By: #### A NAPROF #### [facility] [address] [place] [address] Dr. Ted Mendez CPKon 10-30-2021 CK [Catalytic activity/Vol] 37 U/L Normal 26-192 [facility] Comment on above: Performed By: #### C K, CRP, FRIEDA #### [facility] [address] [address] [address] Ted Mendez CRPon 10-30-2021 CRP [Mass/Vol] mg/L Normal <=1.0 [facility] Comment on above: Performed By: #### C K, CRP, FRIEDA #### [facility] [address] [address] [address] Ted Mendez MYOGLOBINon 10-30-2021 FRIEDA 22 ng/mL Normal 9-82 [facility] Comment on above: Performed By: #### C K, CRP, FRIEDA #### [facility] [address] [address] [address] Ted Mendez SED RATE WESTERGRENon 2021 SED RATE <1 Normal <=20 [facility] Comment on above: Performed By: #### S EDR #### [facility] [address] [address] [address] Ted Mendez XR LSPINE MIN 4 [...] ROSHAN CARDENAS Date: 2021-08-01 15:07 Normal [facility] MRI Cervical Spine w/oon MRI Cervical Spine w/o HISTORY: Neck pain, left arm numbness and tingling, right arm weakness, prior surgery (2016) PROCEDURE: GE Signa HDXT 1.5. Sagittal T1, T2, STIR and [...] by Tommy Duenas on 05/21/2021 1146 Normal [facility] Iap Displays Analyst Vital Signs Date Time Vital Sign Value Performing Clinician Facility 06-22-2023 12:00-0400 Diastolic blood pressure 74 mm[Hg] Casie Flores [facility] 06-22-2023 12:00-0400 Heart rate 74 /min Casie Flores [facility] 06-22-2023 12:00-0400 Systolic blood pressure 102 mm[Hg] Casie Flores [facility] 06-02-2023 08:08-0400 Diastolic blood pressure 72 mm[Hg] Maggie Baez [employer]ICE OFFICER-COATER HELPER Work Phone: [facility] 06-02-2023 08:08-0400 Heart rate 76 /min Maggie Baez [employer] POLICE OFFICER-COATER HELPER Work Phone: [facility] 06-02-2023 08:08-0400 Respiratory rate 18 /min Maggie Baez MILITARY POLICE OFFICER-COATER HELPER Work Phone: [facility] 06-02-2023 08:08-0400 SaO2% (BldA) [Mass fraction] 100 % Maggie Baez MILITARY POLICE OFFICER-COATER HELPER Work Phone: [facility] 06-02-2023 08:08-0400 Systolic blood pressure 111 mm[Hg] Maggie Baez MILITARY POLICE OFFICER-COATER HELPER Work Phone: [facility] 03-18-2023 13:53-0500 Diastolic blood pressure 76 mm[Hg] Jacquelyn Verhoff PA-C Work Phone: [facility] 03-18-2023 13:53-0500 Heart rate 77 /min Jacquelyn Verhoff PA-C Work Phone: [facility] 03-18-2023 13:53-0500 Respiratory rate 20 /min Jacquelyn Verhoff PA-C Work Phone: [facility] 03-18-2023 13:53-0500 Systolic blood pressure 122 mm[Hg] Jacquelyn Verhoff PA-C Work Phone: [facility] 05-21-2022 12:46-0500 Diastolic blood pressure 63 mm[Hg] Nancy Draper MD Work Phone: [facility] 05-21-2022 12:46-0500 Heart rate 89 /min Nancy Draper MD Work Phone: [facility] 05-21-2022 12:46-0500 SaO2% (BldA) [Mass fraction] 97 % Nancy Draper MD Work Phone: [facility] 05-21-2022 12:46-0500 Systolic blood pressure 102 mm[Hg] Nancy Draper MD Work Phone: [facility] 04-11-2022 14:59-0500 Body height 157.5 cm Irvin Dotson MD Work Phone: [facility] 04-11-2022 14:59-0500 Body weight 63.96 kg Irvin Dotson MD Work Phone: [facility] 04-11-2022 14:59-0500 Diastolic blood pressure 79 mm[Hg] Irvin Dotson MD Work Phone: [facility] 04-11-2022 14:59-0500 Heart rate 76 /min Irvin Dotson MD Work Phone: [facility] 04-11-2022 14:59-0500 Systolic blood pressure 120 mm[Hg] Irvin Dotson MD Work Phone: [facility] 01-31-2022 11:13-0500 Body height 158.5 cm Lissette Shirley MD Work Phone: [facility] 01-31-2022 11:13-0500 Body weight 66.18 kg Lissette Shirley MD Work Phone: [facility] 01-31-2022 11:13-0500 Diastolic blood pressure 68 mm[Hg] Lissette Shirley MD Work Phone: [facility] 01-31-2022 11:13-0500 Heart rate 84 /min Lissette Shirley MD Work Phone: [facility] 01-31-2022 11:13-0500 Systolic blood pressure 125 mm[Hg] Lissette Shirley MD Work Phone: [facility] 08-13-2021 11:40-0400 Body height 158.75 cm Shawnee Merida Other [employer] Other 08-13-2021 11:40-0400 Body mass index (BMI) [Ratio] 23.04 kg/m2 Shawnee Merida Other [employer] Other 08-13-2021 11:40-0400 Body temperature 98.8 [degF] Shawnee Merida Other [employer] Other 08-13-2021 11:40-0400 Body weight 58.06 kg Shawnee Merida Other [employer] Other 08-13-2021 11:40-0400 Diastolic blood pressure 74 mm[Hg] Shawnee Merida Other [employer] Other 08-13-2021 11:40-0400 Respiratory rate 18 /min Shawnee Merida Other [employer] Other 08-13-2021 11:40-0400 SaO2% (BldA) [Mass fraction] 99 % Shawnee Merida Other [employer] Other 08-13-2021 11:40-0400 Systolic blood pressure 116 mm[Hg] Shawnee Merida Other [employer] Other Encounters Encounter Date Encounter Type Care Provider Facility Start: 06-22-2023 End: 06-22-2023 OT/PT/Speech Visit Casie Flores PT [facility] Physical Therapy Comment on above: Functional neurologi suresh symptom disorder with mixed symptoms (Primary Dx) Start: 06-03-2023 End: 06-03-2023 ambulatory PAOLO [facility] Start: 06-02-2023 End: 06-02-2023 ambulatory MAGGIE BAEZ [facility] Start: 06-02-2023 End: 06-02-2023 Office outpatient visit 15 minutes Jacquelyn Li PA-C Work Phone: [facility] Comment on above: Chronic neck pain (P rimary Dx); Cervical spondylosis without myelopathy; Cervical post-laminectomy syndrome Start: 04-24-2023 End: 04-25-2023 ambulatory NAZARIO VACA [facility] Start: 04-15-2023 End: 04-16-2023 ambulatory INOCENCIO GUERRA Not Available Start: 04-13-2023 End: 04-14-2023 ambulatory CLARE NOBLE Facility:[facility] Start: 04-10-2023 End: 04-13-2023 ambulatory NAZARIO VACA [facility] Start: 04-08-2023 End: 04-08-2023 ambulatory INOCENCIO B APLING Not Available Start: 04-06-2023 Telephone encounter Patricia Beaulieu [facility] Start: 04-02-2023 ambulatory Fantasma Cole acility:[facility] Start: 03-25-2023 End: 03-25-2023 ambulatory BENJI Kahn TIMMIS Not Available Start: 03-18-2023 End: 03-18-2023 ambulatory JACQUELYN LI [facility] Start: 03-18-2023 End: 03-18-2023 Office outpatient visit 25 minutes Jacquelyn Li PA-C Work Phone: [facility] Comment on above: Cervical spondylosis without myelopathy (Primary Dx) Start: 03-04-2023 End: 03-04-2023 ambulatory INOCENCIO B APLING Not Available Start: 02-24-2023 End: 02-25-2023 ambulatory Benji Criss Timmis Facility:[facility] Start: 02-24-2023 End: 02-24-2023 Patient encounter procedure Benji Gardners [facility] Start: 02-14-2023 End: 02-14-2023 ambulatory CLARE NOBLE Facility:[facility] Start: 02-14-2023 End: 02-14-2023 [facility] Nancy Draper MD Work Phone: [facility] Comment on above: Functional neurologi suresh symptom disorder with mixed symptoms (Primary Dx) Start: 01-28-2023 End: 01-28-2023 ambulatory INOCENCIO B APLING Not Available Start: 01-26-2023 End: 01-26-2023 ambulatory BENJI H TIMMIS Not Available Start: 11-27-2022 End: 11-27-2022 ambulatory NANCY DRAPER Facility:[facility] Start: 11-27-2022 End: 11-27-2022 Unlisted evaluation and management service Nancy Draper MD Work Phone: [facility] Comment on above: APPOINTMENT CANCELLE D (Primary Dx) Start: 11-13-2022 End: 11-13-2022 ambulatory NANCY DRAPER Facility:[facility] Start: 11-13-2022 End: 11-13-2022 Office outpatient visit 15 minutes Nancy Draper MD Work Phone: [facility] Comment on above: Chronic low back matilde n, unspecified back pain laterality, unspecified whether sciatica present (Primary Dx); Chronic neck pain; Functional neurological symptom disorder with mixed symptoms Start: 10-25-2022 End: 10-25-2022 [facility] [employer] Mariee PhD Work Phone: [facility] Comment on above: Functional neurologi suresh symptom disorder with mixed symptoms (Primary Dx); Anxiety; Depression, unspecified depression type Start: 09-25-2022 End: 09-25-2022 ambulatory NANCY DRAPER Facility:[facility] Start: 09-25-2022 End: 09-25-2022 Office outpatient visit 15 minutes Nancy Draper MD Work Phone: [facility] Comment on above: Functional neurologi suresh symptom disorder with mixed symptoms (Primary Dx) Start: 09-23-2022 End: 09-23-2022 ambulatory [facility] Facility:[facility] Start: 09-23-2022 End: 09-23-2022 [facility] [employer] Mariee PhD Work Phone: [facility] Comment on above: Functional neurologi suresh symptom disorder with mixed symptoms (Primary Dx); Anxiety; Depression, unspecified depression type Start: 07-26-2022 End: 07-26-2022 [facility] [employer] Mariee PhD Work Phone: [facility] Comment on above: Functional neurologi suresh symptom disorder with mixed symptoms (Primary Dx) Start: 07-03-2022 End: 07-03-2022 Telephone encounter Jocelyn BAL Work Phone: [facility] Comment on above: Social Work Consulta tion Functional neurologi suresh symptom disorder with mixed symptoms (Primary Dx) Start: 07-03-2022 End: 07-03-2022 ambulatory NANCY DRAPER Facility:[facility] Start: 07-03-2022 End: 07-03-2022 Telemedicine consultation with patient Nancy Draper MD Work Phone: [facility] Start: 06-21-2022 ambulatory Hernán Mariee Ph D Work Phone: [facility] Comment on above: Group therapy Start: 06-12-2022 End: 06-13-2022 ambulatory [facility] Facility:[facility] Start: 05-21-2022 End: 05-21-2022 ambulatory Audrey Melgoza PT Work Phone: [facility] Start: 05-21-2022 End: 05-21-2022 Patient encounter procedure Nancy Draper MD Work Phone: [facility] Comment on above: Functional neurologi suresh symptom disorder with mixed symptoms Start: 05-07-2022 End: 05-13-2022 ambulatory [facility] Facility: Start: 04-14-2022 Telephone encounter Nancy Draper MD Work Phone: [facility] Comment on above: FMD referral Start: 04-11-2022 End: 04-11-2022 Patient encounter procedure Irvin Dotson MD Work Phone: Neurology Comment on above: Functional movement disorder (Primary Dx) Start: 02-07-2022 End: 02-07-2022 ambulatory Lissette Shirley MD Work Phone: Rheumatology Comment on above: Muscle spasm (Primar y Dx); Lumbar spondylosis; Neuropathy Start: 02-07-2022 End: 02-07-2022 Telemedicine consultation with patient Lissette Shirley MD Work Phone: [facility] Start: 02-03-2022 End: 02-03-2022 Patient encounter procedure Benji Tabor [facility] Start: 01-31-2022 End: 01-31-2022 Patient encounter procedure Lissette Shirley MD Work Phone: Rheumatology Comment on above: Muscle spasm (Primar y Dx); Pain in joint, multiple sites; Lumbar spondylosis; Neck pain, chronic Start: 12-25-2021 End: 01-24-2022 Pre-admission assessment Benji Tabor [facility] Start: 12-23-2021 End: 12-24-[address] BENJI TABOR Facility:[facility] Start: 10-30-2021 End: 10-31-2021 ambulatory CLARI BETANCOURT Facility:[facility] Start: 08-13-2021 End: 08-13-2021 ambulatory Shawnee Merida Other [employer] Other Start: 08-13-2021 Office outpatient vi sit 15 minutes Shawnee Merida [facility] Start: 08-01-2021 End: 08-02-[address] 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 Start: 10-19-2017 End: 10-20-2017 Patient encounter procedure DEFAULT PHYSICIAN Facility:[facility] Plan of Treatment Date Care Activity Detail Author Start: 06-01-2024 Tobacco Screening Tobacco Screening [facility] Start: 03-18-2024 Tobacco Screening Tobacco Screening [facility] Start: 12-18-2023 Adult BMI Screening Adult BMI Screen ing [facility] Start: 11-15-2023 Influenza vaccination Influenz a Vaccine (Season Ended) [facility] Start: 07-22-2023 End: 07-22-2023 Patient encounter procedure 07/22/2023 12:45 PM EDT Office Visit [facility] [address] [place] [phone] Jacquelyn Li, PA-C [address] [place] [address] [facility] Start: 06-26-2023 End: 06-26-2023 Admission to same day surgery center 06/26/2023 11:00 AM EDT - 06/26/2023 11:[address] [facility] [address] [place] [phone] Nazario Vaca MD [address] [place] [address] RADIOFREQUENCY ABLATION SPINAL Left C 4/5 _ 6/7 [03741 (CPT )] [facility] Comment on above: RADIOFREQUENCY ABLAT ION SPINAL Left C 4/5 _ 6/7 [60180 (CPT )] Start: 06-26-2023 End: 06-26-2023 Dstr nrolytc agnt parverteb fct sngl crvcl/thora RADIOFREQUENCY ABLATION SPINAL Cervical spondylosis without myelopathy 06/26/2023 11:00 AM EDT [facility] Start: 06-26-2023 Subsequent hospital visit by physician 06/26/2023 11:00 AM EDT Hospital Encounter [facility] [address] [place] [phone] Nazario Vaca MD [address] [place] [id number] [facility] Start: 06-12-2023 End: 06-12-2023 Admission to same day surgery center 06/12/2023 11:00 AM EDT - 06/12/2023 11:[address] [facility] [address] [place] [phone] Nazario Vaca MD [address] [place] [id number] RADIOFREQUENCY ABLATION SPINAL right C 4/5 _ 6/7 [89311 (CPT )] [facility] Comment on above: RADIOFREQUENCY ABLAT ION SPINAL right C 4/5 _ 6/7 [74158 (CPT )] Start: 06-12-2023 End: 06-12-2023 Dstr nrolytc agnt parverteb fct sngl crvcl/thora RADIOFREQUENCY ABLATION SPINAL Cervical spondylosis without myelopathy 06/12/2023 11:00 AM EDT [facility] Start: 06-12-2023 Subsequent hospital visit by physician 06/12/2023 11:00 AM EDT Hospital Encounter [facility] [address] [place] [address] Nazario Vaca MD [address] [place] [address] [facility] Start: 05-27-2023 End: 05-27-2023 Patient encounter procedure 05/27/2023 3:00 PM EDT Office Visit [facility] [address] [place] [phone] Jacquelyn Li PA-C [address] [place], [place] [phone] [facility] Start: 04-24-2023 End: 04-24-2023 Admission to same day surgery center [facility] Comment on above: RADIOFREQUENCY ABLAT ION SPINAL Left C 4/5, 6/7 [55908 (CPT )] RADIOFREQUENCY ABLAT ION SPINAL Left C 4/5 _ 6/7 [56057 (CPT )] Start: 04-24-2023 End: 04-24-2023 Dstr nrolytc agnt parverteb fct sngl crvcl/thora RADIOFREQUENCY ABLATION SPINAL Cervical spondylosis without myelopathy 04/24/2023 10:15 AM EST [facility] Start: 04-24-2023 Subsequent hospital visit by physician 04/24/2023 10:15 AM EST Hospital Encounter [facility] [address] [place] [phone] Nazario Vaca MD [address] [place] [address] [facility] Start: 04-10-2023 End: 04-10-2023 Admission to same day surgery center 04/10/2023 9:41 AM EST - 04/10/2023 9:[address] [facility] [address] [place] [phone] Nazario Vaca MD [address] [place] [address] RADIOFREQUENCY ABLATION SPINAL right C 4/5 6/7 [30666 (CPT )] [facility] Comment on above: RADIOFREQUENCY ABLAT ION SPINAL right C 4/5 6/7 [71740 (CPT )] Start: 04-10-2023 End: 04-10-2023 Dstr nrolytc agnt parverteb fct sngl crvcl/thora RADIOFREQUENCY ABLATION SPINAL Cervical spondylosis without myelopathy 04/10/2023 9:41 AM EST [facility] Start: 04-10-2023 Subsequent hospital visit by physician 04/10/2023 9:41 AM EST Hospital Encounter [facility] [address] [place] [phone] Nazario Vaca MD [address] [place] [address] [facility] Start: 04-10-2023 End: 04-10-2023 Patient encounter procedure 04/10/2023 8:[address] [facility] [address] [place] [phone] Nazario Vaca MD [address] [place] [address] [facility] Start: 11-14-2022 Covid-19 Vaccine () Covid-19 Vaccine () [facility] Start: 11-14-2022 Influenza vaccination C [facility] Start: 2022 Mammography [facility] Start: 2022 Screening for malign ant neoplasm of breast Mammogram Screening [facility] Start: 03-16-2022 DEPRESSION ASSESSMENT DEPRESSION ASS ESSMENT [facility] Start: 01-31-2022 End: 04-02-2022 Alanine aminotransferase [Enzymatic activity/volume] in Serum or Plasma [facility] Work Phone: Comment on above: Expected: 01/31/2022 , Expires: 04/02/2022 Start: 01-31-2022 End: 04-02-2022 Aldolase [Enzymatic activity/volume] in Serum or Plasma [facility] Work Phone: Comment on above: Expected: 01/31/2022 , Expires: 04/02/2022 Start: 01-31-2022 End: 04-02-2022 Aspartate aminotransferase [Enzymatic activity/volume] in Serum or Plasma [facility] Work Phone: Comment on above: Expected: 01/31/2022 , Expires: 04/02/2022 Start: 01-31-2022 End: 04-02-2022 C reactive protein [Mass/volume] in Serum or Plasma [facility] Work Phone: Comment on above: Expected: 01/31/2022 , Expires: 04/02/2022 Start: 01-31-2022 End: 04-02-2022 Creatine kinase [Enzymatic activity/volume] in Serum or Plasma [facility] Work Phone: Comment on above: Expected: 01/31/2022 , Expires: 04/02/2022 Start: 01-31-2022 End: 04-02-2022 CREATININE BLD [facility] Work Phone: Comment on above: Expected: 01/31/2022 , Expires: 04/02/2022 Start: 01-31-2022 End: 04-02-2022 Cyclic citrullinated peptide IgG Ab [Units/volume] in Serum or Plasma [facility] Work Phone: Comment on above: Expected: 01/31/2022 , Expires: 04/02/2022 Start: 01-31-2022 End: 04-02-2022 Erythrocyte sedimentation rate [facility] Work Phone: Comment on above: Expected: 01/31/2022 , Expires: 04/02/2022 Start: 01-31-2022 End: 04-02-2022 Extractable nuclear Ab panel - Serum [facility] Work Phone: Comment on above: Expected: 01/31/2022 , Expires: 04/02/2022 Start: 01-31-2022 End: 04-02-2022 Nuclear Ab [Presence] in Serum by Immunoassay [facility] Work Phone: Comment on above: Expected: 01/31/2022 , Expires: 04/02/2022 Start: 01-31-2022 End: 04-02-2022 Rheumatoid factor [Units/volume] in Serum or Plasma [facility] Work Phone: Comment on above: Expected: 01/31/2022 , Expires: 04/02/2022 Start: 01-31-2022 End: 04-02-2022 Urea nitrogen [Mass/volume] in Serum or Plasma [facility] Work Phone: Comment on above: Expected: 01/31/2022 , Expires: 04/02/2022 Start: 11-14-2021 Influenza vaccination INFLUENZA (#1) [facility] Start: 03-16-2021 DEPRESSION ASSESSMENT DEPRESSION ASS ESSMENT [facility] Start: 2012 HPV TESTING HPV TESTING [facility] Start: 2012 Screening for malign ant neoplasm of cervix HPV Testing [facility] Start: 2003 PAP TESTING PAP TESTING [facility] Start: 2003 Screening for malign ant neoplasm of cervix Pap Testing [facility] Start: 2001 DTaP,Tdap and Td Vac cines (1 - Tdap) DTaP,Tdap and Td Vaccines (1 - Tdap) [facility] Start: 2001 Hepatitis B Vaccine (1 of 3 - 19+ 3-dose series) Hepatitis B Vaccine (1 of 3 - 19+ 3-dose series) [facility] Start: 2001 Urine microalbumin profile [facility] Start: 2000 Adult BMI Follow Up Plan Adult BMI Follow Up Plan [facility] Start: 2000 HEPATITIS C SCREENING HEPATITIS C [facility] Start: 2000 Hepatitis C screening Hepatitis C [facility] Start: 2000 HIV SCREENING HIV SCREENING [facility] Start: 2000 HIV screening HIV Screening [facility] Start: 1994 Depression Screening Depression [facility] Start: 1988 PNEUMOCOCCAL (1 - PCV) PNEUMOCOCCAL (1 - PCV) [facility] Start: 1988 Pneumococcal vaccination [facility] Start: 1982 COVID-19 VACCINE (#1) COVID-19 VACCI NE (#1) [facility] Start: 1982 HEPATITIS B (1 of 3 - 3-dose series) HEPATITIS B (1 of 3 - 3-dose series) [facility] Start: 1982 Hepatitis B Vaccine (1 of 3 - 3-dose series) Hepatitis B Vaccine (1 of 3 - 3-dose series) [facility] Start: 1982 Tobacco Counseling Tobacco Counselin [facility] Dstr nrolytc agnt parverteb fct sngl crvcl/thora RADIOFREQUENCY ABLATION SPINAL Cervical spondylosis without myelopathy [facility] Immunizations Immunization Date Immunization Notes Care Provider Fa liborio 12-08-2014 influenza virus vacc ine, unspecified formulation Nancy Draper MD Work Phone: [facility] Payers Date Payer Category Payer Self-pay 2021 Private Health Insurance [id number] 1982 Unknown [id number] 2.16.8 [id number] 1982 Unknown [id number] 2.16.8 40.1.601382.3.579.2.647 1982 Unknown [id number] 2.16.84 0.1.261160.3.579.2.593 1982 Unknown [id number] 2.16.84 0.1.055282.3.579.2.593 1982 Unknown [id number] 2.16.84 0.1.744730.3.579.2.593 1982 Unknown [id number] 2.16.84 0.1.231264.3.579.2.593 1982 Unknown [id number] 2.16.84 0.1.164009.3.579.2.593 1982 Unknown [id number] 2.16.8 40.1.443423.3.579.2.727 1982 Unknown [id number] 2.16.84 0.1.100255.3.579.2.1259 1982 Unknown [id number] 2.16.84 0.1.141076.3.579.2.1259 1982 Unknown [id number] 2.16.84 0.1.620902.3.579.2.1259 1982 Unknown [id number] 2.16.84 0.1.093488.3.579.2.1259 1982 Unknown [id number] 2.16.840 .1.097996.3.579.2.1259 1982 Unknown [id number] 2.16.840. 1.194251.3.579.2.1259 1982 Unknown [id number] 2.16.840. 1.357053.3.579.2.1259 1982 Unknown [id number] 2.16.8 40.1.815967.3.579.2.1286 1982 Unknown [id number] 2.16.8 40.1.585550.3.579.2.1286 1982 Unknown [id number] 2.16.8 40.1.129204.3.579.2.1286 1982 Unknown [id number] 2.16.8 40.1.666931.3.579.2.1286 1982 Unknown [id number] 2.16.8 40.1.342068.3.579.2.1286 1982 Unknown [id number] 2.16.84 0.1.648241.3.579.2.1286 1959 Private Health Insurance [id number] [id number] Unknown Unknown [id number] 2.16.8 40.1.582177.3.579.2.531 Social History Date Type Detail Facility Unknown if ever smoked [employer] Other Start: 05-21-2022 End: 07-26-2022 Sex Assigned At [facility] Tobacco smoking status No Smokin g Status Entered [facility] Start: 01-31-2022 [facility] History of tobacco use Cigarette Smoker C [facility] Start: 01-17-2022 End: 01-31-2022 Tobacco use and exposure Smokeless tobacco non-user [facility] Start: 1982 Sex Assigned At Not on file C [facility] Start: 01-21-2022 End: 01-31-2022 Exposure to SARS-CoV-2 (event) Not sure [facility] Start: 05-21-2022 End: 07-26-2022 History of Social function [facility] Adult Depression Screening Assessment 1 [facility] Start: 01-17-2022 [facility] Start: 03-18-2023 End: 06-02-2023 Alcohol intake Current non-drinker of alcohol (finding) [facility] Medical Equipment Procedure Code Equipment Code Equipment Origin al Text Equipment Identifier Dates Implant Babsr Lg Bvn At Dlv Dev Bioinductive Impl Regeneten - Sna - [id number] Start: 12-17-2022 Strong Sut Regen eten Tndn Rotr Cuf Repr - Sna - [id number] Start: 12-17-2022 Plt Ant Cerv Xte nd 1-Lev 10 - [id number] Start: 02-24-2017 Scr Xtend 4.2x14 mm Vasd - [id number] Start: 02-24-2017 Vikos Cortico-Cancellous [id number] Start: 02-24-2017 Clinical Notes 08-13-2021 to 06-22-2023 Casie Flores, PT - 06/22/2023 12:58 PM Latoya Baez APRN-TUYET - 06/02/2023 8:15 AM EDTPatient InstructionsTelephone Encounter - Patricia Becerril RN - 04/06/2023 11:38 AM EST Note Date & Type Note Facility 06-22-2023 Note HNO ID: [id number] Author: CASIE FLORES PT Service: ? Author Type: Physical Therapist Type: Progress Notes Filed: 06/22/2023 15:31 Note Text: Episode Visit Count: 1 Therapist That Will Accept/Oversee The Plan Of Care: Casie Flores PT, DPT Start of Care Date: 06/22/23 Onset Date: 05/22/15 Plan of Care Certification Date: 06/22/23 Next Certification Due Date: 08/21/23 Patient Identified by Name and Date of : Yes RE[facility]AB[facility] SPORTS THERAPY PHYSICAL THERAPY EVALUATION PLAN OF CARE: Assessment: Chasity Taylor presents with chief complaint of FMD that interferes with rising from a chair, standing, walking, use hand with arm at shoulder level, cooking, cleaning . She presents with impairments in balance, gait, independence in exercise, overall function, and symptom management. Patient did not complete the PROMIS? (Patient Reported Outcome Measures Information System). Prognosis for therapy is Good due to: current objective clinical presentation . Patient presents for FMD follow up 1 year post being seen at [facility]. Patient attempted PT closer to home, but reports it was unsuccessful and would like to trial the FMD PT Intensive. Patient responded well to diverted attention and would benefit from FMD focused PT and would be good candidate for FMD intensive. She will benefit from skilled therapy services to meet the goals established for this plan of care as noted below. Goals for Episode of Care: created on 06/22/23 through 08/21/23 Patient will demonstrate understanding of FMD diagnosis as demonstrated by ability to independently verbalize FMD definition and symptomology. Status: Patient will demonstrate understanding and rationale for use of diverted attention strategies for FMD symptom management. Status: Patient will independently utilize 3 diverted attention strategies for tremor management. Status: Patient will be able to complete >100 feet of ambulation without being limited by tremors and weakness. Status: Patient will be able to perform TUG in < 45 seconds with independent use of diverted attention strategy of patient choice to demonstrate decrease risk for falls and improvements in motor control. Status: Patient will perform >30 minutes of aerobic exercise 3x/week in 8 weeks for improvements in aerobic tolerance for pain modulation. Status: Patient will independently utilize grounding strategies and meditation for [employer] grounding and symptom management. Status: Patient Goals: lessen tremors, walking more (spend less time in wheelchair), go on a hike Planned Interventions, Frequency, and Duration: Current Frequency: 5x/week Duration: 1 week Total Number of Visits Planned: 5 Planned Treatment Interventions: Therapeutic exercise (42227), Neuromuscular re-education (22214), Manual therapy (85966), Therapeutic activities (64386), Self-alf management (25114), Gait Training (12781), Patient/Family/Caregiver Education, Functional training, General Conditioning PLAN FOR NEXT VISIT: PT intensive Patient demonstrates good understanding of plan of care and treatment. The above goals and plan of care were discussed and agreed upon by patient/family. SUBJECTIVE: FMD. Patient reports that she would like to try to FMD intensive. Patient lives about an hour and a half away and was trying PT closer to home, however that PT told her there is nothing we can do for you . Patient reports she completed 6 weeks of therapy with no improvements.PAtient reports that her symptoms mainly present with tremors and leg weakness. Patent reports that she will be walking along fine, and then all the sudden legs will go out. Patient reports she loses senses including speech, hearing and sight. FND symptoms: -Leg weakness (variable) -Sensation loss (loss hearing, speech and sight) for periods of time -Tremors (mainly legs) -Hand spasms into extension Triggers: -Too much activity throughout the day -Any time she gets in a vehicle -Weather (cold and wet weather increase symptoms) Patient reports that she walks when she wakes up in the morning. At some point during the day the legs give out and she falls. Tremors in legs usually start on RIGHT side. She then spends the rest of the day in the chair. Fall normally occurs between 1-4pm. Patient Goals: lessen tremors, walking more (spend less time in wheelchair), go on a hike Functional Limitations: rising from a chair, standing, walking, use hand with arm at shoulder level, cooking, cleaning Prior Level of Function: Independent without limitations Relevant History Past Relevant Medical Conditions: Comments, Fibromyalgia Relevant Medical Conditions Comments: FMD, POTS, spinal stenosis Past Relevant Surgical Conditions: Rotator Cuff Repair-Left, Comments, Spine fusion - Cervical Spine Fusion - Cervical Comments: 2017 C3-C5 Relevant Surgical Conditions Comments: 3 ablasions, 2 C-sectio (more content not included)... [facility] 06-22-2023 History of Present illness Narrative Episode Visit Count: 1 Therapist That Will Accept/Oversee The Plan Of Care: Casie Flores PT, DPT Start of Care Date: 06/22/23 Onset Date: 05/22/15 Plan of Care Certification Date: 06/22/23 Next Certification Due Date: 08/21/23 Patient Identified by Name and Date of : Yes REHABILITATION AND SPORTS THERAPY PHYSICAL THERAPY EVALUATION PLAN OF CARE: Assessment: Chasity Taylor presents with chief complaint of FMD that interferes with rising from a chair, standing, walking, use hand with arm at shoulder level, cooking, cleaning . She presents with impairments in balance, gait, independence in exercise, overall function, and symptom management. Patient did not complete the PROMIS (Patient Reported Outcome Measures Information System). Prognosis for therapy is Good due to: current objective clinical presentation . Patient presents for FMD follow up 1 year post being seen at [facility]. Patient attempted PT closer to home, but reports it was unsuccessful and would like to trial the FMD PT Intensive. Patient responded well to diverted attention and would benefit from FMD focused PT and would be good candidate for FMD intensive. She will benefit from skilled therapy services to meet the goals established for this plan of care as noted below. Goals for Episode of Care: created on 06/22/23 through 08/21/23 Patient will demonstrate understanding of FMD diagnosis as demonstrated by ability to independently verbalize FMD definition and symptomology. Status: Patient will demonstrate understanding and rationale for use of diverted attention strategies for FMD symptom management. Status: Patient will independently utilize 3 diverted attention strategies for tremor management. Status: Patient will be able to complete >100 feet of ambulation without being limited by tremors and weakness. Status: Patient will be able to perform TUG in < 45 seconds with independent use of diverted attention strategy of patient choice to demonstrate decrease risk for falls and improvements in motor control. Status: Patient will perform >30 minutes of aerobic exercise 3x/week in 8 weeks for improvements in aerobic tolerance for pain modulation. Status: Patient will independently utilize grounding strategies and meditation for [employer] grounding and symptom management. Status: Patient Goals: lessen tremors, walking more (spend less time in wheelchair), go on a hike Planned Interventions, Frequency, and Duration: Current Frequency: 5x/week Duration: 1 week Total Number of Visits Planned: 5 Planned Treatment Interventions: Therapeutic exercise (10681), Neuromuscular re-education (93808), Manual therapy (99632), Therapeutic activities (08689), Self-alf management (03906), Gait Training (81764), Patient/Family/Caregiver Education, Functional training, General Conditioning PLAN FOR NEXT VISIT: PT intensive Patient demonstrates good understanding of plan of care and treatment. The above goals and plan of care were discussed and agreed upon by patient/family. SUBJECTIVE: FMD. Patient reports that she would like to try to FMD intensive. Patient lives about an hour and a half away and was trying PT closer to home, however that PT told her there is nothing we can do for you . Patient reports she completed 6 weeks of therapy with no improvements.PAtient reports that her symptoms mainly present with tremors and leg weakness. Patent reports that she will be walking along fine, and then all the sudden legs will go out. Patient reports she loses senses including speech, hearing and sight. FND symptoms: -Leg weakness (variable) -Sensation loss (loss hearing, speech and sight) for periods of time -Tremors (mainly legs) -Hand spasms into extension Triggers: -Too much activity throughout the day -Any time she gets in a vehicle -Weather (cold and wet weather increase symptoms) Patient reports that she walks when she wakes up in the morning. At some point during the day the legs give out and she falls. Tremors in legs usually start on RIGHT side. She then spends the rest of the day in the chair. Fall normally occurs between 1-4pm. Patient Goals: lessen tremors, walking more (spend less time in wheelchair), go on a hike Functional Limitations: rising from a chair, standing, walking, use hand with arm at shoulder level, cooking, cleaning Prior Level of Function: Independent without limitations Relevant History Past Relevant Medical Conditions: Comments, Fibromyalgia Relevant Medical Conditions Comments: FMD, POTS, spinal stenosis Past Relevant Surgical Conditions: Rotator Cuff Repair-Left, Comments, Spine fusion - Cervical Spine Fusion - Cervical Comments: 2017 C3-C5 Relevant Surgical Conditions Comments: 3 ablasions, 2 C-sections, hysterectomy Employment: Unemployed (trying to apply for disability) Recreation / Current Exercise: aerobic exercise, yoga Hobbies / Interests: Walking Home Environment Patient Lives With: Spouse Assistance Available: PRN Home Type: Ranch Entry To Home: Stairs Number Of Stairs Into Home: 1 Tub/Shower Type: 0 Equipment Owned: Wheelchair- Manual, Scooter- Power, Crutch(es) Transportation: Travels as a passenger Intake Information: Direct Access Source: Self-Referral Primary Care Provider (Non-[facility]): Clare Noble Patient consents for PCP to be notified of plan of care: Yes, Primary Care Provider notified via letter Evaluation Recommendations: Treat for identified problem(s). Previous Treatment: Physical Therapy (Trued for FMD, not successful) Falls Interview: Two or more falls in the last year, Comments Falls Intervention: More thorough falls assessment to be performed Falls Comments: Falls daily Aquatic Screen: No Pain: Pain Pain Level: 3 Pain Location: Low Back/Lumbar Spine- Midline Description: Dull Frequency: Continuous Post Treatment Pain Post Treatment Pain Level: [...] WITH LEVEL OF FUNCTION: Posture / Alignment Posture: Forward head, Rounded shoulders Sensory Sensory Deficits: Light Touch Light Touch: Impaired (Per patient, more intense on RIGHT side) Functional Performance Test Results Assistive Device: Crutches Timed Up and Go (sec): 98 sec Timed Up and Go Cognitive (sec): 86 sec Vitals BP: 102/74 Pulse: 74 Education: Education Learning Preferences: Demonstration, Explanation Barriers: None Learning/educational needs: Home exercise program, Plan of Care, Changes in Plan of Care Education Provided: Yes, see treatment interventions for education provided Education Provided To: Patient Education Mode/Type: Demonstration, Explanation/Discussion Response to Education/Teach Back: States/Identifies TREATMENT: PT Treatment Interventions: Neuromuscular Re-Education Evaluation Neuromuscular Re-Education: 1: FMD Specific Education: etiology, symptomology and treatment 2: Discussion on use of Diverted Attention strategies and their purpose. Use of the traffic jam analogy for how and why diverted attention strategies work 3: [place] Analogy for FMD: drawing completed with patient to increase understanding 4: Hiking training analogy for FMD and neuroplasticity in order to increase patient understanding of diagnosis 5: Diverted attention training as followed: includes motor, sensory and cognitive tasking 6: -Motor: finger opposition: GOOD benefit 7: -Motor: tapping pattern 1, 1 2. NO BENEFIT while ambulating, near fall 8: -Sensory: hand on shoulder, focus on DEEP PRESSURE: Min benefit 9: -Congitive: name an animal for every letter of the alphabet: GOOD benefit with ambulation Skilled Intervention: Skilled judgment used to assess appropriate program for balance and coordination activity. Patient education as noted. Billing * Evaluation Moderate Complexity: 1 Unit Neuromuscular Re-Education Treatment Minutes: 23 Skilled Treatment Time Minutes (timed and untimed codes): 53 Total Session Time (minutes): 53 Session Start Time : 1300 Session Stop Time : 1353 Casie Flores PT documented in this encounter [facility] 06-03-2023 Note New patient here to re-establish care. Ref from [facility] for dizziness. She denies syncope. Had carotid duplex in Feb 2023 and wore Holter monitor for 10 days in Mar 2023. Does get intermittent chest pain, radiating to her jaw and and upper extremities. Does feel palpitations with the chest pain. Smokes 1-1.5 PPD. Last labs were drawn in Nov 2022. Review of Systems Cardiovascular: Positive for chest pain and palpitations. Musculoskeletal: Positive for arthritis, back pain, joint pain and myalgias. Neurological: Positive for dizziness and light-headedness. All other systems reviewed and are negative. [facility] 06-03-2023 Note Cardiology Clinic No te Chief Complaint: dizziness HPI: Chasity Taylor is a 43 y.o. female With a past medical history including fibromyalgia, Additional neurological symptom disorder, and cervical spondylolysis, in addition to a reported history of POTS. Patient presents to cardiology clinic for evaluation of dizziness, chest pain, and palpitations. Patient states that the dizziness has been ongoing for quite some time, but has worsened over the past few months. Episodes usually last about 30 seconds, and are self resolving. They occur while she is sitting, and do not occur when she is going from sitting to standing or vice versa. She denies any near-syncope or syncope.Reports occasional palpitations that usually occur independently of dizziness. Additionally, she reports some episodes of atypical chest pain. Chest pain occurs mostly at rest, does not seem to worsen with exertion. Reports that she was diagnosed with POTS many years ago, but denies any therapy. Tilt table test performed in 2018 did not support POTS diagnosis. She denies any shortness of breath. No lower extremity edema, orthopnea, or paroxysmal nocturnal dyspnea. Of note: Patient wore a 10-day monitor recently that did not demonstrate any sustained arrhythmias. She continues to smoke 1.5 PPD. Cardiology ROS: GENERAL: Denies fever, chills, night sweats, weight loss. HEENT: Denies changes in vision, photophobia, changes in hearing, epistaxis, oral bleeding. CARDIOVASCULAR: As per HPI RESPIRATORY: Denies SOB, coughing, wheezing GI: Denies abdominal pain, nausea/vomiting, heartburn, melena/hematochezia. RENAL: Denies dysuria, hematuria, flank pain. MSK: Denies muscle weakness/pain, arthralgias/joint pain. NEUROLOGIC: Denies LOC, weakness, numbness, headaches. SKIN: Denies abnormal rashes or bleeding. PSYCH: Denies significant anxiety, depression, sleep disturbances. Past Medical History She has no past medical history on file. Surgical History She has a past surgical history that includes Shoulder surgery. Social History She reports that she has been smoking cigarettes. She has been smoking an average of 1.5 packs per day. She has never used smokeless tobacco. She reports current alcohol use. No history on file for drug use. Family History Family History Problem Relation Name Age of Onset Breast cancer Mother Medications Current Outpatient Medications on File Prior to Visit Medication Sig Dispense Refill baclofen (Lioresal) 20 mg tablet 20 mg 1 (one) time each day. FLUoxetine (PROzac) 10 mg capsule Take by mouth in the morning. Vraylar 3 mg capsule Take by mouth in the morning. No current facility-administered medications on file prior to visit. Allergies Oxycodone-acetaminophen and Pregabalin Physical Exam VITAL SIGNS: BP 104/72 (BP Location: Left arm, Patient Position: Sitting) Pulse 83 Ht 1.575 m (5' 2 ) Wt 63.5 kg (140 lb) SpO2 98% BMI 25.61 kg/m??? Constitutional: Well developed, Well nourished, No acute distress, Non-toxic appearance. HENT: Normocephalic, Atraumatic, Bilateral external ears have normal appearance, Nose appears normal, nares are patent. Eyes: PERRLA, EOMI, Conjunctiva normal, No discharge. Neck: Normal range of motion, No tenderness, Supple, No stridor. No cervical lymphadenopathy noted. Cardiovascular: Normal heart rate, Normal rhythm, No murmurs, No rubs, No gallops. Thorax & Lungs: Normal breath sounds, No respiratory distress, No wheezing, No chest tenderness to palpation. Abdomen: Bowel sounds normal, Soft, Nontender, No masses, No pulsatile masses. Skin: Warm, Dry, No erythema, No rash. Back: No tenderness, No CVA tenderness. Extremities: Intact distal pulses, No edema, No tenderness, No cyanosis, No clubbing. Musculoskeletal: Grossly normal strength in extremities Neurologic: Alert & oriented x 3, no gross focal neurological deficits Psychiatric: Affect normal, Judgment normal, Mood normal. Impression: -Dizziness -Palpitations, no sustained arrythmias on 10 day monitor -Reported history of POTS -Atypical chest pain Plan: -Given dizziness and no documented Sustained arrhythmias on 10-day monitor, I offered patient a 30-day monitor. She declines at this time -Will obtain echocardiogram to assess LVEF, regional wall motion, and valvular function -Given atypical chest pain, will obtain Lexiscan myocardial perfusion scan. Patient has mobility issues -Optimize medical management -Aggressive risk factor modification -Plan of care discussed with patient. All questions were answered. Patient voices understanding and is agreeable with current plan. -Patient was educated on red flag symptoms. Strict return precautions were provided. Patient verbalizes understanding -Follow-up in cardiology clinic in 8 weeks, or sooner as needed Thank you for allowing us to participate in the care of your patient. Please do not hesitate to cont (more content not included)... [facility] 06-02-2023 History of Present illness Narrative [facility] [address] [place] [address] Patient: Chasity Taylor Sex: female : 1980 Age: 43 y.o. PCP: CLARE NOBLE, DO 06/02/2023 Chasity Taylor is here for a(n) follow up appointment after having a neuro consult on 05/07/2023 to obtain clearance for sedation for her procedures . Chief Complaint Patient presents with Back Pain Neck Pain HPI: Back: 11/15/21 Caudal with 60% [...] feeling). The pain radiates to the right thigh (bilateral hips down half of posterior right thigh). The pain is at a severity of 3/10. The pain is mild. The pain is Worse during the day. The symptoms are aggravated by standing (sitting, standing, stairs, lifting, lying, pushing/pulling, cough/sneeze, transitioning, cold, ambulation ). Stiffness is present In the morning, all day and at night (and evening ). Associated symptoms include headaches (headaches and nausea 2-3 times a month.), leg pain (bilateral hips; right posterior upper thigh), numbness (bilateral shoulders and gluteal) and weakness (BLE- w/c to appt). Pertinent [...] shooting, stabbing, cramping and burning (pressure ). The pain is at a severity of 6/10 (2/10 current but can reach 6/10). The pain is moderate. The symptoms are aggravated by position. The pain is Same all the time (depends on activity). Stiffness is present: varies. Associated symptoms include headaches (headaches and nausea 2-3 times a month.), leg pain (bilateral hips; right posterior upper thigh), numbness (bilateral shoulders and gluteal) and weakness (BLE- w/c to appt). Pertinent [...] 12/17/2022 Performed by Tobias Daniel DO at [facility] BREAST AUGMENTATION REMOVAL SECTION x2 DISKECTOMY CERVICAL FUSION [id number] Bilateral Circumferential 02/24/2017 Performed by Csota Lozano MD at [facility] ENDOMETRIAL ABLATION W/ NOVASURE x3 (2009, 2012, 2016) HYSTERECTOMY INJECTION BLOCK EPIDURAL CAUDAL STEROID N/A 10/03/2022 Performed by Nazaroi Vaca MD at [facility] INJECTION BLOCK EPIDURAL CAUDAL STEROID N/A 12/13/2021 Performed by Nazario Vaca MD at [facility] INJECTION BLOCK EPIDURAL CAUDAL STEROID N/A 11/15/2021 Performed by Nazario Vaca MD at [facility] INJECTION BLOCK NERVE MEDIAL BRANCH Bilat C 4/5 & 6/7 Bilateral 04/25/2022 Performed by Nazario Vaca MD at [facility] INJECTION BLOCK NERVE MEDIAL BRANCH Bilat C 4/5 & 6/7 Bilateral 02/21/2022 Performed by Nazario Vaca MD at [facility]CTION SPINE TRANSFORAMINAL Right C 4,5 Nroot Right 01/17/2022 Performed by Nazario Vaca MD at [facility] RADIOFREQUENCY ABLATION SPINAL Left C 4/5 _ 6/7 Left 05/30/2022 Performed by Nazario Vaca MD at [facility] RADIOFREQUENCY ABLATION SPINAL Right C 4/5 & 6/7 Right 05/16/2022 Performed by Nazario Vaca MD at [facility] RESECTION DISTAL CLAVICLE Left 12/17/2022 Performed by Tobias Daniel DO at [facility] Allergies Allergen Reactions Lyrica [Pregabalin] Swelling [...] on file Food Insecurity: No Food Insecurity (06/02/2023) Hunger Screening Food Insecurity - Worry: Never True Food Insecurity - Inability: Never True Transportation Needs: Not on file Physical Activity: Not on file Stress: Not on file Social Connections: Not on file Interpersonal Safety: Not on file Housing Instability: Not on file Review of Systems Constitutional: Negative for fever. HENT: Negative. Negative for trouble swallowing. Eyes: Negative for photophobia. Respiratory: Negative. Cardiovascular: Negative. Negative for chest pain. Gastrointestinal: Negative. Negative for abdominal pain and bowel incontinence. Endocrine: Negative. Genitourinary: Negative. Negative for bladder incontinence. Musculoskeletal: Positive for back pain and neck pain. Skin: Negative. Neurological: Positive for weakness (BLE- w/c to appt), numbness (bilateral shoulders and gluteal) and headaches (headaches and nausea 2-3 times a month.). Negative for tingling. Vital Signs: BP 111/72 (BP Site: Right Arm, BP Postition: Sitting) Pulse 76 Resp 18 SpO2 100% Physical Exam: GENERAL - Healthy patient that [...] all dermatomal distributions. Spurlings sign is negative. Assessment/Treatment Plan: Chasity was seen today for back pain and neck pain. Diagnoses and all orders for this visit: Chronic neck pain Cervical spondylosis without myelopathy Cervical post-laminectomy syndrome Proceed with scheduled Right then Left C4/5, 6/7 Facet Radiofrequency [...] that affected my overall medical decision making: Functional Movement disorder OARRS: Reviewed. Scribe Statement: Scribed for and in the presence of ARELY ROSS by Ingris Corona CNA. Provider Statement: I, ARELY ROSS, personally performed the services described in the documentation, as scribed by Ingris Corona CNA in my presence, and it is both accurate and complete. Ingris Corona CNA 06/02/23 0841 ARELY Ross 06/02/23 1322 documented in this encounter [facility] [employer] [facility] 06-02-2023 Instructions Ingris CoronaJEAN-CLAUDE - 06/02/2023 8:15 AM EDT Radiofrequency Ablation (RFA) Radiofrequency ablation (or RFA) [...] back to normal. documented in this encounter [facility] ralali 04-14-2023 Note HNO ID: [id number] Author: NANCY DRAPER MD Service: ? Author Type: Physician Type: Progress Notes Filed: 04/13/2023 22:57 Note Text: [facility] - FOLLOW UP EVALUATION Clare Noble DO, DO [address] [facility] [id number] Dear Clare Noble DO, DO: I had [...] [facility] from 04/13/2023 in [facility] from 11/27/2022 in [facility] T Score -- 32.4 [...] helpful. She would like to consider join [facility] intensive outpatient treatment program, and possibly re-do the assessment with PT/OT in June. The following are the current problems noted and addressed during this visit: Functional neurological symptom disorder with mixed symptoms Plan 04/13/2023 Visit: Patient is considering to come back to [facility] for additional PT/OT possibly via a 1-week [...] with any questions. Sincerely, Nancy Draper MD [facility] 04-06-2023 Miscellaneous Notes Pt calls states she is getting heart monitor placed tomorrow x30 days for increased dizzy spells. Ordered by [facility] at [facility]. Pt states she [...] proceed after reviewing. Spoke with Mia at [facility], records will be sent via fax and [...] f/u with neuro. [facility] Telephone encounter Note Pt calls states she is getting heart monitor placed tomorrow x30 days for increased dizzy spells. Ordered by [facility] at [facility]. Pt states she has POTS and was told her P wave disappears when she passes out and then reappears when she comes to. Pt is scheduled for cervical RFA on 04/10/23 with MAC and asks if she can still have MAC? [facility] Telephone encounter Note Clear through anesthesia [facility]-06-2023 Telephone encounter Note Ok I will resend this info [facility] the [facility] Telephone encounter Note Anesthesia staff: Please see message below, our provider requests [facility]23 Telephone encounter Note Please obtain neuro office visit documentation. We can make a decision on how to best proceed after reviewing. -[facility] Work Phone: 04-06-2023 Telephone encounter Note Spoke with Mia at [facility], records will be sent via fax and uploaded under media tab once received [facility]ali 04-06-2023 Telephone encounter Note TREV office notes with EMG results scanned in media tab. Please review [facility] 04-06-2023 Telephone encounter Note The patient is very symptomatic. The procedure will need to be postponed until after her neuro workup (which includes the holter monitor) has been completed. [facility] 04-06-2023 Telephone encounter Note Called pt with response. PVU Procedure appt cancelled and pt will be responsible to f/u after holter monitor completed and pt has f/u with neuro. [facility]ali 03-18-2023 History of Present illness Narrative [facility] [address] [place] [address] Patient: Chasity Taylor Sex: female : 1980 [...] 12/17/2022 Performed by Tobias Daniel DO at [facility] BREAST AUGMENTATION REMOVAL SECTION x2 DISKECTOMY CERVICAL FUSION [id number] Bilateral Circumferential 02/24/2017 Performed by Costa Lozano MD at [facility] ENDOMETRIAL ABLATION W/ NOVASURE x3 (2009, 2012, 2016) HYSTERECTOMY INJECTION BLOCK EPIDURAL CAUDAL STEROID N/A 10/03/2022 Performed by Nazario Vaca MD at [facility] INJECTION BLOCK EPIDURAL CAUDAL STEROID N/A 12/13/2021 Performed by Nazario Vaca MD at [facility] INJECTION BLOCK EPIDURAL CAUDAL STEROID N/A 11/15/2021 Performed by Nazario Vaca MD at [facility] INJECTION BLOCK NERVE MEDIAL BRANCH Bilat C 4/5 & 6/7 Bilateral 04/25/2022 Performed by Nazario Vaca MD at [facility] INJECTION BLOCK NERVE MEDIAL BRANCH Bilat C 4/5 & 6/7 Bilateral 02/21/2022 Performed by Nazario Vaca MD at [facility] INJECTION SPINE TRANSFORAMINAL Right C 4,5 Nroot Right 01/17/2022 Performed by Nazario Vaca MD at [facility] RADIOFREQUENCY ABLATION SPINAL Left C 4/5 _ 6/7 Left 05/30/2022 Performed by Nazario Vaca MD at [facility] RADIOFREQUENCY ABLATION SPINAL Right C 4/5 & 6/7 Right 05/16/2022 Performed by Nazario Vaca MD at [facility] RESECTION DISTAL CLAVICLE Left 12/17/2022 Performed by Tobias Daniel DO at [facility] Allergies Allergen Reactions Lyrica [Pregabalin] [...] PA-C by Ingris Corona CNA. Provider Statement: IJACQUELYN PA-C, personally performed the services described in the documentation, as scribed by Ingris Corona CNA in my presence, and it is both accurate and complete. Ingris Corona CNA 03/18/23 1420 Jacquelyn Li PA-C 03/18/23 1427 documented in this encounter [facility] 03-18-2023 Instructions Ingris Corona CNA - [...] back to normal. documented in this encounter [facility] 02-14-2023 Note HNO ID: [id number] Author: Nancy Draper MD Service: ? Author Type: Physician Type: Progress Notes Filed: 02/14/2023 10:50 AM Note Text: [facility] - FOLLOW UP EVALUATION February 14, 2023 Nancy Draper [address] [place] [address] Clare Noble DO, DO [address] [facility] [place] [address] I had the pleasure of seeing Ms. Taylor for follow up today. she is a 42 year old female with a history of functional neurological disorder here for VSMA living well with FND session. We had a visit using: [employer] I have communicated my name and active licensure. The patient's identity and physical location were verified at the time of this visit. Either the patient or their legal merchandiser retail representative has been informed of the risks [...] a VSMA format. Level of service : 19683 Time spent 20 min on the day of service, which included preparing to see the patient, egan-cv-vhcc patient care, completing clinical documentation, obtaining and/or [...] with any questions. Sincerely, Nancy Draper MD [facility] 02-14-2023 History of Present illness Narrative [facility] - FOLLOW UP EVALUATION February 14, 2023 Nancy Draper [address] [place] [address] Clare Noble DO, DO [address] [facility] [address] I had the pleasure of seeing Ms. Taylor for follow up today. she is a 42 year old female with a history of functional neurological disorder here for VSMA living well with FND session. We had a visit using: [employer] I have communicated my name and active licensure. The patient's identity and physical location were verified at the time of this visit. Either the patient or their legal merchandiser retail representative has been informed of the risks [...] a VSMA format. Level of service : 68944 Time spent 20 min on the day of service, which included preparing to see the patient, xsfj-gl-xeyc patient care, completing clinical documentation, obtaining and/or [...] Nancy Draper MD documented in this encounter [facility] 11-27-2022 Note HNO ID: [id number] Author: Nancy Draper MD Service: ? Author Type: Physician Type: Progress Notes Filed: 12/01/2022 11:03 PM Note Text: Patient was unable to complete the appointment due to her symptom flare up. Will reschedule. Nancy Draper MD [facility] 11-27-2022 History of Present illness Narrative Patient was unable to complete the appointment due to her symptom flare up. Will reschedule. Nancy Draper MD documented in this encounter [facility] 11-13-2022 Note HNO ID: [id number] Author: Nancy Draper MD Service: ? Author Type: Physician Type: Progress Notes Filed: 11/13/2022 2:30 PM Note Text: [facility] - FOLLOW UP EVALUATION Clare Noble DO [address] [facility] [address] Dear Clare Noble DO: I had the pleasure of seeing Ms. Taylor for follow-up today. As you know she is a 42 year old left-handed female with a history of functional neurological disorder . referred by Dr. Dotson She is seen alone. We had a visit using: [employer] I have communicated my name and active licensure. The patient's identity and physical location were verified at the time of this visit. Either the patient or their legal merchandiser retail representative has been informed of the risks [...] terms of FMD treatment, she's participated in [facility] living well with FMD sessions. She's seeing [...] test. Reflexes Unable to test. Coordination Right: Tmfhld-ov-pdth normal.Left: Ffcsky-te-imby normal. Movement Disorders Scales Performed: Assessment and Plan: Assessment Ms. Taylor is a left-handed 42 year old year old female with (more content not included)... [facility] 11-13-2022 History of Present illness Narrative [facility] - FOLLOW UP EVALUATION Clare Noble DO [address] [facility] [address] Dear Clare Noble DO: I had the pleasure of seeing Ms. Taylor for follow-up today. As you know she is a 42 year old left-handed female with a history of functional neurological disorder . referred by Dr. Dotson She is seen alone. We had a visit using: [employer] I have communicated my name and active licensure. The patient's identity and physical location were verified at the time of this visit. Either the patient or their legal merchandiser retail representative has been informed of the risks [...] terms of FMD treatment, she's participated in [facility] living well with FMD sessions. She's seeing [...] test. Reflexes Unable to test. Coordination Right: Ngncel-ef-ajqi normal.Left: Zydtiy-cc-srvg normal. Movement Disorders Scales Performed: Assessment and [...] Medication Schedule: Medications Level of service : 60740 (20-29 min). Time spent 20 min on the day of service, which included preparing to see the patient, vrno-ty-lzbt patient care, completing clinical documentation, obtaining and/or [...] Nancy Draper MD documented in this encounter [facility] 10-25-2022 Note HNO ID: [id number] Author: Hernán Mariee, PhD Service: ? Author Type: Psychologist Type: Progress Notes Filed: 10/25/2022 11:12 AM Note Text: [facility] VIRTUAL VISIT PROGRESS NOTE I have communicated my name and active licensure. The patient's identity and physical location were verified at the time of this visit. Either the patient or their legal merchandiser retail representative has been informed of the risks and benefits of -- and alternatives to -- treatment through a remote evaluation and consents to proceed with the evaluation remotely. Billing code: 0M9/Elieser Diagnoses: (F44.7) Functional neurological symptom disorder with mixed symptoms (primary encounter diagnosis) (F41.9) Anxiety (F32.A) Depression, unspecified depression type CPT Code: 9137524 - Virtual Group Psychotherapy Interventions: Cognitive Behavioral [...] during the group. Hernán Mariee, Ph.D. Staff, [facility] 10-25-2022 History of Present illness [facility]ative [facility] VIRTUAL VISIT PROGRESS NOTE I have communicated my name and active licensure. The patient's identity and physical location were verified at the time of this visit. Either the patient or their legal merchandiser retail representative has been informed of the risks and benefits of -- and alternatives to -- treatment through a remote evaluation and consents to proceed with the evaluation remotely. Billing code: 0M9/Elieser Diagnoses: (F44.7) Functional neurological symptom disorder with mixed symptoms (primary encounter diagnosis) (F41.9) Anxiety (F32.A) Depression, unspecified depression type CPT Code: 6570534 - Virtual Group Psychotherapy Interventions: Cognitive Behavioral [...] during the group. Hernán Mariee, Ph.D. Staff, [facility] documented in this encounter [facility] 09-25-2022 Note HNO ID: [id number] Author: Nancy Draper MD Service: ? Author Type: Physician Type: Progress Notes Filed: 10/20/2022 10:17 PM Note Text: [facility] - FOLLOW UP EVALUATION September 25, 2022 No referring provider defined for this encounter. Clare Noble [address] [facility] [address] I had the pleasure of seeing Ms. Taylor for follow up today. she is a 42 year old female with a history of functional neurological disorder here for VSMA living well with FND session. We had a visit using: [employer] I have communicated my name and active licensure. The patient's identity and physical location were verified at the time of this visit. Either the patient or their legal merchandiser retail representative has been informed of the risks [...] a VSMA format. Level of service : 05864 Time spent 20 min on the day of service, which included preparing to see the patient, lnsb-kz-mpvr patient care, completing clinical documentation, obtaining and/or [...] with any questions. Sincerely, Nancy Draper MD [facility] 09-25-2022 History of Present illness Narrative [facility] - FOLLOW UP EVALUATION September 25, 2022 No referring provider defined for this encounter. Clare Noble [address] [place] [address] I had the pleasure of seeing Ms. Taylor for follow up today. she is a 42 year old female with a history of functional neurological disorder here for VSMA living well with FND session. We had a visit using: [employer] I have communicated my name and active licensure. The patient's identity and physical location were verified at the time of this visit. Either the patient or their legal merchandiser retail representative has been informed of the risks [...] a VSMA format. Level of service : 81122 Time spent 20 min on the day of service, which included preparing to see the patient, esrd-hn-yduk patient care, completing clinical documentation, obtaining and/or [...] Nancy Draper MD documented in this encounter [facility] 09-23-2022 Note HNO ID: [id number] Author: Hernán Mariee, PhD Service: ? Author Type: Psychologist Type: Progress Notes Filed: 09/23/2022 9:22 AM Note Text: [facility] Psychology Progress Note Billing codes: 0M9/Elieser PSYCHOLOGY: FOLLOW-UP APPOINTMENT PROGRESS NOTE- Virtual Visit Due to the federal emergency declaration and the need for ongoing mental health services, the following visit was completed virtually and informed consent obtained orally to reduce the risk of COVID-19 exposure. Oral consent to services related to virtual visits was obtained after information was sent via Endoseehart or read to patient if End[employer]art not available. I have communicated my name and active licensure. The patient's identity and physical location were verified at the time of this visit. Either the patient or their legal merchandiser retail representative has been informed of the risks and benefits of -- and alternatives to -- treatment through a remote evaluation and consents to proceed with the evaluation remotely. Chasity Taylor 09/23/2022 [id number] PROVIDER: Hernán Mariee, PhD CPT Code: 05965 - Non-Physician Telephone Assessment (21-30 min) 32823- Non-Physician Telephone Assessment (5-10 min) Diagnosis: Functional [...] [facility] from 07/26/2022 in [facility] from 04/19/2022 in [facility] Global Physical Health T Score 32.4 32.4 [...] exercises. She is with a CBT therapist ([facility]) and they are focusing on cognitive [...] Hernán Mariee, Ph.D. Staff, [facility] 09-23-2022 History of Present illness Narrative [facility] Psychology Progress Note Billing codes: 0M9/Elieser PSYCHOLOGY: FOLLOW-UP APPOINTMENT PROGRESS NOTE- Virtual Visit Due to the federal emergency declaration and the need for ongoing mental health services, the following visit was completed virtually and informed consent obtained orally to reduce the risk of COVID-19 exposure. Oral consent to services related to virtual visits was obtained after information was sent via [employer] or read to patient if MyChart not available. I have communicated my name and active licensure. The patient's identity and physical location were verified at the time of this visit. Either the patient or their legal merchandiser retail representative has been informed of the risks and benefits of -- and alternatives to -- treatment through a remote evaluation and consents to proceed with the evaluation remotely. Chasity Taylor 09/23/2022 [id number] PROVIDER: Hernán Mariee, PhD CPT Code: 64211 - Non-Physician Telephone Assessment (21-30 min) 26598- Non-Physician Telephone Assessment (5-10 min) Diagnosis: Functional [...] Row [facility] from 07/26/2022 in [facility] from 04/19/2022 in [facility] Global Physical Health T Score 32.4 32.4 [...] exercises. She is with a CBT therapist ([facility]) and they are focusing on cognitive [...] re: medical questions/concerns Hernán Mariee, Ph.D. Staff, [facility] documented in this encounter [facility] 08-12-2022 Note HNO ID: [id number] Author: Hernán Mariee, PhD Service: ? Author Type: Psychologist Type: Progress Notes Filed: 08/12/2022 10:11 AM Note Text: [facility] VIRTUAL VISIT PROGRESS NOTE Due to the federal emergency declaration and the need for ongoing mental health services, the following visit was completed virtually and informed consent obtained orally to reduce the risk of COVID-19 exposure. Oral consent to services related to virtual visits was obtained after information was sent via Endoseehart or read to patient if MyChart not available. I have communicated my name and active licensure. The patient's identity and physical location were verified at the time of this visit. Either the patient or their legal merchandiser retail representative has been informed of the risks and benefits of -- and alternatives to -- treatment through a remote evaluation and consents to proceed with the evaluation remotely. Billing code: 0M9/Elieser Diagnoses: (F44.7) Functional neurological symptom disorder with mixed symptoms (primary encounter diagnosis) CPT Code: 2792845 - Virtual Group Psychotherapy Interventions: Cognitive Behavioral [...] during the group. Hernán Mariee, Ph.D. Staff, [facility] 08-12-2022 History of Present illness Narrative [facility] VIRTUAL VISIT PROGRESS NOTE Due to the federal emergency declaration and the need for ongoing mental health services, the following visit was completed virtually and informed consent obtained orally to reduce the risk of COVID-19 exposure. Oral consent to services related to virtual visits was obtained after information was sent via Endoseehart or read to patient if MyChart not available. I have communicated my name and active licensure. The patient's identity and physical location were verified at the time of this visit. Either the patient or their legal merchandiser retail representative has been informed of the risks and benefits of -- and alternatives to -- treatment through a remote evaluation and consents to proceed with the evaluation remotely. Billing code: 0M9/Elieser Diagnoses: (F44.7) Functional neurological symptom disorder with mixed symptoms (primary encounter diagnosis) CPT Code: 7217393 - Virtual Group Psychotherapy Interventions: Cognitive Behavioral [...] Hernán Mariee, Ph.D. Staff, [facility] documented in this encounter [facility] 07-03-2022 Miscellaneous Notes CNR - MOVEMENT DISORDERS [...] she once did. documented in this encounter [facility] 07-03-2022 Note HNO ID: [id number] Author: Nancy Draper MD Service: ? Author Type: Physician Type: Progress Notes Filed: 07/03/2022 5:55 PM Note Text: [facility] - FOLLOW UP EVALUATION No referring provider defined for this encounter. Clare Noble, DO [address] [facility] [address] I had the pleasure of seeing Ms. Taylor for follow up today. she is a 42 year old female with a history of functional neurological disorder here for VSMA FND education session.. We had a visit using: [employer] I have communicated my name and active licensure. The patient's identity and physical location were verified at the time of this visit. Either the patient or their legal merchandiser retail representative has been informed of the risks [...] with FMD management team locally or at [facility] Level of service : 45179 (20-29 min). Time spent 29 min on the day of service, which included preparing to see the patient, sebd-kg-cdvu patient care, completing clinical documentation, obtaining and/or [...] with any questions. Sincerely, Nancy Draper MD [facility] 07-03-2022 History of Present illness Narrative [facility] - FOLLOW UP EVALUATION No referring provider defined for this encounter. Clare Noble DO [address] [place] [address] I had the pleasure of seeing Ms. Taylor for follow up today. she is a 42 year old female with a history of functional neurological disorder here for VSMA FND education session.. We had a visit using: [employer] I have communicated my name and active licensure. The patient's identity and physical location were verified at the time of this visit. Either the patient or their legal merchandiser retail representative has been informed of the risks [...] with FMD management team locally or at [facility] Level of service : 03508 (20-29 min). Time spent 29 min on the day of service, which included preparing to see the patient, zufg-eu-qopb patient care, completing clinical documentation, obtaining and/or [...] Nancy Draper MD documented in this encounter [facility] 06-23-2022 Miscellaneous Notes Patient last seen 04/19/2022. documented in this encounter [facility] 05-21-2022 Jolene Melgoza PT - 05/21/2022 3:06 PM EST You [...] she developed this for others.? ? - [email or web address].Plat[employer]/educa tion? ?- Website developed by Dr. Fior Storey who owns a private neuro therapy practice in [place] with a large focus on the treatment of FND. They are also on Elevaateagram: @Smart Plate - https://fndportal.org/ - Website developed to better [...] head/listen to music documented in this encounter [facility] 05-21-2022 History of Present illness Narrative Episode Visit Count: 1 Therapist [...] Planned: 1 Planned Treatment Interventions: Neuromuscular re-education (48711) PLAN FOR NEXT VISIT: initiate local therapy programming, may return to [facility] if needed. Patient demonstrates good understanding of [...] Neurologic Clinical Specialist documented in this encounter [facility] 05-21-2022 Instructions Nancy Nancy Draper MD - 05/21/2022 1:41 PM [...] symptoms over time. documented in this encounter [facility] 05-21-2022 History of Present illness Narrative [facility] - NEW PATIENT EVALUATION Referring Provider: Irvin Dotson [address] [facility] [address] Primary Care Provider: Clare Noble DO [address] [place] [address] Dear Irvin Dotson: Thank you for referring Ms. Taylor to our clinic today. As you know she is a 42 year old left-handed female who is seen in consultation for evaluation of functional neurological disorder since . referred by Dr. Dotson She is seen with her . Subjective HISTORY OF PRESENT ILLNESS: Initial HPI Patient is referred by Dr. Irvin Dotson for evaluation of functional movement/neurological disorder. [...] using the PROMIS scale: PROMIS-10 Flowsheet Row [facility] from 04/19/2022 in [facility] Global Physical Health T Score 32.4 Global [...] Patellar 2+ 2+ Achilles 2+ 2+ Coordination Nquute-ki-gasc, rapid alternating movements and pgwt-of-hkcg normal bilaterally without dysmetria. Gait Needs assistance [...] Medication Schedule: Medications Level of service : 43563 . Time spent 54 min on the day of service, which included preparing to see the patient, ldmf-pp-nehe patient care, completing clinical documentation, obtaining and/or [...] Nancy Draper MD documented in this encounter [facility] 04-14-2022 Miscellaneous Notes Done. Thank you! Ote was triaged and patient is appropriate for FMD clinic. This patient does not have a Consult to FMD, he has a Consult to Neurology for FMD with Dr. Draper. Is he appropriate for clinic? Patient referred to FMD. Order in [facility]. .[phone] documented in this encounter [facility] 04-11-2022 Instructions Irvin Dotson MD - 04/11/2022 4:00 PM EST Functional movement disorder referral. Dr. Nancy Draper. documented in this encounter [facility] 04-11-2022 History of Present illness Narrative Images from the original note were not included. [facility] Follow up/ Established patient visit Individuals who were included in, or assisted with the encounter were: Chasity Taylor Irvin Dotson MD Chief Complaint/Issues: Chasity Taylor is a 41 year old left-handed female seen in the [facility] [facility]: Multiple symptoms Gait dysfunction. [...] and concerns were addressed during this visit. Irvin Dotson MD Staff, Neurology and Neuromuscular Medicine [...] 5 5 Wrist extension 5 5 Finger flexion/special technical operations officer 5 5 Finger extension 5 5 First [...] assistance. Assessment & Plan 04/11/2022 - Neuromuscular, Irvin Dotson MD ASSESSMENT This is a 41 [...] and concerns were addressed during this visit. Irvin Dotson MD Staff, Neurology and Neuromuscular Medicine [...] following antigens: dsDNA, histones, SS-A, SS-B, Sm, Sm/DYEHOUSE WORKER, Scl-70, Selma-1, and centromeric antigens. WBC 01/31/2022 [...] 01/31/2022 2.15 1.00 - 4.00 k/uL Final Graham% 01/31/2022 5.2 % Final Abs Graham 01/31/2022 0.55 <0.87 k/uL Final Eosin% 01/31/2022 [...] developed and its performance characteristics determined by [facility] [place] ([facility]). It has not been cleared or approved by the FDA. -[facility] is regulated under CLIA as qualified to [...] SM Antibody 01/31/2022 <0.2 <1.0 AI Final DYEHOUSE WORKER Antibody QUAL 01/31/2022 Positive (A) Negative Final DYEHOUSE WORKER Antibody 01/31/2022 1.4 (A) <1.0 AI Final [...] Antibody 01/31/2022 <0.2 <1.0 AI Final Ribosomal DYEHOUSE WORKER Qualitative 01/31/2022 Negative Negative Final Anti-Ribosomal RNA (Ribosomal P) antibody is used as an aid in diagnosis of systemic autoimmune diseases especially systemic lupus erythematosus and mixed connective tissue disease. Cross-reactivity with Anti-lin antibody is not uncommon. Clinical correlation is required. Test Methodology: Multiplex flow immunoassay. Ribosomal DYEHOUSE WORKER 01/31/2022 <0.2 <1.0 AI Final CHROMATIN AB [...] which included preparing to see the patient, [id number]-[id number] patient care, completing clinical documentation, obtaining and/or reviewing separately obtained history, performing a medically appropriate examination, counseling and educating the patient/family/caregiver, and ordering medications, tests, or procedures. Irvin Dotson MD documented in this encounter [facility] 02-07-2022 History of Present illness Narrative AMBULATORY TELEPHONE VISIT Chasity Taylor [...] Labs TREV neg MAGDA neg except for DYEHOUSE WORKER 1.4 ESR 2 CRP neg RF neg [...] spondylosis (G62.9) Neuropathy Her serologies are unremarkable (DYEHOUSE WORKER of 1.4 is essentially negative). Inflammatory markers [...] will touch base with her again through [employer] after she sees neurology. Total Time Spent: 25 minutes Lissette Shirley MD documented in this encounter [facility] 01-31-2022 Instructions Lissette Shirley MD - 01/31/2022 11:34 AM EST I will call you for results Feb 07 at 2 PM documented in this encounter [facility] 01-31-2022 History of Present illness Narrative Lissette Shirley MD Chasity Taylor [...] old female presents for rheumatology evaluation at [facility] on January 31, 2022. Hand and foot [...] which included preparing to see the patient, [id number] patient care, completing clinical documentation, obtaining and/or reviewing separately obtained history, performing a medically appropriate examination, counseling and educating the patient/family/caregiver, and ordering medications, tests, or procedures. Lissette Shirley MD Referring Provider:Clare Noble PCP: Clare Noble DO documented in this encounter [facility] 08-13-2021 Evaluation note Encounter Date Diagnosis Assessment Notes July, Right wrist pain (ICD-10 - M25.531) July, Thumb tendonitis (ICD-10 - M77.8) Wear your wrist splint for comfort and compression. Take Tylenol as needed for pain. Continue your home medications as prescribed. Ice and elevate your wrist 2-3 times a day. Follow-up with your family physician if no improvement in 5 to 7 days [employer] Other Evaluation + Plan note Future Appointments Appointment Date:02/03/2022 01:00:00 PM Scheduled Provider: Location:FT.[facility]AN Appointment Type:CT Sinus/Orbits/Maxillofacial (FT) Future Scheduled Tests Radiology* CT Maxillofacial w/o Contrast [facility] Diagnosis Muscle spasm- Primary Spasm of muscle Pain in joint, multiple sites Lumbar spondylosis Lumbosacral spondylosis without myelopathy Neck pain, chronic Cervicalgia [facility] Diagnosis Muscle spasm- Primary Spasm of muscle Lumbar spondylosis Lumbosacral spondylosis without myelopathy Neuropathy Mononeuritis of unspecified site [facility] [place] [facility]* Diagnosis 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 documented in this encounter [facility] note* 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 documented in this encounter [facility] note* 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 documented in this encounter [facility] note* 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 documented in this encounter [facility] note* 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 documented in this encounter [facility] note* 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 Anxiety Anxiety state, unspecified Depression, unspecified depression type documented in this encounter [facility] note* 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 documented in this encounter [facility] note* 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 Anxiety Anxiety state, unspecified Depression, unspecified depression type documented in this encounter [facility] note* Diagnosis Chronic low back pain, unspecified back pain laterality, unspecified whether sciatica present- Primary Chronic neck pain Cervicalgia 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 documented in this encounter [facility] note* Diagnosis APPOINTMENT CANCELLED- Primary documented in this encounter [facility] note* 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 documented in this encounter [facility] note* Diagnosis Cervical spondylosis without myelopathy- Primary Cervical spondylosis without myelopathy- Primary Cervical spondylosis without myelopathy Cervical spondylosis without myelopathy [facility] [place] [facility]* Diagnosis Chronic neck pain- Primary Cervicalgia Cervical spondylosis without myelopathy Cervical post-laminectomy syndrome Postlaminectomy syndrome, cervical region Cervical spondylosis without myelopathy Cervical spondylosis without myelopathy [facility] [place] [facility] 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 documented in this encounter [facility] Narrative - Reported* Type Description Date [...] Hospitalization History see above surgical histo ry [facility] Other Hospital course Narrative No data available for this section [facility] instructions No data available for this section [facility] CenterInstructionsNot on filedocumented in this encounter [facility] No data available for this section [facility] CenterReason for referral (narrative)* Diagnostic Procedure Only (Routine) - Closed Specialty Diagnoses / Procedures Referred By Contac t Referred To Contact XR IMAGING Diagnoses Pain in joint, multiple sites Procedures XR FOOT GENERAL 3V AP/LAT/OBL BILATERAL RADEX FOOT COMPLETE MINIMUM 3 VIEWS PavelpraserLissette bruce MD [address] [place] [address] Xr Imaging Referral ID Status Reason Start Date Expiration Date V isits Requested Visits Authorized [id number] Closed Auto-Generate d Referral 01/31/2022 03/02/2023 1 1 * Diagnostic Procedure Only (Routine) - Closed Specialty Diagnoses / Procedures Referred By Contac t Referred To Contact XR IMAGING Diagnoses Pain in joint, multiple sites Procedures XR HAND GENERAL 3V PA/LAT/OBL BILATERAL RADEX HAND MINIMUM 3 VIEWS PavelpraserLissette bruce MD [address] [place], [place] [id number] Xr Imaging Referral ID Status Reason Start Date Expiration Date V isits Requested Visits Authorized [id number] Closed Auto-Generate d Referral 01/31/2022 03/02/2023 1 1 [facility] Summary Purpose Family History No Family History [...] SPINAL Left C 4/5, 6/7 Jacquelyn Li, ASPEN [address], [address] [place] [address] Referral ID Status Reason Start Date Expiration Date V isits Requested Visits Authorized [id number] Pending Review 03/18/2023 03/17/2024 1 1 Specialty Diagnoses / Procedures Referred By Contac t Referred To Contact Diagnoses Cervical spondylosis without myelopathy Procedures Case request operating room: RADIOFREQUENCY ABLATION SPINAL right C 4/5 6/7 Jacquelyn Li, ASPEN [address], [address] [place] [address] Referral ID Status Reason Start Date Expiration Date V isits Requested Visits Authorized [id number] Pending Review 03/18/2023 03/17/2024 1 1 Specialty Diagnoses / Procedures Referred By Contac t Referred To Contact [facility] Diagnoses Functional neurological symptom disorder with mixed symptoms Procedures CONSULT TO PHYSICAL THERAPY PHYSICAL THERAPY EVALUATION HIGH COMPLEX 45 MINS Juan Pablo Cespedes MD [address] [id number] [facility] [place] [address] Referral ID Status Reason Start Date Expiration Date Visits Requested Visits Authorized [id number] Pending Review Auto-Generat ed Referral 04/14/2022 04/14/2023 1 1 Specialty Diagnoses / Procedures Referred By Contac t Referred To Contact Diagnoses Functional neurological symptom disorder with mixed symptoms Procedures CONSULT TO FUNCTIONAL MOVEMENT DISORDERS (FMD) OFFICE/OUTPATIENT NEW HIGH MDM 60-74 MINUTES Juan Pablo Cespedes MD [address] [place] [address] Referral ID Status Reason Start Date Expiration Date Visits Requested Visits Authorized [id number] Pending Review PCP Requested Referral 04/14/2022 04/14/2023 1 1 Specialty Diagnoses / Procedures Referred By Contac t Referred To Contact Neurology Diagnoses Functional movement disorder Procedures CONSULT TO NEUROLOGY OFFICE[facility]IENT [facility] 60-74 [facility]UTES Irvin Dotson MD [address] [place] [address] Referral ID Status Reason Start Date Expiration Date Visits Requested Visits Authorized [id number] Pending Review PCP Requested Referral 04/11/2022 04/11/2023 1 1 Specialty Diagnoses / Procedures Referred By Contac t Referred To Contact Neurology Diagnoses Muscle spasm Neuropathy Procedures CONSULT TO NEUROLOGY OFFICE[facility]IENT [facility] 60-74 MINUTES Lissette Shirley MD [address] [address] Referral ID Status Reason Start Date Expiration Date Visits Requested Visits Authorized [id number] Pending Review PCP Requested Referral 02/07/2023 1 1 Additional Source Comments INFORMATION SOURCE (unrecogn ized section and content) DATE CREATED AUTHOR 07/11/2018 [facility] DATE CREATED AUTHOR AUTHOR'S ORGANIZ ATION 05/22/2021 [facility] dical Specialist DATE CREATED AUTHOR AUTHOR'S ORGANIZ ATION 07/16/2022 [facility] DATE CREATED AUTHOR AUTHOR'S ORGANIZ ATION 03/07/2023 [facility] DATE CREATED AUTHOR AUTHOR'S ORGANIZ ATION 04/19/2023 [facility] dical Specialists [facility] DATE CREATED AUTHOR AUTHOR'S ORGANIZ ATION 06/02/2023 [facility] DATE CREATED AUTHOR AUTHOR'S ORGANIZ ATION 06/04/2023 [facility] DATE CREATED AUTHOR AUTHOR'S ORGANIZ ATION 06/16/2023 [facility] DATE CREATED AUTHOR AUTHOR'S ORGANIZ ATION 06/22/2023 [facility] Patient Care team informatio n (unrecognized section and content) Chiropractic Assistant Relationship Specialty Start Date End Date Clare Noble [address] [place] [address] PCP - General Family Medicine 01/10/22 Clare Noble [address] [place] [address] Referring Family Medicine 01/07/22 Chiropractic Assistant Relationship Specialty Start Date End Date Kilo Noblety [address] [place] [address] PCP - General Family Medicine 01/10/22 Rory Clare [address] [place] [address] Referring Family Medicine 01/07/22 Chiropractic Assistant Relationship Specialty Start Date End Date Kilo Noblety [address] [place] [address] PCP - General Family Medicine 01/10/22 Rory Clare [address] [place] [address] Referring Family Medicine 01/07/22 Chiropractic Assistant Relationship Specialty Start Date End Date Kilo Noblety [address] [place] [address] PCP - General Family Medicine 01/10/22 Rory Clare [address] [place] [address] Referring Family Medicine 01/07/22 Chiropractic Assistant Relationship Specialty Start Date End Date Kilo Noblety [address] [place] [address] PCP - General Family Medicine 01/10/22 Prabhjotalycialalindsey, Clare [address] [place] [address] Referring Family Medicine 01/07/22 Chiropractic Assistant Relationship Specialty Start Date End Date PrabhjotschKilo elderty [address] [place] [address] PCP - General Family Medicine 01/10/22 Kilo Noblety [address] [place] [address] Referring Family Medicine 01/07/22 Chiropractic Assistant Relationship Specialty Start Date End Date Kilo Noblety [address] [place] [address] PCP - General Family Medicine 01/10/22 Kilo Noblety [address] [place] [address] Referring Family Medicine 01/07/22 Chiropractic Assistant Relationship Specialty Start Date End Date Kilo Noblety [address] [place] [address] PCP - General Family Medicine 01/10/22 Kilo Noblety [address] [place] [address] Referring Family Medicine 01/07/22 Chiropractic Assistant Relationship Specialty Start Date End Date Clare Noble [address] [place] [address] PCP - General Family Medicine 01/10/22 Clare Noble [address] [place] [address] Referring Family Medicine 01/07/22 Chiropractic Assistant Relationship Specialty Start Date End Date Clare Noble [address] [place] [address] PCP - General Family Medicine 01/10/22 Clare Noble [address] [place] [address] Referring Family Medicine 01/07/22 Chiropractic Assistant Relationship Specialty Start Date End Date Clare Noble [address] [place] [address] PCP - General Family Medicine 01/10/22 Claer Noble [address] [place] [address] Referring Family Medicine 01/07/22 Chiropractic Assistant Relationship Specialty Start Date End Date Clare Noble [address] [place] [address] PCP - General Family Medicine 01/10/22 Clare Noble [address] [place] [address] Referring Family Medicine 01/07/22 Chiropractic Assistant Relationship Specialty Start Date End Date Calre Noble DO [address] [place] [address] PCP - General Family Medicine 01/10/22 Clare Noble DO [address] [place] [address] Referring Family Medicine 01/07/22 Chiropractic Assistant Relationship Specialty Start Date End Date Clare Noble DO [address] [place] [address] PCP - General Family Medicine 09/26/21 Chiropractic Assistant Relationship Specialty Start Date End Date Clare Noble DO [address] [place] [address] PCP - General Family Medicine 09/26/21 Chiropractic Assistant Relationship Specialty Start Date End Date Clare Noble DO [address] [facility] [place] [address] PCP - General Family Medicine 09/26/21 Chiropractic Assistant Relationship Specialty Start Date End Date Clare Noble DO [address] [place], [place] [id number] PCP - General Family Medicine 01/10/22 CeliaClare portillo DO [address] [place], [place] [id number] Referring Family Medicine 01/07/22 Source Comments (unrecognize d section and content) In the event this informatio n is protected by the Federal Confidentiality of Alcohol and Drug Abuse Patient Records regulations: The Federal rules restrict any use of the information to criminally investigate or prosecute any alcohol or drug abuse patient.[facility] the event this information is protected by the Federal Confidentiality of Alcohol and Drug Abuse Patient Records regulations: The Federal rules restrict any use of the information to criminally investigate or prosecute any alcohol or drug abuse patient.[facility] System[facility] the event this information is protected by the Federal Confidentiality of Alcohol and Drug Abuse Patient Records regulations: The Federal rules restrict any use of the information to criminally investigate or prosecute any alcohol or drug abuse patient.[facility] System[facility] the event this information is protected by the Federal Confidentiality of Alcohol and Drug Abuse Patient Records regulations: The Federal rules restrict any use of the information to criminally investigate or prosecute any alcohol or drug abuse patient.[facility] System[facility] the event this information is protected by the Federal Confidentiality of Alcohol and Drug Abuse Patient Records regulations: The Federal rules restrict any use of the information to criminally investigate or prosecute any alcohol or drug abuse patient.[facility] System[facility] the event this information is protected by the Federal Confidentiality of Alcohol and Drug Abuse Patient Records regulations: The Federal rules restrict any use of the information to criminally investigate or prosecute any alcohol or drug abuse patient.[facility] System[facility] the event this information is protected by the Federal Confidentiality of Alcohol and Drug Abuse Patient Records regulations: The Federal rules restrict any use of the information to criminally investigate or prosecute any alcohol or drug abuse patient.[facility] System[facility] the event this information is protected by the Federal Confidentiality of Alcohol and Drug Abuse Patient Records regulations: The Federal rules restrict any use of the information to criminally investigate or prosecute any alcohol or drug abuse patient.[facility] System[facility] the event this information is protected by the Federal Confidentiality of Alcohol and Drug Abuse Patient Records regulations: The Federal rules restrict any use of the information to criminally investigate or prosecute any alcohol or drug abuse patient.[facility] System[facility] the event this information is protected by the Federal Confidentiality of Alcohol and Drug Abuse Patient Records regulations: The Federal rules restrict any use of the information to criminally investigate or prosecute any alcohol or drug abuse patient.[facility] System[facility] the event this information is protected by the Federal Confidentiality of Alcohol and Drug Abuse Patient Records regulations: The Federal rules restrict any use of the information to criminally investigate or prosecute any alcohol or drug abuse patient.[facility] System[facility] the event this information is protected by the Federal Confidentiality of Alcohol and Drug Abuse Patient Records regulations: The Federal rules restrict any use of the information to criminally investigate or prosecute any alcohol or drug abuse patient.[facility] System[facility] the event this information is protected by the Federal Confidentiality of Alcohol and Drug Abuse Patient Records regulations: The Federal rules restrict any use of the information to criminally investigate or prosecute any alcohol or drug abuse patient.[facility] System[facility] the event this information is protected by the Federal Confidentiality of Alcohol and Drug Abuse Patient Records regulations: The Federal rules restrict any use of the information to criminally investigate or prosecute any alcohol or drug abuse patient.[facility] System[facility] the event this information is protected by the Federal Confidentiality of Alcohol and Drug Abuse Patient Records regulations: The Federal rules restrict any use of the information to criminally investigate or prosecute any alcohol or drug abuse patient.[facility] System[facility] the event this information is protected by the Federal Confidentiality of Alcohol and Drug Abuse Patient Records regulations: The Federal rules restrict any use of the information to criminally investigate or prosecute any alcohol or drug abuse patient.[facility] System[facility] the event this information is protected by the Federal Confidentiality of Alcohol and Drug Abuse Patient Records regulations: The Federal rules restrict any use of the information to criminally investigate or prosecute any alcohol or drug abuse patient.[facility] Reason for Visit (unrecogniz ed section and content) Reason Comments PT Eval Specialty Diagnoses / Procedures Referred By Contac t Referred To Contact Physical Therapy / PHYSICAL THERAPY Diagnoses Functional Movement Disorder (FMD) Procedures NEW RS PT FNNancy Owens MD [address] [place] [address] Casie Flores, NILSA Referral ID Status Reason Start Date Expiration Date V isits Requested Visits Authorized [id number] Authorized 06/18/2023 03/15/2024 20 20 Reason Comments Back Pain Neck Pain Reason Comments Back Pain Reason Comments Telemedicine Reason Comments Appointment Cancelled Reason Comments Established Patient Living Well VSMA Reason Comments Follow Up Reason Comments Established Patient FMD education VSMA Reason Comments PT Eval Specialty Diagnoses / Procedures Referred By Contac t Referred To Contact [facility] Diagnoses Functional neurological symptom disorder with mixed symptoms Procedures CONSULT TO PHYSICAL THERAPY PHYSICAL THERAPY EVALUATION HIGH COMPLEX 45 MINS Juan Pablo Cespedes MD [address] [place] [address] [facility] [place] [address] [place] [address] Referral ID Status Reason Start Date Expiration Date Visits Requested Visits Authorized [id number] Authorized Auto-Generat ed Referral 03/16/2022 03/15/2023 60 60 Reason Comments New Patient Functional neurologi suresh symptom disorder with mixed symptoms [F44.7] Specialty Diagnoses / Procedures Referred By Contac t Referred To Contact Diagnoses Functional neurological symptom disorder with mixed symptoms Procedures CONSULT TO FUNCTIONAL MOVEMENT DISORDERS (FMD) OFFICE/OUTPATIENT NEW HIGH MDM 60-74 MINUTES Juan Pablo Cespedes MD [address] [place] [address] Referral ID Status Reason Start Date Expiration Date Visits Requested Visits Authorized [id number] Pending Review PCP Requested Referral 04/14/2022 04/14/2023 [...] BE BASED ON THE PRIMARY CLINICAL RECORDS. [employer] provides no warranty or guarantee of the accuracy or completeness of information in this document.
--- NOTE | 2023-06-25 08:00 | CA_ITS ---
Patient Name: AURELIO TAYLOR MR#: [id number] : 1980 Exam Date: 06/25/2023 Ordering Doctor: PAOLO CH M.D. ECHOCARDIOGRAM REPORT PROCEDURE: CA ECHO DOPPLER COMPLETE INDICATIONS: Palpitations, chest pain, dizziness, smoker, breast implants COMPARISON: None. DESCRIPTION: COMPLETE ECHOCARDIOGRAM Real-time transthoracic echocardiography with 2D, M-mode, spectral and color flow Doppler performed. QUALITY: Technical quality was fair. 62 , 143#, BSA 1.66 m2, BP 106/70 LEFT VENTRICLE: Normal chamber size. Normal left ventricular wall thickness. Systolic function is at the lower limits of normal. LV EF: Visual estimation of left ventricular ejection fraction is 50-55%. DIASTOLIC: Normal diastolic function. ATRIAL SEPTUM: Visually appears intact. LEFT ATRIUM: Normal chamber size. RIGHT ATRIUM: Normal chamber size. RIGHT VENTRICLE: Normal chamber size. Normal right ventricular systolic function. TRICUSPID VALVE: Normal mobility and thickness. No stenosis with trivial regurgitation. No evidence of pulmonary hypertension. RVSP 23 mmHg MITRAL VALVE: Normal mobility and thickness. No evidence of mitral valve stenosis. There is no mitral annular calcification. Trivial mitral regurgitation. AORTIC VALVE: Normal trileaflet appearance. No visible sclerosis. Normal leaflet mobility. No evidence of aortic valve stenosis. No aortic regurgitation. AORTIC ROOT: Normal diameter and appearance. PULMONIC VALVE: Normal thickness and mobility. No stenosis. PERICARDIUM: No evidence of pericardial effusion. IVC: Collapses with inspirations. IVC is normal in size. PLEURA: CONCLUSION: 1. Left ventricle is normal in size and exhibits low normal systolic function. LVEF is 50 to 55%. 2. The right ventricle is normal in size with normal systolic function. 3. No significant valvular dysfunction. 4. Normal diastolic function. 5. Normal right-sided pressures. 6. Technically difficult study with poor acoustic windows. Adult Echocardiography Procedure Report Left Ventricle LVEDD (3.7 - 5.6 cm): 5.10 cm LVESD (2.2 - 4.0 cm): 3.64 cm LVIVS thickness (0.6 - 1.2 cm): 0.75 cm LVPW thickness (0.5 - 1.0 cm): 0.73 cm E - e': 4.87 LVOT Max Gradient: 1.53 mm[Hg] LVOT Area (cm2): 0.62 m/s Peak Velocity (LVOT): 0.62 m/s LVOT Diameter 2.13 cm Left Atrium LA Volume Index (2D A2C): 23.55 ml/m2 Left Atrium Systolic Dimension: 2.47 cm Mitral Valve MV E to A Ratio: 1.41 Mitral Valve A-Wave Peak Velocity: 0.44 m/s Mitral Valve E-Wave Peak Velocity: 0.62 m/s Right Ventricle Aorta AO Root Diam: 2.67 cm Aortic Valve AoV Area (Peak Luis): 1.88 cm2, 1.88 cm2 Peak Velocity(Antegrade Flow): 1.17 m/s Peak Gradient(Antegrade Flow): 5.47 mm[Hg] Mean Velocity(Antegrade Flow): 0.84 m/s Mean Gradient(Antegrade Flow): 3.18 mm[Hg] Velocity Time Integral: 24.72 cm Tricuspid Valve Peak Velocity (Regurgitant Flow): 2.09 m/s, 2.23 m/s Pulmonic Valve Peak Gradient: 2.36 mm[Hg], 2.42 mm[Hg] Right Atrium Right Atrium Systolic Pressure: 37.83 ml, 37.83 ml Dictated by: Robert Davis M.D. on 06/25/2023 at 19:11 Approved by: Robert Davis M.D. on 06/25/2023 at 19:15
== END 2023-06-25 07:53 | disposition home or self-care (01) ==
LOC: CARD 07:52
PROVIDERS: PCP Family Medicine; Visit Provider Internal Medicine Cardiovascular Disease
DX: R00.2 Palpitations (principal); R07.89 Other chest pain; R42 Dizziness and giddiness
CPT/HCPCS: 93306; 93356

== ENCOUNTER 2023-07-03 09:21 | Outpatient (OUT) | payer OTHER, SELFPAY ==
--- NOTE | 2023-07-03 | PCN_ITS ---
CARDIAC STRESS TEST Requesting Physician: Procedure Date: 07/03/2023 This was a Lexiscan stress test with myocardial perfusion imaging performed at the [facility] on 07/03/2023. Informed consent was obtained. Baseline vital signs were obtained and intravenous line was secured. The patient was attached to electrocardiographic monitoring. Lexiscan 0.4 mg were injected intravenously, followed by administration of Cardiolite. The patient then went on to obtain myocardial perfusion images. Resting heart rate was 68 BPM and maximum heart rate was 129 BPM. Resting blood pressure was 124/72 and peak blood pressure was 134/72. Resting ECG showed sinus rhythm with sinus arrhythmia. ECG following infusion of Lexiscan showed sinus tachycardia with no arrhythmia and no ischemic ST changes. Final ECG was comparable to baseline. SUMMARY OF THE FINDINGS: 1. No evidence of ischemic ST changes seen on EKG following infusion of Lexiscan. 2. Myocardial perfusion images will be reported separately. MTDD
--- NOTE | 2023-07-03 08:15 | NM_ITS ---
Patient Name: AURELIO TAYLOR MR#: [id number] : 1980 Exam Date: 07/03/2023 Ordering Doctor: PAOLO CH M.D. RADIOLOGY REPORT PROCEDURE: NM FRIEDA PERF SPECT REST STR COMPARISON: None. INDICATIONS: OTHER CHEST PAIN TECHNIQUE: Exam Description: Stress/Rest one day protocol gated SPECT Rest Imagin.9 mCi Tc-99m Cardiolite IV on 07/03/2023 Stress Imaging 29.6 mCi Tc-99m Cardiolite IV on 07/03/2023 Exercise Protocol: 0.4 mg Lexiscan given IV Heart Rate (bpm): Rest: 68 Max: 129 PMHR: 72 Blood Pressure: Rest: 124/72 Max: 134/72 Symptoms: Rest and peak stress ECG findings were pending and the exercise portion of the study was pending per attending physician Dr. BRITO . For more details please see separate cardiac stress test report. FINDINGS: QUALITY OF STUDY: Excellent. PERFUSION DEFECT: None. LOCATION: N/A SIZE: N/A. SEVERITY: N/A. TYPE: N/A. WALL MOTION: Normal. LV SIZE: Normal. 82 mL. TID / TCD: None; 0.9 LVEF: Normal. Calculated EF 64%. SUMMARY: Myocardial perfusion imaging study is NORMAL. CONCLUSION: 1. Normal nuclear medicine myocardial perfusion scan. Dictated by: Jose Crain M.D. on 07/03/2023 at 15:28 Approved by: Jose Crain M.D. on 07/03/2023 at 15:34
[2023-07-03] MEDS: REGADENOSON 0.4 MG/5 ML SYRINGE 0.400000000000000022 MG IV (10:16)
== END 2023-07-03 09:22 | disposition home or self-care (01) ==
LOC: NM 09:22
PROVIDERS: PCP Family Medicine; Visit Provider Internal Medicine Cardiovascular Disease
DX: R07.89 Other chest pain (principal)
CPT/HCPCS: 78452; 93017; A9500; J2785

== ENCOUNTER 2024-06-29 15:14 | Outpatient (OUT) | payer OTHER, SELFPAY ==
--- NOTE | 2024-06-29 15:17 | XR_ITS ---
The [address] [address] Patient Name: AURELIO TAYLOR MRN: [id number] date: 1980 Sex: F Assigned Patient Location: [facility] Current Patient Location: [facility] Accession/Order Number: [id number] Exam Date: 06/29/2024 15:38 Report Date: 06/29/2024 15:39 At the request of: EMIL THEODORE NP Procedure: XR shoulder RT min 2V RIGHT ELBOW - 3 views, right shoulder 3 views CLINICAL HISTORY: Right elbow and shoulder pain status post fall 1 month ago. COMPARISON: None FINDINGS: Right shoulder: Mild degenerative changes of the AC and glenohumeral joints without acute bony process. Right elbow demonstrates no joint effusion or acute bony process. Joint spaces appear maintained. XR/XR shoulder RT min 2V IMPRESSION: MILD DEGENERATIVE CHANGES OF THE RIGHT SHOULDER WITHOUT ACUTE BONY PROCESS. RIGHT ELBOW DEMONSTRATES NO ACUTE BONY PROCESS. Impression dictated by: Tommy Aguila Jr., DTiffanieOTiffanie06/29/2024 3:39 PM Dictation Location: [place] [address] Electronically authenticated by: [id number] Y Date: 06/29/2024 15:39
--- NOTE | 2024-06-29 15:17 | XR_ITS ---
The [address] [address] Patient Name: AURELIO TAYLOR MRN: [id number] date: 1980 Sex: F Assigned Patient Location: [facility] Current Patient Location: [facility] Accession/Order Number: [id number] Exam Date: 06/29/2024 15:38 Report Date: 06/29/2024 15:39 At the request of: EMIL THEODORE NP Procedure: XR shoulder RT min 2V RIGHT ELBOW - 3 views, right shoulder 3 views CLINICAL HISTORY: Right elbow and shoulder pain status post fall 1 month ago. COMPARISON: None FINDINGS: Right shoulder: Mild degenerative changes of the AC and glenohumeral joints without acute bony process. Right elbow demonstrates no joint effusion or acute bony process. Joint spaces appear maintained. XR/XR elbow RT min 3V IMPRESSION: MILD DEGENERATIVE CHANGES OF THE RIGHT SHOULDER WITHOUT ACUTE BONY PROCESS. RIGHT ELBOW DEMONSTRATES NO ACUTE BONY PROCESS. Impression dictated by: Tommy Aguila Jr., DTiffanieOTiffanie06/29/2024 3:39 PM Dictation Location: [place] [address] Electronically authenticated by: [id number] Y Date: 06/29/2024 15:39
== END 2024-06-29 15:15 | disposition home or self-care (01) ==
LOC: RAD 15:14
DX: M79.601 Pain in right arm (principal)
CPT/HCPCS: 73030; 73080

== ENCOUNTER 2024-07-28 13:05 | Outpatient (OUT) | payer OTHER, SELFPAY ==
--- NOTE | 2024-07-28 13:09 | MR_ITS ---
The [address] [address] Patient Name: AURELIO TAYLOR MRN: [id number] date: 1980 Sex: F Assigned Patient Location: MRI Current Patient Location: MRI Accession/Order Number: [id number] Exam Date: 07/28/2024 15:18 Report Date: 07/28/2024 15:23 At the request of: EMIL THEODORE NP Procedure: MR shoulder RT wo con MR RIGHT SHOULDER CLINICAL INFORMATION: Chronic right shoulder pain after fall with pain radiating into right arm. COMPARISON: 06/29/2024. PROCEDURE: Axial, oblique coronal, and oblique sagittal long TR images of the shoulder were obtained. FINDINGS: ROTATOR CUFF AND ASSOCIATED STRUCTURES Biceps Tendon: The biceps tendon is normally situated within the bicipital groove. No complete or partial biceps tendon tear is present. Rotator cuff: There is a partial-thickness bursal surface tear of the supraspinatus tendon. There is a perforating full-thickness tear of the infraspinatus tendon predominantly along the bursal surface. The subscapularis tendon and teres minor tendons are intact. Musculature: There is no muscular tear, contusion, or atrophy. Bursa: There is a small amount of fluid in the subacromial bursa. OSSEOUS STRUCTURES Acromioclavicular joint: There are mild degenerative changes of the acromioclavicular joint. A type 2 acromion configuration is noted. There is no anterior or lateral acromial downsloping. Bones: No Hill-Sachs, reverse Hill-Sachs, or bony Bankart lesions are seen. There are no fractures or regions of abnormal bone marrow signal intensity. GLENOHUMERAL JOINT Joint: There is no glenohumeral joint effusion. Cartilage: No focal hyaline cartilage defects are noted. Labrum: The labrum is not optimally evaluated. Other support structures: No capsular or ligamentous abnormality is seen. MR/MR shoulder RT wo con IMPRESSION: 1. There is a partial-thickness bursal surface tear of the supraspinatus tendon. 2. There is a perforating full-thickness tear of the infraspinatus tendon predominantly along the bursal surface. 3. Mild hypertrophic changes are noted in the acromioclavicular joint. Impression dictated by: Grzegorz Chávez M.D. 07/28/2024 3:23 PM Dictation Location: [place] [address] Electronically authenticated by: [id number] Y Date: 07/28/2024 15:23
== END 2024-07-28 13:06 | disposition home or self-care (01) ==
LOC: MRI 13:05
DX: M79.601 Pain in right arm (principal); M75.111 Incomplete rotator cuff tear or rupture of right shoulder, not specified as traumatic; S46.811A Strain of other muscles, fascia and tendons at shoulder and upper arm level, right arm, initial encounter
CPT/HCPCS: 73221

== ENCOUNTER 2024-08-24 13:18 | Outpatient (OUT) | payer OTHER, SELFPAY ==
--- OUTSIDE RECORDS SUMMARY | 2024-08-24 13:19 | XMS_ITS | Continuity of Care Document ---
Author Name [facility] Organization [facility] Care Team Providers Care Commercial Real Estate Lender Name Role Phone [facility] Unavailable Unavailable Problems Combined list of problems from Department of Defense and Veterans Affairs facilities. It does not include entries that were removed or entered in error. 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 DoD excessive thirst / fluid intake (polydypsia) Active Condition DoD increased appetite (polyphagia) Active Condition DoD frequent, full-bladder emptying (polyuria) Active Condition DoD CANDIDIASIS VAGINAL Inactive Condition D oD visit for: screening exam malignant neoplasm vagina Inactive Condition DoD visit for: screening exam for malignant neoplasm cervix Inactive Condition DoD Vaccines Prophylactic Need Against Influenza Inactive Condition DoD CHLAMYDIAL INFECTIONS Inactive Condition DoD visit for: administrative purpose Inactive Condition DoD dizziness Inactive Condition DoD FOLLICULITIS Inactive Condition DoD feared medical condition not demonstrated Active Condition DoD sexually active without practicing 'safer sex' Inactive Condition DoD Patient Education - HIV Inactive Condition DoD Patient Counseling: Active Condition Do D visit for: screening exam venereal disease Inactive Condition DoD vaginal itching or burning Active Condition DoD Body Mass Index Inactive Condition DoD ACNE Inactive Condition DoD BIPOLAR DISORDER Active Condition DoD WARTS Inactive Condition DoD tobacco use Active Condition DoD OTITIS MEDIA Active Condition DoD UPPER RESPIRATORY INFECTION Inactive Condition DoD joint pain, localized in the wrist Inactive Condition DoD FATIGUE Active Condition DoD ANEMIA Active Condition DoD NICOTINE DEPENDENCE Active Condition Do D breast pain Active Condition DoD BREAST NEOPLASM Active Condition DoD SINUSITIS Active Condition DoD FEMALE PELVIC PAIN Active Condition DoD MARITAL PROBLEM Inactive Condition DoD anxiety Active Condition DoD VAGINITIS Inactive Condition DoD ESOPHAGEAL REFLUX Active Condition DoD ENDOMETRIOSIS Active Condition DoD Allergies, Adverse Reactions, Alerts Combined list of allergies from Department of Defense and Veterans Affairs facilities. It does not include entries that were removed or entered in error. Substance Category Reaction Severity Reaction type Status Date Reported Comments Source PERCOCET (OXYCODONE HCL/ACETAMI NOPHEN) Drug allergy (disorder) Anaphylaxis active 0 [facility] [place] Immunizations Combined list of available immunizations from the Department of Defense and Veterans Affairs facilities. Immunization Series Date Given Administered By Site Reaction Lot Number CVX Code Drug Acupressure Therapist Status Comments Source Influenza, seasonal, injectable 1 2011 FEDE PANDYA [id number] Sanofi Pasteur ([facility]) complet ed Influenza , seasonal, injectabl e DoD Encounters Combined list of: 1) Encounters from Department of Veterans Affairs facilities going backup to the last 18 months, not all VA inpatient encounters are included; 2) Encounters from the Department of Defense facilities going backup to 280 months. Location Location Details Encounter Type Encounter Number Reason For Visit Attending Provider ADM Date DC Date Status Disposition Source Bibi [facility]) OUTPATIENT [id number] stomach crampin g(no pcm) ANA STEWART 03/12 Released w/o Limitations [facility]) ELKIN Cifuentes([facility]) OUTPATIENT [id number] SEVERE STOMACH PN VICENTA RIVERA 01/16 Released w/o Limitations [place]) ELKIN C[place]([facility]) OUTPATIENT [id number] vaginal infecti on ARIELLE HASKINS Op[place] 03/06 Released w/o Limitations [place]) [place], [place]([facility]) OUTPATIENT [id number] depress ion VICENTA RIVERA 04/17 Released w/[place] Limitations [place]) ELKIN Cifuentes([facility]) OUTPATIENT [id number] vaginal infecti on ELMER ISRAEL 09/03 Released w/o Limitations [place]([facility]) ELKIN Cifuentes([facility]) TELE CONSULT [id number] Vaginal culture results ANTHONY POLANCO 09/04 Referred for Appointment ELKIN C[place]([facility]) ELKIN Cifuentes([facility]) OUTPATIENT [id number] sinus infecti on VICENTA RIVERA 12/16 Released w/o Limitations [place] [place] OUTPATIENT [id number] breast pain SAIRA ALMONTE 01/31 Released w/o Limitations [place] TELE CONSULT [id number] BREAST ULTRASO UND SAIRA HUTTON DEE 02/11 [place], [place]([facility]) [place], [place]([facility]) OUTPATIENT [id number] KAPLAN-S JANAY SABINE K 02/12 Sick at Home/Quarter s [place], [place](Rain gency Room) [place]([facility]) OUTPATIENT [id number] ANGELA Burger 03/20 Released w/o Limitations [facility] [place], [place]([facility] [place] OUTPATIENT [id number] wart on ARIELLE Eric 05/13 [place]ased w/o Limitations [place] [place] OUTPATIENT [id number] AURELIO Medrano 06/15 Released w/o Limitations [place] [place]PAT[place] [id number] trouble losing weight/ acne ELMER ISRAEL 07/21 Released w/o Limitations [place] [id number] Notes Entered by: AGUSTINA PRIEST 05 Aug [id number] ------- ------- ------- ------- -- NOBLE JOSHI 08/04 Released w/o Limitations [place] [place], [place]([facility]) OUTPATIENT [id number] 2 WK SAC F/U AGUSTINA TONEY 08/18 Released w/o Limitations [place], [place]([facility]) [place]([facility]) OUTPATIENT [id number] pt says she is breakin g out VICENTA RIVERA 11/11 Released w/o Limitations [place], [place]([facility]) [place], [place]([facility]) OUTPATIENT [id number] possibl e yeast infecti on IESLAELMER JADE 11/24 Released w/o Limitations [place], [place]([facility]) [place], [place]([facility]) TELE CONSULT [id number] Notes Entered by: TAMARA PICHARDO 25 Nov 2011 1136 ------- ------- ------- ------- -- CT scan of head result ANTHONY CARTAGENA 11/24 [place]([facility]) [place]([facility]) TELE CONSULT [id number] Notes Entered by: TAMARA PICHARDO 27 Nov 2011 1029 ------- ------- ------- ------- -- Vaginal culture result ANTHONY CARTAGENA 11/26 [place], [place]([facility]) [place], [place]([facility]) TELE CONSULT [id number] Notes Entered by: TAMARA PICHARDO 28 Nov 2011 1533 ------- ------- ------- ------- -- Chlamyd ia test ANTHONY CARTAGENA 11/27 [place], [place]([facility]) [place], [place]([facility]) OUTPATIENT [id number] Notes Entered by: NADEEN CANELA 02 Dec 2011 1132 ------- ------- ------- ------- -- CLARISSA Staples 12/01 Released w/o Limitations [place] OUT[place] [id number] sac 2wk f/u AGUSTINA TONEY 12/15 [place]ased w/o Limitations [place] [id number] FEDE PANDYA 12/15 Released w/o Limitations [place] [place] [facility] OUTPATIENT [id number] yeast infecti on SAIRA ALMONTE 01/19 Released w/o Limitations [place] [facility] [place]) TELE CONSULT [id number] Notes Entered by: NELL ALMONTE 20 Jan 2012 1310 ------- ------- ------- ------- -- WET PREP ANTHONY POLANCO 01/19 [place] [facility] [place]) OUTPATIENT [id number] uti VICENTA RIVERA 02/22 Released w/o Limitations [place] [facility] OUTPATIENT [id number] Notes Entered by: AGUSTINA PRIEST 24 Feb 2012 0756 ------- ------- ------- ------- -- CLARISSA ZEE 02/23 Released w/o Limitations [place] [id number] [facility] F/U LABS APPT TIME IS 0930 CLARISSA RYAN 03/12 Released w/o Limitations [facility] [place], [place]([facility]) Procedures Combined list of: 1) Procedures from Department of Veterans Affairs facilities going back up to thelast 18 months, not all VA non-surgical procedures are included; 2) All procedures from the Department of Defense facilities. Procedure Procedure Type Code Date Perfomer Comments Sour e SCREENING PAPANICOLAOU SMEAR; OBTAINING, PREPARING AND CONVEYANCE OF CERVICAL OR VAGINAL SMEAR TO LABORATORY 2 DoD UNLISTED VACCINE/TOXOID 2 [facility] PATIENT EDUCATION, NOT OTHERWISE CLASSIFIED, NON-PHYSICIAN PROVIDER, INDIVIDUAL, PER SESSION 2 DoD PATIENT EDUCATION, NOT OTHERWISE CLASSIFIED, NON-PHYSICIAN PROVIDER, INDIVIDUAL, PER SESSION 2 DoD PATIENT EDUCATION, NOT OTHERWISE CLASSIFIED, NON-PHYSICIAN PROVIDER, INDIVIDUAL, PER SESSION 2 DoD DESTRUCTION (EG, LASER SURGERY, ELECTROSURGERY, CRYOSURGERY, CHEMOSURGERY, SURGICAL CURETTEMENT), OF BENIGN LESIONS OTHER THAN SKIN TAGS OR CUTANEOUS VASCULAR PROLIFERATIVE LESIONS; UP TO 14 LESIONS 2 [facility] INFECTIOUS AGENT ANTIGEN DETECTION BY IMMUNOASSAY WITH DIRECT OPTICAL (IE, VISUAL) OBSERVATION; STREPTOCOCCUS, GROUP A 2 DoD APPLICATION OF SHORT ARM SPLINT (FOREARM TO HAND); STATIC 1 [facility] URINALYSIS, BY DIP STICK OR TABLET REAGENT FOR BILIRUBIN, GLUCOSE, HEMOGLOBIN, KETONES, LEUKOCYTES, NITRITE, PH, PROTEIN, SPEC GRAVITY, UROBILINOGEN, ANY NUMBER OF CONSTITUENTS; W/O MICRO, AUTOMATED 1 [facility] PSYCHIATRIC DIAGNOSTIC INTERVIEW EXAMINATION 1 [facility] URINALYSIS, BY DIP STICK OR TABLET REAGENT FOR BILIRUBIN, GLUCOSE, HEMOGLOBIN, KETONES, LEUKOCYTES, NITRITE, PH, PROTEIN, SPEC GRAVITY, UROBILINOGEN, ANY NUMBER OF CONSTITUENTS; W/O MICRO, AUTOMATED 0 [facility] URINE TEST, BY VISUAL COLOR COMPARISON METHODS 0 [facility] Patient education, not otherwise cla ified, non-physician provider, individual, per se ion 2 AGUSTINA TONEY [facility] Screening papanicolaou smear; obtaining, preparing and conveyance of cervical or vaginal smear to laboratory 2 SAIRA ALMONTE DoD Vaccines Vaccines 59668 2 FEDE PANDYA Influenza Split (Injectable); Series #: 1; .5 mL; IM; Right Arm; Mfg: Sanofi Pasteur; Lot: [id number]; VIS given (Celestine: 10/08/10). [facility] Preventive Medicine Services Therapy Vaccination Influenza Administered Preventive Medicine Services Therapy Vaccination Influenza Administered 4274F 2 FEDE PANDYA [facility] Patient education, not otherwise cla ified, non-physician provider, individual, per se ion 2 AGUSTINA TONEY [facility] Patient education, not otherwise cla ified, non-physician provider, individual, per se ion 2 AGUSTINA TONEY [facility] Patient education, not otherwise cla ified, non-physician provider, individual, per se ion 2 NOBLE BEVERLY [facility] Streptococcus Direct Screen Streptococcus Direct Screen 99489 2 ANGELA NICOLAS done in clinic [facility] Automated UA Without Microscopic Exam Automated UA Without Microscopic Exam 18587 1 ELMER ISRAEL done in clinic [facility] Psychiatric Evaluation Comprehensive Examination Psychiatric Evaluation Comprehensive Examination 79732 1 AGUSTINA SUAREZ [facility] Automated UA Without Microscopic Exam Automated UA Without Microscopic Exam 45045 0 ARIELLE HASKINS [facility] Test Test 63701 0 VICENTA RIVERA Procedure done in clinic. [facility] Automated UA Without Microscopic Exam Automated UA Without Microscopic Exam 14043 0 VICENTA RIVERA Procedure done in clinic. [facility] Social History Combined list of available smoking, tobacco, and other social history from Department of Defense and Veterans Affairs facilities. Social History Type Response Date Comment Sour e This section is an empty social history section. [facility]
--- NOTE | 2024-08-24 13:20 | MR_ITS ---
[facility] [place] [id number] Patient Name: AURELIO TAYLOR MRN: [id number] date: 1980 Sex: F Assigned Patient Location: MRI Current Patient Location: MRI Accession/Order Number: [id number] Exam Date: 08/24/2024 15:02 Report Date: 08/24/2024 15:09 At the request of: EMIL THEODORE NP Procedure: MR elbow RT wo con MRI the right elbow without contrast Routine technique. : Chronic right elbow pain after injury. COMPARISON: Plain film right elbow 06/29/2024. No bony contusion. No linear fracture. Adequate alignment. The distal biceps tendon intact. Distal triceps tendon intact. Radial and ulnar collateral ligaments intact. The common flexor and extensor tendons intact. There are no signal abnormality of the muscle. Small joint effusion. Unremarkable subcutaneous tissues. MR/MR elbow RT wo con IMPRESSION: Small joint effusion. No bony contusion or acute linear fracture. Collateral ligaments intact. Impression dictated by: Seth Shaw M.D. 08/24/2024 3:09 PM Dictation Location: [place] [address] Electronically authenticated by: [id number] Y Date: 08/24/2024 15:09
--- OUTSIDE RECORDS SUMMARY | 2024-08-24 13:20 | XMS_ITS | Encounter Summary ---
Author Organization [facility] Address [address] [place] [address] Care Team Providers Care Manager Economic Name Role Phone Clare Valadez DO Primary Care Provider [phone] Anitha Luther Unavailable Encounter Details Date Type Department Care Team (Late Contact Info) Description 02/07/2023 Abstract [facility] [address] [place] [address] Екатерина Altamirano NP Social History Tobacco Use Types Packs/Day Years Used Date Smoking Tobacco: Every Day Cigarettes Smokeless Tobacco: Never Tobacco Cessation:Ready to Q uit: Not Asked; Counseling Given: Not Answered Comments:11-20 cigarettes/day Alcohol Use Standard Drinks/Week Comments Yes 1 (1 standard drink = 0.6 oz pur e alcohol) 1-2 drinks monthly or less AUDIT-C Answer Date Recorded Q1: How often do you have a drink containing alc ohol? Monthly or less 01/26/2023 Q2: How many drinks containi ng alcohol do you have on a typical day when you are drinking? 1 or 2 01/26/2023 Q3: How often do you have si x or more drinks on one occasion? Never 01/26/2023 Education Answer Date Recorded What is the highest level of school you have completed or the highest degree you have received? Some college, no degree 10/20/2022 Comments Unknown Sex and Gender Information Value Date Recorded Sex Assigned at Not on file Legal Sex Female 7:25 PM EDT Gender Identity Not on file Sexual Orientation Not on file documented as of this encounter Plan of Treatment Upcoming Encounters Date Type Department Care Team (Late Contact Info) Description 04/12/2025 2:00 PM EST Office Visit [facility] [address] [place] [phone] Kenrick Worthy MD [address] [place] [address] 05/11/2025 1:10 PM EST Office Visit [facility] [address] [place] [address] Shira Grewal APRN-TRASHMAN [address] [place] [address] documented as of this encounter Visit Diagnoses Not on filedocumented in this encounter Care Teams Manager Economic Relationship Specialty Start Date End Date Clare Valadez DO [address] [place] [address] PCP - General Family Medicine 12/09/22 Anitha Luther PA [address] [facility] [place] [phone] Physician Front Elevator Operator Neurology 05/30/24 documented as of this encounter
--- OUTSIDE RECORDS SUMMARY | 2024-08-24 13:20 | XMS_ITS | Encounter Summary ---
Author Organization [facility] [employer] [facility] tem Address [id number] [address] [place] [address] Care Team Providers Care Burial Vault Deliverer And Installer Name Role Phone CelialindseyLienty Rambo COLINDRES Primary Care Provider [phone] Encounter Details Date Type Department Care Team (Late Contact Info) Description 12/25/2021 Orders Only [facility] [address] [place] [phone] Tobias Daniel DO [address] [place] [address] Social History Tobacco Use Types Packs/Day Years Used Date Smoking Tobacco: Heavy Smoker Cigarettes 1.5 18 Smokeless Tobacco: Never Alcohol Use Standard Drinks/Week Comments No 0 (1 standard drink = 0.6 oz pur e alcohol) Childcare Answer Date Recorded Childcare Unknown 08/25/2018 Employment Answer Date Recorded Employment Unknown 08/25/2018 Purpose - Life Answer Date Recorded Purpose and direction in life Unknown Comments No Sex and Gender Information Value Date Recorded Sex Assigned at Not on file Legal Sex Female 11:32 AM EDT Gender Identity Not on file Sexual Orientation Not on file COVID-19 Exposure Response Date Recorded In the last month, have you been in contact with someone who was confirmed or suspected to have Coronavirus / COVID-19? No / Unsure 12/24/2021 8:01 AM EDT documented as of this encounter Plan of Treatment Upcoming Encounters Date Type Department Care Team (Late Contact Info) Description 09/28/2024 2:15 PM EDT Office Visit [facility] [address] [place] [phone] Patria Li, PALoraineC [address] [place] [address] documented as of this encounter Procedures Procedure Name Priority Date/Time Associated Diagnosis Comments MR CERVICAL SPINE WO CONT Routine 05/21/2021 documented in this encounter Results * MR cervical spine without contrast (05/21/2021) Anatomical Region Laterality Modality MSK, Neuro, Spine, C-spine, Spine Covera N/A Magnetic Resonance us Tobias Daniel DO IMG MRI ORDERABLES Final R esult documented in this encounter Visit Diagnoses Not on filedocumented in this encounter Care Teams Burial Vault Deliverer And Installer Relationship Specialty Start Date End Date Clare Valadez DO [address] [place], [place] [phone] PCP - General Family Medicine 09/26/21 documented as of this encounter
--- OUTSIDE RECORDS SUMMARY | 2024-08-24 13:20 | XMS_ITS | Encounter Summary ---
Author Organization [facility] Address [address] [place] [address] Care Team Providers Care Carrier Associate Name Role Phone Clare Valadez DO Primary Care Provider Anitha Luther Unavailable Encounter Details Date Type Department Care Team (Late Contact Info) Description 02/24/2023 Clinisync Result Encounter [facility] External Department Unsolicited Annelise Louie MD [address] [facility] [address] [place] [address] Social History Tobacco Use Types Packs/Day Years Used Date Smoking Tobacco: Every Day Cigarettes Smokeless Tobacco: Never Alcohol Use Standard Drinks/Week Comments Yes 1 (1 standard drink = 0.6 oz pur e alcohol) AUDIT-C Answer Date Recorded Q1: How often [...] PM EST Office Visit [facility] [address] [place] [address] Kenrick Worthy MD [address] [place] [address] 05/11/2025 1:10 PM EST Office Visit [facility] [address] [place] [address] Shira Grewal, DOUGHNUT MACHINE OPERATOR-WINE CONSULTANT [address] [place] [address] documented as of this encounter Procedures Procedure Name Priority Date/Time Associated Diagnosis Comments CT MAXILLOFACIAL W/O CONTRAST 02/24/2023 2:38 PM EST documented in this encounter Results * CT MAXILLOFACIAL W/O CONTRAST (02/24/2023 2:38 PM EST) Anatomical Region Laterality Modality Other 02/24/2023 2:38 PM EST Narrative 02/25/2023 12:00 PM EST Exam Date/Time: 02/24/2023 14:53 EST Reason for [...] as low as reasonably achievable. Ordering Provider: Annelise Louie FINAL REPORT Dictated: 02/25/2023 11:57 am Rambo Qiu MD Signed (Electronic Signature): 02/25/2023 11:57 am Signed by: Rambo Qiu MD Transcribed by: JOSE Technologist: STERLING Procedure Note Radiology, Radiologist, - 02/25/2023 Exam Date/Time: 02/24/2023 14:53 EST Reason for Exam: J01.90 Report IMPRESSION: NEGATIVE CT MAXILLOFACIAL STUDY. CT MAXILLOFACIAL WITHOUT INTRAVENOUS CONTRAST MEDIUM. History: Bilateral facial pressure. Technical factors: CT maxillofacial was obtained and 2 mm contiguous axialimages were obtained through the osseous structures. Sagittal and coronalreconstruction obtained during postprocessing. Comparison: CT maxillofacial, February 03, 2022.. Findings: Bilateral frontal, ethmoid, sphenoid, and maxillary sinuses are patent. Nasal septum midline. Bilateral ostiomeatal complexes patent. Bilateral mastoid air cells well pneumatized. Bilateral ocular globes, extraocular muscles, optic nerves, retrobulbarfat without anomaly. No fracture. No bone lesion. Radiopaque cutaneous marker identified superficial to lateral base rightmaxillary sinus. All CT scans at this facility use dose modulation, iterativereconstruction, and/or weight based dosing when appropriate to reduce radiation dose to as low asreasonably achievable. Ordering Provider: Annelise Louie FINAL REPORT Dictated: 02/25/2023 11:57 am Rambo Qiu MD Signed (Electronic Signature): 02/25/2023 11:57 am Signed by: Rambo Qiu MD Transcribed by: JOSE Technologist: STERLING us Annelise Louie MD [facility] Final Resul t documented in this encounter Visit Diagnoses Not on filedocumented in this encounter Care Teams Carrier Associate Relationship Specialty Start Date End Date Clare Valadez DO [address] [place], [place] [phone] PCP - General Family Medicine 12/09/22 Anitha Luther PA [address] [place] [address] Physician Tobacco Stemmer Machine Neurology 05/30/24 documented as of this encounter
--- OUTSIDE RECORDS SUMMARY | 2024-08-24 13:20 | XMS_ITS | Clinical Summary ---
Author Organization [employer] Address [id number] [address] [place] [address] Care Team Providers Care Sales Research Analyst Name Role Phone Clare Valadez DO Primary Care Provider [phone] Allergies Active Allergy Reactions Criticality Noted Date Comments Adhesive Tape-Silicones Rash Low 02/24/2017 Sensitive skin redness and irritation at site of use Chlorhexidine Rash Medium 04/08/2024 Chloroprep Pregabalin Swelling Medium 07/15/2016 Oxycodone-Acetaminophen Swelling Medium 07/15/2016 Medications nabumetone (RELAFEN) 500 mg tablet Take 1 tablet (500 mg total) by mouth as needed in the morning and 1 tablet (500 mg total) as needed in the evening. 07/22/2021 Active baclofen (LIORESAL) 10 mg tablet Take 2 tablets (20 mg total) by mouth in the morning and 2 tablets (20 mg total) at noon and 2 tablets (20 mg total) before bedtime. 09/04/2021 Active VRAYLAR 3 mg capsule Take 1 capsule (3 mg total) by mouth in the morning. 05/19/2023 Active FLUoxetine (PROzac) 10 mg capsule Take 1 capsule (10 mg total) by mouth in the morning. Active busPIRone (BUSPAR) 5 mg tablet Take 1 tablet (5 mg total) by mouth in the morning and 1 tablet (5 mg total) before bedtime. 07/14/2023 Active Active Problems Problem Noted Date Diagnosed Date Thoracic spondylosis without myelopathy 12/09/19 Cervical spondylosis without myelopathy 01/30/20 22 Stenosis of cervical spine 12/24/2021 Cervical radiculopathy 12/24/2021 Lumbar disc displacement without myelopathy 10/14 Overview (10/30/2021): Added automatically from request for surgery [id number] Disorder of sacrum 07/31/2021 Lumbar spine pain 07/31/2021 Lumbar neuritis 07/31/2021 Degenerative disc disease, cervical 02/23/2017 Resolved Problems Problem Noted Date Diagnosed Date Resolved Date Current smoker 02/24/2017 02/24/2017 Encounters Date Type Department Care Team Description 08/03/2024 2:15 PM EDT Office Visit [facility] [address] [place] [address] Patria Li, ASPEN Thoracic spondylosis without myelopathy (Primary Dx) 08/03/2024 Travel 07/01/2024 8:15 AM EDT Anesthesia Event [facility] [address] [place] [address] Vu Bryan MD [place], Jaylin Garcia, TAXI DRIVER-SWITCHGEAR REPAIRER 07/01/2024 8:15 AM EDT - 07/01/2024 8:22 AM EDT Surgery [facility] [address] [place] [address] Nazario Vaca MD INJECTION BLOCK EPIDURAL CAUDAL STEROID [14326 (CPT )] 07/01/2024 7:25 AM EDT - 07/01/2024 11:59 PM EDT Hospital Encounter [facility] - Radiology [address] [place] [address] Nazario Vaca MD Lumbar neuritis Discharge Disposition: Home 07/01/2024 7:08 AM EDT - 07/01/2024 7:24 AM EDT Hospital Encounter [facility] [address] [place] [address] Nazario Vaca MD Discharge Disposition: Home 06/15/2024 1:15 PM EDT Office Visit [facility] [address] [place] [address] Patria Li PA-C Thoracic spondylosis without myelopathy (Primary Dx); Lumbar neuritis 06/15/2024 Travel 05/25/2024 Travel from Last 3 Months Family History Medical History Relation Name Comments Anesthesia problems Brother states b rother coded during a knee surgery not sure why Heart disease Father Hyperlipidemia Father Cancer Mother Heart disease Mother Relation Name Status Comments Brother Father Alive Mother Alive Social History Tobacco Use Types Packs/Day Years Used Date Smoking Tobacco: Heavy Smoker Cigarettes 1.5 18 Smokeless Tobacco: Never Tobacco Cessation:Ready to Q uit: Not Asked; Counseling Given: Not Answered Alcohol Use Standard Drinks/Week Comments No 0 (1 standard drink = 0.6 oz pur e alcohol) Childcare Answer Date Recorded Childcare Unknown 08/25/2018 Employment Answer Date Recorded Employment Unknown 08/25/2018 Hunger Screening Answer Date Recorded Within the past 12 months we worried whether our food would run out before we got money to buy more. Never True 08/03/2024 Within the past 12 months th e food we bought just didn't last and we didn't have money to get more. Never True 08/03/2024 Purpose - Life Answer Date Recorded Purpose and direction in life Unknown Comments No Sex and Gender Information Value Date Recorded Sex Assigned at Not on file Legal Sex Female 11:32 AM EDT Gender Identity Not on file Sexual Orientation Not on file Last Filed Vital Signs Vital Sign Reading Time Taken Comments Blood Pressure 117/78 08/03/2024 2:04 PM EDT Pulse 78 08/03/2024 2:04 PM EDT Temperature 36.6 C (97.9 F) 07/01/2024 7:39 AM EDT Respiratory Rate 18 08/03/2024 2:04 PM EDT Oxygen Saturation 97% 08/03/2024 2:04 PM EDT Inhaled Oxygen Concentration - - Weight 63.5 kg (140 lb) 06/15/2024 1:17 PM EDT Height 157.5 cm (5' 2 ) 06/15/2024 1:17 PM EDT Body Mass Index 25.61 06/15/2024 1:17 PM EDT Plan of Treatment Upcoming Encounters Date Type Department Care Team (Late st Contact Info) Description 09/28/2024 2:15 PM EDT Office Visit [facility] [address] [place] [address] Patria Li PAJack [address] [place] [address] Health Maintenance Due Date Last Done Comments Tobacco Counseling 1982 Depression Screening 1994 Adult BMI Follow Up Plan 2000 DTaP,Tdap and Td Vaccines (1 - Tdap) 2001 Influenza Vaccine 11/14/2024 12/08/2014 Adult BMI Screening 06/15/2025 06/15/2024 Tobacco Screening 08/03/2025 08/03/2024 Medical Devices Implanted Type Area Driver License Examiner Device Identifier Shelf Expiration Date Model / Serial / Lot Implant Babsr Lg Bvn At Dlv Dev Bioinductive Impl Regeneten - Sna - [id number] Implanted:Qty: 1 on 12/17/2022 by Tobias Daniel DO at [facility] Mesh Left: Shoulder Lin & Nephew 02/15/2024 4566 / NA / [id number] [place] Ridge Sut Regeneten Tndn Rotr Cuf Repr - Sna - [id number] Implanted:Qty: 1 on 12/17/2022 by Tobias Daniel DO at [facility] Other Implant Left: Shoulder Lin & Nephew 04/01/2025 2504-1 / NA / [id number] Pea Ridge Sut Bn Ascp Dlv - Sna - [id number] Implanted:Qty: 1 on 12/17/2022 by Tobias Daniel DO at [facility] Other Implant Left: Shoulder Lin & Nephew 01/07/2025 4403 / NA / [id number] Pea Ridge Sut Regeneten Tndn Rotr Cuf Repr - Sna - [id number] Implanted:Qty: 1 on 12/17/2022 by Tobias Daniel DO at [facility] Other Implant Left: Shoulder Lin & Nephew 07/05/2023 2504-1 / NA / [id number] Plt Ant Cerv Xtend 1-Lev 10 - [id number] Implanted:Qty: 1 on 02/24/2017 by Costa Lozano MD at [facility] Plate Bilateral Circumferent ial: Neck Globus [id number] / / Scr Xtend 4.2x14mm Vasd - [id number] Implanted:Qty: 4 on 02/24/2017 by Costa Lozano MD at [facility] Screw Bilateral Circumferent ial: Neck Globus [id number] / / Vikos Cortico-Cancell ous Implanted:Qty: 1 on 02/24/2017 by Costa Lozano MD at [facility] Bilateral Circumferent ial: Neck [employer] 06/09/2021 2504-214 08L / / [id number] Explanted Type Area Driver License Examiner Device Identifier Shelf Expiration Date Model / Serial / Lot Pin [employer] 12 - [id number] Explanted:Qty: 2 on 02/24/2017 at [facility] Pin Bilateral Circumferenti al: Neck Globus [id number] / / Procedures Procedure Name Priority Date/Time Associated Diagnosis Comments FL FLUOROSCOPY UP TO 1 HOUR Routine 07/01/2024 8:20 AM EDT Lumbar neuritis OK NJX DX/THER SBST INTRLMNR LMBR/SAC W/IMG GDN 07/01/2024 8:15 AM EDT Lumbar neuritis Special Needs Adhesive, Chloraprep Allergy from Last 3 Months Results * Fluoroscopy less than one hour (07/01/2024 8:20 AM EDT) Narrative SYSTEMGENERATED, DOCUMENTATION - 07/01/2024 8:20 AM EDT No Reading Required. This procedure does not require a formal dictation. Non-Radiologist provider performed procedures can be reviewed under Post-Op, Procedure or Progress notes. For full report details, please reach out to your physician. Effective 07/31/2020 this image will be visible to you in [email or web address] Nazario Vaca MD IMG FLUOROSCOPY ORDERABLES Fi nal Result from Last 3 Months Insurance [facility] MEDICARE Care Teams Sales Research Analyst Relationship Specialty Start Date End Date Clare Valadez DO [address] [facility] [address] PCP - General Family Medicine 09/26/21
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
--- OUTSIDE RECORDS SUMMARY | 2024-08-24 13:20 | XMS_ITS | Encounter Summary ---
Author Organization [facility] tem Address [id number] [address] [place] [address] Care Team Providers Care Sfdc Solution Architect Name Role Phone JamilClare elder Primary Care Provider [phone] Encounter Details Date Type Department Care Team (Late st Contact Info) Description 05/14/2022 Telephone [facility] [address] [place] [phone] Deborah Garces RN Social History Tobacco Use Types Packs/Day Years [...] have Coronavirus / COVID-19? No / Unsure 04/30/2022 8:30 AM EST documented as of this encounter Miscellaneous Notes * Telephone Encounter - Deborah Garces RN - 05/14/2022 3:15 PM EST Patient called office to report that she has temperature of 99 F. She reports that she has taken a home Covid test which was negative. Patient asks if she should come for 05/16/2022 procedure as scheduled. Patient was informed that she should reschedule her procedure if she does not feel well. She states she doesn't necessarily feel sick but she has been tired. Patient advised to repeat Covid test tomorrow. She was also advised to reschedule procedure regardless of Covid status if she does not feel well as of tomorrow. PVU. documented in this encounter Plan of Treatment Upcoming Encounters Date Type Department Care Team (Late st Contact Info) Description 09/28/2024 2:15 PM EDT Office Visit [facility] [address] [place] [phone] Patria Li PALoraineC [address] [place], [place] [phone] documented as of this encounter Visit Diagnoses Not on filedocumented in this encounter Care Teams Sfdc Solution Architect Relationship Specialty Start Date End Date Clare Valadez DO [address] [place] [address] PCP - General Family Medicine 09/26/21 documented as of this encounter
--- OUTSIDE RECORDS SUMMARY | 2024-08-24 13:20 | XMS_ITS | Encounter Summary ---
Author Organization [facility] Address [address] [place] [address] Care Team Providers Care Sandfill Operator Surface Name Role Phone Lien Valadezty Unavailable [phone] Clare Valadez DO Primary Care Provider [phone] Source Comments In the event this information is protected by the Federal Confidentiality of Alcohol and Drug AbusePatient Records regulations: The Federal rules restrict any use of the information to criminally investigate or prosecute any alcohol or drug abuse patient.[facility] Encounter Details Date Type Department Care Team (Late st Contact Info) Description 10/13/2023 Patient Msg Integrative and Lifestyle Medicine [address] [place], [place] [id number] Provider, Ccf REFERRAL-CONSULT [facility] Social History Tobacco Use Types Packs/Day Years Used Date Smoking Tobacco: Every Day Cigarettes Smokeless Tobacco: Never PHQ-2 Answer Date Recorded PHQ-2 score 1 09/23/2023 Area Deprivation Index Answer Date Nba rded National Score (1-100), lower number is lower ri sk 87 07/26/2022 State Score (1-10), lower number is lower risk 8 07/26/2022 Data from: https://www.neighborhoodatlas.medicine.[facility].edu/. Last address used for calculation [address] 07/26/2022 Comments No Sex and Gender Information Value Date Recorded Sex Assigned at Not on file Legal Sex Female 9:40 PM EDT Gender Identity Not on file Sexual Orientation Not on file documented as of this encounter Plan of Treatment Upcoming Encounters Date Type Department Care Team (Late st Contact Info) Description 09/02/2024 3:00 PM EDT [facility] [address] [place] [address] Paulina Mon, PhD [address] [place] [address] fmd documented as of this encounter Visit Diagnoses Not on filedocumented in this encounter Care Teams Sandfill Operator Surface Relationship Specialty Start Date End Date Clare Valadez DO [address] [place] [address] PCP - General Family Medicine 01/10/22 Clare Valadez DO [address] [place] [address] Referring Family Medicine 01/07/22 documented as of this encounter
--- OUTSIDE RECORDS SUMMARY | 2024-08-24 13:20 | XMS_ITS | Referral Summary ---
Author Organization [facility] Address [address] [place] [address] Care Team Providers Care Computer Science Instructor Name Role Phone Clare Valadez DO Primary Care Provider [phone] Allergies Active Allergy Reactions Criticality Noted Date Comments Oxycodone-Acetaminophe n Anaphylaxis,Other,Swe lling High 01/16/2010 Other Reaction(s): Unknown Pregabalin Anaphylaxis,Other,Sw e lling High 02/22/2016 Other Reaction(s): Unknown Medications baclofen (Lioresal) 20 mg tablet 20 mg 1 (one) time each day. 05/11/2023 Active Vraylar 3 mg capsule Take by mouth in the morning. 05/19/2023 Active FLUoxetine (PROzac) 10 mg capsule Take by mouth in the morning. 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), with abnormal movement 12/08/2022 06/03/2023 Impingement syndrome of left shoulder 12/08/2022 06/03/2023 Incomplete rotator cuff tear or rupture of left shoulder, not specified as traumatic 12/08/2022 06/03/2023 Internal derangement of left shoulder 12/08/2022 06/03/2023 POTS (postural orthostatic tachycardia syndrome) 12/08/2022 06/03/2023 Cervical spondylosis without myelopathy 01/30/2006/03/2023 Cervical radiculopathy 12/24/2021 Lumbar disc displacement without myelopathy 10/1406/03/2023 Overview (06/03/2023): Added automatically from request for surgery [id number] Disorder of sacrum 07/31/2021 06/03/2023 Lumbar neuritis 07/31/2021 06/03/2023 Lumbar spine pain 07/31/2021 06/03/2023 Contracture, left hand 02/20/2021 Skin sensation disturbance 02/20/202106/02 Dizziness 11/06/2017 06/03/2023 Edema of lower extremity 11/06/2017 024 Syncope 11/06/2017 06/03/2023 Social History Tobacco Use Types Packs/Day Years Used Date Smoking Tobacco: Every Day Cigarettes Smokeless Tobacco: Never Tobacco Cessation:Ready to Q uit: Not Asked; Counseling Given: Not Answered Alcohol Use Standard Drinks/Week Comments Yes 0 (1 standard drink = 0.6 oz pur e alcohol) occasional [place] Safety & Environment Answer Date Rec orded Fear of Current or Ex-Partner Not on file Emotionally Abused Not on file 05/19/2023 Physically Abused Not on file 05/19/2023 Sexually Abused Not on file 05/19/2023 Physically or Sexually Abused Not on file Comments Unknown Sex and Gender Information Value Date Recorded Sex Assigned at Not on file Legal Sex Female 12:07 AM EDT Gender Identity Not on file Sexual Orientation Not on file Last Filed Vital Signs Vital Sign Reading Time Taken Comments Blood Pressure 118/80 01/14/2024 2:55 PM EDT Pulse 66 01/14/2024 2:55 PM EDT Temperature - - Respiratory Rate 16 07/14/2023 2:19 PM EDT Oxygen Saturation 96% 01/14/2024 2:55 PM EDT Inhaled Oxygen Concentration - - Weight 65.3 kg (144 lb) 01/14/2024 2:55 PM EDT Height 157.5 cm (5' 2 ) 01/14/2024 2:55 PM EDT Body Mass Index 26.34 01/14/2024 2:55 PM EDT Plan of Treatment Not on file Insurance [facility] Care Teams Computer Science Instructor Relationship Specialty Start Date End Date Clare Valadez DO [address] [place] [phone] PCP - General 06/02/23
--- OUTSIDE RECORDS SUMMARY | 2024-08-24 13:21 | XMS_ITS | Encounter Summary ---
Author Organization [facility] Address [address] [place] [address] Care Team Providers Care Beck Operator Name Role Phone JamilClare elder Unavailable [phone] Clare Valadez DO Primary Care Provider [phone] Source Comments In the event this information is protected by the Federal Confidentiality of Alcohol and Drug AbusePatient Records regulations: The Federal rules restrict any use of the information to criminally investigate or prosecute any alcohol or drug abuse patient.[facility] Encounter Details Date Type Department Care Team (Late st Contact Info) Description 05/23/2022 Patient Msg Neurological [facility] [address] [place] [address] FurJocelyn vargas, HEATING SYSTEMS INSTALLER [address] [place] [address] Physical therapy options Social History Tobacco Use Types Packs/Day Years Used Date Smoking Tobacco: Every Day Cigarettes Smokeless Tobacco: Never PHQ-2 Answer Date Recorded PHQ-2 score 4 05/21/2022 Area Deprivation Index Answer Date Nba rded National Score (1-100), lower number is lower ri sk 74 03/29/2022 State Score (1-10), lower number is lower risk N ot on file 03/29/2022 Data from: https://www.neighborhoodatlas.medicine.[facility].edu/. Last address used for calculation [address] 03/29/2022 Comments No Sex and Gender Information Value Date Recorded Sex Assigned at Not on file Legal Sex Female 9:40 PM EDT Gender Identity Not on file Sexual Orientation Not on file documented as of this encounter Plan of Treatment Upcoming Encounters Date Type Department Care Team (Late st Contact Info) Description 09/02/2024 3:00 PM EDT [facility] [address] [place] [address] Paulina Mon, PhD [address] [place] [address] fmd documented as of this encounter Visit Diagnoses Not on filedocumented in this encounter Care Teams Beck Operator Relationship Specialty Start Date End Date Clare Valadez DO [address] [place] [address] PCP - General Family Medicine 01/10/22 Clare Valadez DO [address] [place] [address] Referring Family Medicine 01/07/22 documented as of this encounter
--- OUTSIDE RECORDS SUMMARY | 2024-08-24 13:21 | XMS_ITS | Encounter Summary ---
Author Organization [facility] Address [address] [place] [address] Care Team Providers Care Wood Crew Supervisor Name Role Phone JamilClare elder Unavailable [phone] Clare Valadez DO Primary Care Provider [phone] Source Comments In the event this information is protected by the Federal Confidentiality of Alcohol and Drug AbusePatient Records regulations: The Federal rules restrict any use of the information to criminally investigate or prosecute any alcohol or drug abuse patient.[facility] Encounter Details Date Type Department Care Team (Late st Contact Info) Description 04/19/2022 Patient Msg Neurological [facility] [address] [place] [address] Paulina Mon, PhD [address] [place] [address] Websites Social History Tobacco Use Types Packs/Day Years Used Date Smoking Tobacco: Every Day Cigarettes Smokeless Tobacco: Never PHQ-2 Answer Date Recorded PHQ-2 score 1 04/19/2022 Area Deprivation Index Answer Date Nba rded National Score (1-100), lower number is lower ri sk 74 03/29/2022 State Score (1-10), lower number is lower risk N ot on file 03/29/2022 Data from: https://www.neighborhoodatlas.[facility].edu/. Last address used for calculation [address] [...] Contact Info) Description 09/02/2024 3:00 PM EDT [facility] Neurological [facility] [address] [place] [address] Paulina Mon, PhD [address] [place] [address] fmd documented as of this encounter Visit Diagnoses Not on filedocumented in this encounter Care Teams Wood Crew Supervisor Relationship Specialty Start Date End Date Clare Valadez DO [address] [place], [place] [phone] PCP - General Family Medicine 01/10/22 Clare Valadez DO [address] [place], [place] [id number] Referring Family Medicine 01/07/22 documented as of this encounter
--- OUTSIDE RECORDS SUMMARY | 2024-08-24 13:21 | XMS_ITS | Clinical Summary ---
Author Organization [facility] Address [address] [place] [address] Care Team Providers Care Home Companion Name Role Phone Unavailable Primary Care Provider Unavailabl e Social History Tobacco Use Types Packs/Day Years Used Date Smoking Tobacco: Never Assessed Comments Unknown Sex and Gender Information Value Date Recorded Sex Assigned at Not on file Legal Sex Female 3:34 PM EST Gender Identity Not on file Sexual Orientation Not on file Plan of Treatment Not on file
--- OUTSIDE RECORDS SUMMARY | 2024-08-24 13:21 | XMS_ITS | Clinical Summary ---
Author Organization [facility] Address [address] [place] [address] Care Team Providers Care Curing Machine Operator Name Role Phone Clare Valadez DO Primary Care Provider [phone] Allergies Active Allergy Reactions Criticality Noted Date [...] (06/03/2023): Added automatically from request for surgery [id number] Disorder of sacrum 07/31/2021 06/03/2023 Lumbar neuritis 07/31/2021 06/03/2023 Lumbar spine pain 07/31/2021 06/03/2023 Contracture, left hand 02/20/2021 Skin sensation disturbance 02/20/202106/02 Dizziness 11/06/2017 06/03/2023 Edema of lower extremity 11/06/2017 024 Syncope 11/06/2017 06/03/2023 Family History Medical History Relation Name Comments Breast cancer Mother Relation Name Status Comments Mother Social History Tobacco Use Types Packs/Day Years [...] 01/14/2024 2:55 PM EDT Plan of Treatment Health Maintenance Due Date Last Done Comments Depression Screening 1994 Varicella Vaccines (1 of 2 - 13+ 2-dose series) 1995 Hepatitis B Vaccines (1 of 3 - 19+ 3-dose series) 2001 Pneumococcal Vaccine: Pediat rics (0 to 5 Years) and At-Risk Patients (6 to 64 Years) (1 of 2 - PCV) 2001 Pap Smear 2003 Adult Tetanus 2004 Cervical Cancer Screening 2012 HPV/Cotest 2012 Mammogram 2022 COVID-19 Vaccine (1 - 2023-2 5 season) 2023 Influenza Vaccine (Season Ended) 2024 12/09/19 15 Zoster Vaccines (1 of 2) 2032 HIB Vaccines Aged Out No longer eligi ble based on patient's age to complete this topic HPV Vaccines Aged Out No longer eligi ble based on patient's age to complete this topic IPV Vaccines Aged Out No longer eligi ble based on patient's age to complete this topic Meningococcal B Vaccine Aged Out No l onger eligible based on patient's age to complete this topic Meningococcal Vaccine Aged Out No refugio alley eligible based on patient's age to complete this topic Rotavirus Vaccines Aged Out No longer eligible based on patient's age to complete this topic Insurance [facility] [place] [address] Care Teams Curing Machine Operator Relationship Specialty Start Date End Date Clare Valadez DO [address] [place] [address] PCP - General 06/02/23
--- OUTSIDE RECORDS SUMMARY | 2024-08-24 13:21 | XMS_ITS | Encounter Summary ---
Author Organization [facility] tem Address [id number] [address] [place] [address] Care Team Providers Care Oriental Medicine Practitioner Name Role Phone CleiaClare portillo Rambo COLINDRES Primary Care Provider [phone] Encounter Details Date Type Department Care Team (Late st Contact Info) Description 10/31/2021 Telephone [facility] [address] [place] [phone] Deborah Garces RN Social History Tobacco Use [...] have Coronavirus / COVID-19? No / Unsure 10/30/2021 9:25 AM EDT documented as of this encounter Miscellaneous Notes * Telephone Encounter - Deborah Garces RN - 10/31/2021 9:18 AM EDT Patient calls this office today and requests to reschedule her upcoming procedure as her son has Covid. Patient's procedure is scheduled for 11/15/2021 and pre-procedural covid test is scheduled for 11/12/2021. Patient does not currently have any symptoms. She is informed that if she develops symptomsshe should notify this office HEM[facility]HA otherwise she may proceed with pre-procedural Covid testing and as ordered. Patient is informed that as long as she does not develop symptoms or test + for covid prior to upcoming appointments, she will not have to reschedule. Patient verbalized understanding. documented in this encounter Plan of Treatment Upcoming Encounters Date Type Department Care Team (Late st Contact Info) Description 09/28/2024 2:15 PM EDT Office Visit [facility] [address] [place] [phone] Patria Li, PALoraineC [address] [place], [place] [address] documented as of this encounter Visit Diagnoses Not on filedocumented in this encounter Care Teams Oriental Medicine Practitioner Relationship Specialty Start Date End Date Clare Valadez DO [address] [place], [place] [id number] PCP - General Family Medicine 09/26/21 documented as of this encounter
--- OUTSIDE RECORDS SUMMARY | 2024-08-24 13:21 | XMS_ITS | Clinical Summary ---
Author Organization [facility] Address [address] [place] [address] Care Team Providers Care Refrigerated Cargo Clerk Name Role Phone Rory Clare Primary Care Provider [phone] Anitha Luther Unavailable Allergies Active Allergy Reactions Criticality Noted Date Comments Oxycodone-Acetaminoph en Anaphylaxis,Swelling ,Other High 01/16/2010 Other Reaction(s): Unknown Pregabalin Anaphylaxis,Swelling ,Other High 02/22/2016 Other Reaction(s): Unknown Wound Dressing Adhesive Rash Low 02/24/2017 Sensitive skin redness and irritation at site of use Medications baclofen (Lioresal) 20 MG tablet 1 (one) time each day at the same time. 2 Active cetirizine (ZyrTEC) 10 MG tablet Take 10 mg by mouth Daily as needed. 2 Active APPLE CIDER VINEGAR PO Apple Cider Vinegar Active Probiotic Product (PROBIOTIC BLEND PO) Probiotic Active Sodium Hyaluronate, oral, (HYALURONIC ACID PO) Hyaluronic Acid Acti ve Multiple Vitamins-Minera ls (MULTIVITAMIN ADULTS PO) Multivitamin Active Biotin w/ Vitamins C & E (Hair Skin & Nails Gummies) 1250-7.5-7.5 MCG-MG-UNT chewable tablet Hair Skin & Nails Gummies Active ascorbic acid (Vitamin C) 100 MG chewable tablet Vitamin C Active cyclobenzaprine (Flexeril) 5 MG tablet Take 5 mg by mouth in the morning and 5 mg in the evening and 5 mg before bedtime. Active nabumetone (Relafen) 500 MG tablet Take 500 mg by mouth in the morning and 500 mg before bedtime. Active fluticasone (Flonase) 50 MCG/ACT nasal spray Administer 1 spray into each nostril in the morning. Shake gently. Before first use, prime pump. After use, clean tip and replace cap.. Active Melatonin 10 MG capsule Take 1 capsule by mouth at bedtime. Active Vraylar 1.5 MG capsule Take 1 capsule by mouth in the morning. 4 Active FLUoxetine (PROzac) 10 MG capsule Take 10 mg by mouth Daily Active busPIRone (Buspar) 5 MG tablet Take 5 mg by mouth in the morning and 5 mg before bedtime. 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), with abnormal movement 12/08/2022 Impingement syndrome of left shoulder 12/08/2022 Incomplete rotator cuff tear or rupture of left shoulder, not specified as traumatic 12/08/2022 Internal derangement of left shoulder 12/08/2022 POTS (postural orthostatic tachycardia syndrome) 12/08/2022 Cervical spondylosis without myelopathy 01/30/20 Cervical radiculopathy 12/24/2021 Stenosis of cervical spine 12/24/2021 Lumbar disc displacement without myelopathy 10/14 Overview (12/08/2022): Added automatically from request for surgery [id number] Disorder of sacrum 07/31/2021 Lumbar neuritis 07/31/2021 Lumbar spine pain 07/31/2021 Contracture, left hand 02/20/2021 Skin sensation disturbance 02/20/2021 Edema of lower extremity 11/06/2017 Syncope 11/06/2017 Degenerative disc disease, cervical 02/23/2017 Encounters Date Type Department Care Team Description 05/30/2024 2:00 PM EDT Office Visit [facility] [address] [facility] [place] [phone] Anitha Luther PA Involuntary movements (Primary Dx); History of cervical spinal surgery; Poor sleep hygiene; Episodic lightheadedness 05/30/2024 Bamboo flowsheet [facility] [address] [place] [phone] Anitha Luther PA from Last 3 Months Immunizations Immunization Administration Dates Next Due Influenza, injectable, quadrivalent, preservativ e free 12/08/2014 Family History Medical History Relation Name Comments Heart attack Father Heart disease Father Hypertension Father POTS Father Diabetes Maternal Grandfather Hypertension Maternal Grandfather Diabetes Maternal Grandmother Hypertension Maternal Grandmother Breast cancer Mother Cancer Mother Heart disease Mother Heart stents Hypertension Mother Cancer Paternal Grandfather Diabetes Paternal Grandfather Hypertension Paternal Grandfather Cancer Paternal Grandmother Relation Name Status Comments Brother Alive Father Alive Maternal Grandfather Maternal Grandmother Mother Alive Paternal Grandfather Paternal Grandmother Social History Tobacco Use Types Packs/Day Years [...] drink containing alc ohol? Monthly or less 03/25/2023 Q2: How many drinks containi ng alcohol do you have on a typical day when you are drinking? 1 or 2 03/25/2023 Q3: How often do you have si x or more drinks on one occasion? Never 03/25/2023 Education Answer Date Recorded What is the [...] Sign Reading Time Taken Comments Blood Pressure 114/68 05/30/2024 1:48 PM EDT Pulse 68 05/30/2024 1:48 PM EDT Temperature - - Respiratory Rate 16 04/13/2024 2:03 PM EST Oxygen Saturation 96% 05/30/2024 1:48 PM EDT Inhaled Oxygen Concentration - - Weight 65.3 kg (144 lb) 05/30/2024 1:48 PM EDT Height 157.5 cm (5' 2 ) 05/30/2024 1:48 PM EDT Body Mass Index 26.34 05/30/2024 1:48 PM EDT Plan of Treatment Upcoming Encounters Date Type Department Care Team (Late st Contact Info) Description 04/12/2025 2:00 PM EST Office Visit [facility] [address] [place] [address] Kenrick Worthy MD [address] [place] [address] 05/11/2025 1:10 PM EST Office Visit [facility] [address] [place] [address] Shira Grewal, SEPIDEH-SOLUTION DESIGN AND ANALYSIS MANAGER [address] [place] [address] Insurance [facility] Care Teams Refrigerated Cargo Clerk Relationship Specialty Start Date End Date Clare Valadez DO [address] [facility] [address] PCP - General Family Medicine 12/09/22 Anitha Luther PA [address] [place] [address] Physician Intermediate Accountant Neurology 05/30/24
--- OUTSIDE RECORDS SUMMARY | 2024-08-24 13:21 | XMS_ITS | Encounter Summary ---
Author Organization [facility] tem Address [id number] [address] [place] [address] Care Team Providers Care Commercial Center Manager Name Role Phone PrabhjotClare dias DO Primary Care Provider [phone] Encounter Details Date Type Department Care Team (Late Contact Info) Description 04/08/2023 Orders Only [facility] [address] [place] [id number] Ref Prov, [place] [address] Social History Tobacco Use Types Packs/Day Years [...] got money to buy more. Never True 03/18/2023 Within the past 12 months th e food we bought just didn't last and we didn't have money to get more. Never True 03/18/2023 Purpose - Life Answer Date Recorded Purpose [...] Description 09/28/2024 2:15 PM EDT Office Visit [facility] [address] [place] [id number] Patria Li, PA-C [address] [place], [place] [id number] documented as of this encounter Visit Diagnoses Not on filedocumented in this encounter Care Teams Commercial Center Manager Relationship Specialty Start Date End Date Clare Valadez DO [address] [place] [address] PCP - General Family Medicine 09/26/21 documented as of this encounter
--- OUTSIDE RECORDS SUMMARY | 2024-08-24 13:21 | XMS_ITS | Encounter Summary ---
Author Organization [facility] Address [address] [place] [address] Care Team Providers Care Lombardi Developer Name Role Phone CeliaClare portillo Unavailable [phone] Clare Valadez DO Primary Care Provider [phone] Source Comments In the event this information is protected by the Federal Confidentiality of Alcohol and Drug AbusePatient Records regulations: The Federal rules restrict any use of the information to criminally investigate or prosecute any alcohol or drug abuse patient.[facility] Encounter Details Date Type Department Care Team (Late st Contact Info) Description 06/22/2023 Get Medical Advice [facility] [address] [place] [address] Casie William, PT [address] [place] [address] Intensive therapy Social History Tobacco Use Types Packs/Day Years Used Date Smoking Tobacco: Every Day Cigarettes Smokeless Tobacco: Never PHQ-2 Answer Date Recorded PHQ-2 score 1 04/13/2023 Area Deprivation Index Answer Date Nba rded National Score (1-100), lower number is lower ri sk 87 07/26/2022 State Score (1-10), lower number is lower risk 8 07/26/2022 Data from: https://www.neighborhoodatlas.medicine.[facility].edu/. Last address used for calculation [address] [...] Contact Info) Description 09/02/2024 3:00 PM EDT [facility] [address] [facility] [place] [address] Paulina Mon, PhD [address] [place] [address] fmd documented as of this encounter Visit Diagnoses Not on filedocumented in this encounter Care Teams Lombardi Developer Relationship Specialty Start Date End Date Clare Valadez DO [address] [place] [address] PCP - General Family Medicine 01/10/22 Clare Valadez DO [address] [place] [address] Referring Family Medicine 01/07/22 documented as of this encounter
--- OUTSIDE RECORDS SUMMARY | 2024-08-24 13:21 | XMS_ITS | Encounter Summary ---
Author Organization [facility] Address [address] [place] [address] Care Team Providers Care Venetian Blind Installer Name Role Phone Rory Clare Unavailable Clare Valadez DO Primary Care Provider Source Comments In the event this information is protected by the Federal Confidentiality of Alcohol and Drug AbusePatient Records regulations: The Federal rules restrict any use of the information to criminally investigate or prosecute any alcohol or drug abuse patient.[facility] Encounter Details Date Type Department Care Team (Late st Contact Info) Description 07/03/2022 Patient Msg Neurology [address] [place] [address] Provider, Ccf Schedule follow up appointment with Dr. Mon Social History Tobacco Use Types Packs/Day Years Used Date Smoking Tobacco: Every Day Cigarettes Smokeless Tobacco: Never PHQ-2 Answer Date Recorded PHQ-2 score 6 07/02/2022 Area Deprivation Index Answer Date Nba rded National Score (1-100), lower number is lower ri sk 74 03/29/2022 State Score (1-10), lower number is lower risk N ot on file 03/29/2022 Data from: https://www.neighborhoodatlas.medicine.[facility].edu/. Last address used for calculation [address] [...] 09/02/2024 3:00 PM EDT [facility] [address] [place] [address] Paulina Mon, PhD [address] [place] [address] fmd documented as of this encounter Visit Diagnoses Not on filedocumented in this encounter Care Teams Venetian Blind Installer Relationship Specialty Start Date End Date Clare Valadez DO [address] [place] [address] PCP - General Family Medicine 01/10/22 Clare Valadez DO [address] [place] [address] Referring Family Medicine 01/07/22 documented as of this encounter
--- OUTSIDE RECORDS SUMMARY | 2024-08-24 13:21 | XMS_ITS | Encounter Summary ---
Author Organization [facility] Address [address] [place] [address] Care Team Providers Care Mold Washer Name Role Phone CeliaClare portillo Unavailable [phone] Clare Valadez DO Primary Care Provider Source Comments In the event this information is protected by the Federal Confidentiality of Alcohol and Drug AbusePatient Records regulations: The Federal rules restrict any use of the information to criminally investigate or prosecute any alcohol or drug abuse patient.[facility] Encounter Details Date Type Department Care Team (Late st Contact Info) Description 05/27/2022 Patient Msg Neurology [address] [place] [address] Provider, Ccf Virtual Shared Medical Appointment - FMD Education Social History Tobacco Use Types Packs/Day Years Used Date Smoking Tobacco: Every Day Cigarettes Smokeless Tobacco: Never PHQ-2 Answer Date Recorded PHQ-2 score 4 05/21/2022 Area Deprivation Index Answer Date Nba rded National Score (1-100), lower number is lower ri sk 74 03/29/2022 State Score (1-10), lower number is lower risk N ot on file 03/29/2022 Data from: https://www.neighborhoodatlas.medicine.[facility].edu/. Last address used for calculation [address] [...] 09/02/2024 3:00 PM EDT [facility] [address] [place] [address] Paulina Mon, PhD [address] [place] [address] fmd documented as of this encounter Visit Diagnoses Not on filedocumented in this encounter Care Teams Mold Washer Relationship Specialty Start Date End Date Clare Valadez DO [address] [place], [place] [id number] PCP - General Family Medicine 01/10/22 Clare Valadez DO [address] [place] [address] Referring Family Medicine 01/07/22 documented as of this encounter
--- OUTSIDE RECORDS SUMMARY | 2024-08-24 13:21 | XMS_ITS | Encounter Summary ---
Author Organization [facility] Address [address] [place] [address] Care Team Providers Care Organizational Development Consultant Name Role Phone PrabhjotClare dias DO Unavailable [phone] Clare Valadez DO Primary Care Provider [phone] Source Comments In the event this information is protected by the Federal Confidentiality of Alcohol and Drug AbusePatient Records regulations: The Federal rules restrict any use of the information to criminally investigate or prosecute any alcohol or drug abuse patient.[facility] Encounter Details Date Type Department Care Team (Late st Contact Info) Description 06/03/2022 Patient Msg [facility] [address] [place] [address] Sandy Overton, NILSA [address] [place] [id number] Message to contact Sandy in PT Social History Tobacco Use Types Packs/Day Years Used Date Smoking Tobacco: Every Day Cigarettes Smokeless Tobacco: Never PHQ-2 Answer Date Recorded PHQ-2 score 4 05/21/2022 Area Deprivation Index Answer Date Nba rded National Score (1-100), lower number is lower ri sk 74 03/29/2022 State Score (1-10), lower number is lower risk N ot on file 03/29/2022 Data from: https://www.neighborhoodatlas.medicine.[facility].edu/. Last address used for calculation [...] Contact Info) Description 09/02/2024 3:00 PM EDT [facility] [address] [place] [address] Paulina Mon, PhD [address] [place] [address] fmd documented as of this encounter Visit Diagnoses Not on filedocumented in this encounter Care Teams Organizational Development Consultant Relationship Specialty Start Date End Date Clare Valadez DO [address] [place] [address] PCP - General Family Medicine 01/10/22 Clare Valadez DO [address] [place], [place] [address] Referring Family Medicine 01/07/22 documented as of this encounter
--- OUTSIDE RECORDS SUMMARY | 2024-08-24 13:21 | XMS_ITS | Clinical Summary ---
Author Organization [facility] Address [facility] [place] [address] Care Team Providers Care Senior Licensing Manager Name Role Phone Clare Valadez DO Unavailable [phone] Clare Valadez DO Primary Care Provider [phone] Allergies Active Allergy Reactions Criticality Noted Date Comments Oxycodone-Acetaminophen Anaphylaxis,Swelling Medium Pregabalin Anaphylaxis,Swelling Medium 02/22/2016 Medications baclofen (LIORESAL) 20 mg tablet TAKE 1 TABLET BY MOUTH TWICE A DAY NEEDED FOR 90 DAYS 12/18/2021 Active busPIRone (BUSPAR) 5 mg tablet Take 1 tablet by mouth two times a day. 09/23/2023 Active FLUoxetine (PROZAC) 10 mg capsule Take 1 capsule by mouth once daily. 09/23/2023 Active cariprazine (VRAYLAR) 3 mg capsule Take 1 capsule by mouth once daily. 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); Chronic low back pain, unspecified back pain laterality, unspecified whether sciatica present; Depression, unspecified depression type; Brain fog 05/24/2024 Travel from Last 3 Months Social History Tobacco Use Types Packs/Day Years Used Date Smoking Tobacco: Every Day Cigarettes Smokeless Tobacco: Never Tobacco Cessation:Ready to Q uit: Not Asked; Counseling Given: Not Answered PHQ-2 Answer Date Recorded PHQ-2 score 2 05/24/2024 Area Deprivation Index Answer Date Nba rded National Score (1-100), lower number is lower ri sk 87 07/26/2022 State Score (1-10), lower number is lower risk 8 07/26/2022 Data from: https://www.neighborhoodatlas.medicine.[facility]/. Last address used for calculation [address] 07/26/2022 Comments No Sex and Gender Information Value Date Recorded Sex Assigned at Not on file Legal Sex Female 9:40 PM EDT Gender Identity Not on file Sexual Orientation Not on file Last Filed Vital Signs Vital Sign Reading Time Taken Comments Blood Pressure 102/74 06/22/2023 12:00 PM EDT Pulse 74 06/22/2023 12:00 PM EDT Temperature - - Respiratory Rate - - Oxygen Saturation 97% 05/21/2022 12:46 PM EST Inhaled Oxygen Concentration - - Weight 64 kg (141 lb) 04/11/2022 2:59 PM EST Height 157.5 cm (5' 2 ) 04/11/2022 2:59 PM EST Body Mass Index 25.79 04/11/2022 2:59 PM EST Plan of Treatment Upcoming Encounters Date Type Department Care Team (Late st Contact Info) Description 09/02/2024 3:00 PM EDT [facility] [address] [facility] [place] [place] [address] Paulina Mon, PhD [address] [facility] [address] fmd Health Maintenance Due Date Last Done Comments Anxiety Screening 2000 Depression Screening 2000 HIV Screening 2000 Hepatitis C Screening 2000 DTaP,Tdap,Td Vaccine (1 - Tdap) 2001 Hepatitis B Vaccine (1 of 3 - 19+ 3-dose series) 2001 Pneumococcal Vaccine (1 of 2 - PCV) 2001 Cervical Cancer Screening 2003 Mammogram Screening 2022 Covid-19 Vaccine ( season) 2023 Influenza Vaccine (Season Ended) 2024 12/09/19 15, 12/16/2011 Insurance [facility] [employer] Care Teams Senior Licensing Manager Relationship Specialty Start Date End Date Clare Valadez DO [address] [place] [place] [id number] PCP - General Family Medicine 01/10/22 Clare Valadez DO [address] [place] [address] Referring Family Medicine 01/07/22
--- OUTSIDE RECORDS SUMMARY | 2024-08-24 13:21 | XMS_ITS | Encounter Summary ---
Author Organization [facility] Address [address] [place] [address] Care Team Providers Care Surgical Consultant Name Role Phone JamilClare elder Unavailable [phone] Clare Valadez DO Primary Care Provider [phone] Source Comments In the event this information is protected by the Federal Confidentiality of Alcohol and Drug AbusePatient Records regulations: The Federal rules restrict any use of the information to criminally investigate or prosecute any alcohol or drug abuse patient.[facility] Encounter Details Date Type Department Care Team (Late st Contact Info) Description 05/27/2024 Patient [facility] [address] [place] [id number] Provider, Ccf Appointment Social History Tobacco Use Types Packs/Day Years Used Date Smoking Tobacco: Every Day Cigarettes Smokeless Tobacco: Never PHQ-2 Answer Date Recorded PHQ-2 score 2 05/24/2024 Area Deprivation Index Answer Date Nba rded National Score (1-100), lower number is lower ri sk 87 07/26/2022 State Score (1-10), lower number is lower risk 8 07/26/2022 Data from: https://www.neighborhoodatlas.medicine.[facility].edu/. Last address used for calculation [address] 07/26/2022 Comments No Sex and Gender Information Value Date Recorded Sex Assigned at Not on file Legal Sex Female 9:40 PM EDT Gender Identity Not on file Sexual Orientation Not on file documented as of this encounter Plan of Treatment Upcoming Encounters Date Type Department Care Team (Late st Contact Info) Description 09/02/2024 3:00 PM EDT [facility] [address] [place] [address] Paulina Mon, PhD [address] [place] [address] fmd documented as of this encounter Visit Diagnoses Not on filedocumented in this encounter Care Teams Surgical Consultant Relationship Specialty Start Date End Date Clare Valadez DO [address] [place] [address] PCP - General Family Medicine 01/10/22 Clare Valadez DO [address] [place] [address] Referring Family Medicine 01/07/22 documented as of this encounter
--- OUTSIDE RECORDS SUMMARY | 2024-08-24 13:21 | XMS_ITS | Encounter Summary ---
Author Organization [facility] Address [address] [place] [address] Care Team Providers Care Hiv Nurse Name Role Phone Lien Valadezty Unavailable [phone] Clare Valadez DO Primary Care Provider [phone] Source Comments In the event this information is protected by the Federal Confidentiality of Alcohol and Drug AbusePatient Records regulations: The Federal rules restrict any use of the information to criminally investigate or prosecute any alcohol or drug abuse patient.[facility] Encounter Details Date Type Department Care Team (Late st Contact Info) Description 09/23/2023 Patient Msg Neurology [address] [place] [address] Provider, Ccf Movement follow up appointment Social History Tobacco Use Types Packs/Day Years Used Date Smoking Tobacco: Every Day Cigarettes Smokeless Tobacco: Never PHQ-2 Answer Date Recorded PHQ-2 score 1 09/23/2023 Area Deprivation Index Answer Date Nba rded National Score (1-100), lower number is lower ri sk 87 07/26/2022 State Score (1-10), lower number is lower risk 8 07/26/2022 Data from: https://www.neighborhoodatlas.medicine.[facility].edu/. Last address used for calculation [...] Contact Info) Description 09/02/2024 3:00 PM EDT [facility] [address] [place] [address] Paulina Mon, PhD [address] [place] [address] fmd documented as of this encounter Visit Diagnoses Not on filedocumented in this encounter Care Teams Hiv Nurse Relationship Specialty Start Date End Date Clare Valadez DO [address] [place] [address] PCP - General Family Medicine 01/10/22 Clare Valadez DO [address] [place] [address] Referring Family Medicine 01/07/22 documented as of this encounter
--- OUTSIDE RECORDS SUMMARY | 2024-08-24 13:21 | XMS_ITS | Encounter Summary ---
Author Organization [facility] Address [address] [place] [address] Care Team Providers Care C Application Developer Name Role Phone CeliaClare portillo Unavailable [phone] Clare Valadez DO Primary Care Provider [phone] Source Comments In the event this information is protected by the Federal Confidentiality of Alcohol and Drug AbusePatient Records regulations: The Federal rules restrict any use of the information to criminally investigate or prosecute any alcohol or drug abuse patient.[facility] Encounter Details Date Type Department Care Team (Late st Contact Info) Description 09/16/2023 Get Medical Advice [facility] [address] [place] [address] Casie William, PT [address] [place] [address] Intensive therapy Social History Tobacco Use Types Packs/Day Years Used Date Smoking Tobacco: Every Day Cigarettes Smokeless Tobacco: Never PHQ-2 Answer Date Recorded PHQ-2 score 1 04/13/2023 Area Deprivation Index Answer Date Nba rded National Score (1-100), lower number is lower ri sk 87 07/26/2022 State Score (1-10), lower number is lower risk 8 07/26/2022 Data from: https://www.neighborhoodatlas.medicine.[facility].edu/. Last address used for calculation [address] [...] Contact Info) Description 09/02/2024 3:00 PM EDT [facility] Neurological [facility] [address] [facility] [place] [address] Paulina Mon, PhD [address] [place] [address] fmd documented as of this encounter Visit Diagnoses Not on filedocumented in this encounter Care Teams C Application Developer Relationship Specialty Start Date End Date Clare Valadez DO [address] [place] [address] PCP - General Family Medicine 01/10/22 Clare Valadez DO [address] [place] [address] Referring Family Medicine 01/07/22 documented as of this encounter
--- OUTSIDE RECORDS SUMMARY | 2024-08-24 13:21 | XMS_ITS | Encounter Summary ---
Author Organization [facility] Address [address] [place] [address] Care Team Providers Care Hogshead Inspector Name Role Phone JamilClare elder Unavailable [phone] Clare Valadez DO Primary Care Provider [phone] Source Comments In the event this information is protected by the Federal Confidentiality of Alcohol and Drug AbusePatient Records regulations: The Federal rules restrict any use of the information to criminally investigate or prosecute any alcohol or drug abuse patient.[facility] Encounter Details Date Type Department Care Team (Late st Contact Info) Description 05/23/2022 Patient [facility] [address] [place] [id number] Provider, Ccf Consult to Outpatient Therpay Social History Tobacco Use Types Packs/Day Years Used Date Smoking Tobacco: Every Day Cigarettes Smokeless Tobacco: Never PHQ-2 Answer Date Recorded PHQ-2 score 4 05/21/2022 Area Deprivation Index Answer Date Nba rded National Score (1-100), lower number is lower ri sk 74 03/29/2022 State Score (1-10), lower number is lower risk N ot on file 03/29/2022 Data from: https://www.neighborhoodatlas.medicine.[facility].edu/. Last address used for calculation [address] 03/29/2022 Comments No Sex and Gender Information Value Date Recorded Sex Assigned at Not on file Legal Sex Female 9:40 PM EDT Gender Identity Not on file Sexual Orientation Not on file documented as of this encounter Plan of Treatment Upcoming Encounters Date Type Department Care Team (Late st Contact Info) Description 09/02/2024 3:00 PM EDT [facility] [address] [place] [address] Paulina Mon, PhD [address] [place] [address] fmd documented as of this encounter Visit Diagnoses Not on filedocumented in this encounter Care Teams Hogshead Inspector Relationship Specialty Start Date End Date Clare Valadez DO [address] [place], [place] [address] PCP - General Family Medicine 01/10/22 Clare Valadez DO [address] [place] [address] Referring Family Medicine 01/07/22 documented as of this encounter
--- OUTSIDE RECORDS SUMMARY | 2024-08-24 13:21 | XMS_ITS | Encounter Summary ---
Author Organization [facility] Address [address] [place] [address] Care Team Providers Care Public Relations Player Name Role Phone CeliaClare portillo Unavailable [phone] Clare Valadez DO Primary Care Provider [phone] Source Comments In the event this information is protected by the Federal Confidentiality of Alcohol and Drug AbusePatient Records regulations: The Federal rules restrict any use of the information to criminally investigate or prosecute any alcohol or drug abuse patient.[facility] Encounter Details Date Type Department Care Team (Late st Contact Info) Description 06/05/[address] [facility] [address] [place] [phone] Provider, Ccf Consult to Outpatient Therapy Social History Tobacco Use Types Packs/Day Years Used Date Smoking Tobacco: Every Day Cigarettes Smokeless Tobacco: Never PHQ-2 Answer Date Recorded PHQ-2 score 4 05/21/2022 Area Deprivation Index Answer Date Nba rded National Score (1-100), lower number is lower ri sk 74 03/29/2022 State Score (1-10), lower number is lower risk N ot on file 03/29/2022 Data from: https://www.neighborhoodatlas.medicine.[facility].edu/. Last address used for calculation [address] [...] Contact Info) Description 09/02/2024 3:00 PM EDT [facility] Neurological Gnosticism [address] [place] [address] Paulina Mon, PhD [address] [place] [address] fmd documented as of this encounter Visit Diagnoses Not on filedocumented in this encounter Care Teams Public Relations Player Relationship Specialty Start Date End Date Clare Valadez DO [address] [place] [address] PCP - General Family Medicine 01/10/22 Clare Valadez DO [address] [place] [address] Referring Family Medicine 01/07/22 documented as of this encounter
== END 2024-08-24 13:19 | disposition home or self-care (01) ==
LOC: MRI 13:18
DX: M25.521 Pain in right elbow (principal); M25.421 Effusion, right elbow
CPT/HCPCS: 73221